=== PATIENT | male | born 1980 | race Hispanic/Latino ===

== ENCOUNTER 2017-12-23 14:54 | Observation (INO) | payer OTHER ==
[~2017-12-23] VITALS: Ht 170.2 cm; Wt 123.8 kg
--- NOTE | 2017-12-23 15:26 | ED CARDIAC/CP/PALPITATIONS ---
History of Present Illness General Chief Complaint: Chest Pain Stated Complaint: CHEST PAIN Source: patient, old records Exam Limitations: no limitations Vital Signs & Intake/Output Vital Signs & Intake/Output Vital Signs Date Time Temp Pulse Resp B/P B/P Pulse O2 O2 Flow FiO2 Mean Ox Delivery Rate 12/25 1130 98 Room Air 12/25 0836 60 122/68 12/25 0605 98.4 59 18 122/68 97 Room Air 12/24 2222 98.1 83 18 134/60 98 Room Air 12/24 1447 70 160/82 ED Intake and Output 12/25 0000 12/24 1200 Intake Total 660 600 Output Total 400 Balance 260 600 Intake, IV 10 Intake, Oral 650 600 Number 1 Bowel Movements Output, Urine 400 Triage Note: PT TO ED FOR SHARP CHEST PAINS THAT BEGAN WHILE EATING DINNER TODAY, SMELLS STRONGLY OF MARIJUANA WITH BLOOD EYES. 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 Nothing makes the pain better or worse. He was recently admitted to [facility] for pneumonia and the flu is currently on prednisone. He admits to smoking marijuana today however denies tobacco use cocaine use or alcohol use. No abdominal pain nausea vomiting. No leg swelling. (Ghazala ZENDEJAS,Gonzalo) Allergies Coded Allergies: Iodinated Contrast- Oral and IV Dye (ANAPHYLAXIS 12/23/17) haloperidol (HIVES 12/23/17) ketorolac (From TORADOL) (HIVES, RASH 12/23/17) meperidine (From DEMEROL) (HIVES 12/23/17) milk (LACTOSE INTOLERANT 12/23/17) oxycodone (UNKNOWN 12/23/17) shellfish derived (ANAPHYLAXIS 12/23/17) Reconcile Medications Albuterol Sulfate (Proair Hfa) 90 MCG HFA.AER.AD 2 PUF INH Q6H PRN WHEEZING ( Reported) Atorvastatin Calcium 40 MG TABLET 1 TAB PO DAILY CHOLESTEROL (Reported) Clopidogrel Bisulfate (Clopidogrel) 75 MG TABLET 1 TAB PO DAILY BLOOD THINNER (Reported) Diltiazem HCl (Cardizem Cd) 240 MG CAP.ER.24H 1 CAP PO DAILY HEART/BP ( Reported) Escitalopram Oxalate 10 MG TABLET 1 TAB PO DAILY MENTAL HEALTH (Reported) Fluticasone-Salmeterol (Advair 100-50 Diskus) 100 MCG-50 MCG/DOSE BLST.W.DEV 1 PUF INH BID RESP. (Reported) Hydrochlorothiazide 12.5 MG CAPSULE 1 CAP PO DAILY BP (Reported) Ibuprofen 800 MG TABLET 1 TAB PO TID PRN chest pain Lisinopril 40 MG TABLET 1 TAB PO DAILY BP (Reported) Omeprazole 40 MG CAPSULE.DR 1 CAP PO DAILY antacid Pantoprazole Sodium 40 MG TABLET.DR 1 TAB PO DAILY GI (Reported) Prednisone 20 MG TABLET 1 TAB PO STAT asthma 40mg 2tab 12/25 -12/26 30mg 1.5tab 12/27 - 12/28 20mg 1tab 12/30 - 12/31 10mg 0.5mg 01/01 - 01/02 Rivaroxaban (Xarelto) 20 MG TABLET 1 TAB PO DAILY BLOOD THINNER (Reported) with food (Luis Solorio DO) Past History Travel History Traveled to [place] past 21 day No Medical History Any Pertinent Medical History? 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 No (Ghazala ZENDEJAS,Gonzalo) Review of Systems Review of Systems Constitutional: Reports: see HPI. Comments Review of systems: See HPI, All other systems negative. Constitutional, no chills no fever, HEENT: no sore throat no congestion Cardiovascular: chest pain , no palpitation Skin: no rashes,NO change in skin Respiratory: dyspnea no cough GI: No nausea no vomiting, no diarrhea, : No dysuria No hematuria, no frequency Muscle skeletal: No joint pain, no back pain Neurologic: , no headache Heme/endocrine: No bruising Immunology: No lymphadenopathy (Gonzalo Osorio) Physical Exam Physical Exam General Appearance: well developed/nourished, alert, awake Cardiovascular: regular rate/rhythm Comments: Well-developed well-nourished person in no acute distress HEENT: Normal EENT exam; PERRL, EOMI, HEAD is atraumatic. moist mucous membranes. Neck: Supple, normal range of motion without pain or tenderness Back: Full range of motion Cardiovascular: Regular rate and rhythms no murmurs Respiratory: Chest nontender.There were no bony deformities, no asymmetry. No respiratory distress. Patient speaking in full complete sentences. Wheezing bilaterally no rhonchi no rales Abdomen: Soft, nontender nondistended, no appreciable organomegaly. Normal bowel sounds. No rebound/guarding Extremity: No edema, full range of motion of extremities Neuro: Alert oriented x3, motor sensory normal, cranial nerves II through XII grossly intact. There were no obvious focal neurologic abnormalities. Skin: No appreciable rash on exposed skin, skin is warm and dry. Psych: Mood and affect is normal, memory and judgment is normal. Core Measures ACS in differential dx? Yes CVA/TIA Diagnosis No Sepsis Present: No Sepsis Focused Exam Completed? No (Gonzalo Osorio) Progress Differential Diagnosis: AMI, aortic dissection, atrial fibrillation, CHF/pulm edema, pericarditis, pneumonia, pneumothorax, PSVT, pulmonary embolism, unstable angina, V-fib/V-Tach Plan of Care: Orders Procedure Date/time Status HIGH SENSITIVITY CRP 12/25 0731 Complete WESTERGREN SED RATE 12/25 0731 Complete C.DIFFICILE 12/24 1720 Complete URINE DRUGS OF ABUSE 12/24 1720 Complete AEROSOL CHG 12/24 UNK Complete Current Medications Sig/Theo Start time Last Medication Dose Stop Time Status Admin Prednisone 10 MG DAILY 12/31 1000 AC 01/02 0959 Prednisone 20 MG DAILY 12/29 1000 AC 12/31 0959 Prednisone 30 MG DAILY 12/27 1000 AC 12/29 0959 Prednisone 40 MG DAILY 12/25 1000 AC 12/25 03/ 0959 0836 Hydromorphone HCl 2 MG Q6P PRN 12/25 0915 AC 12/25 (Dilaudid) 1249 Albuterol Sulfate 3 ML BID 12/24 2200 AC 12/25 (Proventil) 1129 Azithromycin 500 MG Q24H 12/24 2200 AC 12/24 (Zithromax) 2230 Dextrose/Water 250 ML (D5W) Atorvastatin Calcium 40 MG 1700 12/24 1700 AC 12/24 (Lipitor) 1838 Doxazosin Mesylate 1 MG DAILY 12/24 1315 AC 12/25 (Cardura) 0836 Budesonide/ 2 PUF BID 12/24 1000 AC 12/25 Formoterol Fumarate 0837 (SYMBICORT) Clopidogrel Bisulfate 75 MG DAILY 12/24 1000 AC 12/25 (Plavix) 0836 Diltiazem HCl 240 MG DAILY 12/24 1000 AC 12/25 (Cardizem CD) 1254 Escitalopram Oxalate 10 MG DAILY 12/24 1000 AC 12/25 (Lexapro) 0836 Hydrochlorothiazide 12.5 MG DAILY 12/24 1000 AC 12/25 (Hydrodiuril) 0836 Lisinopril 40 MG DAILY 12/24 1000 AC 12/25 (Prinivil) 0836 Rivaroxaban 20 MG DAILY 12/24 1000 AC 12/25 (Xarelto) 0835 Omeprazole 40 MG DAILY AC 12/24 0700 AC 12/25 (Prilosec) 0642 Albuterol Sulfate 2 PUF Q6H PRN 12/24 0100 AC (Ventolin) Diphenhydramine HCl 25 MG Q6P PRN 12/23 2315 AC 12/25 (Benadryl) 1149 Acetaminophen 650 MG Q6P PRN 12/23 2200 AC (Tylenol) Laboratory Tests 12/25/17 0825: C-React Prot High Sens 3.7 H, ESR Westergren 4 12/24/17 1659: ESR Westergren Cancelled Labs ordered old records reviewed patient acute nitroglycerin sublingual, morphine IV DuoNeb chest x-ray CAT scan ordered case discussed with Dr. Solorio agrees with plan Patient feeling improved after breathing treatment I spoke with Dr. Chairez who agrees with plan for repeat troponin CAT scan Case discussed with Dr. Chairez who will consult agrees with plan need for telemetry observation 1830 patient resting in no apparent distress and CAT scan patient is currently on prednisone after I discussed with him all this logically is elevated white blood cell count Diagnostic Imaging: Viewed by Me: Radiology Read, CT Scan. Discussed w/RAD: Radiology Read, CT Scan. Radiology Impression: PATIENT: EUN LARA PRESENT AGE: 37 PATIENT ACCOUNT NO: [id number] : 79 LOCATION: [facility] ORDERING PHYSICIAN: Gonzalo ZENDEJAS SERVICE DATE: 12/23/17 EXAM TYPE: CAT - CTA CHEST-PULMONARY EMBOLISM EXAMINATION: CT ANGIOGRAM OF THE CHEST WITH AND WITHOUT CONTRAST (CT PULMONARY ANGIOGRAM FOR PE) CLINICAL INFORMATION: Reason for Study:
Presumptive Dx: RO PE
Signs Symptoms: HO PE, CP DYSPNEA
COMPARISON: CT 10/31/2009, CT chest 10/30/2009 TECHNIQUE: Prior to contrast administration, noncontrast localization images were obtained. Subsequently, multidetector volumetric imaging was performed from the thoracic inlet to below the diaphragms following the administration of 80 mL Omnipaque 350 intravenous contrast. No contrast reaction reported. Sagittal, coronal, and MIP oblique sagittal reformatted images were obtained on the CT workstation, uploaded to PACS, and reviewed. Total exam dose-length product 589 mGy-cm. FINDINGS: QUALITY OF STUDY/ CONTRAST BOLUS: Satisfactory PULMONARY ARTERIES: No central or segmental pulmonary emboli. THORACIC AORTA: No aneurysm or dissection. LUNG: There are scattered patchy groundglass opacities throughout both lungs. These are slightly increased in number within the upper lobes compared to the lower lobes. There is a pulmonary nodule at the right lung base which appears new compared to the 2010 study measuring 0.6 cm size (image 51, series 3). PLEURA: No pleural effusion or pneumothorax. MEDIASTINUM: Normal heart size. No pericardial effusion. No hilar or mediastinal lymphadenopathy. No evidence of septal bowing or right heart strain. CHEST WALL/AXILLA: Moderate bilateral gynecomastia. No axillary adenopathy. OSSEOUS STRUCTURES: No acute or suspicious osseous abnormality. UPPER ABDOMEN: Unremarkable. No reflux of contrast into the hepatic veins to suggest elevated right heart pressures. IMPRESSION: 1. No pulmonary embolism. 2. Bilateral scattered groundglass airspace opacities. The differential diagnosis includes atypical infectious organisms such as CMV and pneumocystis jirovecii . Less commonly, these findings can be seen in hypersensitivity pneumonitis, diffuse alveolar hemorrhage and cryptogenic organizing pneumonia. 3. 6 mm pulmonary nodule at the right lung base. Recommend follow-up CT in 12 months. VTE: negative DICTATED BY: Alesha Sánchez MD DATE/TIME DICTATED:12/23/172028 MANAGER PROGRAMS:PRATIK DATE/TIME TRANSCRIBED:12/23/172028 CONFIDENTIAL, DO NOT COPY WITHOUT APPROPRIATE AUTHORIZATION. <Electronically signed in Other Vendor System> SIGNED BY: Alesha Sánchez MD 12/23/172037 Initial ED EKG: normal intervals, normal p-waves, normal QRS complex, normal sinus rhythm (Gonzalo Osorio) Departure Departure Time of Disposition: 2234 Disposition: STILL A PATIENT Condition: Stable Clinical Impression Primary Impression: Chest pain Qualifiers: Chest pain type: other chest pain Qualified Code: R07.89 - Other chest pain Secondary Impressions: Lung nodule, Opacity of lung on imaging study Referrals: Patient Has No Primary Care Dr Departure Forms: Customer Survey General Discharge Information Observation Note Spoke With: Keyon RIGGS,Joseytodd Physician Advisor Notified: YURI RIGGS,MARY KAY Nag[facility] Place Patient In: Non-ED OBS Care Area Rationale for Observation: My rational for observation is as follows [cardiology consult trend labs trend troponin telemetry monitoring premature discharge he be medically harmful (Gonzalo Osorio) Departure Prescriptions: Current Visit Scripts Prednisone 1 TAB PO STAT #10 TAB 40mg 2tab 12/25 -12/26 30mg 1.5tab 12/27 - 12/28 20mg 1tab 12/30 - 12/31 10mg 0.5mg 01/01 - 01/02 Omeprazole 1 CAP PO DAILY #30 CAP Ibuprofen 1 TAB PO TID PRN chest pain #30 TAB PA/STEAM HEATING INSTALLER Co-Sign Statement Statement: ED Attending supervision documentation- [X] I saw and evaluated the patient. I have also reviewed all the pertinent lab results and diagnostic results. I agree with the findings and the plan of care as documented in the PA's/STEAM HEATING INSTALLER's documentation. [] I have reviewed the ED Record and agree with the PA's/STEAM HEATING INSTALLER's documentation. [] Additions or exceptions (if any) to the PAs/STEAM HEATING INSTALLER's note and plan are summarized below: [] I've seen and personally examined the patient and I agree with the PAs evaluation. Patient has a history of pulmonary embolism and now presents with chest pain and difficulty breathing (Osmin SALAZAR,Luis Hernandez) Observation Note Spoke With: Keyon RIGGS,Stephanie PA/STEAM HEATING INSTALLER Co-Sign Statement Statement: ED Attending supervision documentation- [] I saw and evaluated the patient. I have also reviewed all the pertinent lab results and diagnostic results. I agree with the findings and the plan of care as documented in the PA's/STEAM HEATING INSTALLER's documentation. [] I have reviewed the ED Record and agree with the PA's/STEAM HEATING INSTALLER's documentation. [] Additions or exceptions (if any) to the PAs/STEAM HEATING INSTALLER's note and plan are summarized below: [] (Yuri RIGGS,Mary Kay Nagy) Critical Care Note Critical Care Note Critical Care Time: non-applicable (Gonzalo Osorio) Critical Care Note Critical Care Note Critical Care Time: non-applicable (Gonzalo Osorio)
[2017-12-23 15:30] LABS: ABSOLUTE BASOPHIL COUNT 0.1 /CUMM (0.0-0.2); ABSOLUTE EOSINOPHIL COUNT 0 /CUMM (0.0-0.7); ABSOLUTE GRANULOCYTE CT 16.5 /CUMM (1.4-6.5); ABSOLUTE LYMPH COUNT 0.5 /CUMM (1.2-3.4); ABSOLUTE MONOCYTE COUNT 0.2 /CUMM (0.10-0.60); BASOPHIL % 0.5 % (0.0-2.0); EOSINOPHIL % 0 % (0-5); GRANULOCYTE % 95.4 % (42.2-75.2); HEMATOCRIT 42.3 % (42-52); MEAN CORPUSCULAR HGB 31.9 PG (27.0-31.0); MEAN CORPUSCULAR HGB CONC 33.7 G/DL (33.0-37.0); MEAN CORPUSCULAR VOLUME 94.8 FL (80.0-94.0); MEAN PLATELET VOLUME 8.1 FL (7.4-10.4); PLATELET COUNT 258 /CUMM (130-400); RBC DISTRIBUTION WIDTH 14.1 % (11.5-14.5); RED BLOOD CELL CT 4.47 /CUMM (4.70-6.10); WHITE BLOOD CELL COUNT 17.3 /CUMM (4.8-10.8)
[2017-12-23 15:34] LABS: PT 14.8 SEC (9.4-12.5); PTT 32 SEC (25-37)
[2017-12-23] MEDS ORDERED: PROAIR HFA8.5 GM INH (18:39)
[2017-12-23] MEDS ORDERED: XARELTO20 M2 PO (18:39)
[2017-12-23] MEDS ORDERED: PANTOPRAZOLE SO40 M1 PO (18:40)
[2017-12-23] MEDS ORDERED: LISINOPRIL40 M1 PO (18:40)
[2017-12-23] MEDS ORDERED: HYDROCHLOROTH12.5 M3 PO (18:40)
[2017-12-23] MEDS ORDERED: ATORVASTATIN CA40 M1 PO (18:40)
[2017-12-23] MEDS ORDERED: PREDNISONE20 M1 PO (18:41)
[2017-12-23] MEDS ORDERED: ADVAIR 100-501 EACH INH (18:42)
[2017-12-23] MEDS ORDERED: ESCITALOPRAM OX10 MG PO (18:42)
[2017-12-23] MEDS ORDERED: CARDIZEM CD240 M1 PO (18:42)
[2017-12-23] MEDS ORDERED: CLOPIDOGREL75 M1 PO (18:43)
[2017-12-23] MEDS ORDERED: CIPRODEX OTIC7.5 ML (18:44)
[2017-12-23] MEDS ORDERED: AMOX-CLAV 875-1 EACH (18:44)
--- NOTE | 2017-12-23 20:38 | CT SCAN REPORT ---
EXAMINATION: CT ANGIOGRAM OF THE CHEST WITH AND WITHOUT CONTRAST (CT PULMONARY ANGIOGRAM FOR PE) CLINICAL INFORMATION: Reason for Study:
Presumptive Dx: RO PE
Signs Symptoms: HO PE, CP DYSPNEA
COMPARISON: CT 10/31/2009, CT chest 10/30/2009 TECHNIQUE: Prior to contrast administration, noncontrast localization images were obtained. Subsequently, multidetector volumetric imaging was performed from the thoracic inlet to below the diaphragms following the administration of 80 mL Omnipaque 350 intravenous contrast. No contrast reaction reported. Sagittal, coronal, and MIP oblique sagittal reformatted images were obtained on the CT workstation, uploaded to PACS, and reviewed. Total exam dose-length product 589 mGy-cm. FINDINGS: QUALITY OF STUDY/CONTRAST BOLUS: Satisfactory PULMONARY ARTERIES: No central or segmental pulmonary emboli. THORACIC AORTA: No aneurysm or dissection. LUNG: There are scattered patchy groundglass opacities throughout both lungs. These are slightly increased in number within the upper lobes compared to the lower lobes. There is a pulmonary nodule at the right lung base which appears new compared to the 2010 study measuring 0.6 cm size (image 51, series 3). PLEURA: No pleural effusion or pneumothorax. MEDIASTINUM: Normal heart size. No pericardial effusion. No hilar or mediastinal lymphadenopathy. No evidence of septal bowing or right heart strain. CHEST WALL/AXILLA: Moderate bilateral gynecomastia. No axillary adenopathy. OSSEOUS STRUCTURES: No acute or suspicious osseous abnormality. UPPER ABDOMEN: Unremarkable. No reflux of contrast into the hepatic veins to suggest elevated right heart pressures. IMPRESSION: 1. No pulmonary embolism. 2. Bilateral scattered groundglass airspace opacities. The differential diagnosis includes atypical infectious organisms such as CMV and pneumocystis jirovecii . Less commonly, these findings can be seen in hypersensitivity pneumonitis, diffuse alveolar hemorrhage and cryptogenic organizing pneumonia. 3. 6 mm pulmonary nodule at the right lung base. Recommend follow-up CT in 12 months. VTE: negative
--- NOTE | 2017-12-23 22:26 | History & Physical ---
Leyla RIGGS,Felipa 12/23/17 4135: General Information and HPI MD Statement: I have seen and personally examined EUN LARA and documented this H&P. The patient is a 37 year old M who presented with a patient stated chief complaint of [chest pain]. Source of Information: patient, old records Exam Limitations: no limitations History of Present Illness: 37 years old male with PMH of OH S\\P RCA stent, A. fib, hypertension, multiple PE, multiple DVT S/P IVC filter, on Xeralto, factor V Lieden mutationt, lung nodule, asthma, colitis, diverticulitis is S/P partial colectomy, presented to [place] ED complaining of chest pain which started 6 hours ago and the patient was having lunch. Patient describes the pain as sharp stabbing on the medleft side of the chest. It radiates to the right side of the chest and left mid back , 7/10 in severity, increased with lying down and deep breathing, slightly improved after taking Dilaudid in the ED. It is associated with exertional shortness of breath, dry cough, headache, sweating. -Patient also reports low-grade fever of 100 around the time this chest pain started. -Patient also endorses watery nonbloody diarrhea for 23 days, intermittent palpitations. -Patient also complains of right thigh pain and numbness but he said this is chronic condition. -The patient has been complaining of right ear fullness and decreased hearing associated with sore throat for many days for which he called his primary care doctor this morning however he had to come to the ED for his chest pain. -The patient was recently discharged from [facility] after he was treated for pneumonia and flu (type A and B as per the patient for which he received Tamiflu , antibiotic course and prednisone taper which he already finished. -Of note the patient has factor V Leyden mutation and has a history of PE 5 times and DVT 2 times he was initially treated with Coumadin and had IVC filter placed however he was switched to Xeralto to 3 month ago when the patient asked his PCP to be switched NOACs to avoid the need for frequent PT/INR monitoring. -Patient has also history of OH and had stent placed in the RCA 2 years ago in [place], a few weeks ago he had stress test done in [place] which showed some abnormality, he had cardiac cath done, which was normal as per the patient -Of note the patient has history of recurrent infection, during the past year and had to be hospitalized 3 times for pneumonia, twice for bronchitis, and was diagnosed with FLU twice, patient reports having very low immunity and getting sick kelvin easily, patient reports that he was tested for HIV long time ago and was negative. He denies any IV drug use. 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 since he moved from [place] recently ED course: -Vital signs: Blood pressure was elevated to 190/83 which subsequently decreased to 148/92, temperature 90.8, pulse ox 98 on room air, respiratory 22, pulse 82 -EKG: Normal sinus rhythm, heart rate 91, NM 91, QTC 424, QRS 82, no hyperacute T waves in V1, V2 and V3 changes -Labs: Significant for leukocytosis 17.3, with a left shift, bands 3, platelet 258, stable H&H, normal chest: No pulmonary embolus, bilateral scattered groundglass opacity suggestive of CMV or PCP,BEP normal except for glucose 196 EKG: NSR, HR: 91, QTC 424, QRS 344 Allergies/Medications Allergies: Coded Allergies: Iodinated Contrast- Oral and IV Dye (ANAPHYLAXIS 12/23/17) haloperidol (HIVES 12/23/17) ketorolac (From TORADOL) (HIVES, RASH 12/23/17) meperidine (From DEMEROL) (HIVES 12/23/17) milk (LACTOSE INTOLERANT 12/23/17) oxycodone (UNKNOWN 12/23/17) shellfish derived (ANAPHYLAXIS 12/23/17) Home Med list Albuterol Sulfate (Proair Hfa) 90 MCG HFA.AER.AD 2 PUF INH Q6H PRN WHEEZING ( Reported) Atorvastatin Calcium 40 MG TABLET 1 TAB PO DAILY CHOLESTEROL (Reported) Clopidogrel Bisulfate (Clopidogrel) 75 MG TABLET 1 TAB PO DAILY BLOOD THINNER (Reported) Diltiazem HCl (Cardizem Cd) 240 MG CAP.ER.24H 1 CAP PO DAILY HEART/BP ( Reported) Escitalopram Oxalate 10 MG TABLET 1 TAB PO DAILY MENTAL HEALTH (Reported) Fluticasone-Salmeterol (Advair 100-50 Diskus) 100 MCG-50 MCG/DOSE BLST.W.DEV 1 PUF INH BID RESP. (Reported) Hydrochlorothiazide 12.5 MG CAPSULE 1 CAP PO DAILY BP (Reported) Lisinopril 40 MG TABLET 1 TAB PO DAILY BP (Reported) Pantoprazole Sodium 40 MG TABLET.DR 1 TAB PO DAILY GI (Reported) Rivaroxaban (Xarelto) 20 MG TABLET 1 TAB PO DAILY BLOOD THINNER (Reported) with food 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" Influenza Vaccine: 06/29/17 Surgical History Surgical History: non-contributory Past Family/Social History Family History Relations & Conditions if any FATHER Psychosocial History Services at Home: None ETOH Use: occasional use Illicit Drug Use: marijuana Review of Systems Review of Systems Constitutional: Reports: chills, diaphoresis, fever, malaise, weakness. EENTM: Reports: ear pain, throat pain. Cardiovascular: Reports: chest pain, palpitations. Respiratory: Reports: cough, short of breath. GI: Reports: diarrhea, nausea. Genitourinary: Denies: no symptoms. Musculoskeletal: Denies: no symptoms. Skin: Denies: no symptoms. Exam & Diagnostic Data Last 24 Hrs of Vital Signs/I&O Vital Signs Date Time Temp Pulse Resp B/P B/P Pulse O2 O2 Flow FiO2 Mean Ox Delivery Rate 12/23 2326 98.5 85 20 180/110 95 Room Air 12/23 2210 98.0 76 22 148/92 97 Room Air 12/23 1947 98.0 82 22 190/83 12/23 1936 98.0 82 22 190/83 98 Room Air 12/23 1901 98.2 74 22 192/88 97 Room Air 12/23 1607 97.8 97 22 168/77 95 Room Air 12/23 1601 95 Room Air 12/23 1542 97 12/23 1458 98.0 102 18 181/97 94 Room Air Intake & Output 12/23 1600 12/23 0800 12/23 0000 Intake Total Output Total Balance Patient 273 lb Weight Weight Reported by Patient Measurement Method Physical Exam General Appearance Alert, Oriented X3, Cooperative, No Acute Distress Skin No Rashes, No Breakdown, No Significant Lesion HEENT Atraumatic, PERRLA, EOMI, Mucous Membr. moist/pink Neck Supple, No JVD Cardiovascular Normal S1, Normal S2, No Murmurs, irregular Lungs wide spread wheezes and decreased air entery bilateral Abdomen Normal Bowel Sounds, Soft, tender left upper quadrant Neurological Normal Speech, Strength at 5/5 X4 Ext, Normal Tone, Sensation Intact Extremities No Clubbing, No Cyanosis, right leg is slightly moreedematous than the left leg, pulses intact Vascular Normal Pulses, Pulses Symmetrical Sepsis Peripheral Pulse Location: Radial Last 24 Hrs of Labs/Bret: Laboratory Tests 12/23/172234: Troponin I < 0.01 12/23/17 1510: Anion Gap 10, Estimated GFR > 60, BUN/Creatinine Ratio 23.8, Glucose 196 H, Calcium 8.8, Total Bilirubin 0.5, AST 19, ALT 39, Alkaline Phosphatase 118, Troponin I < 0.01, Total Protein 5.7 L, Albumin 3.3 L, Globulin 2.4, Albumin/ Globulin Ratio 1.4, PT 14.8 H, INR 1.41 H, APTT 32, CBC w Diff MAN DIFF ORDERED, RBC 4.47 L, MCV 94.8 H, MCH 31.9 H, MCHC 33.7, RDW 14.1, MPV 8.1, Gran % 95.4 H, Lymphocytes % 2.7 L, Monocytes % 1.4 L, Eosinophils % 0, Basophils % 0.5, Absolute Granulocytes 16.5 H, Segmented Neutrophils 92 H, Band Neutrophils 3, Absolute Lymphocytes 0.5 L, Lymphocytes 4 L, Monocytes 1 L, Absolute Monocytes 0.2, Absolute Eosinophils 0, Absolute Basophils 0.1, Platelet Estimate ADEQUATE, Normocytic RBCs VERIFIED, Normochromic RBCs VERIFIED , Hepatitis A IgM Ab Pending, Hep Bs Antigen Pending, Hep B Core IgM Ab Conf Pending, Hepatitis C Antibody Pending, HIV 1&2 Ab Western Blot Pending Microbiology 12/23 2242 HEAD/NECK: Surveillance Culture - ORD 12/23 2239 BLOOD: Blood Culture - RECD 12/23 2229 BLOOD: Blood Culture - RECD 12/23 2215 URINE ROUT: Legionella Antigen - ORD 12/23 2215 URINE ROUT: Streptococcus pneumoniae Antigen (M - ORD 12/23 2215 URINE ROUT: Urine Culture - ORD 12/23 2215 LOWER RESP: Respiratory Culture - ORD 12/23 2215 LOWER RESP: Gram Stain - ORD 12/23 2215 STOOL: Clostridium difficile Toxin A & B - ORD 12/23 1939 NASOPHARYN: Influenza Virus A & B Rapid Smear - COMP Diagnostic Data EKG Results NSR , QTC 424, No st- t changes Other Results CTA: No PE, bilateral ground glass opacity, 6 mm right lung nodule Assessment/Plan Assessment: 37 years old male with PMH of OH S\\P RCA stent, A. fib, hypertension, multiple PE, multiple DVT S/P IVC filter, on Xeralto, factor V Lieden mutationt, lung nodule colitis, diverticulitis is S/P partial colectomy, presented to [place] ED complaining of chest pain which started 6 hours ago and the patient was having lunch. Chest pain increases with deep breathing and lying on his back which make it more pericardial versus pleural in origin. In addition the patient has recent history of hospitalization for pneumonia which make pleurisy or pericarditis more likely as the cause of his chest pain. However the patient has history of OH S/P stent for which ACS has to be ruled out with serial troponin and EKG. in addition the patient has history of recurrent PE however CTA was negative for PE only showed ground glass opacity suggestive of atypical pneumonia #Atypical chest pain: Most likely due to pleurisy versus pericarditis however the patient has history of ACS S/P stent Observe on telemetry Serial EKG and troponins to rule out ACS Obtain records from [facility] Cardiology consult appreciated Vitals every shift Pain control with Tylenol, Percocet, Dilaudid #Asthma exacerbation: has long history of asthma since It IV Solu-Medrol 40 mg every 6 IV and azithromycin TRC/nebs Pulm consult appreciated in the morning #? Atypical Pneumonia CTA showed groundglass opacities suspicious for CMV versus PCP History of recurrent infection with multiple hospitalizations Patient has remote history of IV drug abuse Check HIV, hepatitis panel Follow-up on blood culture, rapid flu, strep pneumonia and legionella ID consult appreciated in the morning for recurrent infection #Recurrent PE and DVT S/P IVC fiter on Xeralto: CTA ruled out PE Continue Xeralto 20 mg Get Doppler lower extremities to rule out DVT # Diarrhea Patient was hospitalized recently and he finished a course of antibiotic Sending stool for C. difficile #Solitary right lung nodule: CTA showed 6 mm lung nodule Will need follow-up as outpatient #Chronic medical condition: Continue home meds Heart healthy diet DVT prophylaxis with Xeralto full code As Ranked By This Provider Problem List: 1. Opacity of lung on imaging study 2. Lung nodule 3. Chest pain Qualifiers Chest pain type: other chest pain Qualified Code: R07.89 - Other chest pain Core Measures/Misc (07/15) Acute Coronary Syndrome ACS Diagnosis: No Congestive Heart Failure Congestive Heart Failure Diagnosis No Cerebrovascular Accident CVA/TIA Diagnosis: No VTE (View Protocol) VTE Risk Factors Age>40 No Mechanical VTE Prophylaxis d/t N/A MechProphylax Ordered No VTE Pharm Prophylaxis d/t NA PharmProphylax ordered Sepsis (View protocol) Sepsis Present: No RebeccaGabriel 12/24/17 0041: Resident Review Statement Resident Statement: examined this patient, discussed with operations intern, agreed with operations intern, reviewed EMR data (avail), discussed with nursing, discussed with case mgmt, reviewed images, amended to note Other Findings: This is 37 years old male with medical history of myocardial infarction S\\P RCA stent 2 years ago, A. fib, multiple pulmonary embolism and multiple DVT S/P IVC filter currently on Xeralto, factor V Lieden mutationt, lung nodule, asthma, colitis, diverticulitis is S/P partial colectomy, hypertension, history of multidrug use(cocaine), history of C. difficile, MRSA. Patient presented to the emergency department with a chief complaint of chest pain, the mid of the chest, radiating to the left side associated with shortness of breath increased with laying flat increased with sitting up associated with cough and difficulty breathing with expiratory wheezing, according to the patient the symptoms started on 6 hours prior to his presentation to the emergency department. Also he reports watery loose nonbloody daily for the past 3-4 days, patient stated that he called his primary care doctor after discharged from [facility] around 1 week when he was treated there for pneumonia and influenza A for one week ago due to ear pain and he was prescribed Augmentin antibiotic. Patient reports cardiac catheterization that was done 2-1/2 weeks ago and [place] due to abnormal EKG and stress test that was done at [facility] according to the patient the cardiac cath showed the old RCA stent, no additional stenting was done for him. Also patient reports multiple admission to the hospital due to underlying pneumonia that required IV antibiotic treatment, bronchitis, and asthma exacerbation in the past year. Patient report that last time he had the PE was around 1 year ago when he was on Coumadin, patient stated that he was changed Xarelto anticoagulation around 3-[address] scan was done in the emergency department that came back negative for pulmonary embolism, showed Bilateral scattered groundglass airspace opacities. Physical examination, lab and imaging as above. Assessment: -Chest pain/shortness of breath/wheezing: Given the patient's underlying risk factor for acute coronary syndrome despite his recent cardiac cath will need to observe the patient on rule out any underlying ACS which is least likely. His pain could be most likely pluritic due to his asthma exacerbation/bronchitis as it is associated with cough and shortness of breath. Also need to rule out atypical pneumonia pre chest CAT scan findings -Multiple infection/leukocytosis: We'll need to rule out HIV, immunodeficiency disease as the patient reports multiple infection at least in the past year more than 4 times that required hospitalization and IV antibiotic. Problem list: -Acute chest pain -Asthma exacerbation/bronchitis -Questionable atypical pneumonia/leukocytosis -Watery loose diarrhea Need to rule out C. difficile -Multiple PE and DVTs-right calf pain need to rule out DVT -Incidental finding of 6 mm lung nodule Plan: -Admit patient to telemetry floor -Vitals every shift -Serial troponin and EKG -Cardiology consultation in a.m. -IV Solu-Medrol 40 mg every 6 -Continue IV azithromycin -TRC nebs as needed, continue home inhaler -Pulmonary consultation in a.m. -Sputum culture, blood culture, urine culture and analysis, urine tox -Strep and Legionella urine antigen, obtain hepatitis panel, HIV -Obtain C. difficile stool antigen hold off on any anti-diarrhea medication for now. -Infectious disease consult in a.m. -Obtain right lower extremity venous Doppler -Obtain medical records from [facility] and primary care doctor. -Continue home medication -Heart healthy diet -Pain pathway -DVT prophylaxis on Xarelto -Full code. Keyon RIGGS, [facility] 12/24/17 0435: Attending MD Review Statement Attending Statement Attending MD Statement: examined this patient, discuss w/resident/PA/CLINICAL SOCIOLOGIST, agreed w/resident/PA/CLINICAL SOCIOLOGIST, reviewed images, amended to note Attending Assessment/Plan: 37 yo morbidly obese M with h/o CAD s/p RCA stent, Factor V Leiden deficiency, multiple PE and RLE DVT on xarelto s/p IVC filter, asthma, Afib, marijuana user, polysubstance abuse, HTN, is here for evaluation of left sided chest pain radiating to left shoulder associated with nonproductive cough and dyspnea. He was discharged from [facility] 1 week ago after being treated for pneumonia and influenza. He completed the course of antibiotics and prednisone. Per claim history, patient was prescribed prednisone 5 days ago? He also underwent a recent cardiac cath while at [facility] for an abnormal stress test, cardiac cath revealed patent stents and no occlusive disease. He reports diarrhea for the past 3 days, and he has a h/o Cdiff. He called his PCP today as he had bilateral ear pain and was prescribed Augmentin which he has not started taking yet. He has had recurrent episodes of pneumonia and asthma over the past 1 year. Vitals stable except elevated BP. Exam diffuse expiratory wheezing with rhonchi+ . Otoscopy - normal. Labs: WBC 17.3, bands 3, INR 1.41, trop neg. Chest CTA: no PE, bilateral scattered groundglass airspace opacities ?atypical pneumonia, pneumonitis, right lung base pulmonary nodule. Flu negative. EKG: sinus rhythm, old peaked T waves, no acute changes. Assessment and plan: 1. Chest pain at rest 2. H/o CAD s/p RCA stent, s/p recent cardiac cath 3. Recurrent atypical pneumonia with asthma exacerbation 4. Diarrhea rule out Cdiff 5. History of PE/DVT on xarelto 6. 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 - Obtain Pulm and ID consult - Check stool Cdiff and culture - LE doppler to rule out DVT - Continue PPI, statin, xarelto, lisinopril, HCTZ, symbicort, lexapro, cardizem and plavix - Pain management with Tylenol and dilaudid DVT ppx Xarelto. Full code. Observation Initial Note - I have personally examined EUN LARA on 12/24/17 at 0435. The disposition of EUN LARA is uncertain at this time and before a determination can be made, he requires a period of observation for the following reasons [Chest pain, atypical pneumonia]
[2017-12-23 23:27] VITALS: BP 180/110
[2017-12-24 05:29] LABS: ABSOLUTE BASOPHIL COUNT 0 /CUMM (0.0-0.2); ABSOLUTE EOSINOPHIL COUNT 0 /CUMM (0.0-0.7); ABSOLUTE GRANULOCYTE CT 15.8 /CUMM (1.4-6.5); ABSOLUTE LYMPH COUNT 0.8 /CUMM (1.2-3.4); ABSOLUTE MONOCYTE COUNT 0.2 /CUMM (0.10-0.60); BASOPHIL % 0 % (0.0-2.0); EOSINOPHIL % 0 % (0-5); GRANULOCYTE % 94.2 % (42.2-75.2); HEMATOCRIT 39.1 % (42-52); MEAN CORPUSCULAR HGB 31.1 PG (27.0-31.0); MEAN CORPUSCULAR HGB CONC 32.8 G/DL (33.0-37.0); MEAN CORPUSCULAR VOLUME 94.8 FL (80.0-94.0); MEAN PLATELET VOLUME 8.5 FL (7.4-10.4); PLATELET COUNT 247 /CUMM (130-400); RBC DISTRIBUTION WIDTH 14.1 % (11.5-14.5); RED BLOOD CELL CT 4.13 /CUMM (4.70-6.10); WHITE BLOOD CELL COUNT 16.7 /CUMM (4.8-10.8)
[2017-12-24 05:44] VITALS: BP 172/90
[2017-12-24 06:42] VITALS: BP 168/80
--- NOTE | 2017-12-24 07:20 | RADIOLOGY REPORT ---
EXAMINATION: XR PORTABLE CHEST CLINICAL INFORMATION: Evaluate for pneumonia COMPARISON: None TECHNIQUE: Portable frontal view of the chest was obtained. FINDINGS: Preliminary report had been given by Dr. Steel on 12/23/2017 Examination is limited due to patient's body habitus. Cardia mediastinal silhouette is within normal limits. Patchy atelectasis right midlung noted again. No gross consolidation. No evidence of pleural effusion. IMPRESSION: No gross evidence of acute pulmonary disease.
--- NOTE | 2017-12-24 07:26 | PN-Observation ---
See Addendum Observation Note Observation Note _ I have personally examined EUN LARA. him disposition is uncertain at this time. Before a determination can be made, he requires continued observation for the following reasons [chest pain]. Assessment/Plan Medical Assessment: 37 years old male with PMH of MN S\P RCA stent, A. fib, hypertension, multiple PE, multiple DVT S/P IVC filter, on Xeralto, factor V Lieden mutationt, lung nodule colitis, diverticulitis is S/P partial colectomy, presented to [place] ED complaining of chest pain which started 6 hours ago and the patient was having lunch. Chest pain increases with deep breathing and lying on his back which make it more pericardial versus pleural in origin. In addition the patient has recent history of hospitalization for pneumonia which make pleurisy or pericarditis more likely as the cause of his chest pain. However the patient has history of MN S/P stent for which ACS has to be ruled out with serial troponin and EKG. in addition the patient has history of recurrent PE however CTA was negative for PE only showed ground glass opacity suggestive of atypical pneumonia 12/24: Today patient continues to have chest pain. Etiology of patient's chest pain is unclear, however is unlikley to be cardiac etiology based on reproducible chest pain, negative EKG and troponins with most recent reports from [facility] showing a negative cardiac workup. Likely patient's pain is musculoskeletal in nature. Unlikely to be due to percardaditis with most recent echo normal and with negative imaging this admission. As patient has a history of GI bleed and is currently on anticoagulation, would not give NSAIDs. Patient continues to remain hypertensive likely secondary to pain. Patient was started on doxazosin per cardiology today. Patient also had one loose watery bowel movement today which was sent for c.dif. Patient's utox was negative today. CTPMP was checked today. #Hypertension: bp elevated likely secondary to pain. Patient's blood pressure has been elevated. Per cardiology doxazosin was added. Continue to monitor bp Control pain #Atypical chest pain: Most likely due to pleurisy versus pericarditis however the patient has history of ACS S/P stent Observe on telemetry Serial EKG and trops negative Records from [facility] obtained today- negative recent cardiac workup Cardiology consult appreciated Vitals every shift Pain control with Tylenol, Percocet, Dilaudid #Asthma exacerbation: IV Solu-Medrol 40 mg every 6 discontinued today. Patient started on a prednisone taper. IV azithromycin TRC/nebs #? Atypical Pneumonia CTA showed groundglass opacities suspicious for CMV versus PCP History of recurrent infection with multiple hospitalizations Patient has remote history of IV drug abuse Hepatitis panel negative, HIV negative Utox negative Follow-up on blood culture, rapid flu, strep pneumonia and legionella #Recurrent PE and DVT S/P IVC fiter on Xeralto: CTA ruled out PE Continue Xeralto 20 mg Doppler lower extremities to rule out # Diarrhea Patient was hospitalized recently and he finished a course of antibiotic Patient had one episode of loose stool today. It was sent for C. difficile. #Solitary right lung nodule: CTA showed 6 mm lung nodule Will need follow-up as outpatient #Chronic medical condition: Continue home meds Heart healthy diet DVT prophylaxis with Xeralto full code Problem List: 1. Chest pain Qualifiers Chest pain type: other chest pain Qualified Code: R07.89 - Other chest pain Subjective Follow-up For: Chest pain Tele-Events Since Last Visit: Sinus bradycardia to normal sinus rhythm heart rate 59-87 Subjective: Patient was seen and examined today. Patient states that he has chest pain which he describes as a combination of pressure, stabbing, sharp pain on his left side radiating to his left shoulder and back. Patient denies any palpitations, dizziness, lightheadedness, shortness of breath. Patient reports headache and abdominal discomfort. Patient had one bowel movement overnight which was loose and watery. Patient reports no other bowel movements this morning. Review of Systems Constitutional: Reports: see HPI. Objective Last 24 Hrs of Vital Signs/I&O Vital Signs Date Time Temp Pulse Resp B/P B/P Pulse O2 O2 Flow FiO2 Mean Ox Delivery Rate 12/24 1447 70 160/82 12/24 1336 98.8 63 20 180/70 97 Room Air 12/24 1325 Room Air 12/24 1325 95 Room Air 12/24 1303 82 12/24 0841 59 168/80 12/24 0642 97.9 59 20 168/80 96 Room Air 12/24 0544 172/90 12/23 2327 98.5 85 20 180/110 95 Room Air 12/23 2210 98.0 76 22 148/92 97 Room Air 12/23 1947 98.0 82 22 190/83 12/23 1936 98.0 82 22 190 98 Room Air Intake & Output 12/24 1600 12/24 0800 12/24 0000 Intake Total 560 600 0 Output Total 400 Balance 160 600 0 Intake, IV 10 Intake, Oral 550 600 0 Number 1 Bowel Movements Output, Urine 400 Patient 273 lb Weight Physical Exam General Appearance: Alert, Oriented X3, Cooperative, No Acute Distress Skin: No Rashes, No Breakdown, No Significant Lesion Sepsis Skin Exam (color): Normal for Ethnicity HEENT: Atraumatic, PERRLA, EOMI, Mucous Membr. moist/pink Cardiovascular: Regular Rate, Normal S1, Normal S2, No Murmurs, Gallops, Rubs Lungs: bilateral diffuse wheezing Abdomen: Normal Bowel Sounds, Soft, No Tenderness Neurological: Normal Speech Extremities: No Clubbing, No Cyanosis, No Edema, Normal Pulses, No Tenderness/ Swelling Vascular: Normal Pulses, Pulses Symmetrical Current Medications: Current Medications Sig/Theo Start time Last Medication Dose Route Stop Time Status Admin Acetaminophen 650 MG Q6P PRN 12/23 2199 AC PO Albuterol Sulfate 3 ML BID 12/24 2200 AC 12/24 INH 1316 Albuterol Sulfate 2 PUF Q6H PRN 12/24 0100 AC INH Atorvastatin Calcium 40 MG 1700 12/24 1700 AC 12/24 PO 1838 Azithromycin 500 MG Q24H 12/24 2199 AC Dextrose/Water 250 ML IV Azithromycin 500 MG ONCE ONE 12/23 2130 DC 12/23 Dextrose/Water 250 ML IV 12/239 220 Budesonide/ 2 PUF BID 12/24 1000 AC 12/24 Formoterol Fumarate INH 0841 Ciprofloxacin 0 .STK-MED ONE 12/23 2258 DC PO Clopidogrel Bisulfate 75 MG DAILY 12/24 1000 AC 12/24 PO 0841 Diltiazem HCl 240 MG DAILY 12/24 1000 AC 12/24 PO 1106 Diphenhydramine HCl 25 MG Q6P PRN 12/23 2315 AC PO Diphenhydramine HCl 0 .STK-MED ONE 12/23 2302 DC .ROUTE Diphenhydramine HCl 25 MG ONCE ONE 12/23 2300 DC 12/23 IV 12/23 2301 2257 Doxazosin Mesylate 1 MG DAILY 12/24 1315 AC 12/24 PO 1443 Escitalopram Oxalate 10 MG DAILY 12/24 1000 AC 12/24 PO 0841 Hydrochlorothiazide 12.5 MG DAILY 12/24 1000 AC 12/24 PO 0841 Hydrochlorothiazide 12.5 MG ONCE ONE 12/23 1914 DC 12/23 PO 12/23 Hydromorphone HCl 0 .STK-MED ONE 12/23 222 DC .ROUTE Hydromorphone HCl 0.5 MG Q4P PRN 12/23 2200 AC 12/24 IV 1838 Hydromorphone HCl 0 .STK-MED ONE 12/23 193 DC .ROUTE Hydromorphone HCl 1 MG ONCE ONE 12/23 1914 DC 12/23 IV 12/23 Ibuprofen 600 MG Q6P PRN 12/23 2199 DC PO Lisinopril 40 MG DAILY 12/24 1000 AC 12/24 PO 0841 Lisinopril 0 .STK-MED ONE 12/23 1946 DC PO Lisinopril 40 MG ONCE ONE 12/23 1914 DC 12/23 PO 12/23 Methylprednisolone 40 MG Q6 12/23 2359 DC 12/24 IV 1207 Metronidazole 0 .STK-MED ONE 12/23 2258 DC PO Omeprazole 40 MG DAILY AC 12/24 0700 AC 12/24 PO 0624 Oxycodone/ 1 TAB Q6P PRN 12/23 2215 AC Acetaminophen PO Prednisone 10 MG DAILY 12/31 1000 AC PO 01/02 0959 Prednisone 20 MG DAILY 12/29 1000 AC PO 12/31 0959 Prednisone 30 MG DAILY 12/27 1000 AC PO 12/29 0959 Prednisone 40 MG DAILY 12/25 1000 CAN PO 01/02 0959 Prednisone 40 MG DAILY 12/25 1000 AC PO 12/27 0959 Rivaroxaban 20 MG DAILY 12/24 1000 AC 12/24 PO 0841 Last 24 Hrs of Labs/Mics: Laboratory Tests 12/24/17 1115: Urine Opiates Screen < 100.00, Methadone Screen < 40, Barbiturate Screen < 60, Ur Phencyclidine Scrn < 6.00, Amphetamines Screen < 100, U Benzodiazepines Scrn < 85, Urine Cocaine Screen < 50, Urine Cannabis Screen < 5.00 12/24/17 0450: Troponin I < 0.01 12/24/17 0450: Anion Gap 9, Estimated GFR > 60, BUN/Creatinine Ratio 25.7 H, CBC w Diff NO MAN DIFF REQ, RBC 4.13 L, MCV 94.8 H, MCH 31.1 H, MCHC 32.8 L, RDW 14.1, MPV 8.5 , Gran % 94.2 H, Lymphocytes % 4.7 L, Monocytes % 1.1 L, Eosinophils % 0, Basophils % 0, Absolute Granulocytes 15.8 H, Absolute Lymphocytes 0.8 L, Absolute Monocytes 0.2, Absolute Eosinophils 0, Absolute Basophils 0 12/23/172234: Troponin I < 0.01 12/23/172119: Methadone Screen Cancelled, Barbiturate Screen Cancelled, Ur Phencyclidine Scrn Cancelled, Amphetamines Screen Cancelled, U Benzodiazepines Scrn Cancelled, Urine Cocaine Screen Cancelled, Urine Cannabis Screen Cancelled, Urine Color Cancelled, Urine Clarity Cancelled, Urine pH Cancelled, Ur Specific [place] Cancelled, Urine Protein Cancelled, Urine Ketones Cancelled, Urine Nitrite Cancelled, Urine Bilirubin Cancelled, Urine Urobilinogen Cancelled, Ur Leukocyte Esterase Cancelled, Ur Microscopic Cancelled, Urine Hemoglobin Cancelled, Urine Glucose Cancelled Microbiology 12/24 1115 STOOL: Clostridium difficile Toxin A & B - RECD 12/23 2242 HEAD/NECK: Surveillance Culture - CAN Cancelled: SPECIMEN NOT RECEIVED IN LABORATORY 12/23 2239 BLOOD: Blood Culture - RES 12/23 2229 BLOOD: Blood Culture - RES 12/23 2215 URINE ROUT: Legionella Antigen - CAN Cancelled: SPECIMEN NOT RECEIVED IN LABORATORY 12/23 2215 URINE ROUT: Streptococcus pneumoniae Antigen (M - CAN Cancelled: SPECIMEN NOT RECEIVED IN LABORATORY 12/23 2215 URINE ROUT: Urine Culture - CAN Cancelled: SPECIMEN NOT RECEIVED IN LABORATORY 12/23 2215 LOWER RESP: Respiratory Culture - CAN Cancelled: SPECIMEN NOT RECEIVED IN LABORATORY 12/23 2215 LOWER RESP: Gram Stain - CAN Cancelled: SPECIMEN NOT RECEIVED IN LABORATORY 12/23 2215 STOOL: Clostridium difficile Toxin A & B - CAN Cancelled: SPECIMEN NOT RECEIVED IN LABORATORY 12/23 194 NASOPHARYN: Influenza Virus A & B Rapid Smear - COMP
--- NOTE | 2017-12-24 10:44 | ULTRASOUND REPORT ---
EXAMINATION: US TRIPLEX LOWER EXTREMITY, RIGHT CLINICAL INFORMATION: Pain COMPARISON: None TECHNIQUE: Color-flow triplex imaging with spectral analysis and compression Doppler were performed on the lower extremity. FINDINGS: Respiratory variation, normal compression and augmented flow are noted throughout the lower extremity. The visualized common femoral vein, superficial femoral vein, profunda femoral vein, popliteal vein and midcalf peroneal and posterior tibial venous segments show no evidence of deep venous thrombosis. There is no Mcnally's cyst. IMPRESSION: No evidence of deep venous thrombosis involving the lower extremity.
--- NOTE | 2017-12-24 11:45 | Cons- Cardiology ---
General Information and HPI Consulting Request Date of Consult: 12/24/17 Requested By: Veto Deleon MD Reason for Consult: Chest pain, CAD History of Present Illness: The patient is a 37-year-old male with history of CAD, status post RCA stent in 2014 in [place], factor V Leiden mutation, DVT status post IVC filter, long- term anticoagulation on Xarelto.. 2 weeks ago, he presented to [facility] with chest pain. Nuclear stress test was abnormal, and cardiac catheterization was performed which revealed patent vessels with no new CAD. No interventions were performed at that time. He presented to the [place] emergency department with complaint of chest pain. The chest pain was a sharp pain on the left side of his chest which was a 10 out of 10 in severity, and lasted for hours. He had a low-grade fever at the time of the pain. He has noted watery diarrhea for 2-3 days. He has a history of multiple recent respiratory infections including bronchitis and influenza. His pain is significantly improved, however he continues to have persistent left-sided sharp chest pain. No palpitations. No syncope. No orthopnea. No diaphoresis. No lightheadedness or dizziness. Allergies/Medications Allergies: Coded Allergies: Iodinated Contrast- Oral and IV Dye (ANAPHYLAXIS 12/23/17) haloperidol (HIVES 12/23/17) ketorolac (From TORADOL) (HIVES, RASH 12/23/17) meperidine (From DEMEROL) (HIVES 12/23/17) milk (LACTOSE INTOLERANT 12/23/17) oxycodone (UNKNOWN 12/23/17) shellfish derived (ANAPHYLAXIS 12/23/17) Home Med List: Albuterol Sulfate (Proair Hfa) 90 MCG HFA.AER.AD 2 PUF INH Q6H PRN WHEEZING ( Reported) Atorvastatin Calcium 40 MG TABLET 1 TAB PO DAILY CHOLESTEROL (Reported) Clopidogrel Bisulfate (Clopidogrel) 75 MG TABLET 1 TAB PO DAILY BLOOD THINNER (Reported) Diltiazem HCl (Cardizem Cd) 240 MG CAP.ER.24H 1 CAP PO DAILY HEART/BP ( Reported) Escitalopram Oxalate 10 MG TABLET 1 TAB PO DAILY MENTAL HEALTH (Reported) Fluticasone-Salmeterol (Advair 100-50 Diskus) 100 MCG-50 MCG/DOSE BLST.W.DEV 1 PUF INH BID RESP. (Reported) Hydrochlorothiazide 12.5 MG CAPSULE 1 CAP PO DAILY BP (Reported) Lisinopril 40 MG TABLET 1 TAB PO DAILY BP (Reported) Pantoprazole Sodium 40 MG TABLET.DR 1 TAB PO DAILY GI (Reported) Rivaroxaban (Xarelto) 20 MG TABLET 1 TAB PO DAILY BLOOD THINNER (Reported) with food Current Medications: Current Medications Sig/Theo Start time Last Medication Dose Route Stop Time Status Admin Acetaminophen 650 MG Q6P PRN 12/23 2200 AC PO Albuterol Sulfate 2 PUF Q6H PRN 12/24 0100 AC INH Albuterol Sulfate 3 ML ONCE ONE 12/23 1545 DC 12/23 INH 12/23 1546 1541 Atorvastatin Calcium 40 MG 1700 12/24 1700 AC PO Azithromycin 500 MG Q24H 12/240 AC Dextrose/Water 250 ML IV Azithromycin 500 MG ONCE ONE 12/23 2130 DC 12/23 Dextrose/Water 250 ML IV 12/23 2228 2202 Budesonide/ 2 PUF BID 12/24 1000 AC 12/24 Formoterol Fumarate INH 0841 Ciprofloxacin 0 .STK-MED ONE 12/23 2257 DC PO Clopidogrel Bisulfate 75 MG DAILY 12/24 1000 AC 12/24 PO 0841 Diltiazem HCl 240 MG DAILY 12/24 1000 AC 12/24 PO 1106 Diphenhydramine HCl 25 MG Q6P PRN 12/23 2315 AC PO Diphenhydramine HCl 0 .STK-MED ONE 12/23 2302 DC .ROUTE Diphenhydramine HCl 25 MG ONCE ONE 12/23 2300 DC 12/23 IV 12/23 2301 2257 Diphenhydramine HCl 0 .STK-MED ONE 12/23 1807 DC .ROUTE Diphenhydramine HCl 50 MG ONCE ONE 12/23 1800 DC 12/23 IV 12/23 180 1808 Escitalopram Oxalate 10 MG DAILY 12/24 1000 AC 12/24 PO 0841 Hydrochlorothiazide 12.5 MG DAILY 12/24 1000 AC 12/24 PO 0841 Hydrochlorothiazide 12.5 MG ONCE ONE 12/23 1915 DC 12/23 PO 12/23 191 1947 Hydromorphone HCl 0 .STK-MED ONE 12/23 2225 DC .ROUTE Hydromorphone HCl 0.5 MG Q4P PRN 12/23 2200 AC 12/24 IV 1035 Hydromorphone HCl 0 .STK-MED ONE 12/23 1933 DC .ROUTE Hydromorphone HCl 1 MG ONCE ONE 12/23 191 DC 12/23 IV 12/23 191 193 Ibuprofen 600 MG Q6P PRN 12/23 2200 DC PO Ipratropium [place]vadera 2.5 ML ONCE ONE 12/23 1545 DC 12/23 INH 12/23 1546 1541 Lisinopril 40 MG DAILY 12/24 1000 AC 12/24 PO 0841 Lisinopril 0 .STK-MED ONE 12/23 194 DC PO Lisinopril 40 MG ONCE ONE 12/23 1915 DC 12/23 PO 12/23 191 194 Methylprednisolone 40 MG Q6 12/23 2359 AC 12/24 IV 0624 Methylprednisolone 0 .STK-MED ONE 12/23 1615 DC .ROUTE Methylprednisolone 125 MG ONCE ONE 12/23 1545 DC 12/23 IV 12/23 1546 1609 Metronidazole 0 .STK-MED ONE 12/23 2258 DC PO Morphine Sulfate 4 MG ONCE ONE 12/23 1715 DC 12/23 IV 12/23 1716 1759 Morphine Sulfate 0 .STK-MED ONE 12/23 1600 DC .ROUTE Morphine Sulfate 4 MG ONCE ONE 12/23 1545 DC 12/23 IV 12/23 1546 1608 Nitroglycerin 0 .STK-MED ONE 12/23 1559 DC SL Nitroglycerin 0.4 MG ONCE ONE 12/23 1545 DC 12/23 SL 12/23 1546 1608 Omeprazole 40 MG DAILY AC 12/24 0700 AC 12/24 PO 0624 Oxycodone/ 1 TAB Q6P PRN 12/23 2215 AC Acetaminophen PO Rivaroxaban 20 MG DAILY 12/24 1000 AC 12/24 PO 0841 Review of Systems Review of Systems: No rash. No tremor. No hemoptysis. No hematemesis. All other systems were reviewed, and were noted to be negative. 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" Surgical History Surgical History: non-contributory Family History Relations & Conditions If Any: FATHER Coronary artery bypass graft surgery Psychosocial History Services at Home: None Smoking Status: Former Smoker ETOH Use: occasional use Illicit Drug Use: marijuana Exam & Diagnostic Data Vital Signs and I&O Vital Signs Date Time Temp Pulse Resp B/P B/P Pulse O2 O2 Flow FiO2 Mean Ox Delivery Rate 12/24 0841 59 168/80 12/24 0642 97.9 59 20 168/80 96 Room Air 12/24 0544 172/90 12/23 2327 98.5 85 20 180/110 95 Room Air 12/23 2210 98.0 76 22 148/92 97 Room Air 12/23 1947 98.0 82 22 190/83 12/23 1936 98.0 82 22 190/83 98 Room Air 12/23 1901 98.2 74 22 192/88 97 Room Air 12/23 1607 97.8 97 22 168/77 95 Room Air 12/23 1601 95 Room Air 12/23 1542 97 12/23 1458 98.0 102 18 181/97 94 Room Air Intake & Output 12/24 1600 12/24 0800 12/24 0000 12/23 1600 12/23 0800 12/23 0000 Intake Total 600 0 Output Total Balance 600 0 Intake, Oral 600 0 Patient 273 lb 273 lb Weight Weight Reported by Patient Measurement Method Physical Exam: Gen: The patient is in no acute distress HEENT: Normal nose, ears, and oropharynx. Pupils equal bilaterally. Conjunctiva normal. Neck: Supple with no JVD, no masses, and no thyromegaly Lungs: Clear to auscultation with normal respiratory effort Heart: RRR, S1, S2, no murmurs. No peripheral edema, 2+ pulses in the lower extremities bilaterally Abdomen: Soft, nontender, no masses. No hepatomegaly. No splenomegaly Extremities: No clubbing or cyanosis. Normal muscle strength in the upper and lower extremities Skin: Normal skin turgor with no skin ulcers or lesions noted. Neuro: Cranial nerves intact. Sensation intact Psych: Alert and oriented x 3 with appropriate affect Labs/Bret Results: Laboratory Tests 12/24 12/24 12/23 0450 0450 2235 Chemistry Sodium (137 - 145 mmol/L) 134 L Potassium (3.5 - 5.1 mmol/L) 4.1 Chloride (98 - 107 mmol/L) 101 Carbon Dioxide (22 - 30 mmol/L) 25 Anion Gap (5 - 16) 9 BUN (9 - 20 mg/dL) 18 Creatinine (0.7 - 1.2 mg/dL) 0.7 Estimated GFR (>60 ml/min) > 60 BUN/Creatinine Ratio (7 - 25 %) 25.7 H Troponin I (<0.11 ng/ml) < 0.01 < 0.01 Hematology CBC w Diff NO MAN DIFF REQ WBC (4.8 - 10.8 /CUMM) 16.7 H RBC (4.70 - 6.10 /CUMM) 4.13 L Hgb (14.0 - 18.0 G/DL) 12.8 L Hct (42 - 52 %) 39.1 L MCV (80.0 - 94.0 FL) 94.8 H MCH (27.0 - 31.0 PG) 31.1 H MCHC (33.0 - 37.0 G/DL) 32.8 L RDW (11.5 - 14.5 %) 14.1 Plt Count (130 - 400 /CUMM) 247 MPV (7.4 - 10.4 FL) 8.5 Gran % (42.2 - 75.2 %) 94.2 H Lymphocytes % (20.5 - 51.1 %) 4.7 L Monocytes % (1.7 - 9.3 %) 1.1 L Eosinophils % (0 - 5 %) 0 Basophils % (0.0 - 2.0 %) 0 Absolute Granulocytes (1.4 - 6.5 /CUMM) 15.8 H Absolute Lymphocytes (1.2 - 3.4 /CUMM) 0.8 L Absolute Monocytes (0.10 - 0.60 /CUMM) 0.2 Absolute Eosinophils (0.0 - 0.7 /CUMM) 0 Absolute Basophils (0.0 - 0.2 /CUMM) 0 12/23 12/23 2120 1510 Chemistry Sodium (137 - 145 mmol/L) 137 Potassium (3.5 - 5.1 mmol/L) 4.1 Chloride (98 - 107 mmol/L) 101 Carbon Dioxide (22 - 30 mmol/L) 25 Anion Gap (5 - 16) 10 BUN (9 - 20 mg/dL) 19 Creatinine (0.7 - 1.2 mg/dL) 0.8 Estimated GFR (>60 ml/min) > 60 BUN/Creatinine Ratio (7 - 25 %) 23.8 Glucose (65 - 99 mg/dL) 196 H Calcium (8.4 - 10.2 mg/dL) 8.8 Total Bilirubin (0.2 - 1.3 mg/dL) 0.5 AST (17 - 59 U/L) 19 ALT (21 - 72 U/L) 39 Alkaline Phosphatase (< 127 U/L) 118 Troponin I (<0.11 ng/ml) < 0.01 Total Protein (6.3 - 8.2 g/dL) 5.7 L Albumin (3.5 - 5.0 g/dL) 3.3 L Globulin (1.9 - 4.2 gm/dL) 2.4 Albumin/Globulin Ratio (1.1 - 2.2 %) 1.4 Coagulation PT (9.4 - 12.5 SEC) 14.8 H INR (0.90 - 1.17) 1.41 H APTT (25 - 37 SEC) 32 Hematology CBC w Diff MAN DIFF ORDERED WBC (4.8 - 10.8 /CUMM) 17.3 H RBC (4.70 - 6.10 /CUMM) 4.47 L Hgb (14.0 - 18.0 G/DL) 14.3 Hct (42 - 52 %) 42.3 MCV (80.0 - 94.0 FL) 94.8 H MCH (27.0 - 31.0 PG) 31.9 H MCHC (33.0 - 37.0 G/DL) 33.7 RDW (11.5 - 14.5 %) 14.1 Plt Count (130 - 400 /CUMM) 258 MPV (7.4 - 10.4 FL) 8.1 Gran % (42.2 - 75.2 %) 95.4 H Lymphocytes % (20.5 - 51.1 %) 2.7 L Monocytes % (1.7 - 9.3 %) 1.4 L Eosinophils % (0 - 5 %) 0 Basophils % (0.0 - 2.0 %) 0.5 Absolute Granulocytes (1.4 - 6.5 /CUMM) 16.5 H Segmented Neutrophils (42.2 - 75.2 %) 92 H Band Neutrophils (0.0 - 5.0 %) 3 Absolute Lymphocytes (1.2 - 3.4 /CUMM) 0.5 L Lymphocytes (20.5 - 51.1 %) 4 L Monocytes (1.7 - 9.3 %) 1 L Absolute Monocytes (0.10 - 0.60 /CUMM) 0.2 Absolute Eosinophils (0.0 - 0.7 /CUMM) 0 Absolute Basophils (0.0 - 0.2 /CUMM) 0.1 Platelet Estimate (ADEQUATE) ADEQUATE Normocytic RBCs VERIFIED Normochromic RBCs VERIFIED Serology Hepatitis A IgM Ab (NONREACTIVE) NONREACTIVE Hep Bs Antigen (NONREACTIVE) NONREACTIVE Hep B Core IgM Ab Conf (NONREACTIVE) NONREACTIVE Hepatitis C Antibody (NONREACTIVE) NONREACTIVE HIV 1&2 Ab Western Blot (NONREACTIVE) NONREACTIVE Toxicology Methadone Screen Cancelled Barbiturate Screen Cancelled Ur Phencyclidine Scrn Cancelled Amphetamines Screen Cancelled U Benzodiazepines Scrn Cancelled Urine Cocaine Screen Cancelled Urine Cannabis Screen Cancelled Diagnostic Data EKG Results EKG tracing is independently reviewed, and reveals normal sinus rhythm at 60 CXR Results No gross evidence of acute pulmonary disease. Other Results CTA chest: 1. No pulmonary embolism. 2. Bilateral scattered groundglass airspace opacities. The differential diagnosis includes atypical infectious organisms such as CMV and pneumocystis jirovecii . Less commonly, these findings can be seen in hypersensitivity pneumonitis, diffuse alveolar hemorrhage and cryptogenic organizing pneumonia. 3. 6 mm pulmonary nodule at the right lung base. Recommend follow-up CT in 12 months. Right lower extremity venous Doppler study: No evidence of DVT Assessment/Plan Assessment/Plan The patient is a 37-year-old male with history of factor V Leiden deficiency, CAD status post RCA stent, recent cardiac catheterization showing patent vessels. He presented with sharp left-sided chest pain lasting hours. There are no ischemic changes on the EKG. Troponin is negative 3. The patient has ruled out for myocardial infarction, and the pain does not appear to be secondary to ischemic heart disease given the recent cardiac catheterization and the negative troponin 3. Recommendations: * Please obtain records from [facility] regarding the recent catheterization and any other cardiac procedures. * [id number] echo on 12/15/17 at [facility] revealed normal left ventricular function with no obvious abnormal * Continue diltiazem and lisinopril * Continue aspirin and Plavix * Continue Xarelto * Would add doxazosin 1 mg daily for additional blood pressure control * Possible discharge later today if stable. * Follow up with il in the office within 1 week, and call with further symptoms in the meantime. Consult Acknowledgment - Thank you for your consult request.
[2017-12-24] MEDS ORDERED: AZITHROMYCIN500 M3 PO (13:11)
[2017-12-24] MEDS ORDERED: PREDNISONE20 M1 PO (13:11)
--- NOTE | 2017-12-24 13:15 | Patient Discharge Instructions ---
Discharge Instructions General Discharge Information You were seen/treated for: Shortness of breath and chest pain possibly secondary to exacerbation of asthma, and costochondritis. Special Instructions: Please follow-up with your licensed weigher within a week of discharge Please follow-up with your PCP within a week of discharge Please take the medication as advised Avoid driving while on pain medication. Diet Recommended Diet: Heart Healthy Acute Coronary Syndrome Inclusion Criteria At DC or during hospital stay patient has or had the following: ACS DIAGNOSIS No Discharge Core Measures Meds if any: Prescribed or Continued at Discharge Meds if any: NOT Prescribed or Continued at Discharge Congestive Heart Failure Inclusion Criteria At DC or during hospital stay patient has or had the following: CHF DIAGNOSIS No Discharge Core Measures Meds if any: Prescribed or Continued at Discharge Meds if any: NOT Prescribed or Continued at Discharge Cerebrovascular accident Inclusion Criteria At DC or during hospital stay patient has or had the following: CVA/TIA Diagnosis No Discharge Core Measures Meds if any: Prescribed or Continued at Discharge Meds if any: NOT Prescribed or Continued at Discharge Venous thromboembolism Inclusion Criteria VTE Diagnosis No VTE Type NONE VTE Confirmed by (Test) NONE Discharge Core Measures - Per Current guidelines, there needs to be overlap - treatment for the first 5 days of Warfarin therapy. - If discharged on Warfarin prior to 5 days of - overlap therapy, the patient will need to be - assessed for post discharge needs including - *Post discharge parental anticoagulation - *Warfarin and/or parental anticoagulation education - *Follow up date to check INR post discharge At least 5 days overlap therapy as Inpatient No Meds if any: Prescribed or Continued at Discharge Warfarin No Note: Overlap Therapy is Warfarin and Anticoagulant Meds if any: NOT Prescribed or Continued at Discharge
[2017-12-24 13:36] VITALS: BP 180/70
[2017-12-24 14:47] VITALS: BP 160/82
[2017-12-24 22:22] VITALS: BP 134/60
--- NOTE | 2017-12-25 05:38 | PN-Observation ---
See Addendum Leyla RIGGS,Felipa 12/25/17 0537: Observation Note Observation Note _ I have personally examined EUN LARA. him disposition is uncertain at this time. Before a determination can be made, he requires continued observation for the following reasons [chest pain]. Assessment/Plan Medical Assessment: 37 years old male with PMH of ID S\P RCA stent, A. fib, hypertension, multiple PE, multiple DVT S/P IVC filter, on Xeralto, factor V Lieden mutationt, lung nodule colitis, diverticulitis is S/P partial colectomy, presented to [facility] complaining of chest pain which started 6 hours ago and the patient was having lunch. Chest pain increases with deep breathing and lying on his back which make it more pericardial versus pleural in origin. In addition the patient has recent history of hospitalization for pneumonia which make pleurisy or pericarditis more likely as the cause of his chest pain. However the patient has history of ID S/P stent for which ACS has to be ruled out with serial troponin and EKG. in addition the patient has history of recurrent PE however CTA was negative for PE only showed ground glass opacity suggestive of atypical pneumonia 12/25: Today patient continues to have chest pain 05/07. Etiology of patient's chest pain is unclear, however is unlikley to be cardiac etiology based on reproducible chest pain, Likely patient's pain is musculoskeletal in nature. Unlikely to be due to percardaditis with most recent echo normal and with negative imaging this admission. As patient has a history of GI bleed and is currently on anticoagulation, would not give NSAIDs. Yesterday the patient developed itchy rash on his chest after taking azithromycin IV, azithromycin was stopped on admission was treated with IV Benadryl #Hypertension: bp elevated likely secondary to pain. Patient's blood pressure is better controlled continue doxazosin Continue to monitor bp Control pain #Atypical chest pain: Most likely due to pleurisy versus pericarditis however the patient has history of ACS S/P stent Observe on telemetry Serial EKG and trops negative Records from [facility] obtained - negative recent cardiac workup Follow up on cardiology recommendation Vitals every shift Pain control with Tylenol, Percocet, Dilaudid #Asthma exacerbation: Continue prednisone taper. DC IV azithromycin TRC/nebs #? Atypical Pneumonia CTA showed groundglass opacities suspicious for CMV versus PCP History of recurrent infection with multiple hospitalizations Patient has remote history of IV drug abuse Hepatitis panel negative, HIV negative Utox negative Follow-up on blood culture, rapid flu, strep pneumonia and legionella #Recurrent PE and DVT S/P IVC fiter on Xeralto: CTA ruled out PE Continue Xeralto 20 mg Doppler lower extremities to rule out # Diarrhea Patient was hospitalized recently and he finished a course of antibiotic Patient had one episode of loose stool today. It was sent for C. difficile. #Solitary right lung nodule: CTA showed 6 mm lung nodule Will need follow-up as outpatient #Chronic medical condition: Continue home meds Heart healthy diet DVT prophylaxis with Xeralto full code Problem List: 1. Lung nodule 2. Chest pain Qualifiers Chest pain type: other chest pain Qualified Code: R07.89 - Other chest pain Subjective Follow-up For: Chest pain Tele-Events Since Last Visit: MS, 69, QRS 0.1, [place] 0.12 Subjective: Patient is seen and examined at bedside, he continues to complain of chest pain 7/10 in severity, he also complains of itchy rash in his chest after taking azithromycin yesterday, azithromycin was discontinued, also reports mild shortness of breath, 2 loose bowel movementsweating, denies any nausea or vomiting or fever Review of Systems Constitutional: Reports: see HPI. Objective Last 24 Hrs of Vital Signs/I&O Vital Signs Date Time Temp Pulse Resp B/P B/P Pulse O2 O2 Flow FiO2 Mean Ox Delivery Rate 12/25 0836 60 122/68 12/25 0605 98.4 59 18 122/68 97 Room Air 12/24 2222 98.1 83 18 134/60 98 Room Air 12/24 1447 70 160/82 12/24 1336 98.8 63 20 180/70 97 Room Air 12/24 1325 Room Air 12/24 1325 95 Room Air 12/24 1303 82 Intake & Output 12/25 1600 12/25 0800 12/25 0000 Intake Total 150 100 Output Total Balance 150 100 Intake, Oral 150 100 Physical Exam General Appearance: Alert, Oriented X3, Cooperative, No Acute Distress Skin: rash on the chest HEENT: Atraumatic, PERRLA, EOMI, Mucous Membr. moist/pink Neck: Supple, No JVD, No thryomegaly Cardiovascular: Normal S1, Normal S2, No Murmurs Lungs: scattered wheezes Abdomen: Normal Bowel Sounds, Soft, No Tenderness Neurological: Normal Speech, Strength at 5/5 X4 Ext, Normal Tone, Sensation Intact Extremities: No Clubbing, No Cyanosis, No Edema Vascular: Normal Pulses, Pulses Symmetrical Current Medications: Current Medications Sig/Theo Start time Last Medication Dose Route Stop Time Status Admin Acetaminophen 650 MG Q6P PRN 12/23 2200 AC PO Albuterol Sulfate 3 ML BID 12/24 2200 AC 12/24 INH 1316 Albuterol Sulfate 2 PUF Q6H PRN 12/24 0100 AC INH Atorvastatin Calcium 40 MG 1700 12/24 1700 AC 12/24 PO 1838 Azithromycin 500 MG Q24H 12/24 2200 AC 12/24 Dextrose/Water 250 ML IV 2230 Budesonide/ 2 PUF BID 12/24 1000 AC 12/25 Formoterol Fumarate INH 0837 Clopidogrel Bisulfate 75 MG DAILY 12/24 1000 AC 12/25 PO 0836 Diltiazem HCl 240 MG DAILY 12/24 1000 AC 12/24 PO 1106 Diphenhydramine HCl 25 MG ONCE ONE 12/24 2330 DC 12/24 IV 12/24 2331 2334 Diphenhydramine HCl 25 MG Q6P PRN 12/23 2315 AC PO Doxazosin Mesylate 1 MG DAILY 12/24 1315 AC 12/25 PO 0836 Escitalopram Oxalate 10 MG DAILY 12/24 1000 AC 12/25 PO 0836 Hydrochlorothiazide 12.5 MG DAILY 12/24 1000 AC 12/25 PO 0836 Hydromorphone HCl 2 MG Q6P PRN 12/25 0915 AC PO Hydromorphone HCl 0.5 MG Q4P PRN 12/23 2200 DC 12/25 IV 0837 Lisinopril 40 MG DAILY 12/24 1000 AC 12/25 PO 0836 Methylprednisolone 40 MG Q6 12/23 2359 DC 12/24 IV 1207 Omeprazole 40 MG DAILY AC 12/24 0700 AC 12/25 PO 0642 Oxycodone/ 1 TAB Q6P PRN 12/23 2215 DC Acetaminophen PO Prednisone 10 MG DAILY 12/31 1000 AC PO 01/02 0959 Prednisone 20 MG DAILY 12/29 1000 AC PO 12/31 0959 Prednisone 30 MG DAILY 12/27 1000 AC PO 12/29 0959 Prednisone 40 MG DAILY 12/25 1000 CAN PO 01/02 0959 Prednisone 40 MG DAILY 12/25 1000 AC 12/25 PO 12/27 0959 0836 Rivaroxaban 20 MG DAILY 12/24 1000 AC 12/25 PO 0835 Tramadol HCl 50 MG Q8 12/25 0917 AC PO Last 24 Hrs of Labs/Mics: Laboratory Tests 12/25/17 0825: C-React Prot High Sens 3.7 H, ESR Westergren Pending 12/24/17 1659: ESR Westergren Cancelled 12/24/17 1115: Urine Opiates Screen < 100.00, Methadone Screen < 40, Barbiturate Screen < 60, Ur Phencyclidine Scrn < 6.00, Amphetamines Screen < 100, U Benzodiazepines Scrn < 85, Urine Cocaine Screen < 50, Urine Cannabis Screen < 5.00 Microbiology 12/24 1115 STOOL: Clostridium difficile Toxin A & B - ARELY Deleon MD,Veto 12/25/17 2213: Attending MD Review Statement Attending Statement Attending MD Statement: examined this patient, discuss w/resident/PA/LAYOUT MECHANIC, agreed w/resident/PA/LAYOUT MECHANIC, reviewed EMR data (avail), discussed w/nursing, amended to note Attending Assessment/Plan: The patient was seen and discussed with house staff. Appreciate Cardiology input. OK to discharge to home today with plans for follow-up with PCP and Cardiology. CTPMP was checked and will give small supply of po Dilaudid. Hesitate to use NSAIDS with h/o bleeding and on anti-coagulant.
[2017-12-25 06:05] VITALS: BP 122/68
--- NOTE | 2017-12-25 10:55 | PN- Cardiology ---
Subjective Subjective: The patient continues to have sharp pains in the center of the chest. No shortness of breath. No diaphoresis. No palpitations. No nausea or vomiting. No lightheadedness or dizziness Objective Vital Signs and I&Os Vital Signs Date Time Temp Pulse Resp B/P B/P Pulse O2 O2 Flow FiO2 Mean Ox Delivery Rate 12/25 0836 60 122/68 12/25 0605 98.4 59 18 122/68 97 Room Air 12/24 2222 98.1 83 18 134/60 98 Room Air 12/24 1447 70 160/82 12/24 1336 98.8 63 20 180/70 97 Room Air 12/24 1325 Room Air 12/24 1325 95 Room Air 12/24 1303 82 Intake & Output 12/25 1600 12/25 0800 12/25 0000 12/24 1600 12/24 0800 12/24 0000 Intake Total 150 100 560 600 0 Output Total 400 Balance 150 100 160 600 0 Intake, IV 10 Intake, Oral 150 100 550 600 0 Number 1 Bowel Movements Output, Urine 400 Patient 273 lb Weight Physical Exam: Gen: The patient is in no acute distress HEENT: Normal nose, ears, and oropharynx. Pupils equal bilaterally. Conjunctiva normal. Neck: Supple with no JVD, no masses, and no thyromegaly Lungs: Clear to auscultation with normal respiratory effort Heart: RRR, S1, S2, no murmurs. No peripheral edema, 2+ pulses in the lower extremities bilaterally Abdomen: Soft, nontender, no masses. No hepatomegaly. No splenomegaly Extremities: No clubbing or cyanosis. Normal muscle strength in the upper and lower extremities Skin: Normal skin turgor with no skin ulcers or lesions noted. Neuro: Cranial nerves intact. Sensation intact Current Medications: Current Medications Sig/Theo Start time Last Medication Dose Route Stop Time Status Admin Acetaminophen 650 MG Q6P PRN 12/23 2199 AC PO Albuterol Sulfate 3 ML BID 12/24 2199 AC 12/24 INH 1316 Albuterol Sulfate 2 PUF Q6H PRN 12/24 0100 AC INH Atorvastatin Calcium 40 MG 1700 12/24 1700 AC 12/24 PO 1838 Azithromycin 500 MG Q24H 12/240 AC 12/24 Dextrose/Water 250 ML IV 2230 Budesonide/ 2 PUF BID 12/24 1000 AC 12/25 Formoterol Fumarate INH 0837 Clopidogrel Bisulfate 75 MG DAILY 12/24 1000 AC 12/25 PO 0836 Diltiazem HCl 240 MG DAILY 12/24 1000 AC 12/24 PO 1106 Diphenhydramine HCl 25 MG ONCE ONE 12/24 2330 DC 12/24 IV 12/24 2331 2334 Diphenhydramine HCl 25 MG Q6P PRN 12/23 2315 AC PO Doxazosin Mesylate 1 MG DAILY 12/24 1315 AC 12/25 PO 0836 Escitalopram Oxalate 10 MG DAILY 12/24 1000 AC 12/25 PO 0836 Hydrochlorothiazide 12.5 MG DAILY 12/24 1000 AC 12/25 PO 0836 Hydromorphone HCl 2 MG Q6P PRN 12/25 0915 AC PO Hydromorphone HCl 0.5 MG Q4P PRN 12/23 2200 DC 12/25 IV 0837 Lisinopril 40 MG DAILY 12/24 1000 AC 12/25 PO 0836 Methylprednisolone 40 MG Q6 12/23 2359 DC 12/24 IV 1207 Omeprazole 40 MG DAILY AC 12/24 0700 AC 12/25 PO 0642 Oxycodone/ 1 TAB Q6P PRN 12/23 2215 DC Acetaminophen PO Prednisone 10 MG DAILY 12/31 1000 AC PO 01/02 0959 Prednisone 20 MG DAILY 12/29 1000 AC PO 12/31 0959 Prednisone 30 MG DAILY 12/27 1000 AC PO 12/29 0959 Prednisone 40 MG DAILY 12/25 1000 CAN PO 01/02 0959 Prednisone 40 MG DAILY 12/25 1000 AC 12/25 PO 12/27 0959 0836 Rivaroxaban 20 MG DAILY 12/24 1000 AC 12/25 PO 0835 Tramadol HCl 50 MG Q8 12/25 0917 AC PO Results Last 48 Hrs of Labs/Mics: Laboratory Tests 12/25/17 0825: C-React Prot High Sens 3.7 H, ESR Westergren Pending 12/24/17 1659: ESR Westergren Cancelled 12/24/17 1115: Urine Opiates Screen < 100.00, Methadone Screen < 40, Barbiturate Screen < 60, Ur Phencyclidine Scrn < 6.00, Amphetamines Screen < 100, U Benzodiazepines Scrn < 85, Urine Cocaine Screen < 50, Urine Cannabis Screen < 5.00 12/24/17 0450: Troponin I < 0.01 02/26/18 0450: Anion Gap 9, Estimated GFR > 60, BUN/Creatinine Ratio 25.7 H, CBC w Diff NO MAN DIFF REQ, RBC 4.13 L, MCV 94.8 H, MCH 31.1 H, MCHC 32.8 L, RDW 14.1, MPV 8.5 , Gran % 94.2 H, Lymphocytes % 4.7 L, Monocytes % 1.1 L, Eosinophils % 0, Basophils % 0, Absolute Granulocytes 15.8 H, Absolute Lymphocytes 0.8 L, Absolute Monocytes 0.2, Absolute Eosinophils 0, Absolute Basophils 0 12/23/17 2235: Troponin I < 0.01 12/23/172119: Methadone Screen Cancelled, Barbiturate Screen Cancelled, Ur Phencyclidine Scrn Cancelled, Amphetamines Screen Cancelled, U Benzodiazepines Scrn Cancelled, Urine Cocaine Screen Cancelled, Urine Cannabis Screen Cancelled, Urine Color Cancelled, Urine Clarity Cancelled, Urine pH Cancelled, Ur Specific [place] Cancelled, Urine Protein Cancelled, Urine Ketones Cancelled, Urine Nitrite Cancelled, Urine Bilirubin Cancelled, Urine Urobilinogen Cancelled, Ur Leukocyte Esterase Cancelled, Ur Microscopic Cancelled, Urine Hemoglobin Cancelled, Urine Glucose Cancelled 12/23/17 1510: Anion Gap 10, Estimated GFR > 60, BUN/Creatinine Ratio 23.8, Glucose 196 H, Calcium 8.8, Total Bilirubin 0.5, AST 19, ALT 39, Alkaline Phosphatase 118, Troponin I < 0.01, Total Protein 5.7 L, Albumin 3.3 L, Globulin 2.4, Albumin/ Globulin Ratio 1.4, PT 14.8 H, INR 1.41 H, APTT 32, CBC w Diff MAN DIFF ORDERED, RBC 4.47 L, MCV 94.8 H, MCH 31.9 H, MCHC 33.7, RDW 14.1, MPV 8.1, Gran % 95.4 H, Lymphocytes % 2.7 L, Monocytes % 1.4 L, Eosinophils % 0, Basophils % 0.5, Absolute Granulocytes 16.5 H, Segmented Neutrophils 92 H, Band Neutrophils 3, Absolute Lymphocytes 0.5 L, Lymphocytes 4 L, Monocytes 1 L, Absolute Monocytes 0.2, Absolute Eosinophils 0, Absolute Basophils 0.1, Platelet Estimate ADEQUATE, Normocytic RBCs VERIFIED, Normochromic RBCs VERIFIED , Hepatitis A IgM Ab NONREACTIVE, Hep Bs Antigen NONREACTIVE, Hep B Core IgM Ab Conf NONREACTIVE, Hepatitis C Antibody NONREACTIVE, HIV 1&2 Ab Western Blot NONREACTIVE Microbiology 12/23 1939 NASOPHARYN: Influenza Virus A & B Rapid Smear - COMP Recent Imaging Studies: Cardiac catheterization 12/05/17 at [facility]: Patient stent in RCA. Mild plaque. No obstructive coronary artery disease. LVEF 70%. CT scan of the chest: 1. No pulmonary embolism. 2. Bilateral scattered groundglass airspace opacities. The differential diagnosis includes atypical infectious organisms such as CMV and pneumocystis jirovecii . Less commonly, these findings can be seen in hypersensitivity pneumonitis, diffuse alveolar hemorrhage and cryptogenic organizing pneumonia. 3. 6 mm pulmonary nodule at the right lung base. Recommend follow-up CT in 12 months. Assessment/Plan Assessment/Plan Assessment: 1. Factor V Leiden mutation, anticoagulated on Xarelto 2. Chest pain, atypical. Recent normal cardiac catheterization. Ruled out for myocardial infarction. Pain appears to be noncardiac. Plan: * Continue current cardiac medications * Clear for discharge from cardiac standpoint. * Follow up with me in the office within 1 week. Continue telemetry? No
[2017-12-25] MEDS ORDERED: OMEPRAZOLE40 M1 PO (12:06)
[2017-12-25] MEDS ORDERED: ULTRAM50 M1 PO (12:16)
[2017-12-25] MEDS ORDERED: IBUPROFEN800 M1 PO (12:16)
[2017-12-25] MEDS ORDERED: DILAUDID2 M1 PO (14:24)
[2017-12-25 15:06] VITALS: BP 122/76
== END 2017-12-25 15:50 ==
LOC: ERH 14:54 → 1NO 21:04 → ERHI 21:04 → ENRESERV 22:20 → 1NO 23:06
PROVIDERS: Internal Medicine Hematology & Oncology; Physician Assistant Medical
DX: R07.89 Other chest pain (principal); D68.51 Activated protein C resistance; Z79.01 Long term (current) use of anticoagulants; Z86.14 Personal history of Methicillin resistant Staphylococcus aureus infection; I25.2 Old myocardial infarction; Z95.5 Presence of coronary angioplasty implant and graft; F12.90 Cannabis use, unspecified, uncomplicated; I10 Essential (primary) hypertension; J45.901 Unspecified asthma with (acute) exacerbation; Z87.891 Personal history of nicotine dependence; Z86.711 Personal history of pulmonary embolism; R91.1 Solitary pulmonary nodule; K52.9 Noninfective gastroenteritis and colitis, unspecified; Z79.899 Other long term (current) drug therapy; Z79.51 Long term (current) use of inhaled steroids; R06.00 Dyspnea, unspecified; M79.661 Pain in right lower leg
CPT/HCPCS: 1263; 36415; 71045; 80307; 82436; 87040; 87070; 87086; 87389; 87449; 87450; 87804; 87804-59; 93005; 93010; 96374; 96375; 96376; G0378; J0456; J1200; J2920; J2930; J3490; J7060

== ENCOUNTER 2018-03-04 13:19 | Inpatient (IN) | payer OTHER ==
[~2018-03-04] VITALS: Ht 170.2 cm; Wt 88.9 kg
[~2018-03-04 13:19] MED LIST: ADVAIR 100-501 EACH INH; AMOX-CLAV 875-1 EACH; ATORVASTATIN CA40 M1 PO; AZITHROMYCIN500 M3 PO; CARDIZEM CD240 M1 PO; CIPRODEX OTIC7.5 ML; CLOPIDOGREL75 M1 PO; DILAUDID2 M1 PO; ESCITALOPRAM OX10 MG PO; HYDROCHLOROTH12.5 M3 PO; IBUPROFEN800 M1 PO; LISINOPRIL40 M1 PO; OMEPRAZOLE40 M1 PO; PANTOPRAZOLE SO40 M1 PO; PREDNISONE20 M1 PO; PROAIR HFA8.5 GM INH; ULTRAM50 M1 PO; XARELTO20 M2 PO
--- NOTE | 2018-03-04 14:01 | ED CARDIAC/CP/PALPITATIONS ---
History of Present Illness General Chief Complaint: Chest Pain Stated Complaint: CHEST PAIN AND SOB Source: patient Exam Limitations: no limitations Vital Signs & Intake/Output Vital Signs & Intake/Output Vital Signs Date Time Temp Pulse Resp B/P B/P Pulse O2 O2 Flow FiO2 Mean Ox Delivery Rate 03/04 2206 98.1 110 18 139/81 92 Room Air 03/04 2010 92 03/04 1933 97.9 98 16 136/95 94 Room Air 03/04 1555 173/77 03/04 1545 186/86 03/04 1450 95 22 144/104 100 Nasal Cannula 03/04 1449 100 Nasal 2.0L Cannula 03/04 1420 98 Nasal 2.0L Cannula 03/04 1354 98.0 112 26 180/130 98 Room Air Room Air Allergies Coded Allergies: Iodinated Contrast- Oral and IV Dye (ANAPHYLAXIS 12/23/17) haloperidol (HIVES 12/23/17) ketorolac (From TORADOL) (HIVES, RASH 12/23/17) meperidine (From DEMEROL) (HIVES 12/23/17) milk (LACTOSE INTOLERANT 12/23/17) oxycodone (UNKNOWN 12/23/17) shellfish derived (ANAPHYLAXIS 12/23/17) Reconcile Medications Albuterol Sulfate (Proair Hfa) 90 MCG HFA.AER.AD 2 PUF INH Q6H PRN WHEEZING ( Reported) Atorvastatin Calcium 40 MG TABLET 1 TAB PO DAILY CHOLESTEROL (Reported) Benzonatate (Tessalon Perle) 100 MG CAPSULE 1 CAP PO TID PRN COUGH Benzonatate (Tessalon Perle) 100 MG CAPSULE 1 CAP PO TID PRN COUGH Clopidogrel Bisulfate (Clopidogrel) 75 MG TABLET 1 TAB PO DAILY BLOOD THINNER (Reported) Codeine Phosphate/Guaifenesi (Cheratussin AC Syrup) 10 MG-100 MG/5 ML LIQUID 10 ML PO TID PRN COUGH Diltiazem HCl (Cardizem Cd) 240 MG CAP.ER.24H 1 CAP PO DAILY HEART/BP ( Reported) Escitalopram Oxalate 10 MG TABLET 1 TAB PO DAILY MENTAL HEALTH (Reported) Fluticasone-Salmeterol (Advair 100-50 Diskus) 100 MCG-50 MCG/DOSE BLST.W.DEV 1 PUF INH BID RESP. (Reported) Hydrochlorothiazide 12.5 MG CAPSULE 1 CAP PO DAILY BP (Reported) Levofloxacin (Levaquin) 500 MG TABLET 1 TAB PO DAILY PNEUMONIA Levofloxacin (Levaquin) 500 MG TABLET 1 TAB PO DAILY PNEUMONIA Lisinopril 40 MG TABLET 1 TAB PO DAILY BP (Reported) Pantoprazole Sodium 40 MG TABLET.DR 1 TAB PO DAILY GI (Reported) Rivaroxaban (Xarelto) 20 MG TABLET 1 TAB PO DAILY BLOOD THINNER (Reported) with food Triage Note: PT TO TRIAGE WITH CHEST PAIN, SOB FOR APPROX 90 MINS. PT HAS A HX OF PE'S AND STATERS THIS FEELS SIMILAR. LUNGS ARE VERY WHEEZY AND DIMINISHED, HE IS LABORED WITH BREATHING SKIN WARM AND DIAPHORETIC. PT ALSO HAS A HX OF ASTHMA, FACTOR 5, AND HAS A INTRALUMENAL FILTER Triage Nurses Notes Reviewed? yes Onset: Abrupt Duration: constant Timing: single episode today Quality/Severity: severe Location: central Radiation: no radiation HPI: Patient is a 38-year-old male with a past medical history significant for pulmonary embolism, CAD, hypertension and myocardial infarction diverticulitis factor V, in which old records indicate that January 04 patient was evaluated at [facility] where he had concerning findings of GI bleed where he was transferred to [place], patient states that they perform colonoscopy and seemingly ligation of his ulcers where he states that since no bleeding has recurred after bowel movements, patient states that today he has had a 3 day history of nonproductive cough however 90 minutes prior to arrival while at rest patient had acute onset of substernal chest pain nausea lightheaded sensation shortness of breath wheezing Last bowel movement was within last 24 hours no blood no melena. Patient is a former smoker Patient tried nebulizer treatments prior to arrival with no relief PT COMPLIANT WITH XARELTO (Gonzalo Marroquin) Past History Travel History Traveled to [place] past 21 day No Medical History Any Pertinent Medical History? 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 No (Gonzalo Marroquin) Review of Systems Review of Systems Constitutional: Reports: no symptoms. EENTM: Reports: no symptoms. Respiratory: Reports: see HPI, cough, short of breath. Cardiovascular: Reports: see HPI, chest pain. GI: Reports: see HPI, nausea. Denies: abdominal pain. Genitourinary: Reports: no symptoms. Musculoskeletal: Reports: no symptoms. Skin: Reports: no symptoms. Neurological/Psychological: Reports: no symptoms. Hematologic/Endocrine: Reports: no symptoms. Immunologic/Allergic: Reports: no symptoms. All Other Systems: Reviewed and Negative (Gonzalo Marroquin) Physical Exam Physical Exam General Appearance: mild distress Head: atraumatic Eyes: Bilateral: normal appearance, PERRL. Ears, Nose, Throat: normal ENT inspection, hearing grossly normal Neck: normal inspection Respiratory: chest non-tender, wheezing Cardiovascular: regular rate/rhythm Gastrointestinal: normal bowel sounds, soft, non-tender Extremities: normal inspection, no edema Neurologic/Psych: no motor/sensory deficits Skin: intact, normal color, warm/dry Core Measures ACS in differential dx? Yes CVA/TIA Diagnosis No Sepsis Present: No Sepsis Focused Exam Completed? No (Gonzalo Marroquin) Progress Differential Diagnosis: AMI, aortic dissection, atrial fibrillation, cholecystitis, CHF/pulm edema, costochondritis, hyperkalemia, hypovolemia, hyperthyroid, hyperventilation, intracranial hemorrhage, musculoskeletal pain, myocarditis, pancreatitis, pericarditis, pneumonia, pneumothorax, PSVT, pulmonary embolism, PUD/GERD, PVCs/PACs, respiratory failure, sepsis, unstable angina, V-fib/V-Tach, WPW syndrome Plan of Care: Orders Procedure Date/time Status Heart Healthy Diet 03/05 B Active Patient Data 03/04 2038 Active ED Holding Orders 03/04 2007 Active Admit to inpatient 03/04 2007 Active Vital Signs 03/04 2007 Active Code Status 03/04 2007 Active TROPONIN LEVEL 03/04 1730 Complete EKG 03/04 1730 Active Intake & Output 03/04 1431 Active AEROSOL (GEN) 03/04 1420 Complete Telemetry/[place] 03/04 1402 Active TROPONIN LEVEL 03/04 1402 Complete COMPREHENSIVE METABOLIC PANEL 03/04 1402 Complete CBC WITHOUT DIFFERENTIAL 03/04 1402 Complete B-TYPE NATRIURETIC PEP (BNP) 03/04 140 Complete EKG 03/04 1321 Active Laboratory Tests 03/04/18 1746: Troponin I < 0.01 03/04/18 1410: Anion Gap 11, Estimated GFR > 60, BUN/Creatinine Ratio 15.6, Glucose 86, Calcium 9.2, Total Bilirubin 0.6, AST 29, ALT 38, Alkaline Phosphatase 87, Troponin I < 0.01, Oxu-R-Eltczxtbtld Pept 76.4, Total Protein 7.1, Albumin 4.2, Globulin 2.9, Albumin/Globulin Ratio 1.4, CBC w Diff NO MAN DIFF REQ, RBC 4.72, MCV 97.5 H, MCH 32.0 H, MCHC 32.9 L, RDW 16.0 H, MPV 8.5, Gran % 72.6, Lymphocytes % 18.3 L, Monocytes % 7.2, Eosinophils % 1.6, Basophils % 0.3, Absolute Granulocytes 7.3 H, Absolute Lymphocytes 1.8, Absolute Monocytes 0.7 H, Absolute Eosinophils 0.2, Absolute Basophils 0 Patient on initial presentation was noted to be in mild distress and bilateral wheezing and crackles noted on exam. Patient initially was given morphine with no relief of chest pain nitroglycerin had no change in symptoms patient was given site Medrol and nebulizer with minimal improvement of his wheezing. Oxygen supplementation was administered patient had repeat troponin EKG with unremarkable findings of CT scan does show concerns of bilateral pneumonia Patient did not feel comfortable to begin outpatient therapy Patient was ambulated down the hallway noted to be in respiratory distress however oxygen saturation 95% Discussed admission with patient Diagnostic Imaging: Viewed by Me: CT Scan. Radiology Impression: acute abnormality Initial ED EKG: normal p-waves, normal QRS complex, 92 BPM,NSR Prior EKG: unchanged Repeat EKG: unchanged Comments: PATIENT: EUN LARA PRESENT AGE: 38 PATIENT ACCOUNT NO: [id number] : 79 LOCATION: [facility] ORDERING PHYSICIAN: Gonzalo ZENDEJAS SERVICE DATE: 03/04/18-1402 EXAM TYPE: CAT - CTA CHEST-PULMONARY EMBOLISM EXAMINATION: CT ANGIOGRAM OF THE CHEST WITH AND WITHOUT CONTRAST (CT PULMONARY ANGIOGRAM FOR PE) CLINICAL INFORMATION: Shortness of breath COMPARISON: 12/23/2017 CT scan TECHNIQUE: Prior to contrast administration, noncontrast localization images were obtained. Subsequently, multidetector volumetric imaging was performed from the thoracic inlet to below the diaphragms following the administration of 95 mL Optiray 320 intravenous contrast. No contrast reaction reported. Sagittal, coronal, and MIP oblique sagittal reformatted images were obtained on the CT workstation, uploaded to PACS, and reviewed. Total exam dose-length product 588.93 mGy-cm. FINDINGS: QUALITY OF STUDY/CONTRAST BOLUS: Satisfactory PULMONARY ARTERIES: No central or segmental pulmonary emboli. THORACIC AORTA: No aneurysm or dissection. LUNG: There is a 4.5 cm area of pulmonary consolidation in the lateral left lower lobe as seen on axial image 405 from series 2. This is a new finding since November 2017 CT scan. There are also adjacent left lower lobe alveolar opacities. There are multiple bilateral areas of pulmonary airspace disease involving the anterior aspect of the bilateral upper lobes, left lower lobe, with interval increase since 12/23/2017 CT scan. There is a 0.8 cm noncalcified right lower lobe pulmonary nodule as seen on axial image 349, which has not changed since the November exam. PLEURA: No pleural effusion or pneumothorax. MEDIASTINUM: Normal heart size. No pericardial effusion. No hilar or mediastinal lymphadenopathy. No evidence of septal bowing or right heart strain. CHEST WALL/AXILLA: No axillary or internal mammary lymphadenopathy. OSSEOUS STRUCTURES: No acute or suspicious osseous abnormality. UPPER ABDOMEN: Unremarkable. No reflux of contrast into the hepatic veins to suggest elevated right heart pressures. IMPRESSION: No evidence of acute PE. Bilateral multilobar pulmonary opacities with an area of pulmonary consolidation in the left lower lobe. There has been interval progression of pulmonary opacities since November 2017 CT scan. The findings could be infectious in etiology. Clinical correlation is suggested. VTE: negative DICTATED BY: Kevin Dai MD DATE/TIME DICTATED:03/04/181637 BOOK STORE ASSOCIATE:PRATIK DATE/TIME TRANSCRIBED:03/04/181637 CONFIDENTIAL, DO NOT COPY WITHOUT APPROPRIATE AUTHORIZATION. <Electronically signed in Other Vendor System> SIGNED BY: Kevin Dai MD 03/04/18 4938 (Gonzalo Marroquin) Departure Departure Disposition: STILL A PATIENT Condition: Guarded Clinical Impression Primary Impression: Pneumonia Secondary Impressions: Asthma exacerbation, Pleuritic chest pain Referrals: Unknown Additional Instructions: As discussed begin the prescription of Levaquin as directed for the full course, begin the prescription are Cheratussin and Tessalon Perles for cough, begin over -the-counter guaifenesin for cough, if symptoms worsen or if YOU develop a new CONCERNING symptom return to emergency room. Follow-up with primary care doctor this week for recheck of symptoms Departure Forms: Customer Survey General Discharge Information Prescriptions: Current Visit Scripts Benzonatate (Tessalon Perle) 1 CAP PO TID PRN COUGH #21 CAP Levofloxacin (Levaquin) 1 TAB PO DAILY #10 TAB Levofloxacin (Levaquin) 1 TAB PO DAILY #10 TAB Codeine Phosphate/Guaifenesi (Cheratussin AC Syrup) 10 ML PO TID PRN COUGH #100 ML Benzonatate (Tessalon Perle) 1 CAP PO TID PRN COUGH #21 CAP Admission Note Spoke With: Inna Cm MD Documentation of Exam: Documentation of any treatments & extenuating circumstances including Concerns Regarding Discharge (functional status, medication knowledge or non-compliance, living conditions, etc.) that warrant an admission rather than observation: [ Patient will be admitted to telemetry for continued chest pain patient requires pulmonary consultation and cardiology consultation and repeat labs repeat nebulizer treatments IV antibiotics and steroids and pain management.] (Gonzalo Marroquin) PA/OFFICE EXECUTIVE Co-Sign Statement Statement: ED Attending supervision documentation- [X] I saw and evaluated the patient. I have also reviewed all the pertinent lab results and diagnostic results. I agree with the findings and the plan of care as documented in the PA's/OFFICE EXECUTIVE's documentation. [X] I have reviewed the ED Record and agree with the PA's/OFFICE EXECUTIVE's documentation. [] Additions or exceptions (if any) to the PAs/OFFICE EXECUTIVE's note and plan are summarized below: [PT TO BE ADMITTED FOR PNEUMONIA, IV ABX, NEBS, PULM CONSULTATION] (Wyatt RIGGS,Matthew Nagy) Critical Care Note Critical Care Note Critical Care Time: 30-74 min (Gonzalo Marroquin)
[2018-03-04 14:27] LABS: ABSOLUTE BASOPHIL COUNT 0 /CUMM (0.0-0.2); ABSOLUTE EOSINOPHIL COUNT 0.2 /CUMM (0.0-0.7); ABSOLUTE GRANULOCYTE CT 7.3 /CUMM (1.4-6.5); ABSOLUTE LYMPH COUNT 1.8 /CUMM (1.2-3.4); ABSOLUTE MONOCYTE COUNT 0.7 /CUMM (0.10-0.60); BASOPHIL % 0.3 % (0.0-2.0); EOSINOPHIL % 1.6 % (0-5); GRANULOCYTE % 72.6 % (42.2-75.2); MEAN CORPUSCULAR HGB CONC 32.9 G/DL (33.0-37.0); MEAN CORPUSCULAR VOLUME 97.5 FL (80.0-94.0); MEAN PLATELET VOLUME 8.5 FL (7.4-10.4); PLATELET COUNT 248 /CUMM (130-400); RED BLOOD CELL CT 4.72 /CUMM (4.70-6.10); WHITE BLOOD CELL COUNT 10.1 /CUMM (4.8-10.8)
--- NOTE | 2018-03-04 17:08 | CT SCAN REPORT ---
EXAMINATION: CT ANGIOGRAM OF THE CHEST WITH AND WITHOUT CONTRAST (CT PULMONARY ANGIOGRAM FOR PE) CLINICAL INFORMATION: Shortness of breath COMPARISON: 12/23/2017 CT scan TECHNIQUE: Prior to contrast administration, noncontrast localization images were obtained. Subsequently, multidetector volumetric imaging was performed from the thoracic inlet to below the diaphragms following the administration of 95 mL Optiray 320 intravenous contrast. No contrast reaction reported. Sagittal, coronal, and MIP oblique sagittal reformatted images were obtained on the CT workstation, uploaded to PACS, and reviewed. Total exam dose-length product 588.93 mGy-cm. FINDINGS: QUALITY OF STUDY/CONTRAST BOLUS: Satisfactory PULMONARY ARTERIES: No central or segmental pulmonary emboli. THORACIC AORTA: No aneurysm or dissection. LUNG: There is a 4.5 cm area of pulmonary consolidation in the lateral left lower lobe as seen on axial image 405 from series 2. This is a new finding since November 2017 CT scan. There are also adjacent left lower lobe alveolar opacities. There are multiple bilateral areas of pulmonary airspace disease involving the anterior aspect of the bilateral upper lobes, left lower lobe, with interval increase since 12/23/2017 CT scan. There is a 0.8 cm noncalcified right lower lobe pulmonary nodule as seen on axial image 349, which has not changed since the November exam. PLEURA: No pleural effusion or pneumothorax. MEDIASTINUM: Normal heart size. No pericardial effusion. No hilar or mediastinal lymphadenopathy. No evidence of septal bowing or right heart strain. CHEST WALL/AXILLA: No axillary or internal mammary lymphadenopathy. OSSEOUS STRUCTURES: No acute or suspicious osseous abnormality. UPPER ABDOMEN: Unremarkable. No reflux of contrast into the hepatic veins to suggest elevated right heart pressures. IMPRESSION: No evidence of acute PE. Bilateral multilobar pulmonary opacities with an area of pulmonary consolidation in the left lower lobe. There has been interval progression of pulmonary opacities since November 2017 CT scan. The findings could be infectious in etiology. Clinical correlation is suggested. VTE: negative
[2018-03-04] MEDS ORDERED: LEVAQUIN500 M1 PO ×2 (19:20→19:23)
[2018-03-04] MEDS ORDERED: CHERATUSSIN AC118 M1 PO ×3 (19:20→19:23)
[2018-03-04] MEDS ORDERED: TESSALON PERLE100 M1 PO ×2 (19:20→19:23)
[2018-03-04 23:38] VITALS: BP 158/100
--- NOTE | 2018-03-05 00:15 | History & Physical ---
Miguel Bernard MD 03/05/18 0015: General Information and HPI MD Statement: I have seen and personally examined EUN LARA and documented this H&P. The patient is a 38 year old M who presented with a patient stated chief complaint of [chest pain]. Source of Information: patient, family Exam Limitations: no limitations History of Present Illness: Patient is a 38-year-old male with past medical history of pulmonary embolism on xarelto, coronary artery disease status post [place] and stent 1 in the RCA, factor V Leiden deficiency, diverticulitis, multiple admissions for chest pain, last seen in the ED on January 04 for GI bleeding transferred to [place] and treated for bleeding ulcer presenting this admission with chief complaint of chest pain. Patient reports that he started experiencing chest pain at approximately 1 PM on day of admission. States that it came on suddenly while he was eating lunch. Describes pain as a pressure sensation across his entire chest radiating up his neck. Reports chest pain worsens with deep breaths. Associated symptoms include shortness of breath, dizziness and lightheadedness and nausea. Patient rates the pain an 8 out of 10 in severity. Patient states that he did not take anything prior to coming to the hospital to help alleviate the pain. In the ED patient received nitroglycerin, morphine, Tylenol. Patient states that the morphine helped relieve the pain and it is currently of 5 out of 10. Patient ambulated in the ED off oxygen at which point he desatted and felt diaphoretic, weak and dizzy/lightheaded. Patient also endorses a orthopnea, paroxysmal nocturnal dyspnea, nonproductive cough for the past 2 days, wheezing, fever/chills. Patient denies lower extremity swelling. Patient states that he has been treated for pneumonia twice already this year. Patient reports that the last time he had this type of chest pain was 2 years ago when he required a cardiac cath and stent placement. Patient receives his care at [facility] primary [facility]. Patient states that he has an appointment with a golf cart assembler on March 14. Patient reports that he was last seen by his metal can inspector in December with no changes to his medications. Patient is currently on an albuterol inhaler as needed. States that he normally requires it 1-2 times a month however in the past day he has used it 4-5 times. Patient is on atorvastatin 40 mg, clopidogrel 75 mg, diltiazem 240 milligrams, escitalopram 10 mg, Advair, hydrochlorothiazide 12.5 mg, lisinopril 40 mg, pantoprazole 40 mg, xarelto 20 mg. Patient reports that he is taking all his medications except for hydrochlorothiazide which he takes in the evening. Patient reports multiple drug allergies including iodine contrast, Haldol, Toradol, Demerol, oxycodone. Allergies/Medications Allergies: Coded Allergies: Iodinated Contrast- Oral and IV Dye (ANAPHYLAXIS 12/23/17) haloperidol (HIVES 12/23/17) ketorolac (From TORADOL) (HIVES, RASH 12/23/17) meperidine (From DEMEROL) (HIVES 12/23/17) milk (LACTOSE INTOLERANT 12/23/17) oxycodone (UNKNOWN 12/23/17) shellfish derived (ANAPHYLAXIS 12/23/17) Home Med list Albuterol Sulfate (Proair Hfa) 90 MCG HFA.AER.AD 2 PUF INH Q6H PRN WHEEZING ( Reported) Atorvastatin Calcium 40 MG TABLET 1 TAB PO DAILY CHOLESTEROL (Reported) Benzonatate (Tessalon Perle) 100 MG CAPSULE 1 CAP PO TID PRN COUGH Benzonatate (Tessalon Perle) 100 MG CAPSULE 1 CAP PO TID PRN COUGH Clopidogrel Bisulfate (Clopidogrel) 75 MG TABLET 1 TAB PO DAILY BLOOD THINNER (Reported) Codeine Phosphate/Guaifenesi (Cheratussin AC Syrup) 10 MG-100 MG/5 ML LIQUID 10 ML PO TID PRN COUGH Diltiazem HCl (Cardizem Cd) 240 MG CAP.ER.24H 1 CAP PO DAILY HEART/BP ( Reported) Escitalopram Oxalate 10 MG TABLET 1 TAB PO DAILY MENTAL HEALTH (Reported) Fluticasone-Salmeterol (Advair 100-50 Diskus) 100 MCG-50 MCG/DOSE BLST.W.DEV 1 PUF INH BID RESP. (Reported) Hydrochlorothiazide 12.5 MG CAPSULE 1 CAP PO DAILY BP (Reported) Lisinopril 40 MG TABLET 1 TAB PO DAILY BP (Reported) Pantoprazole Sodium 40 MG TABLET.DR 1 TAB PO DAILY GI (Reported) Rivaroxaban (Xarelto) 20 MG TABLET 1 TAB PO DAILY BLOOD THINNER (Reported) with food Past History Travel History Traveled to [place] past 21 day No Medical History Blood Transfusion Hx: Yes Neurological: NONE EENT: NONE Cardiovascular: CAD, hypertension, myocardial infarction Respiratory: pulmonary embolism Gastrointestinal: colitis, diverticulitis Hepatic: NONE Renal: NONE Musculoskeletal: NONE Psychiatric: NONE Endocrine: NONE 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" History of MRSA: Yes History of VRE: No History of CDIFF: No Isolation History: Contact Surgical History Surgical History: non-contributory Past Family/Social History Family History Relations & Conditions if any FATHER Coronary artery bypass graft surgery Psychosocial History Where do you live? Home Services at Home: None Smoking Status: Never Smoked ETOH Use: occasional use Illicit Drug Use: denies illicit drug use Review of Systems Review of Systems Constitutional: Reports: see HPI. Cardiovascular: Reports: see HPI. Respiratory: Reports: see HPI. GI: Reports: see HPI. Genitourinary: Reports: no symptoms. Musculoskeletal: Reports: no symptoms. Skin: Reports: no symptoms. Neurological/Psychological: Reports: anxiety. Hematologic/Endocrine: Reports: no symptoms. Immunologic/Allergic: Reports: no symptoms. Exam & Diagnostic Data Last 24 Hrs of Vital Signs/I&O Vital Signs Date Time Temp Pulse Resp B/P B/P Pulse O2 O2 Flow FiO2 Mean Ox Delivery Rate 03/04 2359 Nasal 2.0L Cannula 03/04 2338 98.3 94 18 158/100 94 Nasal Cannula 03/04 2302 Nasal 2.0L Cannula 03/04 2206 98.1 110 18 139/81 92 Room Air 03/04 2010 92 03/04 1933 97.9 98 16 136/95 94 Room Air 03/04 1555 173/77 03/04 1545 186/86 03/04 1450 95 22 144/104 100 Nasal Cannula 03/04 1449 100 Nasal 2.0L Cannula 03/04 1420 98 Nasal 2.0L Cannula 03/04 1354 98.0 112 26 180/130 98 Room Air Room Air Intake & Output 03/05 0800 05/08 0000 03/04 1600 Intake Total 1000 Output Total Balance 1000 Intake, IV 1000 Patient 292 lb Weight Weight Bed scale Measurement Method Physical Exam General Appearance Alert, Oriented X3, Cooperative, No Acute Distress Skin Temp/Moisture Exam: Warm/Dry HEENT Atraumatic, PERRLA, EOMI, Mucous Membr. moist/pink Neck No JVD Cardiovascular Regular Rate, Normal S1, Normal S2, No Murmurs Lungs bibasilar crackes and mild diffuse wheezing Abdomen Normal Bowel Sounds, Soft, No Tenderness Neurological Normal Speech, Strength at 5/5 X4 Ext, Normal Tone, Sensation Intact, Cranial Nerves 3-12 NL Extremities No Clubbing, No Cyanosis, No Edema, Normal Pulses, No Tenderness/ Swelling Vascular Normal Pulses, Pulses Symmetrical Last 24 Hrs of Labs/Bret: Laboratory Tests 03/04/18 1746: Troponin I < 0.01 03/04/18 1410: Anion Gap 11, Estimated GFR > 60, BUN/Creatinine Ratio 15.6, Glucose 86, Calcium 9.2, Total Bilirubin 0.6, AST 29, ALT 38, Alkaline Phosphatase 87, Troponin I < 0.01, Otv-W-Dgggxfeoioc Pept 76.4, Total Protein 7.1, Albumin 4.2, Globulin 2.9, Albumin/Globulin Ratio 1.4, CBC w Diff NO MAN DIFF REQ, RBC 4.72, MCV 97.5 H, MCH 32.0 H, MCHC 32.9 L, RDW 16.0 H, MPV 8.5, Gran % 72.6, Lymphocytes % 18.3 L, Monocytes % 7.2, Eosinophils % 1.6, Basophils % 0.3, Absolute Granulocytes 7.3 H, Absolute Lymphocytes 1.8, Absolute Monocytes 0.7 H, Absolute Eosinophils 0.2, Absolute Basophils 0 Microbiology 03/05 0050 NASOPHARYN: Influenza Virus A & B Rapid Smear - COMP 03/05 0040 BLOOD: Blood Culture - RECD 03/05 002 BLOOD: Blood Culture - RECD 03/04 2313 URINE ROUT: Legionella Antigen - COLB 03/04 2313 URINE ROUT: Streptococcus pneumoniae Antigen (M - COLB 03/04 2247 LOWER RESP: Respiratory Culture - COLB 03/04 2247 LOWER RESP: Gram Stain - COLB Assessment/Plan Assessment: Patient is a 38-year-old male with past medical history of pulmonary embolism on xarelto, coronary artery disease status post [place] and stent 1 in the RCA, factor V Leiden deficiency, diverticulitis, multiple admissions for chest pain, last seen in the ED on January 04 for GI bleeding transferred to [place] and treated for bleeding ulcer presenting this admission with chief complaint of chest pain. Patient will be admitted to the telemetry floor for management of followin. Typical chest pain rule out ACS 2. Community-acquired pneumonia 3. Chronic conditions: Pulmonary embolism, CAD Plan: Admit to telemetry with continuous monitoring Serial EKG and troponins Cardiology consult Continue IV ceftriaxone Start IV doxycycline (history of allergy to azithromycin) Prednisone 40 mg by mouth daily Continue clopidogrel, statin TRC/DuoNeb's as needed Oxygen supplementation as needed Follow-up blood cultures, sputum cultures Strep pneumonia and legionella Rapid flu swab Follow-up sputum cultures Continue home medications DVT prophylaxis: Alps, on Xarelto Diet: Heart healthy Code: Full code As Ranked By This Provider Problem List: 1. Chest pain 2. Pneumonia Core Measures/Misc (07/15) Acute Coronary Syndrome ACS Diagnosis: No Congestive Heart Failure Congestive Heart Failure Diagnosis No Cerebrovascular Accident CVA/TIA Diagnosis: No VTE (View Protocol) VTE Risk Factors VTE (Previous) No Mechanical VTE Prophylaxis d/t N/A MechProphylax Ordered No VTE Pharm Prophylaxis d/t NA PharmProphylax ordered Sepsis (View protocol) Sepsis Present: No Gabriel Fernandez 03/05/18 0259: Resident Review Statement Resident Statement: examined this patient, discussed with customer operations intern, agreed with customer operations intern, discussed with family, reviewed EMR data (avail), discussed with nursing , discussed with case mgmt, reviewed images, amended to note Other Findings: This is 38 years old male with medical history of myocardial infarction S\\P RCA stent 2 years ago, A. fib, multiple pulmonary embolism and multiple DVT S/P IVC filter currently on Xeralto, factor V Lieden mutationt, lung nodule, asthma, colitis, diverticulitis is S/P partial colectomy, hypertension, history of multidrug use(cocaine), history of C. difficile, MRSA, obstructive sleep apnea noncompliant with CPAP. Presented to the emergency department for chief complaint of chest pain. He stated that he started experiencing chest pain at approximately 1 PM on day of admission. Also report that it came on suddenly while he was eating lunch. Reports chest pain worsens with deep breaths. Associated symptoms include shortness of breath, dizziness and lightheadedness and nausea. also report orthopnea, paroxysmal nocturnal dyspnea, nonproductive cough for the past 2 days, wheezing, fever/chills. Patient denies lower extremity swelling. Patient states that he has been treated for pneumonia twice already this year. Patient was recently transferred care from [facility] or [facility] due to concern of active bleeding ulcer patient underwent an emergent scope and to ulcer found and ligated and the patient was restarted back on his Xarelto. In the emergency department was premedicated and underwent CTA of the chest to rule out pulmonary embolism test came back negative and showed a new lung consolidation. He received a dose of IV azithromycin and ceftriaxone. And the dose of sublingual nitroglycerin, IV morphine and IV Zofran. Physical examination, lab and imaging as above. Problem list: -Acute chest pain -Asthma exacerbation/bronchitis -Community-acquired pneumonia Plan: -Admit patient to telemetry floor -Vitals every shift -Serial troponin and EKG -Cardiology consultation in a.m. -By mouth prednisone 40 mg daily -Continue IV ceftriaxone and start IV doxycycline -TRC nebs as needed, continue home inhaler -Sputum culture, blood culture, urine culture and analysis, -Strep and Legionella urine antigen. -Continue home medication -Heart healthy diet -Pain pathway -DVT prophylaxis on Xarelto -Full code. Inna Cm 03/05/18 0626: Attending MD Review Statement Attending Statement Attending MD Statement: examined this patient, discuss w/resident/PA/STORES DESPATCH HAND, agreed w/resident/PA/STORES DESPATCH HAND, reviewed EMR data (avail), reviewed images, amended to note Attending Assessment/Plan: CC: Chest pain, shortness of breath PMH: CAD S/P [place] S/P RCA stent, A. fib, HTN, multiple PE and DVT, S/P IVC, factor V Leyden, pulmonary nodule, asthma, partial colectomy Patient came to ER for sudden onset chest pain that started around 1 PM, chest pain was sharp, diffuse, radiating to neck, 8/10 in intensity, worse with breathing. He also complains of shortness of breath, wheezing, nonproductive cough , nausea and dizziness since last 2-3 days. He has decreased appetite but denies any fever, chills, leg edema, orthopnea, PND, passing out episodes or falls. Vitals: Temperature 98.5, pulse 112, RR 26, blood pressure 180/130 on arrival improved to 144/104, saturating 98% on 2 L nasal cannula. On exam: A O 3, cooperative, mild respiratory distress, accessory muscles in use. Neck supple, JVD normal, no lymphadenopathy, mucosa moist, no focal neurological deficit, no dependent edema, no obvious skin rashes or inflammation CVS: S1-S2, RRR. RS: Diffuse wheezing in all lung collier. Abdomen: Soft, NT, ND, bowel sounds present. CTA chest: No evidence of acute PE. Bilateral multilobar pulmonary opacities with an area of pulmonary consolidation in the left lower lobe . There has been interval progression of pulmonary opacities since November 2017 CT scan. The findings could be infectious in etiology. Clinical correlation is suggested. Assessment and plan 38 year old male with extensive past medical history presented in ER for 2-3 day history of shortness of breath, wheezing, cough without sputum production, nausea and dizziness and today sudden onset of sharp severe chest pain, diffuse all over the chest, radiating to neck. Given his multiple pulmonary embolism episodes in the past and his heart attack he was concerned so he came to ER. On examination he is diffusely wheezing, was tachycardic and tachypneic and mild respiratory distress with accessory muscles of respiration in use. Even though he did not have any significant fever spike or leukocytosis he is found to have pneumonia on CTA chest. Given his history of CAD we will Rule out ACS given the chest pain, will benefit from telemetry monitoring. + Bilateral pneumonia L>R + Asthma exacerbation secondary to pneumonia + Chest pain rule out ACS + Hx of CAD S/P [place] S/P RCA stent, A. fib, HTN, multiple PE and DVT, S/P IVC, factor V Leyden, pulmonary nodule, asthma, partial colectomy - Admit to telemetry - Try to wean off oxygen - Prednisone 40 mg by mouth daily - Continue doxycycline and ceftriaxone (patient had a rash after azithromycin and his previous hospitalization) - TRC nebulization with albuterol and ipratropium scheduled and when necessary - Mucinex scheduled twice a day - Urine strep and Legionella - Serial troponin and ECGs - Cardiology consult - Continue rest of the home medications - Adequate pain control - DVT prophylaxis
--- NOTE | 2018-03-05 06:28 | Admission Certification ---
Admission Certification Certification Statement - As attending physician, I certify that at the time of - admission, based on clinical presentation, severity of - symptoms, need for further diagnostic testing and - therapeutic interventions, and risk of adverse outcomes - without in-hospital treatment, in my clinical assessment, - this patient requires an acute hospital stay for a minimum - of two nights or longer. I have also considered psychsocial - factors such as support system, advanced age, financial - issues, cognitive issues, and failed out-patient treatments, - past re-admission history, safety of patient, and lack of - compliance as applicable. Specific rationale supporting this admission is: Pneumonia
[2018-03-05 07:51] VITALS: BP 148/92
[2018-03-05 07:56] LABS: ABSOLUTE BASOPHIL COUNT 0 /CUMM (0.0-0.2); ABSOLUTE EOSINOPHIL COUNT 0 /CUMM (0.0-0.7); ABSOLUTE LYMPH COUNT 0.6 /CUMM (1.2-3.4); ABSOLUTE MONOCYTE COUNT 0.2 /CUMM (0.10-0.60); EOSINOPHIL % 0 % (0-5)
[2018-03-05 08:20] LABS: ABSOLUTE GRANULOCYTE CT 14.2 /CUMM (1.4-6.5); BASOPHIL % 0.1 % (0.0-2.0); GRANULOCYTE % 94.5 % (42.2-75.2); MEAN CORPUSCULAR HGB CONC 32.5 G/DL (33.0-37.0); MEAN CORPUSCULAR VOLUME 98.6 FL (80.0-94.0); PLATELET COUNT 223 /CUMM (130-400); RED BLOOD CELL CT 4.11 /CUMM (4.70-6.10)
[2018-03-05 08:24] LABS: HEMATOCRIT 40.5 % (42-52)
[2018-03-05 09:18] LABS: WHITE BLOOD CELL COUNT 15.1 /CUMM (4.8-10.8)
--- NOTE | 2018-03-05 13:33 | PN- Att Addend ---
See Addendum Attending Addendum Attending Brief Note 38 o/m with pmh of CAD S/P [place] S/P RCA stent, A. fib, HTN, multiple PE and DVT, S /P IVC, factor V Leyden, pulmonary nodule, asthma, partial colectomy came to ER for chest pain atypical in high risk patient. Bilateral pneumonia L>R with possible Asthma exacerbation secondary to pneumonia Labs and imaging noted. Denies any new complaints. On oxygen supplementation 2l nc. CTA chest: No evidence of acute PE. Bilateral multilobar pulmonary opacities with an area of pulmonary consolidation in the left lower lobe and There has been interval progression of pulmonary opacities since November 2017 CT scan. The findings could be infectious in etiology. Clinical correlation is suggested. Try to wean off oxygen, iv abx, Cardiology consult, pulmonary consult, Continue rest of the home medications, Adequate pain control. DVT prophylaxis, cont rest of plan as per admitting physician. Admission Lab Results I reviewed the following labs: Laboratory Tests 03/05 03/04 0612 1746 Chemistry Sodium (137 - 145 mmol/L) 140 Potassium (3.5 - 5.1 mmol/L) 4.7 Chloride (98 - 107 mmol/L) 106 Carbon Dioxide (22 - 30 mmol/L) 24 Anion Gap (5 - 16) 10 BUN (9 - 20 mg/dL) 15 Creatinine (0.7 - 1.2 mg/dL) 0.8 Estimated GFR (>60 ml/min) > 60 BUN/Creatinine Ratio (7 - 25 %) 18.8 Troponin I (<0.11 ng/ml) < 0.01 Hematology CBC w Diff NO MAN DIFF REQ WBC (4.8 - 10.8 /CUMM) 15.1 H RBC (4.70 - 6.10 /CUMM) 4.11 L Hgb (14.0 - 18.0 G/DL) 13.2 L Hct (42 - 52 %) 40.5 L MCV (80.0 - 94.0 FL) 98.6 H MCH (27.0 - 31.0 PG) 32.0 H MCHC (33.0 - 37.0 G/DL) 32.5 L RDW (11.5 - 14.5 %) 16.0 H Plt Count (130 - 400 /CUMM) 223 MPV (7.4 - 10.4 FL) 9.0 Gran % (42.2 - 75.2 %) 94.5 H Lymphocytes % (20.5 - 51.1 %) 4.1 L Monocytes % (1.7 - 9.3 %) 1.3 L Eosinophils % (0 - 5 %) 0 Basophils % (0.0 - 2.0 %) 0.1 Absolute Granulocytes (1.4 - 6.5 /CUMM) 14.2 H Absolute Lymphocytes (1.2 - 3.4 /CUMM) 0.6 L Absolute Monocytes (0.10 - 0.60 /CUMM) 0.2 Absolute Eosinophils (0.0 - 0.7 /CUMM) 0 Absolute Basophils (0.0 - 0.2 /CUMM) 0 05/07 1410 Chemistry Sodium (137 - 145 mmol/L) 141 Potassium (3.5 - 5.1 mmol/L) 4.5 Chloride (98 - 107 mmol/L) 105 Carbon Dioxide (22 - 30 mmol/L) 25 Anion Gap (5 - 16) 11 BUN (9 - 20 mg/dL) 14 Creatinine (0.7 - 1.2 mg/dL) 0.9 Estimated GFR (>60 ml/min) > 60 BUN/Creatinine Ratio (7 - 25 %) 15.6 Glucose (65 - 99 mg/dL) 86 Calcium (8.4 - 10.2 mg/dL) 9.2 Total Bilirubin (0.2 - 1.3 mg/dL) 0.6 AST (17 - 59 U/L) 29 ALT (21 - 72 U/L) 38 Alkaline Phosphatase (< 127 U/L) 87 Troponin I (<0.11 ng/ml) < 0.01 Pdy-D-Rdbdltnisby Pept (<125 pg/mL) 76.4 Total Protein (6.3 - 8.2 g/dL) 7.1 Albumin (3.5 - 5.0 g/dL) 4.2 Globulin (1.9 - 4.2 gm/dL) 2.9 Albumin/Globulin Ratio (1.1 - 2.2 %) 1.4 Hematology CBC w Diff NO MAN DIFF REQ WBC (4.8 - 10.8 /CUMM) 10.1 RBC (4.70 - 6.10 /CUMM) 4.72 Hgb (14.0 - 18.0 G/DL) 15.1 Hct (42 - 52 %) 46.0 MCV (80.0 - 94.0 FL) 97.5 H MCH (27.0 - 31.0 PG) 32.0 H MCHC (33.0 - 37.0 G/DL) 32.9 L RDW (11.5 - 14.5 %) 16.0 H Plt Count (130 - 400 /CUMM) 248 MPV (7.4 - 10.4 FL) 8.5 Gran % (42.2 - 75.2 %) 72.6 Lymphocytes % (20.5 - 51.1 %) 18.3 L Monocytes % (1.7 - 9.3 %) 7.2 Eosinophils % (0 - 5 %) 1.6 Basophils % (0.0 - 2.0 %) 0.3 Absolute Granulocytes (1.4 - 6.5 /CUMM) 7.3 H Absolute Lymphocytes (1.2 - 3.4 /CUMM) 1.8 Absolute Monocytes (0.10 - 0.60 /CUMM) 0.7 H Absolute Eosinophils (0.0 - 0.7 /CUMM) 0.2 Absolute Basophils (0.0 - 0.2 /CUMM) 0 Admission Meds I reviewed the following Meds: Current Medications Sig/Theo Start time Last Medication Dose Stop Time Status Admin Acetaminophen 650 MG Q6P PRN 03/04 2245 AC (Tylenol) Acetaminophen 1,000 MG Q6P PRN 03/04 2245 AC (Ofirmev) Albuterol Sulfate 3 ML Q4-PRN PRN 03/04 2315 AC (Proventil) Albuterol Sulfate 2 PUF Q4-PRN PRN 03/04 2315 AC (Ventolin) Albuterol Sulfate 2 PUF Q6H PRN 03/04 2315 AC (Ventolin) Atorvastatin Calcium 40 MG DAILY 03/05 900 AC 03/05 (Lipitor) 0840 Azithromycin 500 MG DAILY 03/05 900 CAN (Zithromax) Sodium Chloride 250 ML (Normal Saline 0.9%) Budesonide/ 2 PUF BID 03/05 900 AC 03/05 Formoterol Fumarate 0840 (SYMBICORT) Ceftriaxone Sodium 1,000 MG 1830 03/05 183 AC (Rocephin) Clopidogrel Bisulfate 75 MG DAILY 03/05 900 AC 03/05 (Plavix) 0840 Diltiazem HCl 240 MG DAILY 03/05 0900 AC 03/05 (Cardizem CD) 0840 Doxycycline Hyclate 100 MG Q12H 03/05 1200 AC 03/05 (Vibramycin) 1159 Sodium Chloride 100 ML (Normal Saline 0.9%) Lisinopril 40 MG DAILY 03/05 09 AC 03/05 (Prinivil) 0840 Morphine Sulfate 2 MG Q6P PRN 03/04 2300 AC 03/05 (MORPHINE SULFATE) 1235 Omeprazole 40 MG DAILY AC 03/05 0700 AC 03/05 (Prilosec) 0625 Prednisone 40 MG DAILY 03/05 0900 AC 03/05 0840 Rivaroxaban 20 MG DAILY 03/05 900 AC 03/05 (Xarelto) 08
[2018-03-05 14:39] VITALS: BP 146/84
--- NOTE | 2018-03-05 15:36 | Cons- Cardiology ---
General Information and HPI Consulting Request Date of Consult: 03/05/18 Requested By: Юлия RIGGS,Cinthya Reason for Consult: Coronary artery disease History of Present Illness: The patient is a 38-year-old male with history of coronary artery disease status post stents 3 in 2013, factor V Leiden deficiency, multiple DVTs and PEs, GI bleed presenting with chest pain. The chest pain began approximately 1:00 PM yesterday. It occurred suddenly while he was eating lunch. He describes the pain as a pressure sensation across his entire chest radiating up to his neck. The pain increases with deep inspiration. He notes associated shortness of breath, lightheadedness, and nausea. He had a recent cardiac catheterization in December 2017 which revealed widely patent coronary arteries including large stent and proximal RCA. He is noted to have evidence of bilateral pneumonia and possible asthma exacerbation. No syncope. No palpitations. No diaphoresis. Allergies/Medications Allergies: Coded Allergies: Iodinated Contrast- Oral and IV Dye (ANAPHYLAXIS 12/23/17) haloperidol (HIVES 12/23/17) ketorolac (From TORADOL) (HIVES, RASH 12/23/17) meperidine (From DEMEROL) (HIVES 12/23/17) milk (LACTOSE INTOLERANT 12/23/17) oxycodone (UNKNOWN 12/23/17) shellfish derived (ANAPHYLAXIS 12/23/17) Home Med List: Albuterol Sulfate (Proair Hfa) 90 MCG HFA.AER.AD 2 PUF INH Q6H PRN WHEEZING ( Reported) Atorvastatin Calcium 40 MG TABLET 1 TAB PO DAILY CHOLESTEROL (Reported) Benzonatate (Tessalon Perle) 100 MG CAPSULE 1 CAP PO TID PRN COUGH Benzonatate (Tessalon Perle) 100 MG CAPSULE 1 CAP PO TID PRN COUGH Clopidogrel Bisulfate (Clopidogrel) 75 MG TABLET 1 TAB PO DAILY BLOOD THINNER (Reported) Codeine Phosphate/Guaifenesi (Cheratussin AC Syrup) 10 MG-100 MG/5 ML LIQUID 10 ML PO TID PRN COUGH Diltiazem HCl (Cardizem Cd) 240 MG CAP.ER.24H 1 CAP PO DAILY HEART/BP ( Reported) Escitalopram Oxalate 10 MG TABLET 1 TAB PO DAILY MENTAL HEALTH (Reported) Fluticasone-Salmeterol (Advair 100-50 Diskus) 100 MCG-50 MCG/DOSE BLST.W.DEV 1 PUF INH BID RESP. (Reported) Hydrochlorothiazide 12.5 MG CAPSULE 1 CAP PO DAILY BP (Reported) Lisinopril 40 MG TABLET 1 TAB PO DAILY BP (Reported) Pantoprazole Sodium 40 MG TABLET.DR 1 TAB PO DAILY GI (Reported) Rivaroxaban (Xarelto) 20 MG TABLET 1 TAB PO DAILY BLOOD THINNER (Reported) with food Current Medications: Current Medications Sig/Theo Start time Last Medication Dose Route Stop Time Status Admin Acetaminophen 650 MG Q6P PRN 03/04 2245 AC PO Acetaminophen 1,000 MG Q6P PRN 03/04 2245 AC IV Acetaminophen 0 .STK-MED ONE 03/04 2124 DC IV Acetaminophen 1,000 MG ONCE ONE 03/04 2115 DC 03/04 N/A 1 UNIT IV 03/04 Albuterol Sulfate 3 ML Q4-PRN PRN 03/04 2315 AC INH Albuterol Sulfate 2 PUF Q4-PRN PRN 03/04 2315 AC INH Albuterol Sulfate 2 PUF Q6H PRN 03/04 2315 AC INH Albuterol Sulfate 18 ML ONCE ONE 03/04 2000 DC 03/04 INH 03/04 2001 195 Aspirin 0 .STK-MED ONE 03/04 1547 DC PO Aspirin 325 MG ONCE ONE 03/04 1545 DC 03/04 PO 03/04 1546 1545 Atorvastatin Calcium 40 MG DAILY 03/05 900 AC 03/05 PO 0840 Azithromycin 500 MG DAILY 03/05 900 CAN Sodium Chloride 250 ML IV Azithromycin 500 MG ONCE ONE 03/04 174 DC 03/04 Sodium Chloride 250 ML IV 03/04 1844 1837 Budesonide/ 2 PUF BID 03/05 900 AC 03/05 Formoterol Fumarate INH 0840 Ceftriaxone Sodium 1,000 MG 1830 03/05 183 AC IV Ceftriaxone Sodium 1,000 MG DAILY 03/05 900 DC IV Ceftriaxone Sodium 0 .STK-MED ONE 03/04 181 DC .ROUTE Ceftriaxone Sodium 1,000 MG ONCE ONE 03/04 174 DC 03/04 IV 03/04 1746 1837 Clopidogrel Bisulfate 75 MG DAILY 03/05 900 AC 03/05 PO 0840 Diltiazem HCl 240 MG DAILY 03/05 900 AC 03/05 PO 0840 Doxycycline Hyclate 100 MG Q12H 03/05 1200 AC 03/05 Sodium Chloride 100 ML IV 1159 Doxycycline Hyclate 100 MG Q12H 03/04 2345 DC 03/05 Sodium Chloride 100 ML IV 0112 Doxycycline Hyclate 100 MG Q12 03/04 2323 DC Dextrose/Water 100 ML IV Lisinopril 40 MG DAILY 03/05 900 AC 03/05 PO 0840 Morphine Sulfate 2 MG Q6P PRN 03/04 2300 AC 03/05 IV 1235 Morphine Sulfate 6 MG ONCE ONE 03/04 1700 DC 03/04 IV 03/04 1701 1702 Nitroglycerin 0 .STK-MED ONE 03/04 1550 DC SL Nitroglycerin 0 .STK-MED ONE 03/04 1548 DC TOP Nitroglycerin 0.4 MG ONCE ONE 03/04 1545 DC 03/04 SL 03/04 1546 1545 Omeprazole 40 MG DAILY AC 03/05 700 AC 03/05 PO 0625 Prednisone 40 MG DAILY 03/05 900 AC 03/05 PO 0840 Rivaroxaban 20 MG DAILY 03/05 900 AC 03/05 PO 0840 Review of Systems Review of Systems: No rash. No tremor. No melena. All other systems were reviewed, and were noted to be negative. Past History Travel History Traveled to [place] past 21 day No Medical History Blood Transfusion Hx: Yes Neurological: NONE EENT: NONE Cardiovascular: CAD, hypertension, myocardial infarction Respiratory: pulmonary embolism Gastrointestinal: colitis, diverticulitis Hepatic: NONE Renal: NONE Musculoskeletal: NONE Psychiatric: NONE Endocrine: NONE 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" Surgical History Surgical History: non-contributory Family History Relations & Conditions If Any: FATHER Coronary artery bypass graft surgery Psychosocial History Where Do You Live? Home Services at Home: None Smoking Status: Never Smoked ETOH Use: occasional use Illicit Drug Use: denies illicit drug use Exam & Diagnostic Data Vital Signs and I&O Vital Signs Date Time Temp Pulse Resp B/P B/P Pulse O2 O2 Flow FiO2 Mean Ox Delivery Rate 03/05 1439 97.5 75 18 146/84 97 Nasal Cannula 03/05 1426 97 Nasal 2.0L Cannula 03/05 0840 82 148/92 03/05 08 94 Nasal 2.0L Cannula 03/05 0751 98.7 82 18 148/92 95 Nasal 2.0L Cannula 03/04 2359 Nasal 2.0L Cannula 03/04 2338 98.3 94 18 158/100 94 Nasal Cannula 03/04 2302 Nasal 2.0L Cannula 03/04 2206 98.1 110 18 139/81 92 Room Air 03/04 2010 92 03/04 1933 97.9 98 16 136/95 94 Room Air 03/04 1555 173/77 03/04 1545 186/86 Intake & Output 03/05 0803/05 0000 03/04 1600 03/04 0803/04 0000 Intake Total 928 815 5436 Output Total Balance 666 624 2065 Intake, IV 188 894 1001 Intake, Oral 800 720 Patient 292 lb Weight Weight Bed scale Measurement Method Physical Exam: Gen: The patient is in no acute distress HEENT: Normal nose, ears, and oropharynx. Pupils equal bilaterally. Conjunctiva normal. Neck: Supple with no JVD, no masses, and no thyromegaly Lungs: Bilateral rhonchi with normal respiratory effort Heart: RRR, S1, S2, no murmurs. No peripheral edema, 2+ pulses in the lower extremities bilaterally Abdomen: Soft, nontender, no masses. No hepatomegaly. No splenomegaly Extremities: No clubbing or cyanosis. Normal muscle strength in the upper and lower extremities Skin: Normal skin turgor with no skin ulcers or lesions noted. Neuro: Cranial nerves intact. Sensation intact Psych: Alert and oriented x 3 with appropriate affect Labs/Bret Results: Laboratory Tests 03/05 03/04 0612 1746 Chemistry Sodium (137 - 145 mmol/L) 140 Potassium (3.5 - 5.1 mmol/L) 4.7 Chloride (98 - 107 mmol/L) 106 Carbon Dioxide (22 - 30 mmol/L) 24 Anion Gap (5 - 16) 10 BUN (9 - 20 mg/dL) 15 Creatinine (0.7 - 1.2 mg/dL) 0.8 Estimated GFR (>60 ml/min) > 60 BUN/Creatinine Ratio (7 - 25 %) 18.8 Troponin I (<0.11 ng/ml) < 0.01 Hematology CBC w Diff NO MAN DIFF REQ WBC (4.8 - 10.8 /CUMM) 15.1 H RBC (4.70 - 6.10 /CUMM) 4.11 L Hgb (14.0 - 18.0 G/DL) 13.2 L Hct (42 - 52 %) 40.5 L MCV (80.0 - 94.0 FL) 98.6 H MCH (27.0 - 31.0 PG) 32.0 H MCHC (33.0 - 37.0 G/DL) 32.5 L RDW (11.5 - 14.5 %) 16.0 H Plt Count (130 - 400 /CUMM) 223 MPV (7.4 - 10.4 FL) 9.0 Gran % (42.2 - 75.2 %) 94.5 H Lymphocytes % (20.5 - 51.1 %) 4.1 L Monocytes % (1.7 - 9.3 %) 1.3 L Eosinophils % (0 - 5 %) 0 Basophils % (0.0 - 2.0 %) 0.1 Absolute Granulocytes (1.4 - 6.5 /CUMM) 14.2 H Absolute Lymphocytes (1.2 - 3.4 /CUMM) 0.6 L Absolute Monocytes (0.10 - 0.60 /CUMM) 0.2 Absolute Eosinophils (0.0 - 0.7 /CUMM) 0 Absolute Basophils (0.0 - 0.2 /CUMM) 0 07 0507 1410 0020 Chemistry Sodium (137 - 145 mmol/L) 141 Potassium (3.5 - 5.1 mmol/L) 4.5 Chloride (98 - 107 mmol/L) 105 Carbon Dioxide (22 - 30 mmol/L) 25 Anion Gap (5 - 16) 11 BUN (9 - 20 mg/dL) 14 Creatinine (0.7 - 1.2 mg/dL) 0.9 Estimated GFR (>60 ml/min) > 60 BUN/Creatinine Ratio (7 - 25 %) 15.6 Glucose (65 - 99 mg/dL) 86 Calcium (8.4 - 10.2 mg/dL) 9.2 Total Bilirubin (0.2 - 1.3 mg/dL) 0.6 AST (17 - 59 U/L) 29 ALT (21 - 72 U/L) 38 Alkaline Phosphatase (< 127 U/L) 87 Troponin I (<0.11 ng/ml) < 0.01 < 0.01 Bad-Z-Qtksrnlrdco Pept (<125 pg/mL) 76.4 Total Protein (6.3 - 8.2 g/dL) 7.1 Albumin (3.5 - 5.0 g/dL) 4.2 Globulin (1.9 - 4.2 gm/dL) 2.9 Albumin/Globulin Ratio (1.1 - 2.2 %) 1.4 Hematology CBC w Diff NO MAN DIFF REQ WBC (4.8 - 10.8 /CUMM) 10.1 RBC (4.70 - 6.10 /CUMM) 4.72 Hgb (14.0 - 18.0 G/DL) 15.1 Hct (42 - 52 %) 46.0 MCV (80.0 - 94.0 FL) 97.5 H MCH (27.0 - 31.0 PG) 32.0 H MCHC (33.0 - 37.0 G/DL) 32.9 L RDW (11.5 - 14.5 %) 16.0 H Plt Count (130 - 400 /CUMM) 248 MPV (7.4 - 10.4 FL) 8.5 Gran % (42.2 - 75.2 %) 72.6 Lymphocytes % (20.5 - 51.1 %) 18.3 L Monocytes % (1.7 - 9.3 %) 7.2 Eosinophils % (0 - 5 %) 1.6 Basophils % (0.0 - 2.0 %) 0.3 Absolute Granulocytes (1.4 - 6.5 /CUMM) 7.3 H Absolute Lymphocytes (1.2 - 3.4 /CUMM) 1.8 Absolute Monocytes (0.10 - 0.60 /CUMM) 0.7 H Absolute Eosinophils (0.0 - 0.7 /CUMM) 0.2 Absolute Basophils (0.0 - 0.2 /CUMM) 0 Diagnostic Data EKG Results EKG tracings independently reviewed, and reveals normal sinus rhythm at 62, normal EKG Assessment/Plan Consult Acknowledgment - Thank you for your consult request.
[2018-03-05 23:16] VITALS: BP 140/70
[2018-03-06 07:02] VITALS: BP 110/70
--- NOTE | 2018-03-06 08:05 | Cons- Pulmonary ---
General Information and HPI Consulting Request Date of Consult: 03/06/18 Requested By: Yuko Reason for Consult: Abnormal CAT scan History of Present Illness: Patient is a 38-year-old prior smoker with history of factor V Leiden deficiency complicated by coronary artery disease status post myocardial infarction stent placement DVT PE and GI bleeding. He has had shortness of breath and was to be evaluated next week for abnormal CAT scan. He presented with anterior chest pain similar to his prior myocardial infarction. CTA was negative but showed areas of groundglass opacity and left lower lobe consolidation. He said no sputum production or hemoptysis. Allergies/Medications Allergies: Coded Allergies: Iodinated Contrast- Oral and IV Dye (ANAPHYLAXIS 12/23/17) haloperidol (HIVES 12/23/17) ketorolac (From TORADOL) (HIVES, RASH 12/23/17) meperidine (From DEMEROL) (HIVES 12/23/17) milk (LACTOSE INTOLERANT 12/23/17) oxycodone (UNKNOWN 12/23/17) shellfish derived (ANAPHYLAXIS 12/23/17) Home Med List: Albuterol Sulfate (Proair Hfa) 90 MCG HFA.AER.AD 2 PUF INH Q6H PRN WHEEZING ( Reported) Atorvastatin Calcium 40 MG TABLET 1 TAB PO DAILY CHOLESTEROL (Reported) Benzonatate (Tessalon Perle) 100 MG CAPSULE 1 CAP PO TID PRN COUGH Benzonatate (Tessalon Perle) 100 MG CAPSULE 1 CAP PO TID PRN COUGH Clopidogrel Bisulfate (Clopidogrel) 75 MG TABLET 1 TAB PO DAILY BLOOD THINNER (Reported) Codeine Phosphate/Guaifenesi (Cheratussin AC Syrup) 10 MG-100 MG/5 ML LIQUID 10 ML PO TID PRN COUGH Diltiazem HCl (Cardizem Cd) 240 MG CAP.ER.24H 1 CAP PO DAILY HEART/BP ( Reported) Escitalopram Oxalate 10 MG TABLET 1 TAB PO DAILY MENTAL HEALTH (Reported) Fluticasone-Salmeterol (Advair 100-50 Diskus) 100 MCG-50 MCG/DOSE BLST.W.DEV 1 PUF INH BID RESP. (Reported) Hydrochlorothiazide 12.5 MG CAPSULE 1 CAP PO DAILY BP (Reported) Lisinopril 40 MG TABLET 1 TAB PO DAILY BP (Reported) Pantoprazole Sodium 40 MG TABLET.DR 1 TAB PO DAILY GI (Reported) Rivaroxaban (Xarelto) 20 MG TABLET 1 TAB PO DAILY BLOOD THINNER (Reported) with food Review of Systems Review of Systems Constitutional: Denies: chills, fever. Cardiovascular: Reports: chest pain. Denies: edema. Respiratory: Reports: cough, short of breath, wheezing. Denies: hemoptysis. GI: Denies: abdominal pain, diarrhea, melena. Past History Travel History Traveled to [place] past 21 day No Medical History Blood Transfusion Hx: Yes Neurological: NONE EENT: NONE Cardiovascular: CAD, hypertension, myocardial infarction Respiratory: pulmonary embolism Gastrointestinal: colitis, diverticulitis Hepatic: NONE Renal: NONE Musculoskeletal: NONE Psychiatric: NONE Endocrine: NONE 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" Surgical History Surgical History: non-contributory Family History Relations & Conditions If Any: FATHER Coronary artery bypass graft surgery Psychosocial History Where Do You Live? Home Services at Home: None Smoking Status: Never Smoked ETOH Use: occasional use Illicit Drug Use: denies illicit drug use Exam & Diagnostic Data Last 24 Hrs of Vital Signs/I&O Vital Signs Date Time Temp Pulse Resp B/P B/P Pulse O2 O2 Flow FiO2 Mean Ox Delivery Rate 03/06 0702 98.7 60 20 110/70 97 Nasal 2.0L Cannula 03/06 0000 Nasal 2.0L Cannula 03/05 2316 98.5 70 20 140/70 100 Nasal 2.0L Cannula 03/05 1600 Nasal 2.0L Cannula 03/05 1439 97.5 75 18 146/84 97 Nasal Cannula 03/05 1426 97 Nasal 2.0L Cannula 03/05 0840 82 148/92 Intake & Output 03/06 1600 03/06 0800 03/06 0000 Intake Total 390 742 Output Total Balance 390 742 Intake, IV 150 20 Intake, Oral 240 722 Number 0 Bowel Movements Patient 190 lb Weight Oxygen saturation 2 L 97% HEENT exam shows no adenopathy exam for chest showed bilateral expiratory wheezing cardiac exam shows normal S1 and S2 without murmurs abdomen is soft nontender there's no significant edema or calf tenderness Last 48 Hrs of Labs/Bret: Laboratory Tests 03/06/18 0705: CBC w Diff Pending, WBC Pending, RBC Pending, Hgb Pending, Hct Pending, MCV Pending, MCH Pending, MCHC Pending, RDW Pending, Plt Count Pending, MPV Pending 03/05/18 0612: Anion Gap 10, Estimated GFR > 60, BUN/Creatinine Ratio 18.8, CBC w Diff NO MAN DIFF REQ, RBC 4.11 L, MCV 98.6 H, MCH 32.0 H, MCHC 32.5 L, RDW 16.0 H, MPV 9.0, Gran % 94.5 H, Lymphocytes % 4.1 L, Monocytes % 1.3 L, Eosinophils % 0, Basophils % 0.1, Absolute Granulocytes 14.2 H, Absolute Lymphocytes 0.6 L, Absolute Monocytes 0.2, Absolute Eosinophils 0, Absolute Basophils 0 03/04/18 1746: Troponin I < 0.01 03/04/18 1410: Anion Gap 11, Estimated GFR > 60, BUN/Creatinine Ratio 15.6, Glucose 86, Calcium 9.2, Total Bilirubin 0.6, AST 29, ALT 38, Alkaline Phosphatase 87, Troponin I < 0.01, Krw-N-Ihxztqfuajx Pept 76.4, Total Protein 7.1, Albumin 4.2, Globulin 2.9, Albumin/Globulin Ratio 1.4, CBC w Diff NO MAN DIFF REQ, RBC 4.72, MCV 97.5 H, MCH 32.0 H, MCHC 32.9 L, RDW 16.0 H, MPV 8.5, Gran % 72.6, Lymphocytes % 18.3 L, Monocytes % 7.2, Eosinophils % 1.6, Basophils % 0.3, Absolute Granulocytes 7.3 H, Absolute Lymphocytes 1.8, Absolute Monocytes 0.7 H, Absolute Eosinophils 0.2, Absolute Basophils 0 Microbiology 03/05 1453 URINE ROUT: Streptococcus pneumoniae Antigen (M - COMP 03/05 0050 NASOPHARYN: Influenza Virus A & B Rapid Smear - COMP Assessment/Plan Impression/Plan: 38-year-old with complex past medical history inclusive coronary artery disease DVT PE sleep apnea noncompliant with CPAP and GI bleeding admitted with anterior chest pain. Findings of his CAT scan suggests possibility of left lower lobe pneumonia. Of note his sedimentation rate was normal in November. Findings on his CAT scan appear to be progressive and etiology is at this point unknown. Differential diagnosis is extensive including both infectious and inflammatory processes. She is scheduled for outpatient pulmonary workup next week and was advised to maintain that appointment. Recommendations: Complete course of antibiotics. Repeat sedimentation rate. Obtain angiotensin- converting enzyme. Assess room air oxygen saturation. Continue prednisone and bronchodilator regimen for bronchospasm. Consult Acknowledgment - Thank you for your consult request.
--- NOTE | 2018-03-06 08:06 | PN- Housestaff ---
Evon RIGGS,[facility] 03/06/18 0806: Subjective Follow-up For: Chest Pain Asthma Exacerbation Pneumonia Tele-Events Since Last Visit: SB with HR 46-57. No overnight events. Subjective: Feels better but still complains of chest pain around 5/10. He feels his breathing has improved but remains on 2L of O2. Overall feels improved. States he has 5 episodes of pneumonia in the past 3 months. Review of Systems Constitutional: Reports: no symptoms. Objective Last 24 Hrs of Vital Signs/I&O Vital Signs Date Time Temp Pulse Resp B/P B/P Pulse O2 O2 Flow FiO2 Mean Ox Delivery Rate 03/06 0702 98.7 60 20 110/70 97 Nasal 2.0L Cannula 03/06 0000 Nasal 2.0L Cannula 03/05 2316 98.5 70 20 140/70 100 Nasal 2.0L Cannula 03/05 1600 Nasal 2.0L Cannula 03/05 1439 97.5 75 18 146/84 97 Nasal Cannula 03/05 1426 97 Nasal 2.0L Cannula 03/05 0840 82 148/92 Intake & Output 03/06 1600 03/06 0800 03/06 0000 Intake Total 390 742 Output Total Balance 390 742 Intake, IV 150 20 Intake, Oral 240 722 Number 0 Bowel Movements Patient 190 lb Weight Physical Exam General Appearance: Alert, Oriented X3, Cooperative, Mild Distress Skin: No Rashes, No Breakdown Skin Temp/Moisture Exam: Warm/Dry Sepsis Skin Exam (color): Normal for Ethnicity HEENT: Atraumatic Cardiovascular: Normal S1, Normal S2, No Murmurs Lungs: Normal Air Movement, mild wheezing present diffusely Abdomen: Soft, No Tenderness Neurological: Normal Speech Extremities: No Edema Assessment/Plan Assessment: 38-year-old male with past medical history of pulmonary embolism on xarelto, coronary artery disease status post VA and stent 1 in the RCA, factor V Leiden deficiency, diverticulitis and multiple admissions for chest pain, presented this admission with chief complaint of chest pain. Assessment: 1. Chest Pain 2. Left Lower Lobe Consolidation likely Community Acquired Pneumonia 3. Bilateral multilobar pulmonary opacities 4. Sinus bradycardia 5. Possible Asthma Exacerbation Plan: * Continue IV Ceftraxone 1g daily and Doxycycline Doxycycline 100mg q12 for today. Will likely transition him to oral regimen tomorrow. * Off oxygen today. * Continue TRC/nebs as needed * Await cardiology input regarding his chest pain and bradycardia. He does have significant cardiac history. * ACS was r/o with serial trops and EKG * Hold Cardizem for bradycardia * Will start tapering his Prednisone from tomorrow. * He has bilateral pulmonary opacities on his CTA Chest which have shown progression since his last scan in November. He can have an outpatient follow up of this. He does have an appointment scheduled at [place]. * ESR and PASCUAL level - pending. * Diet: Regular * DVT Prophylaxis: On Xarelto * Code: Full Code Problem List: 1. Chest pain Pain Ratin Pain Location: none Pain Goal: Remain pain free Pain Plan: none Tomorrow's Labs & Rationales: CBC, BEP Cinthya Redman 03/06/18 1044: Attending MD Review Statement Attending Statement Attending MD Statement: examined this patient, discuss w/resident/PA/SUPERVISOR FACEPIECE LINE, agreed w/resident/PA/SUPERVISOR FACEPIECE LINE, discussed with family, reviewed EMR data (avail), discussed with nursing, discussed with case mgmt, reviewed images, amended to note Attending Assessment/Plan: Patient seen/examiend bedside. No new complaints. Wean off oxygen today. Pulmonary appreciated and recommend to continue antibtioics and prednisone and bronchodilator regimen for now. Patient wishes to follow his pulmoanry appointemnet at [place]. Patient chest pain is not recurred. Follow cultures and if his clincial condition improving then can plan discharge on PO antibiotics in next 24-48 hrs.
[2018-03-06 08:08] LABS: ABSOLUTE BASOPHIL COUNT 0 /CUMM (0.0-0.2); ABSOLUTE EOSINOPHIL COUNT 0 /CUMM (0.0-0.7); ABSOLUTE GRANULOCYTE CT 12.5 /CUMM (1.4-6.5); BASOPHIL % 0.2 % (0.0-2.0); EOSINOPHIL % 0 % (0-5); GRANULOCYTE % 80.9 % (42.2-75.2); HEMATOCRIT 39.6 % (42-52); MEAN CORPUSCULAR HGB 32.5 PG (27.0-31.0); MEAN CORPUSCULAR HGB CONC 32.9 G/DL (33.0-37.0); MEAN CORPUSCULAR VOLUME 98.6 FL (80.0-94.0); MEAN PLATELET VOLUME 9.3 FL (7.4-10.4); PLATELET COUNT 224 /CUMM (130-400); RBC DISTRIBUTION WIDTH 16.1 % (11.5-14.5); RED BLOOD CELL CT 4.02 /CUMM (4.70-6.10); WHITE BLOOD CELL COUNT 15.5 /CUMM (4.8-10.8)
--- NOTE | 2018-03-06 12:33 | PN- Cardiology ---
Subjective Subjective: Patient is doing somewhat better today. He is feeling okay. Slight persistent chest discomfort, worse with inspiration and cough Objective Vital Signs and I&Os Vital Signs Date Time Temp Pulse Resp B/P B/P Pulse O2 O2 Flow FiO2 Mean Ox Delivery Rate 03/06 1025 44 108/60 03/06 0702 98.7 60 20 110/70 97 Nasal 2.0L Cannula 03/06 0000 Nasal 2.0L Cannula 03/05 2316 98.5 70 20 140/70 100 Nasal 2.0L Cannula 03/05 1600 Nasal 2.0L Cannula 03/05 1439 97.5 75 18 146/84 97 Nasal Cannula 03/05 1426 97 Nasal 2.0L Cannula Intake & Output 03/06 0803/06 0000 03/05 1600 03/05 0803/05 0000 Intake Total 390 742 900 840 Output Total Balance 390 742 900 840 Intake, IV 150 20 100 120 Intake, Oral 240 722 800 720 Number 0 Bowel Movements Patient 190 lb 292 lb Weight Weight Bed scale Measurement Method Physical Exam: General Appearance: well developed/nourished, alert, awake, oriented Head: normal HEENT: Normal Neck: supple, JVP normal, carotid upstrokes normal bilaterally, no masses or thyromegaly Respiratory: chest non-tender, clear to auscultation and percussion bilaterally Cardiovascular: regular rate/rhythm, normal S1, S2, 1-2/6 systolic murmur Abdomen: normal bowel sounds, soft, non-tender Extremities: normal inspection, no edema Vascular: Pulses are 2+ and equal bilaterally Neurologic: Grossly normal/nonfocal Current Medications: Current Medications Sig/Theo Start time Last Medication Dose Route Stop Time Status Admin Acetaminophen 650 MG .STK-MED ONE 03/06 0029 DC PO 03/06 0030 Acetaminophen 650 MG .STK-MED ONE 03/05 1836 DC PO 03/05 183 Acetaminophen 650 MG Q6P PRN 03/04 2245 AC 03/05 PO 1836 Acetaminophen 1,000 MG Q6P PRN 03/04 2245 AC IV Albuterol Sulfate 3 ML Q4-PRN PRN 03/04 2315 AC INH Albuterol Sulfate 2 PUF Q4-PRN PRN 03/04 2315 AC INH Albuterol Sulfate 2 PUF Q6H PRN 05/07 2315 AC INH Atorvastatin Calcium 40 MG DAILY 03/05 900 AC 03/06 PO 0803 Budesonide/ 2 PUF BID 03/05 900 AC 03/06 Formoterol Fumarate INH 0805 Ceftriaxone Sodium 1,000 MG 1830 03/05 1830 AC 03/05 IV 1745 Clopidogrel Bisulfate 75 MG DAILY 03/05 900 AC 03/06 PO 0803 Diltiazem HCl 240 MG DAILY 03/05 900 AC 03/05 PO 0840 Doxycycline Hyclate 100 MG Q12H 03/05 1200 AC 03/06 Sodium Chloride 100 ML IV 1030 Lisinopril 40 MG DAILY 03/05 900 AC 03/05 PO 0840 Morphine Sulfate 2 MG Q6P PRN 03/04 2300 DC 03/05 IV 1235 Omeprazole 40 MG DAILY AC 03/05 700 AC 03/06 PO 0613 Prednisone 10 MG DAILY 03/11 900 AC PO 03/12 09 Prednisone 20 MG DAILY 03/09 900 AC PO 03/10 09 Prednisone 30 MG DAILY 03/07 900 CAN PO 03/13 0859 Prednisone 30 MG DAILY 03/07 900 AC PO 03/08 09 Prednisone 40 MG DAILY 03/05 900 DC 03/06 PO 03/06 1134 0803 Rivaroxaban 20 MG DAILY 03/05 900 AC 03/06 PO 0803 Results Last 48 Hrs of Labs/Mics: Laboratory Tests 03/06/18 0828: ESR [place]gren 7 03/06/18 0705: CBC w Diff NO MAN DIFF REQ, RBC 4.02 L, MCV 98.6 H, MCH 32.5 H, MCHC 32.9 L, RDW 16.1 H, MPV 9.3, Gran % 80.9 H, Lymphocytes % 12.6 L, Monocytes % 6.3, Eosinophils % 0, Basophils % 0.2, Absolute Granulocytes 12.5 H, Absolute Lymphocytes 2.0, Absolute Monocytes 1.0 H, Absolute Eosinophils 0, Absolute Basophils 0 03/05/18 0612: Anion Gap 10, Estimated GFR > 60, BUN/Creatinine Ratio 18.8, CBC w Diff NO MAN DIFF REQ, RBC 4.11 L, MCV 98.6 H, MCH 32.0 H, MCHC 32.5 L, RDW 16.0 H, MPV 9.0, Gran % 94.5 H, Lymphocytes % 4.1 L, Monocytes % 1.3 L, Eosinophils % 0, Basophils % 0.1, Absolute Granulocytes 14.2 H, Absolute Lymphocytes 0.6 L, Absolute Monocytes 0.2, Absolute Eosinophils 0, Absolute Basophils 0 03/05/18 0600: Angiotensin Convert Enz Pending 03/04/18 1746: Troponin I < 0.01 03/04/18 1410: Anion Gap 11, Estimated GFR > 60, BUN/Creatinine Ratio 15.6, Glucose 86, Calcium 9.2, Total Bilirubin 0.6, AST 29, ALT 38, Alkaline Phosphatase 87, Troponin I < 0.01, Xas-X-Fxxipxpxkby Pept 76.4, Total Protein 7.1, Albumin 4.2, Globulin 2.9, Albumin/Globulin Ratio 1.4, CBC w Diff NO MAN DIFF REQ, RBC 4.72, MCV 97.5 H, MCH 32.0 H, MCHC 32.9 L, RDW 16.0 H, MPV 8.5, Gran % 72.6, Lymphocytes % 18.3 L, Monocytes % 7.2, Eosinophils % 1.6, Basophils % 0.3, Absolute Granulocytes 7.3 H, Absolute Lymphocytes 1.8, Absolute Monocytes 0.7 H, Absolute Eosinophils 0.2, Absolute Basophils 0 Microbiology 03/05 1453 URINE ROUT: Streptococcus pneumoniae Antigen (M - COMP 03/05 0050 NASOPHARYN: Influenza Virus A & B Rapid Smear - COMP Assessment/Plan Assessment/Plan Assessment: 1. Chest pain syndrome 2. Pneumonia 3. History of coronary artery disease, status post stent 3 in 2013 4. 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 History of GI bleed Recommendation: -The patient remains stable with no ECG changes or other findings. His troponins are negative. He continues to have mild discomfort which seems to be related to his underlying pneumonia. -Continue to monitor the patient -Echocardiogram pending -The patient should eventually follow up with his regular rn liaison and rn charge as an outpatient.
[2018-03-06 14:23] VITALS: BP 152/82
[2018-03-06 20:54] VITALS: BP 184/90
[2018-03-06 23:32] VITALS: BP 132/78
[2018-03-07 06:51] VITALS: BP 136/86
--- NOTE | 2018-03-07 06:59 | PN- Housestaff ---
Evon RIGGS,[facility] 03/07/18 0659: Subjective Follow-up For: Chest Pain Asthma Exacerbation Pneumonia Tele-Events Since Last Visit: SB with HR 52-65. No overnight events. Subjective: Feels better. Has a cough but not productive. Has no complaints. Looks forward to going home today. Review of Systems Constitutional: Reports: no symptoms. Respiratory: Reports: cough. Objective Last 24 Hrs of Vital Signs/I&O Vital Signs Date Time Temp Pulse Resp B/P B/P Pulse O2 O2 Flow FiO2 Mean Ox Delivery Rate 03/07 0651 98.7 69 20 136/86 95 Room Air 03/06 2332 97.7 58 18 132/78 96 Room Air 03/06 1425 95 Room Air 03/06 1423 98.4 74 18 152/82 98 Room Air 03/06 1025 44 108/60 Intake & Output 03/07 0800 03/07 0000 03/06 1600 Intake Total 370 320 500 Output Total 700 Balance 370 320 -200 Intake, IV 120 20 100 Intake, Oral 250 300 400 Output, Urine 700 Patient 196 lb Weight Weight Bed scale Measurement Method Physical Exam General Appearance: Alert, Oriented X3, Cooperative, Mild Distress Skin: No Rashes, No Breakdown Skin Temp/Moisture Exam: Warm/Dry Sepsis Skin Exam (color): Normal for Ethnicity HEENT: Atraumatic Cardiovascular: Normal S1, Normal S2, No Murmurs Lungs: Normal Air Movement, diffuse wheezing Abdomen: Soft, No Tenderness Neurological: Normal Speech Extremities: No Edema Assessment/Plan Assessment: 38-year-old male with past medical history of pulmonary embolism on xarelto, coronary artery disease status post [place] and stent 1 in the RCA, factor V Leiden deficiency, diverticulitis and multiple admissions for chest pain, presented this admission with chief complaint of chest pain. Assessment: 1. Chest Pain 2. Left Lower Lobe Consolidation likely Community Acquired Pneumonia 3. Bilateral multilobar pulmonary opacities 4. Sinus bradycardia 5. Possible Asthma Exacerbation Plan: * Dicontinue IV antibiotics and begin PO Doxycycline 100mg BID for a total of 14 day course. * Continue TRC/nebs as needed * Cardio input appreciated. * No need to hold Cardizem for bradycardia * Will taper Prednisone. To be continued as outpatient. * He has bilateral pulmonary opacities on his CTA Chest which have shown progression since his last scan in November. He can have an outpatient follow up of this. He does have an appointment scheduled at [place]. * PASCUAL level - pending. ESR was 7. * Diet: Regular * DVT Prophylaxis: On Xarelto * Code: Full Code Problem List: 1. Chest pain Pain Ratin Pain Location: none Pain Goal: Remain pain free Pain Plan: none Tomorrow's Labs & Rationales: none Cinthya Redman 03/07/18 1031: Attending MD Review Statement Attending Statement Attending MD Statement: examined this patient, discuss w/resident/PA/VIDEO GAME PROGRAMMER, agreed w/resident/PA/VIDEO GAME PROGRAMMER, discussed with family, reviewed EMR data (avail), discussed with nursing, discussed with case mgmt, reviewed images, amended to note Attending Assessment/Plan: Patient seen/examiend bedside. No new complaints. Saturating 96% on RA. Pulmonary appreciated and recommend to continue antibtioics and prednisone taper and bronchodilator regimen. Patient wishes to follow his pulmoanry appointment at [place]. Cultures remain negatve so far. Would discharge on PO antibiotics and f/u aapt at March 14 with his medical detailist. Patient understands discharge instructions.
--- NOTE | 2018-03-07 07:30 | PN- Pulmonary ---
Subjective HPI/Critical Care Issues: Patient feels shortness of breath is better is now comfortable on room air Objective Current Medications: Current Medications Sig/Theo Start time Last Medication Dose Route Stop Time Status Admin Acetaminophen 650 MG .STK-MED ONE 03/06 1908 DC PO 03/06 1909 Acetaminophen 650 MG Q6P PRN 03/04 2245 03/06 PO 190 Acetaminophen 1,000 MG Q6P PRN 03/04 2245 AC IV Albuterol Sulfate 3 ML Q4-PRN PRN 03/04 231 AC INH Albuterol Sulfate 2 PUF Q4-PRN PRN 03/04 231 AC INH Albuterol Sulfate 2 PUF Q6H PRN 03/04 231 AC INH Atorvastatin Calcium 40 MG DAILY 03/05 900 AC 03/06 PO 0803 Budesonide/ 2 PUF BID 03/05 900 AC 03/06 Formoterol Fumarate INH 2055 Ceftriaxone Sodium 1,000 MG 1830 03/05 1830 AC 03/06 IV 1811 Clopidogrel Bisulfate 75 MG DAILY 03/05 900 AC 03/06 PO 0803 Diltiazem HCl 240 MG DAILY 03/05 900 AC 03/05 PO 0840 Doxycycline Hyclate 100 MG Q12H 03/05 1200 AC 03/06 Sodium Chloride 100 ML IV 2342 Lisinopril 40 MG DAILY 03/05 900 AC 03/05 PO 0840 Omeprazole 40 MG DAILY AC 03/05 700 AC 03/07 PO 0530 Prednisone 10 MG DAILY 03/11 900 AC PO 03/12 901 Prednisone 20 MG DAILY 03/09 900 AC PO 03/10 901 Prednisone 30 MG DAILY 03/07 900 CAN PO 03/13 0859 Prednisone 30 MG DAILY 03/07 900 AC PO 03/08 09 Prednisone 40 MG DAILY 03/05 900 DC 03/06 PO 03/06 1134 0803 Rivaroxaban 20 MG DAILY 03/05 900 AC 03/06 PO 0803 Vital Signs & I&O Last 24 Hrs of Vitals and I&O: Vital Signs Date Time Temp Pulse Resp B/P B/P Pulse O2 O2 Flow FiO2 Mean Ox Delivery Rate 03/07 651 98.7 69 20 136/86 95 Room Air 03/06 2332 97.7 58 18 132/78 96 Room Air 03/06 1425 95 Room Air 03/06 1423 98.4 74 18 152/82 98 Room Air 03/06 1025 44 108/60 Intake & Output 03/07 0800 03/07 0000 03/06 1600 Intake Total 370 320 500 Output Total 700 Balance 370 320 -200 Intake, IV 120 20 100 Intake, Oral 250 300 400 Output, Urine 700 Patient 196 lb Weight Weight Bed scale Measurement Method Room air oxygen saturation 95% exam of his chest shows rare crackles there are improved now only expiratory wheezing cardiac exam shows regular S1 and S2 without murmurs Impression/Plan Impression/Plan Impression/Plan: 38-year-old with abnormal CAT scan presents with F lower lobe consolidation and bronchospasm. He is clinically improved after antibiotics prednisone and bronchodilators. Recommendations: Complete course of antibiotics. Begin prednisone taper. Resume baseline inhaled bronchodilator regimen. Patient will follow up with his outpatient gum machine filler on March 14
[2018-03-07 07:39] LABS: ABSOLUTE BASOPHIL COUNT 0 /CUMM (0.0-0.2); ABSOLUTE EOSINOPHIL COUNT 0 /CUMM (0.0-0.7); ABSOLUTE GRANULOCYTE CT 7.1 /CUMM (1.4-6.5); ABSOLUTE LYMPH COUNT 2.3 /CUMM (1.2-3.4); ABSOLUTE MONOCYTE COUNT 0.9 /CUMM (0.10-0.60); BASOPHIL % 0.5 % (0.0-2.0); EOSINOPHIL % 0 % (0-5); GRANULOCYTE % 68.3 % (42.2-75.2); HEMATOCRIT 42.8 % (42-52); MEAN CORPUSCULAR HGB CONC 32.7 G/DL (33.0-37.0); MEAN CORPUSCULAR VOLUME 97.9 FL (80.0-94.0); MEAN PLATELET VOLUME 9.2 FL (7.4-10.4); PLATELET COUNT 213 /CUMM (130-400); RBC DISTRIBUTION WIDTH 16.3 % (11.5-14.5); RED BLOOD CELL CT 4.37 /CUMM (4.70-6.10); WHITE BLOOD CELL COUNT 10.4 /CUMM (4.8-10.8)
--- NOTE | 2018-03-07 07:40 | Patient Discharge Instructions ---
Discharge Instructions General Discharge Information You were seen/treated for: Chest Pain Pneumonia Special Instructions: Please follow up with your [place] primary care physician on the March 11 and [place] on March 14. Diet Continue normal diet: Yes Recommended Diet: Heart Healthy Activity Full Activity/No Limits: Yes Acute Coronary Syndrome Inclusion Criteria At DC or during hospital stay patient has or had the following: ACS DIAGNOSIS No Discharge Core Measures Meds if any: Prescribed or Continued at Discharge Meds if any: NOT Prescribed or Continued at Discharge Congestive Heart Failure Inclusion Criteria At DC or during hospital stay patient has or had the following: CHF DIAGNOSIS No Discharge Core Measures Meds if any: Prescribed or Continued at Discharge Meds if any: NOT Prescribed or Continued at Discharge Cerebrovascular accident Inclusion Criteria At DC or during hospital stay patient has or had the following: CVA/TIA Diagnosis No Discharge Core Measures Meds if any: Prescribed or Continued at Discharge Meds if any: NOT Prescribed or Continued at Discharge Venous thromboembolism Inclusion Criteria VTE Diagnosis No VTE Type NONE VTE Confirmed by (Test) NONE Discharge Core Measures - Per Current guidelines, there needs to be overlap - treatment for the first 5 days of Warfarin therapy. - If discharged on Warfarin prior to 5 days of - overlap therapy, the patient will need to be - assessed for post discharge needs including - *Post discharge parental anticoagulation - *Warfarin and/or parental anticoagulation education - *Follow up date to check INR post discharge At least 5 days overlap therapy as Inpatient No Meds if any: Prescribed or Continued at Discharge Note: Overlap Therapy is Warfarin and Anticoagulant Meds if any: NOT Prescribed or Continued at Discharge
[2018-03-07] MEDS ORDERED: PREDNISONE10 M2 PO ×2 (07:44→10:28)
[2018-03-07] MEDS ORDERED: DOXYCYCLINE HY100 M2 PO ×2 (07:44→10:28)
--- NOTE | 2018-03-07 07:58 | Discharge Summary ---
Visit Information Visit Dates Admission Date: 03/04/18 Discharge Date: 03/07/18 Hospital Course Course Attending Physician: Cinthya Redman MD Primary Care Physician: PCP at [facility] Hospital Course: 38-year-old male with past medical history of pulmonary embolism on xarelto, coronary artery disease status post [place] and stent 1 in the RCA, factor V Leiden deficiency, diverticulitis and multiple admissions for chest pain, presented this admission with chief complaints of chest pain, cough and sputum production. Below is a list of problems he was seen and treated for. Community Acquired Pneumonia: Imaging on admission showed left lower lobe consolidation; along with his symptoms of dyspnea, sputum production, his clinical picture was highly suggestive of pneumonia. He was started on oxygen supplementation, nebulizer treatment along with IV Ceftriaxone and Doxycycline. Patient had a reaction confined to a rash with Azithromycin. He was also started on Prednisone as there were concerns for possible asthma exacerbation. He did have wheezing on his physical exam. As his condition improved his oxygen was weaned off and antibiotics were swtiched to PO Doxycycline to be continued for a total of 14 day course. His Prednisone was tapered, to be continued as outpatient. He was discharged in stable disposition. Chest Pain: On admission, he had complains of chest pain. He was evaluated by Cardiology and ruled out for ACS with serial troponins and EKG which turned out negative. He had a stable hospital course. Bilateral multilobar pulmonary opacities Imaging done on admission showed bilateral pulmonary opacities with an interval progression of pulmonary opacities since his November 2017 CT scan. He would require further work up of this. He already has an outpatient appointment scheduled for next week with his adult literacy teacher at [place]. He was strongly advised to follow up his appointment. Allergies: Coded Allergies: Iodinated Contrast- Oral and IV Dye (ANAPHYLAXIS 12/23/17) haloperidol (HIVES 12/23/17) ketorolac (From TORADOL) (HIVES, RASH 12/23/17) meperidine (From DEMEROL) (HIVES 12/23/17) milk (LACTOSE INTOLERANT 12/23/17) oxycodone (UNKNOWN 12/23/17) shellfish derived (ANAPHYLAXIS 12/23/17) Significant Procedures: SERVICE DATE: 03/04/18-140 EXAM TYPE: CAT - CTA CHEST-PULMONARY EMBOLISM FINDINGS: QUALITY OF STUDY/CONTRAST BOLUS: Satisfactory PULMONARY ARTERIES: No central or segmental pulmonary emboli. THORACIC AORTA: No aneurysm or dissection. LUNG: There is a 4.5 cm area of pulmonary consolidation in the lateral left lower lobe as seen on axial image 405 from series 2. This is a new finding since November 2017 CT scan. There are also adjacent left lower lobe alveolar opacities. There are multiple bilateral areas of pulmonary airspace disease involving the anterior aspect of the bilateral upper lobes, left lower lobe, with interval increase since 12/23/2017 CT scan. There is a 0.8 cm noncalcified right lower lobe pulmonary nodule as seen on axial image 349, which has not changed since the November exam. PLEURA: No pleural effusion or pneumothorax. MEDIASTINUM: Normal heart size. No pericardial effusion. No hilar or mediastinal lymphadenopathy. No evidence of septal bowing or right heart strain. CHEST WALL/AXILLA: No axillary or internal mammary lymphadenopathy. OSSEOUS STRUCTURES: No acute or suspicious osseous abnormality. UPPER ABDOMEN: Unremarkable. No reflux of contrast into the hepatic veins to suggest elevated right heart pressures. IMPRESSION: No evidence of acute PE. Bilateral multilobar pulmonary opacities with an area of pulmonary consolidation in the left lower lobe. There has been interval progression of pulmonary opacities since November 2017 CT scan. The findings could be infectious in etiology. Clinical correlation is suggested. VTE: negative Disposition Summary Disposition Principal Diagnosis: Community Acquired Pneumonia Bilateral multilobar pulmonary opacities Sinus bradycardia Additional Diagnosis: history of pulmonary embolism History of CAD factor V Leiden deficiency Discharge Disposition: home or self care Discharge Instructions General Discharge Information Code Status: Full Code Patient's Diet: Heart Healthy Patient's Activity: As tolerated Follow-Up Instructions/Appts: Please follow up with your [place] primary care physician on the March 11 and [employer] on March 14. Medications at Discharge Discharge Medications: Continue taking these medications: Rivaroxaban (Xarelto) 20 MG TABLET 1 Tablet ORAL DAILY Qty = 30 Instructions: with food Comments: Last Taken:03/07/18 Time:0835 Albuterol Sulfate (Proair Hfa) 90 MCG HFA.AER.AD 2 Puff Inhale through mouth Q6H as needed for WHEEZING Qty = 9 Comments: NOT GIVIN IN HOSPITAL Lisinopril (Lisinopril) 40 MG TABLET 1 Tablet ORAL DAILY Qty = 30 Comments: Last Taken:03/07/18 Time:0836 Atorvastatin Calcium (Atorvastatin Calcium) 40 MG TABLET 1 Tablet ORAL DAILY Qty = 30 Comments: Last Taken:03/07/18 Time:0900 Pantoprazole Sodium (Pantoprazole Sodium) 40 MG TABLET.DR 1 Tablet ORAL DAILY Qty = 30 Comments: Last Taken:12/25/17 Time:0830 Hydrochlorothiazide (Hydrochlorothiazide) 12.5 MG CAPSULE 1 Capsule ORAL DAILY Qty = 30 Comments: Last Taken:12/25/17 Time:0830 Fluticasone-Salmeterol (Advair 100-50 Diskus) 100 MCG-50 MCG/DOSE BLST.W.DEV 1 Puff Inhale through mouth TWICE DAILY Qty = 60 Comments: Last Taken:03/07/18 GIVEN SYMBICORT Time:0900 Escitalopram Oxalate (Escitalopram Oxalate) 10 MG TABLET 1 Tablet ORAL DAILY Qty = 30 Comments: Last Taken:12/25/17 Time:0830 Diltiazem HCl (Cardizem Cd) 240 MG CAP.ER.24H 1 Capsule ORAL DAILY Qty = 30 Comments: Last Taken:03/05/18 Time:0900 Clopidogrel Bisulfate (Clopidogrel) 75 MG TABLET 1 Tablet ORAL DAILY Qty = 30 Comments: Last Taken:03/07/18 Time:0930 Benzonatate (Tessalon Perle) 100 MG CAPSULE 1 Capsule ORAL THREE TIMES DAILY as needed for COUGH Qty = 21 Start taking the following new medications: Prednisone (Prednisone) 10 MG TABLET 1 Tablet ORAL DAILY Qty = 10 No Refills Comments: Last Taken: GIVEN 0900 ON 03/07/18 Time:Please take 3 tablets of Prednisone 10mg on 03/08/18 then take 2 tablets of Prednisone 10mg on 03/09/18 and 03/10/18 then take 1 tablet of Prednisone 10mg on 03/11/18 Doxycycline Hyclate (Doxycycline Hyclate) 100 MG CAPSULE 1 Capsule ORAL TWICE DAILY Qty = 20 No Refills Comments: Last Taken:03/07/18 Time:0900 Copies To: Antonia RIGGS,José Luis Nagy Attending MD Review Statement Documenting Attending: Юлия RIGGS,Cinthya Other Findings: Patient seen/examiend bedside. No new complaints. Saturating 96% on RA. Pulmonary appreciated and recommend to continue antibtioics and prednisone taper and bronchodilator regimen. Patient wishes to follow his pulmoanry appointment at [place]. Cultures remain negatve so far. Would discharge on PO antibiotics and f/u aapt at March 14 with his adult literacy teacher. Patient understands discharge instructions.
[2018-03-07 08:27] VITALS: BP 132/70
== END 2018-03-07 11:09 | DRG 141 ==
LOC: ERH 13:19 → 1NO 20:07 → ERHI 20:07 → ENRESERV 21:19 → ENTRNSPT 22:05 → EDTRNSPT 22:11 → EDTRNSPTSTS 22:11 → 1NO 22:13 → CMPTRNSPT 22:24 → 1NO 03-05 15:12 → ENPENDDIS 03-07 09:46 → 1NO 03-07 11:09
PROVIDERS: Internal Medicine; Internal Medicine Hematology & Oncology; Physician Assistant
DX: J45.901 Unspecified asthma with (acute) exacerbation (principal); J18.9 Pneumonia, unspecified organism; D68.2 Hereditary deficiency of other clotting factors; Z86.711 Personal history of pulmonary embolism; Z79.01 Long term (current) use of anticoagulants; I10 Essential (primary) hypertension; E66.01 Morbid (severe) obesity due to excess calories; Z68.42 Body mass index [BMI] 45.0-49.9, adult; I25.2 Old myocardial infarction; I25.10 Atherosclerotic heart disease of native coronary artery without angina pectoris; Z98.61 Coronary angioplasty status; Z88.5 Allergy status to narcotic agent; Z88.8 Allergy status to other drugs, medicaments and biological substances; Z91.041 Radiographic dye allergy status; Z79.891 Long term (current) use of opiate analgesic; Z79.51 Long term (current) use of inhaled steroids
CPT/HCPCS: 1NP; 36415; 82436; 87040; 87070; 87449; 87450; 87804; 87804-59; 93005; 93010; 94644; 96374; 96375; 96376; 99291; J0131; J0456; J0696; J1200; J2405; J2930; J3490; J7040; J7512

== ENCOUNTER 2018-05-02 15:48 | Inpatient (IN) | payer OTHER ==
[~2018-05-02] VITALS: Ht 170.2 cm; Wt 137.5 kg
[~2018-05-02 15:48] MED LIST changes: +CHERATUSSIN AC118 M1 PO; +DOXYCYCLINE HY100 M2 PO; +LEVAQUIN500 M1 PO; +PREDNISONE10 M2 PO; +TESSALON PERLE100 M1 PO
[2018-05-02 16:28] LABS: ABSOLUTE BASOPHIL COUNT 0 /CUMM (0.0-0.2); ABSOLUTE EOSINOPHIL COUNT 0.3 /CUMM (0.0-0.7); ABSOLUTE GRANULOCYTE CT 5.7 /CUMM (1.4-6.5); ABSOLUTE LYMPH COUNT 1.2 /CUMM (1.2-3.4); ABSOLUTE MONOCYTE COUNT 0.8 /CUMM (0.10-0.60); BASOPHIL % 0.3 % (0.0-2.0); EOSINOPHIL % 3.3 % (0-5); GRANULOCYTE % 71.7 % (42.2-75.2); HEMATOCRIT 39.3 % (42-52); MEAN CORPUSCULAR HGB 31.6 PG (27.0-31.0); MEAN CORPUSCULAR HGB CONC 34.2 G/DL (33.0-37.0); MEAN CORPUSCULAR VOLUME 92.4 FL (80.0-94.0); MEAN PLATELET VOLUME 8.5 FL (7.4-10.4); PLATELET COUNT 224 /CUMM (130-400); RBC DISTRIBUTION WIDTH 14.4 % (11.5-14.5); RED BLOOD CELL CT 4.26 /CUMM (4.70-6.10)
--- NOTE | 2018-05-02 16:52 | RADIOLOGY REPORT ---
EXAMINATION: XR CHEST CLINICAL INFORMATION: Chest pain, shortness of breath. Pneumonia, congestive heart failure COMPARISON: 03/26/2018 TECHNIQUE: 2 views of the chest were obtained. FINDINGS: Lungs are clear. No focal consolidation or mass. Normal pulmonary vascularity. No pleural effusion or pneumothorax. Normal heart size. Regional skeleton intact. IMPRESSION: No acute pulmonary disease. No significant change from prior study.
--- NOTE | 2018-05-02 16:57 | ED DYSPNEA/ASTHMA COMPLAINT ---
History of Present Illness General Chief Complaint: General Adult Stated Complaint: CP,SOB,STOMACH PAIN Source: patient, old records Exam Limitations: no limitations Vital Signs & Intake/Output Vital Signs & Intake/Output Vital Signs Date Time Temp Pulse Resp B/P B/P Pulse O2 O2 Flow FiO2 Mean Ox Delivery Rate 05/03 0206 96 170/92 05/03 0105 98.4 82 19 220/106 94 Room Air 05/02 2332 84 20 187/102 95 Room Air 05/02 2145 97.5 74 19 168/62 97 Room Air 05/02 1808 109 19 186/109 99 Room Air 05/02 1639 96 05/02 1607 98.0 127 26 97 Room Air Allergies Coded Allergies: Iodinated Contrast- Oral and IV Dye (ANAPHYLAXIS 12/23/17) haloperidol (HIVES 12/23/17) ketorolac (From TORADOL) (HIVES, RASH 12/23/17) meperidine (From DEMEROL) (HIVES 12/23/17) milk (LACTOSE INTOLERANT 12/23/17) oxycodone (RASH 05/02/18) shellfish derived (ANAPHYLAXIS 12/23/17) Reconcile Medications Albuterol Sulfate (Proair Hfa) 90 MCG HFA.AER.AD 2 PUF INH Q6H PRN WHEEZING ( Reported) Atorvastatin Calcium 40 MG TABLET 1 TAB PO DAILY CHOLESTEROL (Reported) Clopidogrel Bisulfate (Clopidogrel) 75 MG TABLET 1 TAB PO DAILY BLOOD THINNER (Reported) Diltiazem HCl (Cardizem Cd) 240 MG CAP.ER.24H 1 CAP PO DAILY HEART/BP ( Reported) Enoxaparin Sodium 120 MG/0.8 ML SYRINGE 120 MG SC BID BLOOD THINNER (Reported ) Escitalopram Oxalate 10 MG TABLET 1 TAB PO DAILY MENTAL HEALTH (Reported) Fluticasone-Salmeterol (Advair 100-50 Diskus) 100 MCG-50 MCG/DOSE BLST.W.DEV 1 PUF INH BID RESP. (Reported) Hydrochlorothiazide 12.5 MG CAPSULE 1 CAP PO DAILY BP (Reported) Lisinopril 40 MG TABLET 1 TAB PO DAILY BP (Reported) Pantoprazole Sodium 40 MG TABLET.DR 1 TAB PO DAILY GI (Reported) Triage Note: 38M TO ED W CP/ABD PAIN AND DIFFUSE WHEEZING AND DECREASED BREATH SOUNDS TO ALL LOBES. TOOK TWO NEB TX'S AND USED RESCUE INHALER SHALLOT PACKER. ON ADVAIR, REPORTS RECENT PO STEROID USE BUT NONE AT PRESENT. Triage Nurses Notes Reviewed? yes Onset: Abrupt Duration: hour(s): (5), constant, continues in ED, getting worse Timing: recent history Severity: moderate, severe Activities at Onset: none Prior Episodes/Possible Cause: frequent episodes Associated Symptoms: anxiety, cough, chest pain, pain, wheezing, weakness HPI: 38-year-old male history of coronary artery disease hypertension pulmonary embolism pneumonia and asthma presents for evaluation of chest pain shortness of breath abdominal pain. Patient reports symptoms started about 5 hours prior to presentation and been persistent. He was at rest when the symptoms started. The pain is located in the center of his chest described as sharp and stabbing. It is not radiating. He also reports diffuse lower abdominal pain described as sharp and stabbing. He reports he has had similar symptoms in the past associated with asthma and pneumonia. He is using his inhalers and nebulizers any improvement. No hemoptysis or lower extremity edema. He does report diarrhea and nausea but no vomiting. No fevers. No recent surgery recent trauma. He is taking Lovenox. He had a stent placed 2 years ago after an IN. He has not seen a director patient financial services as an outpatient. (Almas Olivo) Past History Travel History Traveled to [place] past 21 day No Medical History Any Pertinent Medical History? 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 No (Almas Olivo) Review of Systems Review of Systems Constitutional: Reports: no symptoms. EENTM: Reports: no symptoms. Respiratory: Reports: see HPI, cough, short of breath, wheezing. Cardiovascular: Reports: see HPI, chest pain. GI: Reports: see HPI, abdominal pain, diarrhea, nausea. Genitourinary: Reports: no symptoms. Musculoskeletal: Reports: no symptoms. Skin: Reports: no symptoms. Neurological/Psychological: Reports: no symptoms. Hematologic/Endocrine: Reports: no symptoms. Immunologic/Allergic: Reports: no symptoms. All Other Systems: Reviewed and Negative (Almas Olivo) Physical Exam Physical Exam General Appearance: well developed/nourished, alert, awake, mild distress, obese Head: atraumatic, normal appearance Eyes: Bilateral: normal appearance, PERRL, EOMI. Ears, Nose, Throat: normal pharynx, normal ENT inspection, hearing grossly normal Neck: normal inspection, supple, full range of motion Respiratory: chest non-tender, rhonchi, wheezing, respiratory distress Cardiovascular: regular rate/rhythm, normal peripheral pulses Peripheral Pulses: 2+ radial (R), 2+ radial (L) Gastrointestinal: soft, non-tender Extremities: normal inspection, normal range of motion, no edema Neurologic/Psych: no motor/sensory deficits, awake, alert, oriented x 3, normal gait Skin: intact, normal color, warm/dry Lymphatic: no anterior cervical coy Core Measures ACS in differential dx? Yes CVA/TIA Diagnosis No Sepsis Present: No Sepsis Focused Exam Completed? No (Almas Olivo) Progress Differential Diagnosis: asthma, AMI, bronchitis, CHF, COPD, musculoskeletal pain , pulmonary embolism, pneumonia, rib fracture, unstable angina Plan of Care: Orders Procedure Date/time Status Heart Healthy Diet 05/03 B Active CBC WITHOUT DIFFERENTIAL 05/03 600 Active BASIC ELECTROLYTES PLUS BUN&CR 05/03 600 Active Teach/Educate 05/03 034 Active Pain Treatment and Response 05/03 034 Active Nutritional Intake, Monitor 05/03 034 Active Isolation 05/03 034 Active Patient Care Conference 05/03 034 Active TROPONIN LEVEL 05/03 0231 Active TRC EVALUATION (GEN) 05/03 012 Active Pathway - chart 05/03 128 Active House Staff 05/03 128 Active EKG 05/03 128 Active Code Status 05/03 128 Active VTE Mechanical Prophylaxis 05/03 UNK Active Vital Signs 05/03 UNK Active Intake & Output 05/03 UNK Active Activity/Ambulation 05/03 UNK Active Patient Data 05/02 2335 Active Saline Lock 05/[address] in observation 05/02 2334 Active Misc Message 05/02 2334 Active ED Holding Orders 07/05 2334 Active Vital Signs 05/02 2334 Active Code Status 05/02 2334 Complete TROPONIN LEVEL 05/02 193 Complete EKG 05/02 193 Active D-DIMER 05/02 1608 Complete Add-on Test (ER Only) 05/02 160 Active Intake & Output 05/02 160 Active URINALYSIS 05/02 1552 Complete TROPONIN LEVEL 05/02 1552 Complete LIPASE 05/02 155 Complete COMPREHENSIVE METABOLIC PANEL 05/02 155 Complete CBC WITHOUT DIFFERENTIAL 05/02 1552 Complete EKG 05/02 1549 Active Current Medications Sig/Theo Start time Last Medication Dose Stop Time Status Admin Atorvastatin Calcium 40 MG 1700 05/03 1700 AC (Lipitor) Budesonide/ 1 PUF BID 05/03 900 AC Formoterol Fumarate (SYMBICORT) Clopidogrel Bisulfate 75 MG DAILY 05/03 900 AC (Plavix) Diltiazem HCl 240 MG DAILY 05/03 900 AC (Cardizem CD) Escitalopram Oxalate 10 MG DAILY 05/03 900 AC (Lexapro) Hydrochlorothiazide 12.5 MG DAILY 05/03 900 AC (Hydrodiuril) Lisinopril 40 MG DAILY 05/03 900 AC (Prinivil) Omeprazole 40 MG DAILY AC 05/03 700 AC (Prilosec) Methylprednisolone 40 MG Q8 05/03 600 AC (Solumedrol) Acetaminophen 650 MG Q6P PRN 05/03 0130 AC (Tylenol) Albuterol Sulfate 2 PUF Q6H PRN 05/03 013 AC (Ventolin) Enoxaparin Sodium 120 MG BID 05/03 013 AC 05/03 (Lovenox) 0141 Hydromorphone HCl 0.5 MG Q4P PRN 05/03 0130 AC 05/03 (Dilaudid) 0146 Oxycodone/ 1 TAB Q6P PRN 05/03 013 AC Acetaminophen (Percocet) Laboratory Tests 05/02/18 192: Troponin I < 0.01 05/02/181824: Urine Color YEL, Urine Clarity CLEAR, Urine pH 6.5, Ur Specific [place] <= 1.005 , Urine Protein NEG, Urine Ketones NEG, Urine Nitrite NEG, Urine Bilirubin NEG, Urine Urobilinogen 0.2, Ur Leukocyte Esterase NEG, Ur Microscopic EXAM NOT REQUIRED, Urine Hemoglobin NEG, Urine Glucose NEG 05/02/18 1608: Anion Gap 10, Estimated GFR > 60, BUN/Creatinine Ratio 16.3, Glucose 139 H, Calcium 8.9, Total Bilirubin 0.8, AST 24, ALT 35, Alkaline Phosphatase 84, Troponin I < 0.01, Total Protein 6.3, Albumin 3.7, Globulin 2.6, Albumin/ Globulin Ratio 1.4, Lipase 339 H, D-Dimer High Sensitivty < 200, CBC w Diff NO MAN DIFF REQ, RBC 4.26 L, MCV 92.4, MCH 31.6 H, MCHC 34.2, RDW 14.4, MPV 8.5, Gran % 71.7, Lymphocytes % 15.0 L, Monocytes % 9.7 H, Eosinophils % 3.3, Basophils % 0.3, Absolute Granulocytes 5.7, Absolute Lymphocytes 1.2, Absolute Monocytes 0.8 H, Absolute Eosinophils 0.3, Absolute Basophils 0 Patient has a severe cardiac history including IN coronary artery disease stents placed 2 years ago. Also has history of PE. He is on Lovenox. He is reporting chest pain shortness of breath. He arrives with diffuse wheezing and rhonchi. He is tachycardic but not hypoxic. No cyanosis. Multiple nebulizers ordered Solu-Medrol ordered. Blood work EKGs ordered. Morphine ordered for pain control. Blood work is negative including d-dimer and troponin. Patient can use to have wheezing. Additional nebulizers ordered patient was given additional morphine for pain control. CTA was ordered and is negative for PE pneumonia or dissection. Due to patient' s history he was given a dose of nitroglycerin for his continued chest pain without any relief. Patient was ambulated in the emergency department did not desaturate. Patient will be admitted to the hospital for further evaluation of asthma exacerbation and to rule out acute coronary syndrome. Case discussed with Dr. Roth he agrees. Diagnostic Imaging: Viewed by Me: Radiology Read, CT Scan. Discussed w/RAD: Radiology Read, CT Scan. Radiology Impression: PATIENT: EUN LARA PRESENT AGE: 38 PATIENT ACCOUNT NO: [id number] : 79 LOCATION: [facility] ORDERING PHYSICIAN: Almas ZENDEJAS SERVICE DATE: 05/02/18 EXAM TYPE: CAT - CT ABD & PELVIS W IV CONTRAST; CTA CHEST-PULMONARY EMBOLISM EXAMINATION: CT CHEST PE STUDY CLINICAL INFORMATION: Chest pain shortness of breath. Diffuse abdominal pain and diarrhea. COMPARISON: 03/26/2018. TECHNIQUE: Prior to contrast administration, localization images were obtained. After the administration of 95 mL of Optiray 320 nonionic IV contrast, contiguous axial images were obtained through the thorax. Reformatted images in the coronal and sagittal planes were obtained at the acquisition workstation. Limited contrast bolus timing. FINDINGS : The bolus timing on this study was acceptable for visualization of the pulmonary arterial tree. There are no intraluminal pulmonary arterial filling defects present to suggest pulmonary embolism. The lungs are clear. No abnormal pulmonary nodules or masses are appreciated. There is no evidence of pleural effusion or pneumothorax. The heart is normal in size. The mediastinum and great vessels are normal. There is no pericardial effusion or lymphadenopathy. Mild symmetrical gynecomastia. IMPRESSION: No evidence of acute or chronic pulmonary embolism. EXAMINATION: CT ABDOMEN AND PELVIS WITH CONTRAST TECHNIQUE: Contiguous axial thin section helical images of the abdomen and pelvis were performed following the administration of oral contrast and 100 mL of intravenous Ultravist 300. The data set was reformatted in the coronal and sagittal planes and reviewed on an independent workstation. FINDINGS: LUNG BASES: No focal parenchymal or pleural disease. No pericardial effusion. LIVER, GALLBLADDER, BILIARY TREE: Changes of diffuse hepatic steatosis. No biliary dilatation. Gallbladder normal.. PANCREAS: No mass or inflammatory changes. SPLEEN: No focal lesion or enlargement. ADRENAL GLANDS AND KIDNEYS: No focal lesion. No mass, calculus or hydronephrosis. PELVIS: There is no pelvic mass. Pelvic organs within normal limits. URETERS AND BLADDER: Within normal limits. BOWEL LOOPS: Stable line noted within the distal sigmoid colon without any discrete focal abnormality. Staple line also noted at the base of the cecum consistent with appendectomy. No obstruction. Injection changes within the anterior abdominal wall. No fluid collection. No inflammatory changes. LYMPHOVASCULAR STRUCTURES: No pathologic enlargement. IVC filter in place. BONES: No lytic or sclerotic lesions. No fracture. IMPRESSION: No focal findings. No abnormality to explain the patient's symptoms. DICTATED BY: Nabeel Ferrera MD DATE/TIME DICTATED:05/02/182128 COMMUNITY AMBASSADOR:PRATIK CXR Impression: PATIENT: EUN LARA PRESENT AGE: 38 PATIENT ACCOUNT NO: [id number] : 79 LOCATION: [facility] ORDERING PHYSICIAN: Almas ZENDEJAS SERVICE DATE: 05/02/18 EXAM TYPE: RAD - XRY-CHEST XRAY, TWO VIEWS EXAMINATION: XR CHEST CLINICAL INFORMATION: Chest pain, shortness of breath. Pneumonia, congestive heart failure COMPARISON: 03/26/2018 TECHNIQUE: 2 views of the chest were obtained. FINDINGS: Lungs are clear. No focal consolidation or mass. Normal pulmonary vascularity. No pleural effusion or pneumothorax. Normal heart size. Regional skeleton intact. IMPRESSION: No acute pulmonary disease. No significant change from prior study. DICTATED BY: Nilson Andrade MD DATE/TIME DICTATED:05/02/181646 COMMUNITY AMBASSADOR:PRATIK DATE/ TIME TRANSCRIBED:05/02/181646 CONFIDENTIAL, DO NOT COPY WITHOUT APPROPRIATE AUTHORIZATION. <Electronically signed in Other Vendor System> SIGNED BY: Nilson Andrade MD 05/02/181651 Initial ED EKG: SINUS TACH RATE 117 Prior EKG: unchanged Repeat EKG: unchanged (Almas Olivo) Departure Departure Disposition: STILL A PATIENT Condition: Stable Clinical Impression Primary Impression: Asthma exacerbation Qualifiers: Asthma severity: unspecified severity Asthma persistence: persistent Qualified Code: J45.901 - Unspecified asthma with (acute) exacerbation Secondary Impressions: Chest pain Qualifiers: Chest pain type: unspecified Qualified Code: R07.9 - Chest pain, unspecified Referrals: Patient Has No Primary Care Dr (PCP/Family) Departure Forms: Customer Survey General Discharge Information Observation Note Spoke With: Daniel Covarrubias MD Physician Advisor Notified: SONAM RIGGS,MATT [address] Patient In: Non-ED OBS Care Area Rationale for Observation: My rational for observation is as follows [serial labs, cardiology, pulmonology, DuoNeb's, IV steroids, IV pain meds, telemetry, serial EKGs]. (Almas Olivo) PA/ADJUNCT PSYCHOLOGY FACULTY MEMBER Co-Sign Statement Statement: ED Attending supervision documentation- [x] I saw and evaluated the patient. I have also reviewed all the pertinent lab results and diagnostic results. I agree with the findings and the plan of care as documented in the PA's/ADJUNCT PSYCHOLOGY FACULTY MEMBER's documentation. 05/02/18, 22:38... pt with chest pain, h/o cad/mi, also with asthma exacerbation, merits serial trops, ekg's, consider cards evaluation. he also merits 02 support, steroids, nebs. [] I have reviewed the ED Record and agree with the PA's/ADJUNCT PSYCHOLOGY FACULTY MEMBER's documentation. [] Additions or exceptions (if any) to the PAs/ADJUNCT PSYCHOLOGY FACULTY MEMBER's note and plan are summarized below: [] (Ira RIGGS,Matt Jorge) Critical Care Note Critical Care Note Critical Care Time: 75-104 min (Almas Olivo) ED Attending Observation Initial Observation Note: I have seen and personally examined EUN LARA on 05/02/18 at 2153. I agree with the current emergency department documentation. The disposition (admission or discharge) is uncertain at this time, he needs a period of observation for the following reason(s): The ED Nurse caring for this patient has been personally informed as to what the patient is being observed for. (Almas Olivo)
[2018-05-02] MEDS ORDERED: ENOXAPARIN120 MG/0.1 SC (17:05)
--- NOTE | 2018-05-02 21:46 | CT SCAN REPORT ---
EXAMINATION: CT CHEST PE STUDY CLINICAL INFORMATION: Chest pain shortness of breath. Diffuse abdominal pain and diarrhea. COMPARISON: 03/26/2018. TECHNIQUE: Prior to contrast administration, localization images were obtained. After the administration of 95 mL of Optiray 320 nonionic IV contrast, contiguous axial images were obtained through the thorax. Reformatted images in the coronal and sagittal planes were obtained at the acquisition workstation. Limited contrast bolus timing. FINDINGS: The bolus timing on this study was acceptable for visualization of the pulmonary arterial tree. There are no intraluminal pulmonary arterial filling defects present to suggest pulmonary embolism. The lungs are clear. No abnormal pulmonary nodules or masses are appreciated. There is no evidence of pleural effusion or pneumothorax. The heart is normal in size. The mediastinum and great vessels are normal. There is no pericardial effusion or lymphadenopathy. Mild symmetrical gynecomastia. IMPRESSION: No evidence of acute or chronic pulmonary embolism. EXAMINATION: CT ABDOMEN AND PELVIS WITH CONTRAST TECHNIQUE: Contiguous axial thin section helical images of the abdomen and pelvis were performed following the administration of oral contrast and 100 mL of intravenous Ultravist 300. The data set was reformatted in the coronal and sagittal planes and reviewed on an independent workstation. FINDINGS: LUNG BASES: No focal parenchymal or pleural disease. No pericardial effusion. LIVER, GALLBLADDER, BILIARY TREE: Changes of diffuse hepatic steatosis. No biliary dilatation. Gallbladder normal.. PANCREAS: No mass or inflammatory changes. SPLEEN: No focal lesion or enlargement. ADRENAL GLANDS AND KIDNEYS: No focal lesion. No mass, calculus or hydronephrosis. PELVIS: There is no pelvic mass. Pelvic organs within normal limits. URETERS AND BLADDER: Within normal limits. BOWEL LOOPS: Stable line noted within the distal sigmoid colon without any discrete focal abnormality. Staple line also noted at the base of the cecum consistent with appendectomy. No obstruction. Injection changes within the anterior abdominal wall. No fluid collection. No inflammatory changes. LYMPHOVASCULAR STRUCTURES: No pathologic enlargement. IVC filter in place. BONES: No lytic or sclerotic lesions. No fracture. IMPRESSION: No focal findings. No abnormality to explain the patient's symptoms.
--- NOTE | 2018-05-03 01:32 | History & Physical ---
Kenneth Capellan 05/03/18 0131: General Information and HPI MD Statement: I have seen and personally examined EUN LARA and documented this H&P. The patient is a 38 year old M who presented with a chief complaint of difficulty breathing and chest pain. Source of Information: patient Exam Limitations: no limitations History of Present Illness: Patient is a 38-year-old male with a past medical history of CAD status post NE and RCA stent, paroxysmal A. fib, factor V Leiden deficiency, DVT, pulmonary embolism s/p IVC filter (failing coumadin and xarelto therapy), and a long history of admissions with chest pain, presents today with difficulty breathing and mid epigastric chest pain. The pain is 8 out of 10 intensity, radiating to his neck, sharp in nature, located bilaterally, and reproducible. He describes it as feeling like a lot of pressure. He describes it felt similar to an NE he had in the past. He did not try any aspirin to relieve the pain, but he did try albuterol inhaler and nebulizer they did not provide much relief. Breathing heavy makes it worse. It was acute onset and started in the early afternoon yesterday around 2 PM. This episode was also associated with abdominal pain starting at the umbilical region and moving down to his groin. The episode was associated with diaphoresis, nausea, vomiting, and blurry vision. He denies any fever, chills, cough. Denies any recent travel or any sick contacts. Patient was given one-time dose of nitroglycerin in the ER but denies any improvement in his chest pain. Patient endorses that he is in mild distress when seen by sports apparel internship. ER nurse found he had a BP of over 220/106 on monitor at end of H & P interview. Allergies/Medications Allergies: Coded Allergies: Iodinated Contrast- Oral and IV Dye (ANAPHYLAXIS 12/23/17) haloperidol (HIVES 12/23/17) ketorolac (From TORADOL) (HIVES, RASH 12/23/17) meperidine (From DEMEROL) (HIVES 12/23/17) milk (LACTOSE INTOLERANT 12/23/17) shellfish derived (ANAPHYLAXIS 12/23/17) Home Med list Albuterol Sulfate (Proair Hfa) 90 MCG HFA.AER.AD 2 PUF INH Q6H PRN WHEEZING ( Reported) Atorvastatin Calcium 40 MG TABLET 1 TAB PO DAILY CHOLESTEROL (Reported) Clopidogrel Bisulfate (Clopidogrel) 75 MG TABLET 1 TAB PO DAILY BLOOD THINNER (Reported) Diltiazem HCl (Cardizem Cd) 240 MG CAP.ER.24H 1 CAP PO DAILY HEART/BP ( Reported) Enoxaparin Sodium 120 MG/0.8 ML SYRINGE 120 MG SC BID BLOOD THINNER (Reported ) Escitalopram Oxalate 10 MG TABLET 1 TAB PO DAILY MENTAL HEALTH (Reported) Fluticasone-Salmeterol (Advair 100-50 Diskus) 100 MCG-50 MCG/DOSE BLST.W.DEV 1 PUF INH BID RESP. 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 EENTM: Reports: blurred vision. Cardiovascular: Reports: orthopena, palpitations, peripheral edema. Respiratory: Reports: short of breath, wheezing. GI: Reports: abdominal pain, diarrhea, nausea, vomiting. Genitourinary: Reports: no symptoms. Musculoskeletal: Reports: no symptoms. Skin: Reports: no symptoms. Neurological/Psychological: Reports: anxiety. Hematologic/Endocrine: Reports: no symptoms. Immunologic/Allergic: Reports: no symptoms. All Other Systems: Reviewed and Negative Exam & Diagnostic Data Last 24 Hrs of Vital Signs/I&O Vital Signs Date Time Temp Pulse Resp B/P B/P Pulse O2 O2 Flow FiO2 Mean Ox Delivery Rate 05/03 0653 69 20 134/91 95 Room Air 05/03 0206 96 170/92 07/ 0105 98.4 82 19 220/106 94 Room Air / 2332 84 20 187/102 95 Room Air / 2145 97.5 74 19 168/62 97 Room Air 07/ 1808 109 19 186/109 99 Room Air 07/ 1639 96 07/05 1607 98.0 127 26 97 Room Air Intake & Output 05/03 0800 07/06 0000 05 1600 Intake Total Output Total Balance Patient 265 lb Weight Physical Exam General Appearance Alert, Oriented X3, Cooperative, Mild Distress Skin Temp/Moisture Exam: Hot/Diaphoretic (Warm/Diaphoretic) HEENT Atraumatic, PERRLA, EOMI Neck Supple, No JVD Cardiovascular Normal S1, Normal S2 Lungs wheezing BL Abdomen bruises, tender umbilical Neurological Normal Speech Extremities Normal Pulses Assessment/Plan Assessment: Patient is a 38-year-old male with a past medical history of CAD status post NE and RCA stent, paroxysmal A. fib, factor V Leiden deficiency, DVT, pulmonary embolism s/p IVC filter (failing coumadin and xarelto therapy), and a long history of admissions with chest pain, presents today with difficulty breathing and mid epigastric chest pain. EKG showed NSR without acute changes, negative troponin, negative CXR. 1. Asthma Exacerbation 2. Chest Pain with a hx of CAD 3. Hypertensive Urgency Plan: - Observation in telemetry from 24 to 48 hr - Troponin and EKG x 2 to rule out ACS - Cardio consult with Dr. Gorman - Hydralazine IV prn if BP goes above 200 - Start patient on Solu-Medrol every 12 - TRC evaluation - Zofran prn for nasuea - Continue home medications As Ranked By This Provider Problem List: 1. Asthma exacerbation Qualifiers Asthma severity: unspecified severity Asthma persistence: persistent Qualified Code: J45.901 - Unspecified asthma with (acute) exacerbation 2. Chest pain Qualifiers Chest pain type: unspecified Qualified Code: R07.9 - Chest pain, unspecified Core Measures/Misc (07/15) Acute Coronary Syndrome ACS Diagnosis: No Congestive Heart Failure Congestive Heart Failure Diagnosis No Cerebrovascular Accident CVA/TIA Diagnosis: No VTE (View Protocol) VTE Risk Factors No risk factors No Mechanical VTE Prophylaxis d/t N/A MechProphylax Ordered No VTE Pharm Prophylaxis d/t NA PharmProphylax ordered Sepsis (View protocol) Sepsis Present: No If YES complete Sepsis Event Note If YES complete Sepsis Event Note Daniel Covarrubias MD 05/03/18 0234: Core Measures/Misc (07/15) Sepsis (View protocol) If YES complete Sepsis Event Note If YES complete Sepsis Event Note Attending MD Review Statement Attending Statement Attending MD Statement: examined this patient, discuss w/resident/PA/OIL CHANGE TECHNICIAN, agreed w/resident/PA/OIL CHANGE TECHNICIAN, reviewed EMR data (avail) Attending Assessment/Plan: 38M PMH coronary artery disease status post stents 3 in 2013, factor V Leiden deficiency, multiple DVTs and PEs, GI bleed with several hour history of mid- sternal chest/epigastric pain, 8/10, non-radiating, associated with SOB. Not associated with lightheadedness, syncope, diaphoresis, nausea, vomiting, diarrhea, dysuria, fever, chills. Normal cardiac catheterization in December 2017. No recent travel or sick contacts. Wheezing on exam, normal cardiac exam, soft abdomen. EKG NSR without acute changes, negative troponin, negative CXR. Hypertensive in ER 200/100. 1. Asthma exacerbation 2. Chest pain at rest 3. History of CAD 4. Hypertensive urgency Plan - Observation in telemetry - Start Carvedilol 3.125mg BID - Hydralazine IV PRN if BP needs to be brought down - Serial troponin and EKG - Cardiology consult - Unlikely to require repeat cath as just had one in December, will hold on echocardiogram unless requested by cardiology - Solumedrol 40mg q12h - Nebulizer treatments/TRC - Continue Plavix - Continue home medications - DVT PPx Bria Holland MD 05/03/18 0552: Core Measures/Misc (07/15) Sepsis (View protocol) If YES complete Sepsis Event Note If YES complete Sepsis Event Note Resident Review Statement Resident Statement: examined this patient, discussed with sports apparel internship, agreed with sports apparel internship, reviewed EMR data (avail), discussed with nursing, reviewed images Other Findings: Patient is a 38-year-old male with past medical history of DVT and pulmonary embolism s/p IVC filter and on Lovenox(failed coumadin and Xarelto), paroxysmal A. fib, coronary artery disease status post NE and stent 1 in the RCA, factor V Leiden deficiency, diverticulitis, multiple admissions for chest pain, and GI bleed presents to the ER with difficulty breathing and chest pain starting yesterday afternoon. According to the patient, he was in his usual state of health when all of a suddenPatient is a 38-year-old male with past medical history of pulmonary embolism on xarelto, coronary artery disease status post NE and stent 1 in the RCA, factor V Leiden deficiency, diverticulitis, multiple admissions for chest pain, around 1:30 to 2 PM yesterday afternoon. He used his albuterol inhaler and nebulizer twice without much relief. Afternoon and treatments he started having bilateral chest pain radiating to his neck associated with diaphoresis. Pain was sharp, and felt like a lot of pressure, 10 out of 10 intensity and felt similar to when he had an NE in the past. Did not take any aspirin or Pain medications at home. Denies any fever/chills, cough, or sputum production. Does mention using his inhalers more frequently this year because of pollen. Denies any recent travel or sick contacts. Also reports abdominal pain starting around the same time as his chest pain around his bellybutton that radiated down to his groin. Endorses nausea and vomiting starting this morning also had diarrhea last night which was watery and more foul-smelling than usual. Patient was given a one-time dose of nitroglycerin in the ER, denies any improvement of his chest pain with nitroglycerin. Patient was also given 1 dose of IV hydralazine 5 mg for hypertension. Vitals on admission were temperature 98.0, heart rate 127, respiratory rate 26 and O2 sat 97% on room air. He had a WBC count of 8, H&H 13.4/39.3, platelet count 224, BP unremarkable and lipase of 339. UA was negative. Chest x-ray and CT abdomen and pelvis was negative for any acute pathology. CTA was negative for any PE. Problem list; 1. Chest pain rule out ACS 2. Hypertensive urgency 3. Asthma exacerbation 4. Abdominal pain with nausea, vomiting and diarrhea 5. Chronic medical conditions - Observe on telemetry floor from 24 to 48 hours. - Troponin and EKG 2 to rule out ACS. - Cardiology consult with Dr. Gorman - Echocardiogram per cardiology - Started on carvedilol 3.125 mg twice a day for hypertension. - Start the patient on Solu-Medrol every 12. - Monitor her off antibiotics - TRC evaluation - Pain management - Zofran as needed for nausea and vomiting. - Continue home medications. DVT prophylaxis; ALPS and subcutaneous Lovenox Patient is full code
[2018-05-03 06:19] LABS: ABSOLUTE BASOPHIL COUNT 0 /CUMM (0.0-0.2); ABSOLUTE EOSINOPHIL COUNT 0 /CUMM (0.0-0.7); ABSOLUTE GRANULOCYTE CT 6.9 /CUMM (1.4-6.5); ABSOLUTE LYMPH COUNT 0.5 /CUMM (1.2-3.4); ABSOLUTE MONOCYTE COUNT 0.1 /CUMM (0.10-0.60); BASOPHIL % 0.1 % (0.0-2.0); EOSINOPHIL % 0 % (0-5); GRANULOCYTE % 91.4 % (42.2-75.2); HEMATOCRIT 36.3 % (42-52); MEAN CORPUSCULAR HGB 31.1 PG (27.0-31.0); MEAN CORPUSCULAR HGB CONC 33.5 G/DL (33.0-37.0); MEAN CORPUSCULAR VOLUME 92.7 FL (80.0-94.0); MEAN PLATELET VOLUME 8.2 FL (7.4-10.4); PLATELET COUNT 200 /CUMM (130-400); RBC DISTRIBUTION WIDTH 14.3 % (11.5-14.5); RED BLOOD CELL CT 3.92 /CUMM (4.70-6.10); WHITE BLOOD CELL COUNT 7.6 /CUMM (4.8-10.8)
--- NOTE | 2018-05-03 11:19 | PN- Att Addend ---
Attending Addendum Attending Brief Note Patient seen and examined. Lying in bed complaining of some difficulty breathing. Complains of chest pain. Pain is aggravated by deep respiration and occasionally by coughing. He describes pain as a pressure-like sensation. He reports has been compliant with these pulmonary regimen as an outpatient. Following hospitalization for pneumonia back in December here at [facility] he was hospitalized at [facility] for a flareup of his asthma as well. He reports he has yet to follow-up in the outpatient setting with his electrical assembly technician. He is however requesting to switch his pulmonology service to the [facility]. Vital Signs Date Time Temp Pulse Resp B/P B/P Pulse O2 O2 Flow FiO2 Mean Ox Delivery Rate 05/03 1036 98.4 75 20 181/84 96 Room Air 05/03 0926 90 143/96 05/03 0926 90 143/96 / 0920 98.5 90 20 143/96 96 Nasal 2.0L Cannula 05/03 0827 Room Air Room Air 05/03 0653 69 20 134/91 95 Room Air 05/03 0206 96 170/92 05/03 0105 98.4 82 19 220/106 94 Room Air 07/05 2332 84 20 187/102 95 Room Air 07/05 2145 97.5 74 19 168/62 97 Room Air 07/05 1808 109 19 186/109 99 Room Air 07/05 1639 96 07/05 1607 98.0 127 26 97 Room Air General appearance: Obese male. Mild shortness of breath.. HEENT: Anicteric, no pallor, pupils equal and reactive. Neck: Supple with no jugular venous distention. Heart: S1-S2 regular with no audible murmur. Lungs: Diminished breath sounds bilaterally. Diffuse wheezing. Abdomen: Nondistended with normal bowel sounds. Soft, nontender with no palpable masses. Extremities: No pedal edema. No cyanosis. Skin: Intact Laboratory Tests 05/03/18 0613: Anion Gap 11, Estimated GFR > 60, BUN/Creatinine Ratio 15.0, CBC w Diff MAN DIFF ORDERED, RBC 3.92 L, MCV 92.7, MCH 31.1 H, MCHC 33.5, RDW 14.3, MPV 8.2, Gran % 91.4 H, Lymphocytes % 7.0 L, Monocytes % 1.5 L, Eosinophils % 0, Basophils % 0.1, Absolute Granulocytes 6.9 H, Segmented Neutrophils 90 H, Band Neutrophils 2, Absolute Lymphocytes 0.5 L, Lymphocytes 8 L, Absolute Monocytes 0.1, Absolute Eosinophils 0, Absolute Basophils 0, Platelet Estimate ADEQUATE, Normocytic RBCs VERIFIED, Normochromic RBCs VERIFIED, Fld Total RBCs Counted 100 05/03/18 0442: Troponin I < 0.01 05/02/18 1921: Troponin I < 0.01 05/02/18 1825: Urine Color YEL, Urine Clarity CLEAR, Urine pH 6.5, Ur Specific [place] <= 1.005 , Urine Protein NEG, Urine Ketones NEG, Urine Nitrite NEG, Urine Bilirubin NEG, Urine Urobilinogen 0.2, Ur Leukocyte Esterase NEG, Ur Microscopic EXAM NOT REQUIRED, Urine Hemoglobin NEG, Urine Glucose NEG 05/02/18 1608: Anion Gap 10, Estimated GFR > 60, BUN/Creatinine Ratio 16.3, Glucose 139 H, Calcium 8.9, Total Bilirubin 0.8, AST 24, ALT 35, Alkaline Phosphatase 84, Troponin I < 0.01, Total Protein 6.3, Albumin 3.7, Globulin 2.6, Albumin/ Globulin Ratio 1.4, Lipase 339 H, D-Dimer High Sensitivty < 200, CBC w Diff NO MAN DIFF REQ, RBC 4.26 L, MCV 92.4, MCH 31.6 H, MCHC 34.2, RDW 14.4, MPV 8.5, Gran % 71.7, Lymphocytes % 15.0 L, Monocytes % 9.7 H, Eosinophils % 3.3, Basophils % 0.3, Absolute Granulocytes 5.7, Absolute Lymphocytes 1.2, Absolute Monocytes 0.8 H, Absolute Eosinophils 0.3, Absolute Basophils 0 EKG showed no ischemic changes. Problems: 1. Acute asthma exacerbation 2. Atypical chest pain 3. History of coronary artery disease status post SD on cardiac stent placement. 4. Proximal atrial fibrillation 5. Multiple venous thromboembolic disease secondary to factor V [place] deficiency. Failed therapy with Coumadin and Xarelto in the past. Status post IVC filter placement. Plan: -Continue bronchodilator therapy. Increase Solu-Medrol to 40 mg IV every 8 hours. -Place patient on daily fingersticks monitoring with no sliding scale coverage. -Chest pain appears atypical. Apparently he has similar chest pain on and off. Review of records shows that earlier in the year he presented to [facility] with chest pain. Apparently had an abnormal stress test that led to cardiac catheterization. Records here states that catheterization revealed patent vessels including the RCA stent. He has presented to [facility] twice following that cardiac catheterization with chest pain. On both occasions he was ruled out with negative cardiac enzymes and nonischemic EKGs. Recommend holding off any further cardiac testing until he is evaluated by the cardiology service. Symptoms appear to be secondary to his asthma exacerbation at present. -Patient was started on Coreg following admission. He previously was not on beta-block -er therapy. Probably due to his asthma history. Monitor patient closely on this cardioselective beta-tita.
--- NOTE | 2018-05-03 12:54 | Cons- Cardiology ---
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 His past medical history is remarkable for coronary disease, status post myocardial infarction and right coronary artery stenting, paroxysmal atrial for ablation, factor V Leyden deficiency, prior DVT, prior pulmonary embolus, history of IVC filter implantation, in multiple prior admissions for chest discomfort. The patient now presents the emergency room with increasing shortness of breath and chest discomfort which he rates as an 8/10 in severity radiating to his neck. The pain is sharp in nature and clearly worsened by inspiration, coughing , etc. By history, the symptoms seem to be more pleuritic, however, the patient does note that they are similar to his symptoms prior to his last ME and stent. No other associated symptoms noted. At one point, significant hypertension was also noted in the emergency room. Allergies/Medications Allergies: Coded Allergies: Iodinated Contrast- Oral and IV Dye (ANAPHYLAXIS 12/23/17) haloperidol (HIVES 12/23/17) ketorolac (From TORADOL) (HIVES, RASH 12/23/17) meperidine (From DEMEROL) (HIVES 12/23/17) milk (LACTOSE INTOLERANT 12/23/17) shellfish derived (ANAPHYLAXIS 12/23/17) Home Med List: Albuterol Sulfate (Proair Hfa) 90 MCG HFA.AER.AD 2 PUF INH Q6H PRN WHEEZING ( Reported) Atorvastatin Calcium 40 MG TABLET 1 TAB PO DAILY CHOLESTEROL (Reported) Clopidogrel Bisulfate (Clopidogrel) 75 MG TABLET 1 TAB PO DAILY BLOOD THINNER (Reported) Diltiazem HCl (Cardizem Cd) 240 MG CAP.ER.24H 1 CAP PO DAILY HEART/BP ( Reported) Enoxaparin Sodium 120 MG/0.8 ML SYRINGE 120 MG SC BID BLOOD THINNER (Reported ) Escitalopram Oxalate 10 MG TABLET 1 TAB PO DAILY MENTAL HEALTH (Reported) Fluticasone-Salmeterol (Advair 100-50 Diskus) 100 MCG-50 MCG/DOSE BLST.W.DEV 1 PUF INH BID RESP. (Reported) Hydrochlorothiazide 12.5 MG CAPSULE 1 CAP PO DAILY BP (Reported) Lisinopril 40 MG TABLET 1 TAB PO DAILY BP (Reported) Pantoprazole Sodium 40 MG TABLET. 1 TAB PO DAILY GI (Reported) Current Medications: Current Medications Sig/Theo Start time Last Medication Dose Route Stop Time Status Admin Acetaminophen 650 MG Q6P PRN 05/03 0130 AC PO Acetaminophen 0 .STK-MED ONE 05/02 2002 DC IV Acetaminophen 1,000 MG ONCE ONE 05/02 2000 DC 05/02 N/A 1 UNIT IV 05/02 Albuterol Sulfate 3 ML Q4-6 PRN PRN 05/03 0730 AC 05/03 INH 0812 Albuterol Sulfate 2 PUF Q6H PRN 05/03 0130 AC INH Albuterol Sulfate 0 .STK-MED ONE 05/02 1830 DC INH Albuterol Sulfate 0 .STK-MED ONE 05/02 1829 DC INH Albuterol Sulfate 3 ML ONCE ONE 05/02 1815 DC 05/02 INH 05/02 1816 1831 Albuterol Sulfate 3 ML ONCE ONE 05/02 1700 DC 07 INH 05/02 1701 1651 Albuterol Sulfate 3 ML ONCE ONE 05/02 1645 DC 05/02 INH 05/02 1646 1642 Albuterol Sulfate 3 ML ONCE ONE 05/02 1615 DC 05/02 INH 05/02 1616 1632 Atorvastatin Calcium 40 MG 1700 05/03 1700 AC PO Budesonide/ 1 PUF BID 05/03 09 AC 05/03 Formoterol Fumarate INH 1024 Carvedilol 3.125 MG BID 05/03 900 AC 05/03 PO 0926 Clopidogrel Bisulfate 75 MG DAILY 05/03 900 AC 05/03 PO 0926 Diltiazem HCl 240 MG DAILY 05/03 900 AC 05/03 PO 0926 Diphenhydramine HCl 0 .STK-MED ONE 05/02 2118 DC .ROUTE Diphenhydramine HCl 25 MG ONCE ONE 05/02 2115 DC 05/02 IV 05/02 Diphenhydramine HCl 0 .STK-MED ONE 05/02 172 DC .ROUTE Diphenhydramine HCl 50 MG ONCE ONE 05/02 1715 DC 05/02 IV 05/02 1716 1729 Enoxaparin Sodium 120 MG BID 05/03 0130 AC 05/03 SC 0926 Escitalopram Oxalate 10 MG DAILY 05/03 900 AC 05/03 PO 0926 Hydralazine HCl 5 MG ONCE ONE 05/03 0130 DC 05/03 IV 05/03 0131 0134 Hydrochlorothiazide 12.5 MG DAILY 05/03 900 AC 05/03 PO 0926 Hydromorphone HCl 0 .STK-MED ONE 05/03 0553 DC .ROUTE Hydromorphone HCl 0 .STK-MED ONE 05/03 0144 DC .ROUTE Hydromorphone HCl 0.5 MG Q4P PRN 05/03 0130 DC 05/03 IV 0603 Hydromorphone HCl 0 .STK-MED ONE 05/02 2305 DC .ROUTE Hydromorphone HCl 1 MG ONCE ONE 05/02 2230 DC 05/02 IV 05/02 2231 2308 Ipratropium [place] 2.5 ML ONCE ONE 05/02 1615 DC 05/02 INH 05/02 1616 1632 Lisinopril 40 MG DAILY 05/03 900 AC 05/03 PO 0926 Methylprednisolone 40 MG Q12H 05/03 1815 DC IV Methylprednisolone 40 MG Q8 05/03 1400 AC IV Methylprednisolone 40 MG Q12 05/03 0615 DC 05/03 IV 0614 Methylprednisolone 40 MG Q8 05/03 0600 DC IV Methylprednisolone 0 .STK-MED ONE 05/02 1650 DC .ROUTE Methylprednisolone 125 MG ONCE ONE 05/02 1615 DC 05/02 IV 05/02 1616 1702 Morphine Sulfate 4 MG ONCE ONE 05/02 1815 DC 05/02 IV 05/02 1816 1816 Morphine Sulfate 0 .STK-MED ONE 05/02 1813 DC .ROUTE Morphine Sulfate 0 .STK-MED ONE 05/02 1724 DC .ROUTE Morphine Sulfate 4 MG ONCE ONE 05/02 1715 DC 05/02 IV 05/02 1716 1729 Nitroglycerin 0.4 MG ONCE ONE 05/02 2215 DC 05/02 SL 05/02 2216 2225 Omeprazole 40 MG DAILY AC 05/03 07 AC 05/03 PO 0603 Omeprazole 0 .STK-MED ONE 05/03 0544 DC PO Oxycodone/ 0 .STK-MED ONE 05/03 0823 DC Acetaminophen PO Oxycodone/ 1 TAB Q6P PRN 05/03 0130 AC 05/03 Acetaminophen PO 0825 Past History Travel History Traveled to [place] past 21 day No Medical History Blood Transfusion Hx: Yes Neurological: NONE EENT: NONE Cardiovascular: CAD, hypertension, myocardial infarction Respiratory: asthma, pulmonary embolism Gastrointestinal: colitis, diverticulitis Hepatic: NONE Renal: NONE Musculoskeletal: NONE Psychiatric: NONE Endocrine: NONE 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" Surgical History Surgical History: colon resection, cardiac stent, ivc filter Family History Relations & Conditions If Any: FATHER Coronary artery bypass graft surgery Psychosocial History Services at Home: None Smoking Status: Former Smoker ETOH Use: denies use Illicit Drug Use: marijuana Exam & Diagnostic Data Vital Signs and I&O Vital Signs Date Time Temp Pulse Resp B/P B/P Pulse O2 O2 Flow FiO2 Mean Ox Delivery Rate 05/03 1036 98.4 75 20 181/84 96 Room Air 05/03 0926 90 143/96 05/03 0926 90 143/96 05/03 0920 98.5 90 20 143/96 96 Nasal 2.0L Cannula 05/03 0827 Room Air Room Air 05/03 0653 69 20 134/91 95 Room Air 05/03 0206 96 170/92 05/03 0105 98.4 82 19 220/106 94 Room Air 05/02 2332 84 20 187/102 95 Room Air 05/02 2145 97.5 74 19 168/62 97 Room Air 05/02 1808 109 19 186/109 99 Room Air 05/02 1639 96 / 1607 98.0 127 26 97 Room Air Intake & Output 05/03 1600 05/03 0805/03 0000 05/02 1600 05/02 0800 05/02 0000 Intake Total Output Total Balance Patient 265 lb Weight Physical Exam: General Appearance: well developed/nourished, alert, awake, oriented Head: normal HEENT: Normal Neck: supple, JVP normal, carotid upstrokes normal bilaterally, no masses or thyromegaly Respiratory: chest non-tender, clear to auscultation and percussion bilaterally Cardiovascular: regular rate/rhythm, normal S1, S2, 1/6 systolic murmur Abdomen: normal bowel sounds, soft, non-tender Extremities: normal inspection, no edema Vascular: Pulses are 2+ and equal bilaterally Neurologic: Grossly normal/nonfocal Labs/Bret Results: Laboratory Tests 05/03 05/03 05/02 [id number] Chemistry Sodium (137 - 145 mmol/L) 138 Potassium (3.5 - 5.1 mmol/L) 4.5 Chloride (98 - 107 mmol/L) 104 Carbon Dioxide (22 - 30 mmol/L) 22 Anion Gap (5 - 16) 11 BUN (9 - 20 mg/dL) 9 Creatinine (0.7 - 1.2 mg/dL) 0.6 L Estimated GFR (>60 ml/min) > 60 BUN/Creatinine Ratio (7 - 25 %) 15.0 Troponin I (<0.11 ng/ml) < 0.01 < 0.01 Hematology CBC w Diff MAN DIFF ORDERED WBC (4.8 - 10.8 /CUMM) 7.6 RBC (4.70 - 6.10 /CUMM) 3.92 L Hgb (14.0 - 18.0 G/DL) 12.2 L Hct (42 - 52 %) 36.3 L MCV (80.0 - 94.0 FL) 92.7 MCH (27.0 - 31.0 PG) 31.1 H MCHC (33.0 - 37.0 G/DL) 33.5 RDW (11.5 - 14.5 %) 14.3 Plt Count (130 - 400 /CUMM) 200 MPV (7.4 - 10.4 FL) 8.2 Gran % (42.2 - 75.2 %) 91.4 H Lymphocytes % (20.5 - 51.1 %) 7.0 L Monocytes % (1.7 - 9.3 %) 1.5 L Eosinophils % (0 - 5 %) 0 Basophils % (0.0 - 2.0 %) 0.1 Absolute Granulocytes (1.4 - 6.5 /CUMM) 6.9 H Segmented Neutrophils (42.2 - 75.2 %) 90 H Band Neutrophils (0.0 - 5.0 %) 2 Absolute Lymphocytes (1.2 - 3.4 /CUMM) 0.5 L Lymphocytes (20.5 - 51.1 %) 8 L Absolute Monocytes (0.10 - 0.60 /CUMM) 0.1 Absolute Eosinophils (0.0 - 0.7 /CUMM) 0 Absolute Basophils (0.0 - 0.2 /CUMM) 0 Platelet Estimate (ADEQUATE) ADEQUATE Normocytic RBCs VERIFIED Normochromic RBCs VERIFIED Other Body Source Fld Total RBCs Counted (%) 100 05/02 05/02 1825 1608 Chemistry Sodium (137 - 145 mmol/L) 143 Potassium (3.5 - 5.1 mmol/L) 3.9 Chloride (98 - 107 mmol/L) 108 H Carbon Dioxide (22 - 30 mmol/L) 25 Anion Gap (5 - 16) 10 BUN (9 - 20 mg/dL) 13 Creatinine (0.7 - 1.2 mg/dL) 0.8 Estimated GFR (>60 ml/min) > 60 BUN/Creatinine Ratio (7 - 25 %) 16.3 Glucose (65 - 99 mg/dL) 139 H Calcium (8.4 - 10.2 mg/dL) 8.9 Total Bilirubin (0.2 - 1.3 mg/dL) 0.8 AST (17 - 59 U/L) 24 ALT (21 - 72 U/L) 35 Alkaline Phosphatase (< 127 U/L) 84 Troponin I (<0.11 ng/ml) < 0.01 Total Protein (6.3 - 8.2 g/dL) 6.3 Albumin (3.5 - 5.0 g/dL) 3.7 Globulin (1.9 - 4.2 gm/dL) 2.6 Albumin/Globulin Ratio (1.1 - 2.2 %) 1.4 Lipase (23 - 300 U/L) 339 H Coagulation D-Dimer High Sensitivty (0 - 243 ng/ml) < 200 Hematology CBC w Diff NO MAN DIFF REQ WBC (4.8 - 10.8 /CUMM) 8.0 RBC (4.70 - 6.10 /CUMM) 4.26 L Hgb (14.0 - 18.0 G/DL) 13.4 L Hct (42 - 52 %) 39.3 L MCV (80.0 - 94.0 FL) 92.4 MCH (27.0 - 31.0 PG) 31.6 H MCHC (33.0 - 37.0 G/DL) 34.2 RDW (11.5 - 14.5 %) 14.4 Plt Count (130 - 400 /CUMM) 224 MPV (7.4 - 10.4 FL) 8.5 Gran % (42.2 - 75.2 %) 71.7 Lymphocytes % (20.5 - 51.1 %) 15.0 L Monocytes % (1.7 - 9.3 %) 9.7 H Eosinophils % (0 - 5 %) 3.3 Basophils % (0.0 - 2.0 %) 0.3 Absolute Granulocytes (1.4 - 6.5 /CUMM) 5.7 Absolute Lymphocytes (1.2 - 3.4 /CUMM) 1.2 Absolute Monocytes (0.10 - 0.60 /CUMM) 0.8 H Absolute Eosinophils (0.0 - 0.7 /CUMM) 0.3 Absolute Basophils (0.0 - 0.2 /CUMM) 0 Urines Urine Color (YEL,AMB,STR) YEL Urine Clarity (CLEAR) CLEAR Urine pH (5.0 - 8.0) 6.5 Ur Specific [place] (1.001 - 1.035) <= 1.005 Urine Protein (NEG,<30 MG/DL) NEG Urine Ketones (NEG) NEG Urine Nitrite (NEG) NEG Urine Bilirubin (NEG) NEG Urine Urobilinogen (0.1 - 1.0 EU/dl) 0.2 Ur Leukocyte Esterase (NEG) NEG Ur Microscopic EXAM NOT REQUIRED Urine Hemoglobin (NEG) NEG Urine Glucose (N MG/DL) NEG Assessment/Plan Consult Acknowledgment - Thank you for your consult request.
[2018-05-03 16:07] VITALS: BP 176/90
[2018-05-03 22:41] VITALS: BP 136/90
[2018-05-04 07:04] VITALS: BP 170/90
--- NOTE | 2018-05-04 08:04 | PN- Housestaff ---
Iban Muñiz 05/04/18 0804: Subjective Follow-up For: CHEST PAIN Subjective: Patient seen lying in the bed, clearly uncomfortable. Complaining of chest pain worse upon inspiration. Patient states the pain radiates to the jaw and back on both sides, but is especially bad with deep inspiration. Patient also suffers from asthma and has been admitted to the ICU and intubated several times previously for this complaint. Currently complaining of shortness of breath, in addition to the pain. Review of Systems Constitutional: Denies: chills, diaphoresis, fever. Cardiovascular: Reports: chest pain. Denies: orthopena, peripheral edema, syncope. Respiratory: Reports: cough, short of breath, wheezing. Denies: hemoptysis, orthopnea. Gastrointestinal: Denies: abdominal pain, nausea, vomiting. Objective Last 24 Hrs of Vital Signs/I&O Vital Signs Date Time Temp Pulse Resp B/P B/P Pulse O2 O2 Flow FiO2 Mean Ox Delivery Rate 05/04 0704 98.1 68 18 170/90 96 05/04 0000 Room Air 05/03 2241 98.8 77 20 136/90 95 05/03 2159 90 05/03 1652 Room Air Room Air 05/03 1607 99.2 70 24 176/90 96 05/03 1036 98.4 75 20 181/84 96 Room Air 05/03 0926 90 143/96 05/03 0926 90 143/96 /06 0920 98.5 90 20 143/96 96 Nasal 2.0L Cannula 05/03 0827 Room Air Room Air Intake & Output 05/04 1600 05/04 0800 05/04 0000 Intake Total 320 120 Output Total Balance 320 120 Intake, Oral 320 120 Patient 130.238 kg Weight Physical Exam General Appearance: Alert, Oriented X3, Cooperative, Mild Distress Neck: Supple, No JVD, No thryomegaly, +2 Carotid Pulse wo Bruit Cardiovascular: Regular Rate, Normal S1, Normal S2, No Murmurs Lungs: REDUCED AIR SOUNDS, WITH EXPIRATORY WHEEZING BILATERALLY Abdomen: Soft, No Tenderness Neurological: Normal Gait Extremities: No Clubbing, No Edema Current Medications: Current Medications Sig/Theo Start time Last Medication Dose Route Stop Time Status Admin Acetaminophen 650 MG Q6P PRN 05/03 0130 AC PO Albuterol Sulfate 3 ML EVERY 4 HRS/AWAKE 05/03 1651 AC 05/04 INH 0803 Albuterol Sulfate 3 ML Q4-6 PRN PRN 05/03 0730 DC 05/03 INH 0812 Albuterol Sulfate 2 PUF Q6H PRN 05/03 0130 AC INH Atorvastatin Calcium 40 MG 1700 05/03 1700 AC 05/03 PO 1806 Budesonide/ 1 PUF BID 05/03 0900 AC 05/03 Formoterol Fumarate INH 2159 Carvedilol 3.125 MG BID 05/03 09 AC 05/03 PO 2159 Clopidogrel Bisulfate 75 MG DAILY 05/03 09 AC 05/03 PO 0926 Diltiazem HCl 240 MG DAILY 05/03 09 AC 05/03 PO 0926 Enoxaparin Sodium 120 MG BID 05/03 0130 AC 05/03 SC 2203 Escitalopram Oxalate 10 MG DAILY 05/03 900 AC 05/03 PO 0926 Hydrochlorothiazide 12.5 MG DAILY 05/03 900 AC 05/03 PO 0926 Hydromorphone HCl 0.5 MG Q4P PRN 05/03 0130 DC 05/03 IV 0603 Lisinopril 40 MG DAILY 05/03 09 AC 05/03 PO 0926 Methylprednisolone 40 MG Q12H 05/03 1815 DC IV Methylprednisolone 0 .STK-MED ONE 05/03 1504 DC .ROUTE Methylprednisolone 40 MG Q8 05/03 1400 AC 05/04 IV 0536 Omeprazole 40 MG DAILY AC 05/03 0700 AC 05/04 PO 0536 Oxycodone/ 1 TAB ONCE ONE 05/03 1900 DC 05/03 Acetaminophen PO 05/03 1901 1909 Oxycodone/ 0 .STK-MED ONE 05/03 0823 DC Acetaminophen PO Oxycodone/ 1 TAB Q6P PRN 05/03 0130 AC 05/04 Acetaminophen PO 0536 Assessment/Plan Assessment: Patient is a 38 year-old male with history of asthma, multiple ICU admissions and intubations. Presented to the emergency department with chest pain radiating to the neck and back on both sides. Pain is worst with deep inspiration. Patient also complaining of nonproductive cough, shortness of breath. Denies palpitations, dizziness. 38-year-old male with asthma exacerbation and pleuritic chest pain 1. Asthma 2. Chest pain Problem List: 1. Asthma exacerbation 2. Chest pain 3. Pleuritic chest pain Pain Ratin Pain Location: CHEST Pain Goal: Pain 4 or less Pain Plan: PRN PERCOCET Tomorrow's Labs & Rationales: NONE Jennifer Heath MD 05/04/18 1015: Attending MD Review Statement Attending Statement Attending MD Statement: examined this patient, discuss w/resident/PA/SHOCHET, agreed w/resident/PA/SHOCHET, reviewed EMR data (avail), discussed with nursing, discussed with case mgmt, amended to note Attending Assessment/Plan: Patient seen and examined. Resting comfortably not in acute distress. No issues overnight. No events on telemetry monitoring. He remains in normal sinus rhythm. He is not requiring oxygen supplementation this morning. He reports ongoing chest pain aggravated by coughing and deep respiration. Admits to some shortness of breath. On examination has improved entry bilaterally. He continues to have diffuse wheezing. Heart sounds are regular. Abdomen soft and nontender. He has no peripheral edema. Recommendations: -Decrease Solu-Medrol to 40 mg IV every 12 hours. -Continue bronchodilator therapy. -Discontinue telemetry monitoring. Continue pain management for his pleuritic chest pain. -Mobilize patient as tolerated.
--- NOTE | 2018-05-04 14:04 | PN- Cardiology ---
Subjective Subjective: * Patient remains very wheezy and short of breath. Persistent pleuritis midsternal chest discomfort that is unchanged. * Normal cardiac enzymes.. Objective Vital Signs and I&Os Vital Signs Date Time Temp Pulse Resp B/P B/P Pulse O2 O2 Flow FiO2 Mean Ox Delivery Rate 05/04 1228 78 170/90 05/04 1226 78 170/90 05/04 0832 95 Room Air 05/04 0704 98.1 68 18 170/90 96 05/04 0000 Room Air 05/03 2241 98.8 77 20 136/90 95 05/03 2159 90 05/03 1652 Room Air Room Air 05/03 1607 99.2 70 24 176/90 96 Intake & Output 05/04 1600 05/04 0800 05/04 0000 05/03 1600 05/03 0800 05/03 0000 Intake Total 320 120 Output Total Balance 320 120 Intake, Oral 320 120 Patient 287 lb 265 lb Weight Physical Exam: General: WD/WN male in NAD; alert and oriented x 3 HEENT: NC/AT, PERRL EOMI Neck: no JVD Heart: RRR Lungs: severely decreased air movement with bilateral wheezing and upper airway sounds Extremities: no edema Assessment/Plan Assessment/Plan * This patient does not appear to have chest discomfort related to an ACS and is not in decompensated CHF. Continue to treat for an exacerbation of COPD with steroids and bata agonists. I do not think the small dose of beta tita that he is currently on is contributing much to bronchospasm. No changes to cardiac medications recommended at this time. Continue telemetry? Yes
[2018-05-04 15:20] VITALS: BP 138/72
[2018-05-04 22:10] VITALS: BP 140/90
[2018-05-05 06:34] VITALS: BP 148/64
[2018-05-05 08:08] LABS: ABSOLUTE BASOPHIL COUNT 0 /CUMM (0.0-0.2); ABSOLUTE EOSINOPHIL COUNT 0 /CUMM (0.0-0.7); ABSOLUTE LYMPH COUNT 0.6 /CUMM (1.2-3.4); BASOPHIL % 0 % (0.0-2.0); EOSINOPHIL % 0 % (0-5); MEAN PLATELET VOLUME 9.2 FL (7.4-10.4)
--- NOTE | 2018-05-05 08:10 | PN- Housestaff ---
Hortencia RIGGS,Antoinette 05/05/18 0809: Subjective Follow-up For: Asthma exacerbation Complaints: cough,chestpain, sob Tele-Events Since Last Visit: Heart rate 53-61. Normal sinus rhythm Subjective: Patient seen and examined at bedside. No overnight events. Patient complains of difficulty in breathing, chest pain on both sides with radiation to both shoulders neck while coughing. Review of Systems Constitutional: Reports: no symptoms. Objective Last 24 Hrs of Vital Signs/I&O Vital Signs Date Time Temp Pulse Resp B/P B/P Pulse O2 O2 Flow FiO2 Mean Ox Delivery Rate 05/05 0802 95 Room Air Room Air 05/05 0758 57 148/64 05/05 0757 57 148/64 05/05 0634 97.9 57 26 148/64 95 Room Air 05/05 0313 96 Room Air 05/05 0000 Room Air 05/04 2210 98.1 72 18 140/90 96 05/04 2002 65 140/90 05/04 1917 96 Room Air 05/04 1520 98.3 67 16 138/72 95 05/04 1228 78 170/90 05/04 1226 78 170/90 Intake & Output 05/05 1600 05/05 0800 / 0000 Intake Total 360 360 Output Total Balance 360 360 Intake, Oral 360 360 Patient 270 lb Weight Weight Reported by Patient Measurement Method Physical Exam General Appearance: Alert, Oriented X3, Cooperative, No Acute Distress Cardiovascular: Regular Rate, Normal S1, Normal S2, No Murmurs Lungs: b/l wheeze Abdomen: Normal Bowel Sounds, Soft, No Tenderness, No Hepatospenomegaly Neurological: Normal Speech, Strength at 5/5 X4 Ext, Normal Tone, Sensation Intact, Cranial Nerves 3-12 NL Extremities: No Cyanosis, No Edema, Normal Pulses Current Medications: Current Medications Sig/Theo Start time Last Medication Dose Route Stop Time Status Admin Acetaminophen 650 MG Q6P PRN 05/03 0130 AC PO Albuterol Sulfate 3 ML EVERY 4 HRS/AWAKE 05/03 1651 AC 05/05 INH 0802 Albuterol Sulfate 2 PUF Q6H PRN 05/03 0130 AC 05/04 INH 2106 Atorvastatin Calcium 40 MG 1700 05/03 1700 AC 05/04 PO 1531 Budesonide/ 1 PUF BID 05/03 09 AC 05/05 Formoterol Fumarate INH 0804 Carvedilol 3.125 MG BID 05/03 900 DC 05/05 PO 0757 Clopidogrel Bisulfate 75 MG DAILY 05/03 900 AC 05/05 PO 0758 Diltiazem HCl 240 MG DAILY 05/03 900 AC 05/05 PO 0757 Enoxaparin Sodium 120 MG BID 05/03 0130 AC 05/05 SC 0757 Escitalopram Oxalate 10 MG DAILY 05/03 900 AC 05/05 PO 0758 Hydrochlorothiazide 12.5 MG DAILY 05/03 900 AC 05/05 PO 0757 Lisinopril 40 MG DAILY 05/03 900 AC 05/05 PO 0758 Methylprednisolone 40 MG Q8 05/05 1400 AC IV Methylprednisolone 40 MG Q12 05/04 2100 DC 05/05 IV 075 Methylprednisolone 40 MG Q8 05/03 1400 DC 05/04 IV 1319 Morphine Sulfate 2 MG ONCE ONE 05/04 2100 DC 05/04 IV 05/04 2101 2115 Omeprazole 40 MG DAILY AC 05/03 700 AC 05/05 PO 0529 Ondansetron HCl 4 MG ONCE ONE 05/05 0545 DC 05/05 IV 05/05 0546 0535 Ondansetron HCl 4 MG ONCE ONE 05/05 0530 CAN PO 05/05 0531 Ondansetron HCl 4 MG ONCE ONE 05/04 2115 DC 05/04 IV 05/04 2116 2114 Ondansetron HCl 4 MG ONCE ONE 05/04 1515 DC 05/04 IV 05/04 1516 1525 Oxycodone/ 1 TAB Q4P PRN 05/04 1300 DC Acetaminophen PO Oxycodone/ 1 TAB Q6P PRN 05/03 0130 AC 05/05 [place]amin[place] PO 0848 Last 24 Hrs of Lab/Bret Results Last 24 Hrs of Labs/Mics: Laboratory Tests 05/05/18 0618: CBC w Diff MAN DIFF ORDERED, RBC 4.22 L, MCV 94.0, MCH 31.1 H, MCHC 33.1, RDW 14.9 H, MPV 9.2, Gran % 92.2 H, Lymphocytes % 3.0 L, Monocytes % 4.8, Eosinophils % 0, Basophils % 0, Absolute Granulocytes 18.5 H, Absolute Lymphocytes 0.6 L, Absolute Monocytes 1.0 H, Absolute Eosinophils 0, Absolute Basophils 0, Platelet Estimate ADEQUATE, Normocytic RBCs VERIFIED, Normochromic RBCs VERIFIED Assessment/Plan Assessment: Patient is a 38 year-old male with history of asthma, multiple ICU admissions and intubations. Presented to the emergency department with chest pain radiating to the neck and back on both sides. Pain is worst with deep inspiration. Patient also complaining of nonproductive cough, shortness of breath. Denies palpitations, dizziness. 1. Asthma exacerbation * Patient is on IV Solu-Medrol q. 12 which we will increase to q. 8 given his respiratory symptoms. Patient is getting TRC nebulization around the clock. His chest pain seemed more off pleuritic rather than cardiac in origin. 2. Chest pain * His chest pain looks more of pleuritic rather than cardiac in origin. Initial set of troponin and EKG were negative. Cardiology is on board. 4. Coronary artery disease/atrial fibrillation/DVT/PE * Patient is on hydrochlorothiazide, lisinopril, aspirin, Plavix, diltiazem. Patient has an IVC filter and Lovenox 120 mg twice daily subcu. Overnight patient heart rate lowest was 56 and highest was 61 with a normal sinus rhythm. Patient is on Coreg 3.125 mg twice daily. This might worsen his respiratory status and also can cause bradycardia hence we will hold it and discuss with cardiology today. Problem List: 1. Asthma exacerbation 2. Pleuritic chest pain Pain Ratin Pain Location: chest Pain Goal: Remain pain free Pain Plan: percocet Tomorrow's Labs & Rationales: cbc,bep Kumar RIGGS,Jennifer 05/05/18 1008: Attending MD Review Statement Attending Statement Attending MD Statement: examined this patient, discuss w/resident/PA/ENGINEER SPECIALIST, agreed w/resident/PA/ENGINEER SPECIALIST, reviewed EMR data (avail), discussed with nursing, amended to note Attending Assessment/Plan: Patient seen and examined. Lying in bed. Does not appear to be in acute distress. He however reports not feeling any better compared to presentation. He reports continued chest pain. He is requesting additional pain medications been on the Percocet he is currently receiving. On examination he does not appear to be in acute distress. He is not requiring oxygen supplementation. Heart sounds are regular. He has adequate entry bilaterally with diffuse wheezing. Abdomen is obese but soft, nontender. No peripheral edema. Problems: 1. Atypical chest pain; likely musculoskeletal 2. Acute asthma exacerbation. 3. History of venous thromboembolism. 4. Leukocytosis 5. Lung nodule Plan: -Patient continues to have diffuse wheezing. Reports not feeling any better compared to presentation. Solu-Medrol dose was increased to every 8 hours today. Beta-tita therapy was discontinued particularly on account of bradycardia in the 50s noted overnight on telemetry monitoring. Nursing staff reports that he was bradycardic into the 40s. If no significant improvement in respiratory status tomorrow recommend pulmonary consultation. Continue bronchodilator therapy. -Chest pain is less likely a cardiac etiology. He has ruled out for ACS. Continue pain control with Percocet. Tramadol 50 mg orally every 8 hours as needed breakthrough pain. -Leukocytosis likely secondary to steroid therapy. He is afebrile. He is hemodynamically stable. No evidence of infection at present. Repeat CBCs in 48 hours. -Continue long-term escalation therapy with Lovenox 120 mg subcutaneously twice daily. -Patient is aware of his pulmonary nodule. 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 He does admit that he was seen by his business development during that hospitalization. He however is requesting to transfer to a new pulmonology service in the [facility].
[2018-05-05 08:17] LABS: ABSOLUTE GRANULOCYTE CT 18.5 /CUMM (1.4-6.5); GRANULOCYTE % 92.2 % (42.2-75.2); HEMATOCRIT 39.6 % (42-52); MEAN CORPUSCULAR HGB 31.1 PG (27.0-31.0); MEAN CORPUSCULAR HGB CONC 33.1 G/DL (33.0-37.0); PLATELET COUNT 229 /CUMM (130-400); RBC DISTRIBUTION WIDTH 14.9 % (11.5-14.5); RED BLOOD CELL CT 4.22 /CUMM (4.70-6.10)
[2018-05-05 08:21] LABS: WHITE BLOOD CELL COUNT 20.1 /CUMM (4.8-10.8)
--- NOTE | 2018-05-05 11:21 | PN- Student ---
Subjective Subjective: Patient presented to the ED with chest pain radiating to his left arm. The pain is constant and worsening in progression since its onset Mirza morning and is described as an elephant sitting on the patients chest. He rates the pain as 8/ 10; sitting upright alleviates the pain. Nausea, flatulenece, bloating, and headache accompany his symptoms. was assesed while lying in his bed; he appeared to be in mild distress. The patient reports having two AZ's in the past, 2 TIA's, and a history of pulmonary edema. He takes drugs regularly but cant remember which ones. He is allergic to nitroglycerin (rash & headaches), penicillin (rash & headaches), and blueberries (hives). The patient has been hospitilized in the past for AZ, TIA, alchohol detox, and catheterization. No surgical history. 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 The patient drinks alcohol and does not use tobacco or recreationhal drugs. Parents from cancer. Daughter and son are healthy. Upon review of systems it was found that Mr. Alvarez experiences anxiety daily that has the ability to keep him from carrying out everyday tasks and has some degree of dyspnea at all times. Regarding his visit, since being hospitalized, patient reports an increase in diaphoresis and has vomitted three times Objective Objective: Vitals: Temp 97.2, Pulse 61, Respiratory 20, BP 142/60, Pulse Ox. 94 Upon ascultation, normal S1 and S2 were heard without any murmurs. No JVD was appreciated upon inspection. Mild pallor was noted when inspecting eyelids. No edema found in lower extremities upon palpation. Wheezes were heard bilaterally upon ascultation of lung collier. No janeway lesions, osler nodes, or DIP swelling was appreciated upon inspecting the patients hands. No oral cyanosis was noted on inspection however oral thrush was appreciated on the patients tongue. CBC: High WBC (18.7), Low RBC (4.16), Low Hb (13), Low Hct (38.7) Cardiac enzymes are within normal ranges (<0.01) Chest X-Ray showed clear lung collier with no signs of pleural effusion or consolidation; osteoarthritis of the AC joint was noted. No intraluminal pulmonary arterial filling defects were appreicated on abdominal CT. Echocardiogram showed mild left ventricular hypertrophy with EF>60% Assessment/Plan Assessment: Cardio consult yields diagnosis of COPD exacerbation rather than chest pain derived from ACS and recomends continuing treatment with steroids and beta agoniost; the note sugests a minimal effect of the prescribed beta tita with respect to the patients exacerbation.
--- NOTE | 2018-05-05 12:25 | PN- Cardiology ---
Subjective Subjective: * Patient continues to have severe shortness of breath and complains of severe sharp bilateral chest pain and pressure. * sinus rhythm Objective Vital Signs and I&Os Vital Signs Date Time Temp Pulse Resp B/P B/P Pulse O2 O2 Flow FiO2 Mean Ox Delivery Rate 05/05 0802 95 Room Air Room Air 05/05 0758 57 148/64 05/05 0757 57 148/64 05/05 0634 97.9 57 26 148/64 95 Room Air 05/05 0313 96 Room Air 05/05 0000 Room Air 05/04 2210 98.1 72 18 140/90 96 05/04 2002 65 140/90 05/04 1917 96 Room Air 05/04 1520 98.3 67 16 138/72 95 05/04 1228 78 170/90 05/04 1226 78 170/90 Intake & Output 05/05 1600 05/05 0800 / 0000 05/04 1600 05/04 0800 05/04 0000 Intake Total 360 360 400 320 120 Output Total Balance 360 360 400 320 120 Intake, Oral 360 360 400 320 120 Patient 270 lb 287 lb Weight Weight Reported by Patient Measurement Method Physical Exam: General: WD/WN male in NAD; alert and oriented x 3 HEENT: NC/AT, PERRL EOMI Neck: no JVD Heart: RRR Lungs: severely decreased air movement with bilateral wheezing and upper airway sounds Extremities: no edema Assessment/Plan Assessment/Plan * This patient does not appear to have chest discomfort related to an ACS and is not in decompensated CHF. We will repeat an ECG and obtain one more set of cardiac enzymes. Continue to treat for an exacerbation of COPD with steroids and beta agonists. I do not think the small dose of beta tita that he is currently on is contributing much to bronchospasm. No changes to cardiac medications recommended at this time. Continue telemetry? Yes
[2018-05-05 15:17] VITALS: BP 140/60
--- NOTE | 2018-05-05 16:58 | RADIOLOGY REPORT ---
EXAMINATION: XR PORTABLE CHEST CLINICAL INFORMATION: Shortness of breath. Chest tightness. COMPARISON: 05/02/2018 TECHNIQUE: AP portable frontal view of the chest in the apical or direct projection. FINDINGS: Lungs are clear. No consolidation, pneumothorax, or pleural effusion. Cardiac and mediastinal contours are normal. Pulmonary vasculature is unremarkable. 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 IMPRESSION: No acute cardiopulmonary findings
[2018-05-05 22:31] VITALS: BP 152/90
[2018-05-06 06:01] VITALS: BP 140/60
--- NOTE | 2018-05-06 07:06 | PN- Housestaff ---
Iban Muñiz 05/06/18 0705: Subjective Follow-up For: Asthma exacerbation, chest pain Tele-Events Since Last Visit: Sinus bradycardia, rate 53-58 Subjective: Patient seen resting comfortably in the bed. Currently complaining of chest pain, that has been continuous since admission. Patient is also having shortness of breath and difficulty breathing, with a nonproductive cough. Denies palpitations, dizziness, nausea or vomiting. Review of Systems Constitutional: Denies: chills, fever. Cardiovascular: Reports: chest pain. Denies: edema, palpitations, peripheral edema, syncope. Respiratory: Reports: cough, short of breath, wheezing. Denies: hemoptysis. Gastrointestinal: Denies: abdominal pain, nausea, vomiting. Objective Last 24 Hrs of Vital Signs/I&O Vital Signs Date Time Temp Pulse Resp B/P B/P Pulse O2 O2 Flow FiO2 Mean Ox Delivery Rate 05/06 0601 97.7 56 20 140/60 94 /08 2256 Room Air / 2231 98.9 52 20 152/90 94 /08 1600 95 Room Air Room Air 08 1551 Room Air /08 1517 98.6 63 20 140/60 95 Room Air /08 0802 95 Room Air Room Air /08 0758 57 148/64 /08 0757 57 148/64 Intake & Output 05/06 0800 / 0000 05/05 1600 Intake Total 360 480 700 Output Total Balance 360 480 700 Intake, Oral 360 480 700 Number 1 Bowel Movements Patient 131.995 kg Weight Physical Exam General Appearance: Alert, Oriented X3, Cooperative, Mild Distress Neck: Supple, No JVD Cardiovascular: Normal S1, Normal S2, No Murmurs Lungs: Reduced breath sounds in the lower left lung field, expiratory wheezes diffusely throughout throughout Abdomen: Soft, No Tenderness Neurological: Normal Gait, Normal Speech Extremities: No Edema Current Medications: Current Medications Sig/Theo Start time Last Medication Dose Route Stop Time Status Admin Acetaminophen 650 MG Q6P PRN 05/03 0130 AC PO Albuterol Sulfate 3 ML EVERY 4 HRS/AWAKE 05/03 1651 AC 05/05 INH 2004 Albuterol Sulfate 2 PUF Q6H PRN 05/03 0130 AC 05/06 INH 0400 Atorvastatin Calcium 40 MG 1700 05/03 1700 AC 05/05 PO 1643 Budesonide/ 1 PUF BID 05/03 900 AC 05/05 Formoterol Fumarate INH 2020 Carvedilol 3.125 MG BID 05/03 900 DC 05/05 PO 0757 Clopidogrel Bisulfate 75 MG DAILY 05/03 900 AC 05/05 PO 0758 Diltiazem HCl 240 MG DAILY 05/03 900 AC 05/05 PO 0757 Enoxaparin Sodium 120 MG BID 05/03 0130 AC 05/05 SC 2020 Escitalopram Oxalate 10 MG DAILY 05/03 900 AC 05/05 PO 0758 Hydrochlorothiazide 12.5 MG DAILY 05/03 900 AC 05/05 PO 0757 Hydromorphone HCl 2 MG Q6P PRN 05/05 1230 DC 05/05 PO 1232 Ipratropium [place] 2.5 ML EVERY 4 HRS/AWAKE 05/05 1600 AC 05/05 INH 2004 Ipratropium [place] 2.5 ML EVERY 4 HRS/AWAKE 05/05 1200 DC 05/05 INH 1544 Lisinopril 40 MG DAILY 05/03 900 AC 05/05 PO 0758 Melatonin 5 MG ONCE ONE 05/05 2145 DC 05/05 PO 05/05 2146 2200 Methylprednisolone 40 MG Q8 05/05 1400 AC 05/06 IV 0506 Methylprednisolone 40 MG Q12 05/04 2100 DC 05/05 IV 0757 Morphine Sulfate 2 MG Q6P PRN 05/05 1900 AC 05/06 IV 0356 Morphine Sulfate 2 MG ONCE ONE 05/05 1615 DC 05/05 IV 05/05 1616 1605 Omeprazole 40 MG DAILY AC 05/03 700 AC 05/06 PO 0503 Ondansetron HCl 4 MG ONCE ONE 05/06 0515 DC 05/06 IV 05/06 0516 0518 Ondansetron HCl 4 MG ONCE ONE 05/05 1400 DC 05/05 IV 05/05 1401 1401 Oxycodone/ 1 TAB Q6P PRN 05/03 0130 AC 05/05 Acetaminophen PO 2020 Tramadol HCl 50 MG Q8 PRN 05/05 1230 CAN PO Last 24 Hrs of Lab/Bret Results Last 24 Hrs of Labs/Mics: Laboratory Tests 05/06/18 0636: CBC w Diff Pending, WBC Pending, RBC Pending, Hgb Pending, Hct Pending, MCV Pending, MCH Pending, MCHC Pending, RDW Pending, Plt Count Pending, MPV Pending 05/05/18 1500: Troponin I < 0.01 Assessment/Plan Assessment: Patient is a 38 year-old male with history of asthma, multiple ICU admissions and intubations. Presented to the emergency department with chest pain radiating to the neck and back on both sides. Pain is worst with deep inspiration. Patient also complaining of nonproductive cough, shortness of breath. Denies palpitations, dizziness. 38-year-old male with asthma exacerbation and pleuritic chest pain 1. Asthma treatments of Atrovent 2. Chest pain Problem List: 1. Asthma exacerbation 2. Pleuritic chest pain 3. Chest pain Pain Ratin Pain Location: chest Pain Goal: Pain 4 or less Pain Plan: morphine Tomorrow's Labs & Rationales: GAMA Heath MD,Jennifer 05/06/18 1406: Attending MD Review Statement Attending Statement Attending MD Statement: examined this patient, discuss w/resident/PA/FLOOR POLISHER, agreed w/resident/PA/FLOOR POLISHER, reviewed EMR data (avail), discussed with nursing, discussed with case mgmt, amended to note Attending Assessment/Plan: Patient seen and examined. Lying comfortably in bed and does not appear to be in acute distress. He reports feeling slightly better compared to presentation. Reports ongoing constant chest pain requiring opioid analgesic therapy. On examination today and she is improved bilaterally with some reduction of his bilateral wheezing. He has no jugular venous distention. He has no peripheral edema. Problems: 1. Atypical chest pain; likely musculoskeletal 2. Acute asthma exacerbation. 3. History of venous thromboembolism. 4. Leukocytosis 5. Lung nodule Plan: -Pulmonary consultation appreciated. Follow recommendations. -Solu-Medrol has been decreased to every 12 hours today. -Discontinue telemetry monitoring transferred to general medical service. -Continue current pain regimen. -Mobilize patient as tolerated.
--- NOTE | 2018-05-06 07:42 | PN- Student ---
Subjective Subjective: This is a 38 year old man with a past medical history of coronary artery disease , status post PA, right coronary artery stent, paroxysmal atrial fibrillation, Factor V. Leiden deficiency, DVT, PE, HTN, and asthma. He is being treated for chest pain. This morning he reports that his chest pain has improved somewhat from an 8 or 9/10 severity to a 7/10 severity. He is breathing a little easier as well and can take deeper breaths. He still has a non productive cough, nausea, and vomitted last night. He attributes the nausea and vomiting to continued pain. He described the vomit as clear and watery. He stated there was no blood in the vomit. He does report a good night's sleep last night for the first time in several days. He denies fever and chills. Objective Objective: Physical Exam: General: Patient was alert and oriented, pleasant, and well spoken. Heart: No JVD noted, no lifts or heaves noted. Heart was regular rate and rhythm with no murmurs, rubs, clicks, or gallops. Lungs: Even thoracic expansion. Lung sounds were diminished in all collier. Expiratory wheezes could be heard. Skin: Skin was warm and dry. No lower extremity edema noted. Vital Signs Date Time Temp Pulse Resp B/P B/P Pulse O2 O2 Flow FiO2 Mean Ox Delivery Rate 05/06 1354 97.2 61 20 142/60 94 Room Air / 0926 56 130/80 / 0925 130/80 / 0826 97 Room Air 05/06 0800 Nasal Cannula 05/06 0601 97.7 56 20 140/60 94 /08 2256 Room Air / 2231 98.9 52 20 152/90 94 /08 1600 95 Room Air Room Air 08 1551 Room Air /08 1517 98.6 63 20 140/60 95 Room Air Results Results: Laboratory Tests 05/06/18 0636: CBC w Diff NO MAN DIFF REQ, RBC 4.16 L, MCV 93.1, MCH 31.3 H, MCHC 33.6, RDW 14.9 H, MPV 9.3, Gran % 89.6 H, Lymphocytes % 4.8 L, Monocytes % 5.6, Eosinophils % 0, Basophils % 0, Absolute Granulocytes 16.7 H, Absolute Lymphocytes 0.9 L, Absolute Monocytes 1.1 H, Absolute Eosinophils 0, Absolute Basophils 0 05/05/18 1500: Troponin I < 0.01 05/05/18 0618: CBC w Diff MAN DIFF ORDERED, RBC 4.22 L, MCV 94.0, MCH 31.1 H, MCHC 33.1, RDW 14.9 H, MPV 9.2, Gran % 92.2 H, Lymphocytes % 3.0 L, Monocytes % 4.8, Eosinophils % 0, Basophils % 0, Absolute Granulocytes 18.5 H, Absolute Lymphocytes 0.6 L, Absolute Monocytes 1.0 H, Absolute Eosinophils 0, Absolute Basophils 0, Platelet Estimate ADEQUATE, Normocytic RBCs VERIFIED, Normochromic RBCs VERIFIED Assessment/Plan Assessment: This is a 38 year old male with a past medical history of coronary artery disease, status post PA, right coronary artery stent, paroxysmal atrial fibrillation, Factor V. He is being treated for chest pain, hypertension, and shortness of breath. Chest pain: Likely pulmonary etiology for chest pain. Pain appears to be pleuritic in nature and worsened with increased respiratory effort. Unlikely congestive heart failure due to lack of lower extremity edema, no cardiac enlargement seen on CXR, no crackles heard on PE, echocardiogram was largely benign. Unlikely PA due to negative EKG and negative serial troponins. Shortness of breath: Patient has a history of asthma/asthma exacerbation. He has been responding to solumedrol, albuterol, ipratropium, budesonide. His O2 saturation has been in the mid 90 percent range on room air. Hypertension: Patient had a max blood pressure of 220/106 on 05/03/18. He has been responding well to the hydrochlorothiazide and diltiazem. This AM blood pressure was 140/60mmHg. Hypercoaguability: Patient has a history of PE, DVT, PA and HTN. He has intravenous thrombus filters currently. He is currently being treated with lovenox and clopidogrel. Plan: Chest pain: -Cardiac stress test. -Continue morphine and percocet. Shortness of breath: Pulmonology consult recommended the following: Continue nebs q 4 hours. * Add Spiriva 1 inhalation daily - first dose today. * Continue Symbicort. * Please order inhaler teaching from respiratory. * Add Singulair 10 mg daily. * Add Pepcid daily. * Add Flonase 2 sprays each nostril at bedtime. * Out patient sleep study to be ordered upon discharge. Hypertension: -Continue diltiazem and hydrochlorothiazide. Hypercoaguability: -Continue current anticoagulation regime.
[2018-05-06 08:16] LABS: ABSOLUTE BASOPHIL COUNT 0 /CUMM (0.0-0.2); ABSOLUTE EOSINOPHIL COUNT 0 /CUMM (0.0-0.7); ABSOLUTE GRANULOCYTE CT 16.7 /CUMM (1.4-6.5); ABSOLUTE LYMPH COUNT 0.9 /CUMM (1.2-3.4); ABSOLUTE MONOCYTE COUNT 1.1 /CUMM (0.10-0.60); BASOPHIL % 0 % (0.0-2.0); EOSINOPHIL % 0 % (0-5); HEMATOCRIT 38.7 % (42-52); MEAN CORPUSCULAR HGB 31.3 PG (27.0-31.0); MEAN CORPUSCULAR HGB CONC 33.6 G/DL (33.0-37.0); MEAN CORPUSCULAR VOLUME 93.1 FL (80.0-94.0); MEAN PLATELET VOLUME 9.3 FL (7.4-10.4); PLATELET COUNT 211 /CUMM (130-400); RBC DISTRIBUTION WIDTH 14.9 % (11.5-14.5); RED BLOOD CELL CT 4.16 /CUMM (4.70-6.10); WHITE BLOOD CELL COUNT 18.7 /CUMM (4.8-10.8)
[2018-05-06 09:21] LABS: GRANULOCYTE % 89.6 % (42.2-75.2)
[2018-05-06 09:25] VITALS: BP 130/80
--- NOTE | 2018-05-06 09:59 | ECHOCARDIOGRAM REPORT ---
EUN LARA Age: 38 : 1980 Gender: M Exam Date: 05/04/2018 12:24 Exam Location: 1 [address] Ht (in): 67 Wt (lb): 265 BSA: 2.44 BP: 170 / 90 Ordering Physician: Antoinette Burnett MD Referring Physician: Antoinette Burnett MD Technologist: Minerva Coffman [facility] Room Number: Indications: Rhythm: Sinus Technical Quality: Technically difficult study FINDINGS Left Ventricle Normal size left ventricle. Mild concentric left ventricular hypertrophy. Normal left ventricular ejection fraction visually estimated at >60%. No obvious regional wall motion abnormalities. Right Ventricle Normal right ventricular size and function. Right Atrium Normal right atrial size. Left Atrium Normal left atrial size. Mitral Valve Mitral valve thickened. Aortic Valve Diffuse thickening (sclerosis) of the aortic valve cusps without reduced excursion. Aortic valve not well visualized, grossly normal. Tricuspid Valve Tricuspid valve not well visualized, grossly normal. Trace tricuspid regurgitation. Pulmonic Valve Trace pulmonic regurgitation. Pulmonic valve not well visualized, grossly normal. Pericardium No pericardial effusion. Great Vessels Normal size aortic root. CONCLUSIONS Normal size left ventricle. Mild concentric left ventricular hypertrophy. Normal left ventricular ejection fraction visually estimated at > 60%. Normal size left ventricle. Mild concentric left ventricular hypertrophy. Normal left ventricular ejection fraction visually estimated at > 60%. Darnell Gorman M.D. (Electronically Signed) Final Date: 06 May 2018 09:53 MEASUREMENTS (Male / Female) Normal Values 2D ECHO LV Diastolic Diameter PLAX 5.0 cm 4.2 - 5.9 / 3.9 - 5.3 cm LV Systolic Diameter PLAX 3.6 cm 2.1 - 4.0 cm LV Fractional Shortening PLAX 28.0 % 25 - 46 % LV Ejection Fraction 2D Teich 54.0 % IVS Diastolic Thickness 1.4 cm LVPW Diastolic Thickness 1.2 cm LV Relative Wall Thickness 0.5 LVOT Diameter 2.3 cm Aortic Root Diameter 2.8 cm LA Systolic Diameter LX 3.6 cm 3.0 - 4.0 / 2.7 - 3.8 cm LA Volume 62.0 cm 18 - 58 / 22 - 52 cm DOPPLER AV Peak Velocity 152.0 cm/s AV Peak Gradient 9.2 mmHg LVOT Peak Velocity 126.0 cm/s LVOT Peak Gradient 6.4 mmHg AV Area Cont Eq pk 3.4 cm Mitral E Point Velocity 101.0 cm/s Mitral A Point Velocity 102.0 cm/s Mitral E to A Ratio 1.0 MV Deceleration Time 309.0 ms PV Peak Velocity 151.0 cm/s PV Peak Gradient 9.1 mmHg LV E' Lateral Velocity 11.5 cm/s Mitral E to LV E' Lateral Ratio 8.8 LV E' Septal Velocity 8.7 cm/s Mitral E to LV E' Septal Ratio 11.6
--- NOTE | 2018-05-06 10:48 | PN- Cardiology ---
Subjective Subjective: Shortness of breath is better. No current chest pain. No palpitations. No diaphoresis. No nausea or vomiting. Objective Vital Signs and I&Os Vital Signs Date Time Temp Pulse Resp B/P B/P Pulse O2 O2 Flow FiO2 Mean Ox Delivery Rate 05/06 926 56 130/80 05/06 925 130/80 05/06 826 97 Room Air 05/06 08 Nasal Cannula 05/06 06 97.7 56 20 140/60 94 05/05 2256 Room Air 05/05 2231 98.9 52 20 152/90 94 / 1600 95 Room Air Room Air 05/05 1551 Room Air 05/05 1517 98.6 63 20 140/60 95 Room Air Intake & Output 05/06 0000 05/05 0000 Intake Total 360 480 700 360 360 Output Total Balance 360 480 700 360 360 Intake, Oral 360 480 700 360 360 Number 1 Bowel Movements Patient 291 lb 270 lb Weight Weight Reported by Patient Measurement Method Physical Exam: Gen: NAD HEENT: normal Lungs: Scattered wheezes, normal resp. effort Heart: RRR, S1, S2, no murmurs Abdomen: Soft, nontender, no masses Extremities: No clubbing, cyanosis, or edema. Neuro: Alert and oriented x 3, cranial nerves intact Current Medications: Current Medications Sig/Theo Start time Last Medication Dose Route Stop Time Status Admin Acetaminophen 650 MG Q6P PRN 05/03 0130 AC PO Albuterol Sulfate 3 ML EVERY 4 HRS/AWAKE 05/03 1651 AC 05/06 INH 0826 Albuterol Sulfate 2 PUF Q6H PRN 05/03 0130 AC 05/06 INH 0400 Atorvastatin Calcium 40 MG 1700 05/03 1700 AC 05/05 PO 1643 Budesonide/ 1 PUF BID 05/03 900 AC 05/06 Formoterol Fumarate INH 09 Clopidogrel Bisulfate 75 MG DAILY 05/03 900 AC 05/06 PO 925 Diltiazem HCl 240 MG DAILY 05/03 900 AC 05/06 PO 925 Enoxaparin Sodium 120 MG BID 05/03 0130 AC 05/06 SC 0926 Escitalopram Oxalate 10 MG DAILY 05/03 900 AC 05/06 PO 925 Hydrochlorothiazide 12.5 MG DAILY 05/03 900 AC 05/06 PO 0926 Hydromorphone HCl 2 MG Q6P PRN 05/05 1230 DC 05/05 PO 1232 Ipratropium [place] 2.5 ML EVERY 4 HRS/AWAKE 05/05 1600 AC 05/06 INH 0826 Ipratropium [place] 2.5 ML EVERY 4 HRS/AWAKE 05/05 1200 DC 05/05 INH 1544 Lisinopril 40 MG DAILY 05/03 900 AC 05/06 PO 0926 Melatonin 5 MG ONCE ONE 05/05 2145 DC 05/05 PO 05/05 2146 2200 Methylprednisolone 40 MG Q12 05/06 900 AC IV Methylprednisolone 40 MG Q8 05/05 1400 DC 05/06 IV 0506 Morphine Sulfate 2 MG Q6P PRN 05/05 1900 AC 05/06 IV 1018 Morphine Sulfate 2 MG ONCE ONE 05/05 1615 DC 05/05 IV 05/05 1616 1605 Omeprazole 40 MG DAILY AC 05/03 0700 AC 05/06 PO 0503 Ondansetron HCl 4 MG Q6P PRN 05/06 1015 AC 05/06 IV 1022 Ondansetron HCl 4 MG ONCE ONE 05/06 0515 DC 05/06 IV 05/06 0516 0518 Ondansetron HCl 4 MG ONCE ONE 05/05 1400 DC 05/05 IV 05/05 1401 1401 Oxycodone/ 1 TAB Q6P PRN 05/03 0130 AC 05/05 Acetaminophen PO 2020 Tramadol HCl 50 MG Q8 PRN 05/05 1230 CAN PO Results Last 48 Hrs of Labs/Mics: Laboratory Tests 05/06/18 0636: CBC w Diff NO MAN DIFF REQ, RBC 4.16 L, MCV 93.1, MCH 31.3 H, MCHC 33.6, RDW 14.9 H, MPV 9.3, Gran % 89.6 H, Lymphocytes % 4.8 L, Monocytes % 5.6, Eosinophils % 0, Basophils % 0, Absolute Granulocytes 16.7 H, Absolute Lymphocytes 0.9 L, Absolute Monocytes 1.1 H, Absolute Eosinophils 0, Absolute Basophils 0 05/05/18 1500: Troponin I < 0.01 05/05/18 0618: CBC w Diff MAN DIFF ORDERED, RBC 4.22 L, MCV 94.0, MCH 31.1 H, MCHC 33.1, RDW 14.9 H, MPV 9.2, Gran % 92.2 H, Lymphocytes % 3.0 L, Monocytes % 4.8, Eosinophils % 0, Basophils % 0, Absolute Granulocytes 18.5 H, Absolute Lymphocytes 0.6 L, Absolute Monocytes 1.0 H, Absolute Eosinophils 0, Absolute Basophils 0, Platelet Estimate ADEQUATE, Normocytic RBCs VERIFIED, Normochromic RBCs VERIFIED Recent Imaging Studies: Chest x-ray 05/05/18: Negative Assessment/Plan Assessment/Plan Assessment: 1. CAD, stable 2. Hypertension, controlled 3. Factor V Leiden deficiency 4. Asthma exacerbation 5. Chest discomfort, likely noncardiac Plan: * Continue current cardiac medications. * Follow up in the office 2 weeks after discharge Continue telemetry? No
--- NOTE | 2018-05-06 11:37 | Patient Discharge Instructions ---
See Addendum Discharge Instructions General Discharge Information You were seen/treated for: Asthma exacerbation Watch for these problems: If you experience shortness of breath/difficulty breathing, chest pain, please go to your nearest emergency department. Follow-up with your presetter operator, media theorist and author of and primary care doctor within 1 week of being discharged. Special Instructions: Please do sleep study as outpatient. Nuclear stress test to be arranged as outpatient once noncardiac issues stable Please follow-up with pulmonology for your lung nodules. Diet Continue normal diet: Yes Recommended Diet: Heart Healthy Activity Full Activity/No Limits: No Activity Self Limited: Yes Acute Coronary Syndrome Inclusion Criteria At DC or during hospital stay patient has or had the following: ACS DIAGNOSIS No Discharge Core Measures Meds if any: Prescribed or Continued at Discharge Meds if any: NOT Prescribed or Continued at Discharge Congestive Heart Failure Inclusion Criteria At DC or during hospital stay patient has or had the following: CHF DIAGNOSIS No Discharge Core Measures Meds if any: Prescribed or Continued at Discharge Meds if any: NOT Prescribed or Continued at Discharge Cerebrovascular accident Inclusion Criteria At DC or during hospital stay patient has or had the following: CVA/TIA Diagnosis No Discharge Core Measures Meds if any: Prescribed or Continued at Discharge Meds if any: NOT Prescribed or Continued at Discharge Venous thromboembolism Inclusion Criteria VTE Diagnosis No VTE Type NONE VTE Confirmed by (Test) NONE Discharge Core Measures - Per Current guidelines, there needs to be overlap - treatment for the first 5 days of Warfarin therapy. - If discharged on Warfarin prior to 5 days of - overlap therapy, the patient will need to be - assessed for post discharge needs including - *Post discharge parental anticoagulation - *Warfarin and/or parental anticoagulation education - *Follow up date to check INR post discharge At least 5 days overlap therapy as Inpatient No (Not discharged on coumadin) Meds if any: Prescribed or Continued at Discharge Note: Overlap Therapy is Warfarin and Anticoagulant Meds if any: NOT Prescribed or Continued at Discharge
--- NOTE | 2018-05-06 12:19 | Cons- Pulmonary ---
General Information and HPI Consulting Request Date of Consult: 05/06/18 Requested By: Dr. Heath Reason for Consult: Asthma management Source of Information: patient, old records Exam Limitations: no limitations History of Present Illness: The patient is a 38 year old male, previously seen by Dr. Knight, with a history of asthma. He prior smoker with history of factor V Leiden deficiency complicated by coronary artery disease status post VT s/p stent placement DVT, PE and GI bleeding. He has a history of an abnormal CT of the chest noting his most recent CT done on 03/14/18 showed dno evidence of acute PE. There were bilateral multilobar pulmonary opacities with an area of pulmonary consolidation in the left lower lobe. There has been interval progression of pulmonary opacities since November 2017 CT scan. The patient was last intubated 2 years ago in [place]. He has had asthma all of his life and has been intubated multiple times in the past as well. He quit smoking 15 months ago, noting he smoked 2 packs per day for 15 years. He last smoked marajuana and snorted cocaine 10 years ago. He also has been diagnosed with KRISTI several years ago however he did not get a CPAP unit due to insurance reasons and is therefore non -compliant with therapy. Allergies/Medications Allergies: Coded Allergies: Iodinated Contrast- Oral and IV Dye (ANAPHYLAXIS 12/23/17) haloperidol (HIVES 12/23/17) ketorolac (From TORADOL) (HIVES, RASH 12/23/17) meperidine (From DEMEROL) (HIVES 12/23/17) milk (LACTOSE INTOLERANT 12/23/17) shellfish derived (ANAPHYLAXIS 12/23/17) Home Med List: Albuterol Sulfate (Proair Hfa) 90 MCG HFA.AER.AD 2 PUF INH Q6H PRN WHEEZING ( Reported) Atorvastatin Calcium 40 MG TABLET 1 TAB PO DAILY CHOLESTEROL (Reported) Clopidogrel Bisulfate (Clopidogrel) 75 MG TABLET 1 TAB PO DAILY BLOOD THINNER (Reported) Diltiazem HCl (Cardizem Cd) 240 MG CAP.ER.24H 1 CAP PO DAILY HEART/BP ( Reported) Enoxaparin Sodium 120 MG/0.8 ML SYRINGE 120 MG SC BID BLOOD THINNER (Reported ) Escitalopram Oxalate 10 MG TABLET 1 TAB PO DAILY MENTAL HEALTH (Reported) Fluticasone-Salmeterol (Advair 100-50 Diskus) 100 MCG-50 MCG/DOSE BLST.W.DEV 1 PUF INH BID RESP. (Reported) Hydrochlorothiazide 12.5 MG CAPSULE 1 CAP PO DAILY BP (Reported) Lisinopril 40 MG TABLET 1 TAB PO DAILY BP (Reported) Pantoprazole Sodium 40 MG TABLET.DR 1 TAB PO DAILY GI (Reported) Current Medications: Current Medications Sig/Theo Start time Last Medication Dose Route Stop Time Status Admin Acetaminophen 650 MG Q6P PRN 05/03 0130 AC PO Albuterol Sulfate 3 ML EVERY 4 HRS/AWAKE 05/03 1651 AC 05/06 INH 0826 Albuterol Sulfate 2 PUF Q6H PRN 05/03 0130 AC 05/06 INH 0400 Atorvastatin Calcium 40 MG 1700 05/03 1700 AC 05/05 PO 1643 Budesonide/ 1 PUF BID 05/03 900 AC 05/06 Formoterol Fumarate INH 0928 Clopidogrel Bisulfate 75 MG DAILY 05/03 900 AC 05/06 PO 0926 Diltiazem HCl 240 MG DAILY 05/03 900 AC 05/06 PO 0926 Enoxaparin Sodium 120 MG BID 05/03 0130 AC 05/06 SC 0926 Escitalopram Oxalate 10 MG DAILY 05/03 900 AC 05/06 PO 0926 Hydrochlorothiazide 12.5 MG DAILY 05/03 900 AC 05/06 PO 0926 Hydromorphone HCl 2 MG Q6P PRN 05/05 1230 DC 05/05 PO 1232 Ipratropium [place] 2.5 ML EVERY 4 HRS/AWAKE 05/05 1600 AC 05/06 INH 0826 Ipratropium [place] 2.5 ML EVERY 4 HRS/AWAKE 05/05 1200 DC 05/05 INH 1544 Lisinopril 40 MG DAILY 05/03 900 AC 05/06 PO 0926 Melatonin 5 MG ONCE ONE 05/05 2145 DC 05/05 PO 05/05 2146 2200 Methylprednisolone 40 MG Q12 05/06 0900 AC IV Methylprednisolone 40 MG Q8 05/05 1400 DC 05/06 IV 0506 Morphine Sulfate 2 MG Q6P PRN 05/05 1900 AC 05/06 IV 1018 Morphine Sulfate 2 MG ONCE ONE 05/05 1615 DC 05/05 IV 05/05 1616 1605 Omeprazole 40 MG DAILY AC 05/03 07 AC 05/06 PO 0503 Ondansetron HCl 4 MG Q6P PRN 05/06 1015 AC 05/06 IV 1022 Ondansetron HCl 4 MG ONCE ONE 05/06 0515 DC 05/06 IV 05/06 0516 0518 Ondansetron HCl 4 MG ONCE ONE 05/05 1400 DC / IV 05/05 1401 1401 Oxycodone/ 1 TAB Q6P PRN 05/03 0130 AC 05/05 Acetaminophen PO 2020 Tramadol HCl 50 MG Q8 PRN 05/05 1230 CAN PO Review of Systems Review of Systems Constitutional: Reports: malaise. Denies: chills, diaphoresis, fever, weakness, unexplained weight loss. EENTM: Reports: nasal congestion. Denies: epistaxis. Cardiovascular: Reports: orthopena. Denies: edema, palpitations, peripheral edema, syncope. Respiratory: Reports: cough, orthopnea, short of breath, wheezing. Denies: hemoptysis, sputum production, stridor. GI: Denies: abdominal pain, bloating, constipation, diarrhea, bloody stool, changes in stool, vomiting. Genitourinary: Denies: no symptoms. Musculoskeletal: Denies: no symptoms. Skin: Denies: no symptoms. All Other Systems: Reviewed and Negative Past History Travel History Traveled to [place] past 21 day No Medical History Blood Transfusion Hx: Yes Neurological: NONE EENT: NONE Cardiovascular: CAD, hypertension, myocardial infarction Respiratory: asthma, pulmonary embolism Gastrointestinal: colitis, diverticulitis Hepatic: NONE Renal: NONE Musculoskeletal: NONE Psychiatric: NONE Endocrine: NONE 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" Surgical History Surgical History: colon resection, cardiac stent, ivc filter Family History Relations & Conditions If Any: FATHER Coronary artery bypass graft surgery Psychosocial History Services at Home: None Smoking Status: Former Smoker ETOH Use: denies use Illicit Drug Use: marijuana Exam & Diagnostic Data Last 24 Hrs of Vital Signs/I&O Vital Signs Date Time Temp Pulse Resp B/P B/P Pulse O2 O2 Flow FiO2 Mean Ox Delivery Rate 05/06 926 56 130/80 05/06 925 130/80 05/06 08 97 Room Air 05/06 0800 Nasal Cannula 05/06 0601 97.7 56 20 140/60 94 05/05 2256 Room Air 05/05 2231 98.9 52 20 152/90 94 05/05 1600 95 Room Air Room Air 05/05 1551 Room Air 05/05 1517 98.6 63 20 140/60 95 Room Air Intake & Output 05/06 1600 05/06 0800 07/ 0000 Intake Total 360 480 Output Total Balance 360 480 Intake, Oral 360 480 Patient 291 lb Weight Physical Exam General Appearance: well developed/nourished, no apparent distress, alert, awake , audible wheezes heard Head: atraumatic, normal appearance Eyes: Bilateral: PERRL. Neck: supple Respiratory: bilateral course wheezing heard in both lung collier Cardiovascular: regular rate/rhythm Gastrointestinal: normal bowel sounds, soft, non-tender Extremities: no edema Skin: intact, normal color, warm/dry Last 48 Hrs of Labs/Bret: Laboratory Tests 05/06/18 0636: CBC w Diff NO MAN DIFF REQ, RBC 4.16 L, MCV 93.1, MCH 31.3 H, MCHC 33.6, RDW 14.9 H, MPV 9.3, Gran % 89.6 H, Lymphocytes % 4.8 L, Monocytes % 5.6, Eosinophils % 0, Basophils % 0, Absolute Granulocytes 16.7 H, Absolute Lymphocytes 0.9 L, Absolute Monocytes 1.1 H, Absolute Eosinophils 0, Absolute Basophils 0 05/05/18 1500: Troponin I < 0.01 05/05/18 0618: CBC w Diff MAN DIFF ORDERED, RBC 4.22 L, MCV 94.0, MCH 31.1 H, MCHC 33.1, RDW 14.9 H, MPV 9.2, Gran % 92.2 H, Lymphocytes % 3.0 L, Monocytes % 4.8, Eosinophils % 0, Basophils % 0, Absolute Granulocytes 18.5 H, Absolute Lymphocytes 0.6 L, Absolute Monocytes 1.0 H, Absolute Eosinophils 0, Absolute Basophils 0, Platelet Estimate ADEQUATE, Normocytic RBCs VERIFIED, Normochromic RBCs VERIFIED Diagnostic Data CXR Results Lungs are clear. No consolidation, pneumothorax, or pleural effusion. Cardiac and mediastinal contours are normal. Pulmonary vasculature is unremarkable. 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 IMPRESSION: No acute cardiopulmonary findings Assessment/Plan Impression/Plan: 1. Asthma exacerbation with significant ongoing bronchospasm. No evidence of peripheral eosinophilia. Need to consider allergic asthma and allergy testing in the future. 2. History of abnormal CT of the chest with bilateral multilobar pulmonary opacities with an area of pulmonary consolidation in the left lower lobe on CT dated 03/14/18. There has been interval progression of pulmonary opacities since November 2017 CT scan. The patient then had a CTA on 05/02/18 that showed no evidence of acute or chronic pulmonary embolism as well as clear lung collier with resolution of the previously noted nodules and masses. 3. KRISTI, untreated with any therapy. Recommendations: * Continue nebs q 4 hours. * Add Spiriva 1 inhalation daily - first dose today. * Continue Symbicort. * Please order inhaler teaching from respiratory. * Add Singulair 10 mg daily. * Add Pepcid daily. * Add Flonase 2 sprays each nostril at bedtime. * Out patient sleep study to be ordered upon discharge. * Thank you for the consult. Will follow along with you provide further recommendations as necessary. Please call with any questions. Consult Acknowledgment - Thank you for your consult request.
[2018-05-06 13:54] VITALS: BP 142/60
[2018-05-06 22:55] VITALS: BP 140/62
[2018-05-07 06:37] VITALS: BP 150/96
--- NOTE | 2018-05-07 07:06 | PN- Housestaff ---
Iban Muñiz 05/07/1806: Subjective Follow-up For: ASTHMA EXACERBATION, CHEST PAIN Subjective: Patient seen lying in the bed, in mild distress as he is having difficulty breathing. Patient still complaining of shortness of breath, and chest pain. Shortness of breath is worse when he gets up to the restroom or tries to move around. Review of Systems Constitutional: Denies: chills, fever. Cardiovascular: Reports: chest pain. Denies: edema, peripheral edema. Respiratory: Reports: cough, short of breath, wheezing. Gastrointestinal: Denies: abdominal pain, nausea, vomiting. Objective Last 24 Hrs of Vital Signs/I&O Vital Signs Date Time Temp Pulse Resp B/P B/P Pulse O2 O2 Flow FiO2 Mean Ox Delivery Rate 05/07 0637 98.3 66 20 150/96 97 Room Air 05/07 0000 95 Room Air 05/06 2255 99.3 68 18 140/62 94 / 1636 96 Room Air / 1600 94 Room Air 05/06 1354 97.2 61 20 142/60 94 Room Air 05/06 0926 56 130/80 05/06 0925 130/80 / 0826 97 Room Air 05/06 0800 Nasal Cannula Intake & Output 05/07 0800 / 0000 05/06 1600 Intake Total 1080 840 Output Total Balance 1080 840 Intake, Oral 1080 840 Patient 134.462 kg Weight Physical Exam General Appearance: Alert, Oriented X3, Cooperative, Mild Distress Neck: Supple, No JVD, No thryomegaly Cardiovascular: Regular Rate, Normal S1, Normal S2, No Murmurs Lungs: Wheezes and diffuse crackles throughout Abdomen: Soft, No Tenderness Neurological: Normal Gait, Normal Speech Current Medications: Current Medications Sig/Theo Start time Last Medication Dose Route Stop Time Status Admin Acetaminophen 650 MG Q6P PRN 05/03 0130 AC PO Albuterol Sulfate 3 ML EVERY 4 HRS/AWAKE 05/03 1651 AC 05/06 INH 1955 Albuterol Sulfate 2 PUF Q6H PRN 05/03 0130 AC 05/06 INH 2204 Atorvastatin Calcium 40 MG 1700 05/03 1700 AC 05/06 PO 1656 Budesonide/ 1 PUF BID 05/03 900 AC 05/06 Formoterol Fumarate INH 2155 Clopidogrel Bisulfate 75 MG DAILY 05/03 900 AC 05/06 PO 09 Diltiazem HCl 240 MG DAILY 05/03 900 AC 05/06 PO 09 Enoxaparin Sodium 120 MG BID 05/03 0130 AC 05/06 SC 2154 Escitalopram Oxalate 10 MG DAILY 05/03 900 AC 05/06 PO 09 Famotidine 20 MG DAILY 05/06 1445 AC 05/06 PO 1656 Fluticasone 2 SPRAY DAILY 05/06 1441 AC 05/06 Propionate EDMUNDO 1656 Hydrochlorothiazide 12.5 MG DAILY 05/03 900 AC 05/06 PO 09 Ipratropium [place] 2.5 ML EVERY 4 HRS/AWAKE 05/05 1600 AC 05/06 INH 1955 Lisinopril 40 MG DAILY 05/03 900 AC 05/06 PO 0926 Melatonin 5 MG AT BEDTIME 05/06 2215 AC 05/06 PO 2233 Methylprednisolone 40 MG Q12 05/06 09 AC 05/06 IV 2156 Methylprednisolone 40 MG Q8 05/05 1400 DC 05/06 IV 0506 Montelukast Sodium 10 MG AT BEDTIME 05/06 2100 AC 05/06 PO 2155 Morphine Sulfate 2 MG Q6P PRN 05/05 1900 AC 05/07 IV 0538 Omeprazole 40 MG DAILY AC 05/03 0700 AC 05/07 PO 0538 Ondansetron HCl 4 MG Q6P PRN 05/06 1015 AC 05/07 IV 0536 Oxycodone/ 1 TAB Q6P PRN 05/03 0130 AC 05/06 Acetaminophen PO 1840 Tiotropium [place] 1 PUF DAILY 05/06 1445 AC 05/06 INH 1655 Last 24 Hrs of Lab/Bret Results Last 24 Hrs of Labs/Mics: Laboratory Tests 05/07/18 0635: CBC w Diff Pending, WBC Pending, RBC Pending, Hgb Pending, Hct Pending, MCV Pending, MCH Pending, MCHC Pending, RDW Pending, Plt Count Pending, MPV Pending Assessment/Plan Assessment: Patient is a 38 year-old male with history of asthma, multiple ICU admissions and intubations. Presented to the emergency department with chest pain radiating to the neck and back on both sides. Pain is worst with deep inspiration. Patient also complaining of nonproductive cough, shortness of breath. Denies palpitations, dizziness. 38-year-old male with asthma exacerbation and pleuritic chest pain 1. Asthma exacerbation bronchospasm and untreated sleep apnea Atrovent every 4 hours 2. Chest pain Problem List: 1. Chest pain 2. Asthma exacerbation Pain Ratin Pain Location: chest Pain Goal: Pain 4 or less Pain Plan: morphine Tomorrow's Labs & Rationales: none Byron Heath [email or web address] 05/07/18 1151: Attending MD Review Statement Attending Statement Attending MD Statement: examined this patient, discuss w/resident/PA/CHERRY SORTER, agreed w/resident/PA/CHERRY SORTER, reviewed EMR data (avail), discussed with nursing, discussed with case mgmt, amended to note Attending Assessment/Plan: Patient seen and examined. Apparently when he was evaluated by the pulmonology service this morning he was found to be significantly short of breath. He was also noted to still be wheezing. He fortunately was hemodynamically stable and not hypoxic. He was then placed on BiPAP therapy. When the team evaluated the patient had just been placed on BiPAP therapy. He was resting comfortably and did not appear to be in any acute distress. When asked whether he was feeling any better he shrugged his shoulder stating that it was too soon to tell. He is having very slow response to therapy for his asthma exacerbation. He has underlying untreated obstructive sleep apnea. Recommendations from the pulmonology services to increase his Solu-Medrol dose to 40 mg every 6 hours and continue with bronchodilator therapy. Singulair has been added to his regimen as well as Flonase at nighttime.
--- NOTE | 2018-05-07 07:15 | PN- Pulmonary ---
Subjective HPI/Critical Care Issues: The patient is awake and alert. He continues to have increased shortness of breath and audible wheezing. He put off his morning neb treatment so that he can eat. After doing that, he notes having it increased chest tightness and wheezing. He still has difficulty with a cough and sputum production. He denies any chills, abdominal pain, nausea, vomiting or diarrhea. He has had a low-grade temperature over the past 24 hours. Objective Current Medications: Current Medications Sig/Theo Start time Last Medication Dose Route Stop Time Status Admin Acetaminophen 650 MG Q6P PRN 05/03 0130 AC PO Albuterol Sulfate 3 ML EVERY 4 HRS/AWAKE 05/03 1651 AC 05/06 INH 1955 Albuterol Sulfate 2 PUF Q6H PRN 05/03 0130 AC 05/06 INH 2204 Atorvastatin Calcium 40 MG 1700 05/03 1700 AC 05/06 PO 1656 Budesonide/ 1 PUF BID 05/03 900 AC 05/06 Formoterol Fumarate INH 2155 Clopidogrel Bisulfate 75 MG DAILY 05/03 900 AC 05/06 PO 0926 Diltiazem HCl 240 MG DAILY 05/03 900 AC 05/06 PO 0926 Enoxaparin Sodium 120 MG BID 05/03 0130 AC 05/06 SC 2154 Escitalopram Oxalate 10 MG DAILY 05/03 900 AC 05/06 PO 0926 Famotidine 20 MG DAILY 05/06 1445 AC 05/06 PO 1656 Fluticasone 2 SPRAY DAILY 05/06 1441 AC 05/06 Propionate EDMUNDO 1656 Hydrochlorothiazide 12.5 MG DAILY 05/03 900 AC 05/06 PO 0926 Ipratropium [place] 2.5 ML EVERY 4 HRS/AWAKE 05/05 1600 AC 05/06 INH 1955 Lisinopril 40 MG DAILY 05/03 900 AC 05/06 PO 0926 Melatonin 5 MG AT BEDTIME 05/06 2215 AC 05/06 PO 2233 Methylprednisolone 40 MG Q12 05/06 0900 AC 05/06 IV 2156 Methylprednisolone 40 MG Q8 05/05 1400 DC 05/06 IV 0506 Montelukast Sodium 10 MG AT BEDTIME 05/06 2100 AC 05/06 PO 2155 Morphine Sulfate 2 MG Q6P PRN 05/05 1900 AC 05/07 IV 0538 Omeprazole 40 MG DAILY AC 07/06 0700 05/07 PO 0538 Ondansetron HCl 4 MG Q6P PRN 05/06 1015 05/07 IV 0536 Oxycodone/ 1 TAB Q6P PRN 05/03 0130 05/06 Acetaminophen PO 1840 Tiotropium [place] 1 PUF DAILY 05/06 1445 AC 05/06 INH 1655 Vital Signs & I&O Last 24 Hrs of Vitals and I&O: Vital Signs Date Time Temp Pulse Resp B/P B/P Pulse O2 O2 Flow FiO2 Mean Ox Delivery Rate 05/07 0637 98.3 66 20 150/96 97 Room Air 05/07 0000 95 Room Air 05/06 2255 99.3 68 18 140/62 94 05/06 1636 96 Room Air 05/06 1600 94 Room Air 05/06 1354 97.2 61 20 142/60 94 Room Air 05/06 0926 56 130/80 05/06 0925 130/80 05/06 0826 97 Room Air 05/06 0800 Nasal Cannula Intake & Output 05/07 0800 05/07 0000 05/06 1600 Intake Total 1080 840 Output Total Balance 1080 840 Intake, Oral 1080 840 Patient 296 lb Weight Physical Exam General Appearance: well developed/nourished, mild distress, alert, awake, audible wheezes heard Head: atraumatic, normal appearance Eyes: Bilateral: PERRL. Neck: supple Respiratory: bilateral course wheezing heard in both lung collier Cardiovascular: regular rate/rhythm Gastrointestinal: normal bowel sounds, soft, non-tender Extremities: no edema Skin: intact, normal color, warm/dry Results Last 24 Hrs of Lab Results: Laboratory Tests 05/07/18 0635: CBC w Diff Pending, WBC Pending, RBC Pending, Hgb Pending, Hct Pending, MCV Pending, MCH Pending, MCHC Pending, RDW Pending, Plt Count Pending, MPV Pending Impression/Plan Impression/Plan Impression/Plan: 1. Asthma exacerbation with significant ongoing bronchospasm despite aggressive therapy. No evidence of peripheral eosinophilia. The patient will need allergy testing upon discharge. 2. History of abnormal CT of the chest with bilateral multilobar pulmonary opacities with an area of pulmonary consolidation in the left lower lobe on CT dated 03/14/18. There has been interval progression of pulmonary opacities since November 2017 CT scan. The patient then had a CTA on 05/02/18 that showed no evidence of acute or chronic pulmonary embolism as well as clear lung collier with resolution of the previously noted nodules and masses. 3. KRISTI, untreated with any therapy. Recommendations: * Continue nebs q 4 hours. Give next neb treatment x 2 in line stat. Respiratory aware. * Start BiPAP 12/4 cm H2O to see if this aids the patient comfort. * Increase Solu-Medrol to 40 mg every 6 hours. * Spiriva 1 inhalation daily. * Continue Symbicort 2 puffs every 12 hours. * Please order inhaler teaching from respiratory. * Add Singulair 10 mg daily. * Add Pepcid daily. * Add Flonase 2 sprays each nostril at bedtime. * Out patient sleep study to be ordered upon discharge. * Continue to monitor the patient closely for worsening bronchospasm.
[2018-05-07 08:27] LABS: ABSOLUTE BASOPHIL COUNT 0 /CUMM (0.0-0.2); ABSOLUTE EOSINOPHIL COUNT 0 /CUMM (0.0-0.7); ABSOLUTE GRANULOCYTE CT 16.9 /CUMM (1.4-6.5); ABSOLUTE LYMPH COUNT 0.9 /CUMM (1.2-3.4); ABSOLUTE MONOCYTE COUNT 0.9 /CUMM (0.10-0.60); BASOPHIL % 0 % (0.0-2.0); EOSINOPHIL % 0 % (0-5); GRANULOCYTE % 90.6 % (42.2-75.2); HEMATOCRIT 38.9 % (42-52); MEAN CORPUSCULAR HGB 31.4 PG (27.0-31.0); MEAN CORPUSCULAR HGB CONC 33.7 G/DL (33.0-37.0); MEAN CORPUSCULAR VOLUME 93.1 FL (80.0-94.0); MEAN PLATELET VOLUME 9.2 FL (7.4-10.4); PLATELET COUNT 215 /CUMM (130-400); RBC DISTRIBUTION WIDTH 14.8 % (11.5-14.5); RED BLOOD CELL CT 4.18 /CUMM (4.70-6.10)
[2018-05-07 09:08] LABS: WHITE BLOOD CELL COUNT 18.6 /CUMM (4.8-10.8)
--- NOTE | 2018-05-07 13:08 | PN- Student ---
Subjective Subjective: This is a 38 year old male with a past medical history of CAD, right coronary artery stent, paroxysmal atreial fibrillation, HTN, Leiden V deficiency, asthma, DVT, PE, S/P NM, obstructive sleep apnea, and is being seen for chest pain. This morning he has no new complaints. He still reports shortness of breath and chest pain but it is more mild than yesterday. He reports shortness of breath on excertion and chest pain that has decreased from 7/10 to a 5 or 6/10. He still has nausea, but has not vomited. Denies fever, chills, and diarrhea. Objective Objective: Physical Exam: General: Patient was found sleeping. He woke easily and was well spoken and pleasant. Heart: Regular rate and rhythm with no murmurs, rubs, clicks, or gallops. Lungs: Even thoracic expansion. Bilateral expiratory wheezes heard. Skin: Warm and dry, no lower extremity edema noted. Results Results: Laboratory Tests 05/07/18 0635: CBC w Diff NO MAN DIFF REQ, RBC 4.18 L, MCV 93.1, MCH 31.4 H, MCHC 33.7, RDW 14.8 H, MPV 9.2, Gran % 90.6 H, Lymphocytes % 4.6 L, Monocytes % 4.8, Eosinophils % 0, Basophils % 0, Absolute Granulocytes 16.9 H, Absolute Lymphocytes 0.9 L, Absolute Monocytes 0.9 H, Absolute Eosinophils 0, Absolute Basophils 0 05/06/18 0636: CBC w Diff NO MAN DIFF REQ, RBC 4.16 L, MCV 93.1, MCH 31.3 H, MCHC 33.6, RDW 14.9 H, MPV 9.3, Gran % 89.6 H, Lymphocytes % 4.8 L, Monocytes % 5.6, Eosinophils % 0, Basophils % 0, Absolute Granulocytes 16.7 H, Absolute Lymphocytes 0.9 L, Absolute Monocytes 1.1 H, Absolute Eosinophils 0, Absolute Basophils 0 05/05/18 1500: Troponin I < 0.01 05/05/18 0618: CBC w Diff MAN DIFF ORDERED, RBC 4.22 L, MCV 94.0, MCH 31.1 H, MCHC 33.1, RDW 14.9 H, MPV 9.2, Gran % 92.2 H, Lymphocytes % 3.0 L, Monocytes % 4.8, Eosinophils % 0, Basophils % 0, Absolute Granulocytes 18.5 H, Absolute Lymphocytes 0.6 L, Absolute Monocytes 1.0 H, Absolute Eosinophils 0, Absolute Basophils 0, Platelet Estimate ADEQUATE, Normocytic RBCs VERIFIED, Normochromic RBCs VERIFIED Assessment/Plan Assessment: This is a 38 year old male with a past medical history of coronary artery disease, status post NM, right coronary artery stent, paroxysmal atrial fibrillation, Factor V. He is being treated for chest pain, hypertension, and shortness of breath. Chest pain: Likely pulmonary etiology for chest pain. Pain appears to be pleuritic in nature and worsened with increased respiratory effort. Unlikely congestive heart failure due to lack of lower extremity edema, no cardiac enlargement seen on CXR, no crackles heard on PE, echocardiogram was largely benign. Unlikely NM due to negative EKG and negative serial troponins. Shortness of breath: Patient has a history of asthma/asthma exacerbation. He has been responding to solumedrol, albuterol, ipratropium, budesonide. Added tiotropium, montelukast, and fluconase yesterday. His O2 saturation has been in the mid 90 percent range on room air. Hypertension: Patient had a max blood pressure of 220/106 on 05/03/18. He has been responding well to the hydrochlorothiazide and diltiazem. Blood pressure this AM was 150/96. This may be from the steroids the patient has been placed on. Hypercoaguability: Patient has a history of PE, DVT, NM and HTN. He has intravenous thrombus filters currently. He is currently being treated with lovenox and clopidogrel. Plan: Chest pain: -Continue morphine and percocet. Shortness of breath: Continue current medications: Albuterol sulfate, Fluticasone, Ipratropium bromide, methylprednisolone, montelukast. Increase budesonide to two puffs per day. Hypertension: -Continue diltiazem and hydrochlorothiazide. * Add Singulair 10 mg daily. * Add Pepcid daily. * Add Flonase 2 sprays each nostril at bedtime. * Out patient sleep study to be ordered upon discharge. Hypertension: -Continue diltiazem and hydrochlorothiazide.
[2018-05-07 13:56] LABS: ABSOLUTE BASOPHIL COUNT 0 /CUMM (0.0-0.2); ABSOLUTE EOSINOPHIL COUNT 0 /CUMM (0.0-0.7); ABSOLUTE GRANULOCYTE CT 16.7 /CUMM (1.4-6.5); ABSOLUTE LYMPH COUNT 0.7 /CUMM (1.2-3.4); ABSOLUTE MONOCYTE COUNT 0.6 /CUMM (0.10-0.60); BASOPHIL % 0 % (0.0-2.0); EOSINOPHIL % 0 % (0-5); HEMATOCRIT 41.4 % (42-52); MEAN CORPUSCULAR HGB 31.3 PG (27.0-31.0); MEAN CORPUSCULAR HGB CONC 33.7 G/DL (33.0-37.0); MEAN PLATELET VOLUME 8.7 FL (7.4-10.4); PLATELET COUNT 263 /CUMM (130-400); RBC DISTRIBUTION WIDTH 14.8 % (11.5-14.5); RED BLOOD CELL CT 4.45 /CUMM (4.70-6.10)
--- NOTE | 2018-05-07 14:04 | Event Note ---
Event Note Event Note: Was notified by the nurse that the patient had just reported a bloody bowel movement and went to see the patient. At this point the patient was also complaining of nausea, diaphoresis and abdominal pain, and began vomiting, and the vomit contained blood and clotted blood. The patient had not yet flushed the toilet contents, so upon examination the toilet bowl was found to contain a large amount of bright red blood. The patient reported that he had been sitting on the toilet, without straining very hard, when he suddenly felt a pressure- like sensation, like a pop, and looked down to see a large amount of blood in the toilet. At this point the patient began feeling the abdominal pain, focused in the lower quadrants. The patient reported that he also has a history of multiple GI surgeries, including 3 colon resections for diverticulitis and colitis. Most recent colon resection was years ago, but 3 months ago the patient had a procedure for diverticulitis. Blood pressure was taken and found to be 200/118 on the right arm and 194/116 in the left arm. The patient's heart rate was 85. The patient was afebrile, and upon exam his abdomen was tender to palpation in the lower quadrants, with hypoactive bowel sounds especially on the left. Stat orders were put in for CBC, BEP, type and screen, PTT. Hydralazine and dicyclomine were ordered to help control the patient's blood pressure and abdominal pain. The patient's hydrochlorothiazide and lovenox were held. GI was consulted and is aware.
[2018-05-07 14:15] LABS: PTT 32 SEC (25-37)
--- NOTE | 2018-05-07 14:40 | Cons- Gastroenterology ---
General Information and HPI Consulting Request Date of Consult: 05/07/18 Requested By: Kumar RIGGS,Jennifer Reason for Consult: Rectal bleeding, hematemesis. Source of Information: patient Exam Limitations: no limitations History of Present Illness: Mr. Alvarez is a 38 year old male with a history of factor V Leiden deficiency with DVTs and PEs in spite of being on chronic anticoagulation, PUD, and diverticular bleeding requiring resections who presented to [facility] yesterday with reports of worsening chest pain and shortness of breath. He had a CT angiogram in the emergency room which is negative for acute PE. He was admitted to telemetry to rule out a myocardial infarction and he was continued on his anticoagulation at 120 mg twice a day of Lovenox. He was doing reasonably well in the hospital, but he has been complaining of diffuse body aches and abdominal pain along with nausea. He has been getting morphine further pain with only minimal benefit and the morphine is apparently making him more nauseous for which she has been getting Zofran. Approximately 1 hour ago he went to the bathroom and passed a large amount of rectal bleeding which he knows was consistent with his previous diverticular bleeds the last one being 3 months ago at [place] during which time he reports having a colonoscopy. The hematochezia was followed by an episode of hematemesis for which she reports was seeing scant amount of blood. His abdominal pain is diffuse and is receiving IM Bentyl for without much benefit. He is without any significant heartburn or dysphagia. He has also not noted any black tarry stool. His last shot of Lovenox was this morning. Since the bleeding started he has remained hemodynamically stable and he has been afebrile since admission. Allergies/Medications Allergies: Coded Allergies: Iodinated Contrast- Oral and IV Dye (ANAPHYLAXIS 12/23/17) haloperidol (HIVES 12/23/17) ketorolac (From TORADOL) (HIVES, RASH 12/23/17) meperidine (From DEMEROL) (HIVES 12/23/17) milk (LACTOSE INTOLERANT 12/23/17) shellfish derived (ANAPHYLAXIS 12/23/17) Home Med List: Albuterol Sulfate (Proair Hfa) 90 MCG HFA.AER.AD 2 PUF INH Q6H PRN WHEEZING ( Reported) Atorvastatin Calcium 40 MG TABLET 1 TAB PO DAILY CHOLESTEROL (Reported) Clopidogrel Bisulfate (Clopidogrel) 75 MG TABLET 1 TAB PO DAILY BLOOD THINNER (Reported) Diltiazem HCl (Cardizem Cd) 240 MG CAP.ER.24H 1 CAP PO DAILY HEART/BP ( Reported) Enoxaparin Sodium 120 MG/0.8 ML SYRINGE 120 MG SC BID BLOOD THINNER (Reported ) Escitalopram Oxalate 10 MG TABLET 1 TAB PO DAILY MENTAL HEALTH (Reported) Fluticasone-Salmeterol (Advair 100-50 Diskus) 100 MCG-50 MCG/DOSE BLST.W.DEV 1 PUF INH BID RESP. (Reported) Hydrochlorothiazide 12.5 MG CAPSULE 1 CAP PO DAILY BP (Reported) Lisinopril 40 MG TABLET 1 TAB PO DAILY BP (Reported) Pantoprazole Sodium 40 MG TABLET.DR 1 TAB PO DAILY GI (Reported) Current Medications: Current Medications Sig/Theo Start time Last Medication Dose Route Stop Time Status Admin Acetaminophen 650 MG Q6P PRN 05/03 0130 AC PO Albuterol Sulfate 3 ML EVERY 4 HRS/AWAKE 05/03 1651 AC 05/07 INH 1158 Albuterol Sulfate 2 PUF Q6H PRN 05/03 0130 AC 05/06 INH 2204 Atorvastatin Calcium 40 MG 1700 05/03 1700 AC 05/06 PO 1656 Budesonide/ 2 PUF BID 05/07 2100 AC 05/07 Formoterol Fumarate INH 1152 Budesonide/ 1 PUF BID 05/03 0900 DC 05/06 Formoterol Fumarate INH 2155 Clopidogrel Bisulfate 75 MG DAILY 05/03 900 AC 05/07 PO 1151 Dicyclomine HCl 10 MG ONCE ONE 05/07 1345 DC 05/07 IM 05/07 1346 1427 Diltiazem HCl 240 MG DAILY 05/03 900 AC 05/07 PO 1151 Enoxaparin Sodium 120 MG BID 05/03 0130 AC 05/07 SC 1051 Escitalopram Oxalate 10 MG DAILY 05/03 900 AC 05/07 PO 1151 Famotidine 20 MG DAILY 05/06 1445 DC 05/07 PO 1151 Fluticasone 2 SPRAY DAILY 05/06 1441 AC 05/07 Propionate EDMUNDO 1150 Hydralazine HCl 25 MG ONCE ONE 05/07 1400 DC 05/07 PO 05/07 1401 1423 Hydrochlorothiazide 12.5 MG DAILY 05/03 900 DC 05/07 PO 1151 Ipratropium [place] 2.5 ML EVERY 4 HRS/AWAKE 05/05 1600 AC 05/07 INH 1158 Lisinopril 40 MG DAILY 05/03 0900 AC 05/07 PO 1152 Melatonin 5 MG AT BEDTIME 05/06 2215 AC 05/06 PO 2233 Methylprednisolone 40 MG Q6 05/07 1800 AC IV Methylprednisolone 40 MG Q12 05/06 0900 DC 05/07 IV 1050 Montelukast Sodium 10 MG AT BEDTIME 05/06 2100 AC 05/06 PO 2155 Morphine Sulfate 2 MG Q6P PRN 05/05 1900 AC 05/07 IV 1150 Omeprazole 40 MG DAILY AC 05/03 0700 DC 05/07 PO 0538 Ondansetron HCl 4 MG Q6P PRN 05/06 1015 AC 05/07 IV 1150 Oxycodone/ 1 TAB Q6P PRN 05/03 0130 AC 05/06 Acetaminophen PO 1840 Pantoprazole Sodium 40 MG DAILY 05/07 1345 AC 05/07 IV 1422 Tiotropium [place] 1 PUF DAILY 05/06 1445 AC 05/07 INH 1151 Past History Travel History Traveled to [place] past 21 day No Medical History Blood Transfusion Hx: Yes Neurological: NONE EENT: NONE Cardiovascular: CAD, hypertension, myocardial infarction Respiratory: asthma, pulmonary embolism Gastrointestinal: colitis, diverticulitis Hepatic: NONE Renal: NONE Musculoskeletal: NONE Psychiatric: NONE Endocrine: NONE 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" Surgical History Surgical History: colon resection, cardiac stent, ivc filter Family History Relations & Conditions If Any: FATHER Coronary artery bypass graft surgery Psychosocial History Services at Home: None Smoking Status: Former Smoker ETOH Use: denies use Illicit Drug Use: marijuana Review of Systems Review of Systems Constitutional: Denies: chills, diaphoresis, fever, malaise. EENTM: Denies: no symptoms. Cardiovascular: Reports: chest pain. Respiratory: Reports: orthopnea, short of breath. Denies: cough, hemoptysis. GI: Reports: see HPI. Genitourinary: Denies: no symptoms. Musculoskeletal: Reports: joint pain, muscle pain. Denies: joint swelling, muscle stiffness. Skin: Denies: no symptoms. Neurological/Psychological: Denies: no symptoms. Hematologic/Endocrine: Reports: bruising, bleeding. Immunologic/Allergic: Denies: no symptoms. All Other Systems: Reviewed and Negative Exam & Diagnostic Data Vital Signs and I&O Vital Signs Date Time Temp Pulse Resp B/P B/P Pulse O2 O2 Flow FiO2 Mean Ox Delivery Rate 05/07 1423 85 200/118 05/07 1152 153/94 05/07 1145 58 97 05/07 0912 68 97 05/07 0912 97 Room Air 05/07 0637 98.3 66 20 150/96 97 Room Air 05/07 0000 95 Room Air 05/06 2255 99.3 68 18 140/62 94 05/06 1636 96 Room Air 05/06 1600 94 Room Air Intake & Output 05/07 0400 05/06 1600 05/06 0400 05/05 1600 05/05 0400 Intake Total 600 1080 3212 673 7128 360 Output Total Balance 600 1080 2238 968 1116 360 Intake, Oral 600 1080 4574 412 6837 360 Number 1 Bowel Movements Patient 296 lb 296 lb 291 lb 270 lb Weight Weight Reported by Patient Measurement Method Results Pertinent Lab Results: Laboratory Tests 05/07 05/07 1340 0635 Chemistry Sodium (137 - 145 mmol/L) 135 L Potassium (3.5 - 5.1 mmol/L) 4.7 Chloride (98 - 107 mmol/L) 98 Carbon Dioxide (22 - 30 mmol/L) 25 Anion Gap (5 - 16) 12 BUN (9 - 20 mg/dL) 22 H Creatinine (0.7 - 1.2 mg/dL) 1.0 Estimated GFR (>60 ml/min) > 60 BUN/Creatinine Ratio (7 - 25 %) 22.0 Coagulation APTT (25 - 37 SEC) 32 Hematology CBC w Diff MAN DIFF ORDERED NO MAN DIFF REQ WBC (4.8 - 10.8 /CUMM) 18.0 H 18.6 H RBC (4.70 - 6.10 /CUMM) 4.45 L 4.18 L Hgb (14.0 - 18.0 G/DL) 13.9 L 13.1 L Hct (42 - 52 %) 41.4 L 38.9 L MCV (80.0 - 94.0 FL) 93.0 93.1 MCH (27.0 - 31.0 PG) 31.3 H 31.4 H MCHC (33.0 - 37.0 G/DL) 33.7 33.7 RDW (11.5 - 14.5 %) 14.8 H 14.8 H Plt Count (130 - 400 /CUMM) 263 215 MPV (7.4 - 10.4 FL) 8.7 9.2 Gran % (42.2 - 75.2 %) 93.0 H 90.6 H Lymphocytes % (20.5 - 51.1 %) 3.7 L 4.6 L Monocytes % (1.7 - 9.3 %) 3.3 4.8 Eosinophils % (0 - 5 %) 0 0 Basophils % (0.0 - 2.0 %) 0 0 Absolute Granulocytes (1.4 - 6.5 /CUMM) 16.7 H 16.9 H Absolute Lymphocytes (1.2 - 3.4 /CUMM) 0.7 L 0.9 L Absolute Monocytes (0.10 - 0.60 /CUMM) 0.6 0.9 H Absolute Eosinophils (0.0 - 0.7 /CUMM) 0 0 Absolute Basophils (0.0 - 0.2 /CUMM) 0 0 Platelet Estimate (ADEQUATE) ADEQUATE Normocytic RBCs VERIFIED Normochromic RBCs VERIFIED 05/06 05/05 0636 1500 Chemistry Troponin I (<0.11 ng/ml) < 0.01 Hematology CBC w Diff NO MAN DIFF REQ WBC (4.8 - 10.8 /CUMM) 18.7 H RBC (4.70 - 6.10 /CUMM) 4.16 L Hgb (14.0 - 18.0 G/DL) 13.0 L Hct (42 - 52 %) 38.7 L MCV (80.0 - 94.0 FL) 93.1 MCH (27.0 - 31.0 PG) 31.3 H MCHC (33.0 - 37.0 G/DL) 33.6 RDW (11.5 - 14.5 %) 14.9 H Plt Count (130 - 400 /CUMM) 211 MPV (7.4 - 10.4 FL) 9.3 Gran % (42.2 - 75.2 %) 89.6 H Lymphocytes % (20.5 - 51.1 %) 4.8 L Monocytes % (1.7 - 9.3 %) 5.6 Eosinophils % (0 - 5 %) 0 Basophils % (0.0 - 2.0 %) 0 Absolute Granulocytes (1.4 - 6.5 /CUMM) 16.7 H Absolute Lymphocytes (1.2 - 3.4 /CUMM) 0.9 L Absolute Monocytes (0.10 - 0.60 /CUMM) 1.1 H Absolute Eosinophils (0.0 - 0.7 /CUMM) 0 Absolute Basophils (0.0 - 0.2 /CUMM) 0 05/05 0618 Hematology CBC w Diff MAN DIFF ORDERED WBC (4.8 - 10.8 /CUMM) 20.1 H RBC (4.70 - 6.10 /CUMM) 4.22 L Hgb (14.0 - 18.0 G/DL) 13.1 L Hct (42 - 52 %) 39.6 L MCV (80.0 - 94.0 FL) 94.0 MCH (27.0 - 31.0 PG) 31.1 H MCHC (33.0 - 37.0 G/DL) 33.1 RDW (11.5 - 14.5 %) 14.9 H Plt Count (130 - 400 /CUMM) 229 MPV (7.4 - 10.4 FL) 9.2 Gran % (42.2 - 75.2 %) 92.2 H Lymphocytes % (20.5 - 51.1 %) 3.0 L Monocytes % (1.7 - 9.3 %) 4.8 Eosinophils % (0 - 5 %) 0 Basophils % (0.0 - 2.0 %) 0 Absolute Granulocytes (1.4 - 6.5 /CUMM) 18.5 H Absolute Lymphocytes (1.2 - 3.4 /CUMM) 0.6 L Absolute Monocytes (0.10 - 0.60 /CUMM) 1.0 H Absolute Eosinophils (0.0 - 0.7 /CUMM) 0 Absolute Basophils (0.0 - 0.2 /CUMM) 0 Platelet Estimate (ADEQUATE) ADEQUATE Normocytic RBCs VERIFIED Normochromic RBCs VERIFIED Imaging/Other Studies: SERVICE DATE: 05/02/18 EXAM TYPE: CAT - CT ABD & PELVIS W IV CONTRAST; CTA CHEST-PULMONARY EMBOLISM EXAMINATION: CT CHEST PE STUDY CLINICAL INFORMATION: Chest pain shortness of breath. Diffuse abdominal pain and diarrhea. COMPARISON: 03/26/2018. TECHNIQUE: Prior to contrast administration, localization images were obtained. After the administration of 95 mL of Optiray 320 nonionic IV contrast, contiguous axial images were obtained through the thorax. Reformatted images in the coronal and sagittal planes were obtained at the acquisition workstation. Limited contrast bolus timing. FINDINGS: The bolus timing on this study was acceptable for visualization of the pulmonary arterial tree. There are no intraluminal pulmonary arterial filling defects present to suggest pulmonary embolism. The lungs are clear. No abnormal pulmonary nodules or masses are appreciated. There is no evidence of pleural effusion or pneumothorax. The heart is normal in size. The mediastinum and great vessels are normal. There is no pericardial effusion or lymphadenopathy. Mild symmetrical gynecomastia. IMPRESSION: No evidence of acute or chronic pulmonary embolism. EXAMINATION: CT ABDOMEN AND PELVIS WITH CONTRAST TECHNIQUE: Contiguous axial thin section helical images of the abdomen and pelvis were performed following the administration of oral contrast and 100 mL of intravenous Ultravist 300. The data set was reformatted in the coronal and sagittal planes and reviewed on an independent workstation. FINDINGS: LUNG BASES: No focal parenchymal or pleural disease. No pericardial effusion. LIVER, GALLBLADDER, BILIARY TREE: Changes of diffuse hepatic steatosis. No biliary dilatation. Gallbladder normal.. PANCREAS: No mass or inflammatory changes. SPLEEN: No focal lesion or enlargement. ADRENAL GLANDS AND KIDNEYS: No focal lesion. No mass, calculus or hydronephrosis. PELVIS: There is no pelvic mass. Pelvic organs within normal limits. URETERS AND BLADDER: Within normal limits. BOWEL LOOPS: Stable line noted within the distal sigmoid colon without any discrete focal abnormality. Staple line also noted at the base of the cecum consistent with appendectomy. No obstruction. Injection changes within the anterior abdominal wall. No fluid collection. No inflammatory changes. LYMPHOVASCULAR STRUCTURES: No pathologic enlargement. IVC filter in place. BONES: No lytic or sclerotic lesions. No fracture. IMPRESSION: No focal findings. No abnormality to explain the patient's symptoms. Assessment/Plan Assessment/Recommendations: Assessment: Mr. Moseley is a 38-year-old male with factor V Leiden deficiency for which she is on chronic anticoagulation who is admitted with chest pain and shortness of breath who developed hematemesis and hematochezia approximately 1 hour ago of uncertain etiology. While the hematochezia was associated with some abdominal pain I still suspect the rectal bleeding is from diverticulosis. Other potential etiologies of pain could be bleeding from a Dieulafoy's lesion, AVMs, hemorrhoids or an occult malignancy, but the latter is less likely considering he had a colonoscopy just 3 months ago. Infectious, inflammatory, or ischemic colitis are also possible, however based on his history and Sharifa is less likely. Considering the hematemesis is also possibly could be having a rapid transit upper GI bleed, but I feel this is less likely considering his very hemodynamically stable and the hematemesis is more likely secondary to a Ruma-Mccauley tear. While it may ultimately be necessary to repeat a colonoscopy and possibly an endoscopy and I do not feel it is urgent and I'm hopeful that the bleeding will stop with holding 1 dose of his Lovenox. If he does continue to bleed however it may then be necessary to repeat his endoscopic procedures and consideration will also be given for a CT angiogram/angiogram by IR, based on his clinical course. Recommendations: 1. Would hold his p.m. Lovenox dose. 2. Maintain 2 large-bore IVs at all times. 3. Notify GI for any recurrent bleeding in which case will either prep him for a colonoscopy, puruse a ct angiography or both. 4. Follow hgb q8hr and transfuse as needed to maintain his hgb over 8. 5. Avoid nsaids 6. Administer anti-emetics as needed. 7. Analgesia as needed. 8. Attempt to get records from recent [place] hospitalization when he said he had a repeat colonoscopy. 9. Full liquid diet as tolerated, but would keep NPO after midnignt for a diagnostic/therapeutic EGD in the am to evaluate his hematemesis +/- a colonoscopy if he has any recurrent rectal bleeding. I will continue to follow this patient and make further recommendations based on his clinical course and results of any procedures if and when they are performed. Problem List: 1. GI bleed Consult Acknowledgment - Thank you for your consult request.
[2018-05-07 15:05] VITALS: BP 190/104
[2018-05-07 16:44] VITALS: BP 164/100
--- NOTE | 2018-05-07 17:31 | PN- Cardiology ---
Subjective Subjective: The patient continues to have significant shortness of breath. He notes sharp pains in the chest with inspiration. No palpitations. No diaphoresis. No orthopnea. No lightheadedness or dizziness. Objective Vital Signs and I&Os Vital Signs Date Time Temp Pulse Resp B/P B/P Pulse O2 O2 Flow FiO2 Mean Ox Delivery Rate 05/07 1644 164/100 05/07 1633 96 Room Air Room Air 05/07 1505 99.6 61 20 190/104 95 Room Air 05/07 1423 85 200/118 05/07 1152 153/94 05/07 1145 58 97 05/07 0912 68 97 05/07 0912 97 Room Air 05/07 0637 98.3 66 20 150/96 97 Room Air 05/07 0000 95 Room Air 05/06 2255 99.3 68 18 140/62 94 Intake & Output 05/07 1600 05/07 0800 05/07 0000 05/06 1600 05/06 0800 05/06 0000 Intake Total 189 397 8675 840 360 480 Output Total 10 Balance 341 819 7549 840 360 480 Intake, IV 20 Intake, Oral 927 097 8135 840 360 480 Number 1 Bowel Movements Output, 10 Emesis Patient 296 lb 296 lb 291 lb Weight Physical Exam: Gen: NAD HEENT: normal Lungs: Scattered wheezes, normal resp. effort Heart: RRR, S1, S2, no murmurs Abdomen: Soft, nontender, no masses Extremities: No clubbing, cyanosis, or edema. Neuro: Alert and oriented x 3, cranial nerves intact Current Medications: Current Medications Sig/Theo Start time Last Medication Dose Route Stop Time Status Admin Acetaminophen 650 MG Q6P PRN 05/03 0130 AC PO Albuterol Sulfate 3 ML EVERY 4 HRS/AWAKE 05/03 1651 AC 05/07 INH 1158 Albuterol Sulfate 2 PUF Q6H PRN 05/03 0130 AC 05/06 INH 2204 Atorvastatin Calcium 40 MG 1700 05/03 1700 AC 05/06 PO 1656 Budesonide/ 2 PUF BID 05/07 2100 AC 05/07 Formoterol Fumarate INH 1152 Budesonide/ 1 PUF BID 05/03 09 DC 05/06 Formoterol Fumarate INH 2155 Clopidogrel Bisulfate 75 MG DAILY 05/03 900 AC 05/07 PO 1151 Dicyclomine HCl 10 MG ONCE ONE 05/07 1345 DC 05/07 IM 05/07 1346 1427 Diltiazem HCl 240 MG DAILY 05/03 900 AC 05/07 PO 1151 Enoxaparin Sodium 120 MG BID 05/03 0130 DC 05/07 SC 1051 Escitalopram Oxalate 10 MG DAILY 05/03 900 AC 05/07 PO 1151 Famotidine 20 MG DAILY 05/06 1445 DC 05/07 PO 1151 Fluticasone 2 SPRAY DAILY 05/06 1441 AC 05/07 Propionate EDMUNDO 1150 Hydralazine HCl 25 MG ONCE ONE 05/07 1700 DC PO 05/07 1701 Hydralazine HCl 25 MG ONCE ONE 05/07 1400 DC 05/07 PO 05/07 1401 1423 Hydrochlorothiazide 12.5 MG DAILY 05/03 900 DC 05/07 PO 1151 Hydromorphone HCl 1 MG ONCE ONE 05/07 1515 DC 05/07 IV 05/07 1516 1542 Ipratropium [place] 2.5 ML EVERY 4 HRS/AWAKE 05/05 1600 AC 05/07 INH 1158 Lisinopril 40 MG DAILY 05/03 900 AC 05/07 PO 1152 Melatonin 5 MG AT BEDTIME 05/06 2215 AC 05/06 PO 2233 Methylprednisolone 40 MG Q6 05/07 1800 AC IV Methylprednisolone 40 MG Q12 05/06 09 DC 05/07 IV 1050 Montelukast Sodium 10 MG AT BEDTIME 05/06 2100 AC 05/06 PO 2155 Morphine Sulfate 2 MG Q6P PRN 05/05 1900 AC 05/07 IV 1150 Omeprazole 40 MG DAILY AC 05/03 07 DC 05/07 PO 0538 Ondansetron HCl 4 MG Q6P PRN 05/06 1015 DC 05/07 IV 1150 Oxycodone/ 1 TAB Q6P PRN 05/03 0130 AC 05/06 Acetaminophen PO 1840 Pantoprazole Sodium 40 MG BID 05/07 2100 AC IV Pantoprazole Sodium 40 MG DAILY 05/07 1345 DC 05/07 IV 1422 Patient Medication 1 ED ONE ONE 05/07 1730 AC Teaching ED 05/07 1731 Polyethylene Glycol 1 GAL ONCE ONE 05/07 2100 AC PO 05/07 2101 Promethazine HCl 25 MG Q4P PRN 05/07 1445 AC 05/07 IM 05/14 1444 1523 Tiotropium [place] 1 PUF DAILY 05/06 1445 AC 05/07 INH 1151 Results Last 48 Hrs of Labs/Mics: Laboratory Tests 05/07/18 1340: Anion Gap 12, Estimated GFR > 60, BUN/Creatinine Ratio 22.0, APTT 32, CBC w Diff MAN DIFF ORDERED, RBC 4.45 L, MCV 93.0, MCH 31.3 H, MCHC 33.7, RDW 14.8 H, MPV 8.7, Gran % 93.0 H, Lymphocytes % 3.7 L, Monocytes % 3.3, Eosinophils % 0, Basophils % 0, Absolute Granulocytes 16.7 H, Absolute Lymphocytes 0.7 L, Absolute Monocytes 0.6, Absolute Eosinophils 0, Absolute Basophils 0, Platelet Estimate ADEQUATE, Normocytic RBCs VERIFIED, Normochromic RBCs VERIFIED 05/07/18 0635: CBC w Diff NO MAN DIFF REQ, RBC 4.18 L, MCV 93.1, MCH 31.4 H, MCHC 33.7, RDW 14.8 H, MPV 9.2, Gran % 90.6 H, Lymphocytes % 4.6 L, Monocytes % 4.8, Eosinophils % 0, Basophils % 0, Absolute Granulocytes 16.9 H, Absolute Lymphocytes 0.9 L, Absolute Monocytes 0.9 H, Absolute Eosinophils 0, Absolute Basophils 0 05/06/18 0636: CBC w Diff NO MAN DIFF REQ, RBC 4.16 L, MCV 93.1, MCH 31.3 H, MCHC 33.6, RDW 14.9 H, MPV 9.3, Gran % 89.6 H, Lymphocytes % 4.8 L, Monocytes % 5.6, Eosinophils % 0, Basophils % 0, Absolute Granulocytes 16.7 H, Absolute Lymphocytes 0.9 L, Absolute Monocytes 1.1 H, Absolute Eosinophils 0, Absolute Basophils 0 Assessment/Plan Assessment/Plan Assessment: 1. CAD, stable 2. Hypertension, controlled 3. Factor V Leiden deficiency 4. Asthma exacerbation 5. Chest discomfort, likely noncardiac Plan: * Continue current cardiac medications. * Follow up in the office 2 weeks after discharge Continue telemetry? No
[2018-05-07 18:00] VITALS: BP 140/82
[2018-05-07 21:13] LABS: ABSOLUTE BASOPHIL COUNT 0 /CUMM (0.0-0.2); ABSOLUTE EOSINOPHIL COUNT 0 /CUMM (0.0-0.7); ABSOLUTE GRANULOCYTE CT 16.3 /CUMM (1.4-6.5); ABSOLUTE LYMPH COUNT 0.8 /CUMM (1.2-3.4); ABSOLUTE MONOCYTE COUNT 0.8 /CUMM (0.10-0.60); BASOPHIL % 0 % (0.0-2.0); EOSINOPHIL % 0 % (0-5); MEAN CORPUSCULAR HGB 31.2 PG (27.0-31.0); MEAN CORPUSCULAR HGB CONC 33.7 G/DL (33.0-37.0); MEAN CORPUSCULAR VOLUME 92.8 FL (80.0-94.0); PLATELET COUNT 236 /CUMM (130-400); RBC DISTRIBUTION WIDTH 14.9 % (11.5-14.5)
[2018-05-07 21:16] LABS: GRANULOCYTE % 91.4 % (42.2-75.2); WHITE BLOOD CELL COUNT 17.8 /CUMM (4.8-10.8)
--- NOTE | 2018-05-07 21:18 | Event Note ---
Event Note Event Note: Mr Alvarez started having abdominal pain around 2 PM, and was given pain medications that subsided his pain. He continued to have abdominal pain during the later part of the evening ~ 8PM, and he was evaluated. On examinition, his vitals were stable, BP and VA was stable, and he seemed to be in mild distress. Abdominal exam revealed diffuse tenderness around the abdomen, and tightness but no guarding or rigidity. He was being prep'ed for a possible EGD and colonoscopy since he had hematemesis and hematochezia, today. Differentials included ischemic bowel, diverticulitis, peptic ulcer disease, peritonitis(unlikely), post-operative adhesions. We got lactate done, which was 2.5, and dont think would represent the pathological process given the symptoms that started in the afternoon. Would have to follow up. EKG was checked to make sure that that he didnt have any atypical presentation of IA. He was administered iv dilaudid. Discussed w/ the attending.
[2018-05-07 22:04] VITALS: BP 148/72
--- NOTE | 2018-05-07 22:48 | RADIOLOGY REPORT ---
EXAMINATION: XR ABDOMEN CLINICAL INDICATION: Diffuse tenderness. No guarding or rigidity. Evaluate for free air/perforation. COMPARISON: Chest radiograph dated 05/05/[address] dated 05/02/2018. TECHNIQUE: Low chest/upper abdominal view was obtained. FINDINGS: On the first image, assessment is limited by respiratory motion. On the second image, no free air is identified, though the lateral margin of the left hemidiaphragm is excluded. IMPRESSION: No appreciable intraperitoneal free air, though both images are somewhat limited. Attempts will be made to repeat this study or obtained as a lateral decubitus view.
--- NOTE | 2018-05-08 00:35 | RADIOLOGY REPORT ---
EXAMINATION: XR ABDOMEN MULTIPLE VIEWS CLINICAL INDICATION: Diffuse tenderness. Ischemic colitis. Rule out free air. COMPARISON: Radiographs from earlier today. TECHNIQUE: 2 views of the abdomen. FINDINGS: There is a nonobstructive bowel gas pattern. No dilated loops of bowel. Gas and stool are seen throughout the colon with moderate colonic stool burden. No free air on the upright view. No air-fluid levels. IVC filter noted. The lung bases are clear. No acute osseous abnormality. IMPRESSION: Nonobstructive bowel gas pattern. No free air. Moderate colonic stool burden.
[2018-05-08 05:38] VITALS: BP 156/110
--- NOTE | 2018-05-08 06:50 | PN- Student ---
Ilene Morales 05/08/18 0649: Subjective Subjective: This is a 38 year old male who has a history of CAD, status post IA, right coronary stent, paroxysmal atrial fibrillation, Factor V Leiden deficiency, DVT, PE, HTN, and asthma. He is currently being treated for chest pain. Yesterday afternoon the patient experienced both hematochezia and hematemesis. Around 2 pm, he felt the need to move his bowels. He moved to the bathroom and without straining felt a pop sensation as he was having a bowel movement. He noticed bright red blood in the toilet bowl and alerted a nurse. Shortly after the incident he began experiencing hematemesis. The episodes were accompanied by diffuse abdominal pain. A cbc with H and H, BEP, and type and cross were ordered. His hyrdochlorothiazide and lovenox were discontinued, he was placed back on the monitor and GI was consulted. He was given dilaudid to manage the pain, and began prep for endoscopy/colonoscopy today (05/08/18). This AM, he reports that overnight he had approximately 5 bowel movements, all with bright red blood. He also had two episodes of vomiting bright red blood. He was not able to quantify if there was more or less blood with any of these episodes. He states that he still feels abdominal pain, but his chest pain has lessened. He feels his pain is well controlled with the dilaudid. He is still experiencing shortness of breath on exertion. Objective Objective: Physical Exam: General: Skin: Heart: Lungs: Results Results: Laboratory Tests 05/08/18 0605: CBC w Diff NO MAN DIFF REQ, RBC 4.01 L, MCV 93.2, MCH 31.5 H, MCHC 33.8, RDW 14.9 H, MPV 9.3, Gran % 93.3 H, Lymphocytes % 4.0 L, Monocytes % 2.7, Eosinophils % 0, Basophils % 0, Absolute Granulocytes 16.2 H, Absolute Lymphocytes 0.7 L, Absolute Monocytes 0.5, Absolute Eosinophils 0, Absolute Basophils 0 05/07/18 2315: Lactic Acid 1.8 05/07/182014: Lactic Acid 2.5 H, CBC w Diff NO MAN DIFF REQ, RBC 4.20 L, MCV 92.8, MCH 31.2 H, MCHC 33.7, RDW 14.9 H, MPV 9.0, Gran % 91.4 H, Lymphocytes % 4.4 L, Monocytes % 4.2, Eosinophils % 0, Basophils % 0, Absolute Granulocytes 16.3 H, Absolute Lymphocytes 0.8 L, Absolute Monocytes 0.8 H, Absolute Eosinophils 0, Absolute Basophils 0 05/07/18 1340: Anion Gap 12, Estimated GFR > 60, BUN/Creatinine Ratio 22.0, APTT 32, CBC w Diff MAN DIFF ORDERED, RBC 4.45 L, MCV 93.0, MCH 31.3 H, MCHC 33.7, RDW 14.8 H, MPV 8.7, Gran % 93.0 H, Lymphocytes % 3.7 L, Monocytes % 3.3, Eosinophils % 0, Basophils % 0, Absolute Granulocytes 16.7 H, Absolute Lymphocytes 0.7 L, Absolute Monocytes 0.6, Absolute Eosinophils 0, Absolute Basophils 0, Platelet Estimate ADEQUATE, Normocytic RBCs VERIFIED, Normochromic RBCs VERIFIED 05/07/18 0635: CBC w Diff NO MAN DIFF REQ, RBC 4.18 L, MCV 93.1, MCH 31.4 H, MCHC 33.7, RDW 14.8 H, MPV 9.2, Gran % 90.6 H, Lymphocytes % 4.6 L, Monocytes % 4.8, Eosinophils % 0, Basophils % 0, Absolute Granulocytes 16.9 H, Absolute Lymphocytes 0.9 L, Absolute Monocytes 0.9 H, Absolute Eosinophils 0, Absolute Basophils 0 05/06/18 0636: CBC w Diff NO MAN DIFF REQ, RBC 4.16 L, MCV 93.1, MCH 31.3 H, MCHC 33.6, RDW 14.9 H, MPV 9.3, Gran % 89.6 H, Lymphocytes % 4.8 L, Monocytes % 5.6, Eosinophils % 0, Basophils % 0, Absolute Granulocytes 16.7 H, Absolute Lymphocytes 0.9 L, Absolute Monocytes 1.1 H, Absolute Eosinophils 0, Absolute Basophils 0 05/05/18 1500: Troponin I < 0.01 Assessment/Plan Plan: GI Bleed: -CT of the abdomen. -Patient will be taken for endoscopy/colonoscopy. Iban Muñiz 05/09/18 0656: Assessment/Plan Plan: NOTE--CT ABDOMEN ONLY NECESSARY IF PATIENT EXPERIENCES MORE EPISODES OF GI BLEED
--- NOTE | 2018-05-08 06:59 | PN- Housestaff ---
Iban Muñiz 05/08/18 0659: Subjective Follow-up For: Asthma exacerbation, chest pain, GI bleed Subjective: Patient seen lying in the bed in mild distress. Patient still complaining of dyspnea and chest pain, but his most pressing complaint is abdominal pain. 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 Most likely attributed to the GoLYTELY. Patient for GI scoping today. Patient still complaining of wheezing and shortness of breath, shortness of breath is worse when he gets up to the restroom or tries to move around. Review of Systems Constitutional: Denies: chills, diaphoresis, fever. Cardiovascular: Reports: chest pain. Denies: palpitations, syncope. Respiratory: Reports: short of breath, wheezing. Denies: cough. Gastrointestinal: Reports: abdominal pain, diarrhea, nausea, bloody stool, vomiting. Objective Last 24 Hrs of Vital Signs/I&O Vital Signs Date Time Temp Pulse Resp B/P B/P Pulse O2 O2 Flow FiO2 Mean Ox Delivery Rate 05/08 0538 99.1 70 20 156/110 95 Room Air 05/08 0022 98 05/08 0000 Room Air Room Air 05/07 2204 98.4 60 20 148/72 95 Room Air 05/07 1800 51 140/82 05/07 1644 164/100 05/07 1633 96 Room Air Room Air 05/07 1505 99.6 61 20 190/104 95 Room Air 05/07 1423 85 200/118 05/07 1152 153/94 05/07 1145 58 97 05/07 0912 68 97 05/07 0912 97 Room Air 05/07 0800 Room Air Room Air Intake & Output 05/08 0800 05/08 0000 05/07 1600 Intake Total 65.5 100 520 Output Total 10 Balance 65.5 100 510 Intake, IV 65.5 20 Intake, Oral 100 500 Number 1 Bowel Movements Output, 10 Emesis Patient 134.462 kg Weight Physical Exam General Appearance: Alert, Oriented X3, Cooperative, Mild Distress Neck: Supple, No JVD, No thryomegaly, +2 Carotid Pulse wo Bruit Cardiovascular: Regular Rate, Normal S1, Normal S2, No Murmurs Lungs: Diffuse wheezing, improved from yesterday Abdomen: Firm, but not rigid. Tender in the lower quadrants. Neurological: Normal Gait, Normal Speech Extremities: No Clubbing, No Cyanosis, No Edema Current Medications: Current Medications Sig/Theo Start time Last Medication Dose Route Stop Time Status Admin Acetaminophen 650 MG Q6P PRN 05/03 0130 AC PO Albuterol Sulfate 3 ML EVERY 4 HRS/AWAKE 05/03 1651 AC 05/07 INH 1158 Albuterol Sulfate 2 PUF Q6H PRN 05/03 0130 AC 05/06 INH 2204 Atorvastatin Calcium 40 MG 1700 05/03 1700 AC 05/07 PO 1942 Budesonide/ 2 PUF BID 05/07 2100 AC 05/07 Formoterol Fumarate INH 2151 Budesonide/ 1 PUF BID 05/03 09 DC 05/06 Formoterol Fumarate INH 2155 Clopidogrel Bisulfate 75 MG DAILY 05/03 900 AC 05/07 PO 1151 Dicyclomine HCl 10 MG ONCE ONE 05/07 1345 DC 05/07 IM 05/07 1346 1427 Diltiazem HCl 240 MG DAILY 05/03 900 AC 05/07 PO 1151 Enoxaparin Sodium 120 MG BID 05/03 0130 DC 05/07 SC 1051 Escitalopram Oxalate 10 MG DAILY 05/03 900 AC 05/07 PO 1151 Famotidine 20 MG DAILY 05/06 1445 DC 05/07 PO 1151 Fluticasone 2 SPRAY DAILY 05/06 1441 AC 05/07 Propionate EDMUNDO 1150 Hydralazine HCl 25 MG ONCE ONE 05/07 1700 CAN PO 05/07 1701 Hydralazine HCl 25 MG ONCE ONE 05/07 1400 DC 05/07 PO 05/07 1401 1423 Hydrochlorothiazide 12.5 MG DAILY 05/03 900 DC 05/07 PO 1151 Hydromorphone HCl 1 MG Q2-3 HRS NEEDED.. 05/08 0030 AC 05/08 IV 0625 Hydromorphone HCl 1 MG ONCE ONE 05/07 2245 DC 05/07 IV 05/07 224 230 Hydromorphone HCl 0.6 MG ONCE ONE 05/07 2015 DC 05/07 IV 05/07 Hydromorphone HCl 1 MG ONCE A WEEK PRN 05/07 1825 DC 05/07 IV 1831 Hydromorphone HCl 1 MG Q6P PRN 05/07 181 DC IV Hydromorphone HCl 1 MG ONCE ONE 05/07 1515 DC 07 IV 05/07 1516 1542 Ipratropium [place] 2.5 ML EVERY 4 HRS/AWAKE 05/05 1600 AC 05/07 INH 1158 Lisinopril 40 MG DAILY 05/03 0900 AC 05/07 PO 1152 Melatonin 5 MG AT BEDTIME 05/06 2215 AC 05/07 PO 2151 Methylprednisolone 40 MG Q6 05/07 1800 AC 05/08 IV 0626 Methylprednisolone 40 MG Q12 05/06 0900 DC 05/07 IV 1050 Montelukast Sodium 10 MG AT BEDTIME 05/06 2100 AC 05/07 PO 2151 Morphine Sulfate 4 MG .STK-MED ONE 05/07 1144 DC IM 05/07 1145 Morphine Sulfate 2 MG Q6P PRN 05/05 1900 DC 05/07 IV 1150 Omeprazole 40 MG DAILY AC 05/03 0700 DC 05/07 PO 0538 Ondansetron HCl 4 MG ONCE ONE 05/08 0445 DC 05/08 IV 05/08 0446 0625 Ondansetron HCl 4 MG Q6P PRN 05/06 1015 DC 05/07 IV 1150 Oxycodone/ 1 TAB Q6P PRN 05/03 0130 AC 05/07 Acetaminophen PO 2157 Pantoprazole Sodium 40 MG BID 05/07 2100 AC 05/07 IV 2151 Pantoprazole Sodium 40 MG DAILY 05/07 1345 DC 05/07 IV 1422 Patient Medication 1 ED ONE ONE 05/07 1730 DC Teaching ED 05/07 1731 Polyethylene Glycol 1 GAL ONCE ONE 05/07 2100 DC 05/07 PO 05/07 2101 2321 Promethazine HCl 25 MG Q4P PRN 05/07 1445 DC 05/07 IM 05/14 1444 1523 Tiotropium [place] 1 PUF DAILY 05/06 1445 AC 05/07 INH 1151 Last 24 Hrs of Lab/Bret Results Last 24 Hrs of Labs/Mics: Laboratory Tests 05/08/18 0605: CBC w Diff Pending, WBC Pending, RBC Pending, Hgb Pending, Hct Pending, MCV Pending, MCH Pending, MCHC Pending, RDW Pending, Plt Count Pending, MPV Pending 05/07/18 2315: Lactic Acid 1.8 05/07/18 2015: Lactic Acid 2.5 H, CBC w Diff NO MAN DIFF REQ, RBC 4.20 L, MCV 92.8, MCH 31.2 H, MCHC 33.7, RDW 14.9 H, MPV 9.0, Gran % 91.4 H, Lymphocytes % 4.4 L, Monocytes % 4.2, Eosinophils % 0, Basophils % 0, Absolute Granulocytes 16.3 H, Absolute Lymphocytes 0.8 L, Absolute Monocytes 0.8 H, Absolute Eosinophils 0, Absolute Basophils 0 05/07/18 1340: Anion Gap 12, Estimated GFR > 60, BUN/Creatinine Ratio 22.0, APTT 32, CBC w Diff MAN DIFF ORDERED, RBC 4.45 L, MCV 93.0, MCH 31.3 H, MCHC 33.7, RDW 14.8 H, MPV 8.7, Gran % 93.0 H, Lymphocytes % 3.7 L, Monocytes % 3.3, Eosinophils % 0, Basophils % 0, Absolute Granulocytes 16.7 H, Absolute Lymphocytes 0.7 L, Absolute Monocytes 0.6, Absolute Eosinophils 0, Absolute Basophils 0, Platelet Estimate ADEQUATE, Normocytic RBCs VERIFIED, Normochromic RBCs VERIFIED Assessment/Plan Assessment: Patient is a 38 year-old male with history of asthma, multiple ICU admissions and intubations. Presented to the emergency department with chest pain radiating to the neck and back on both sides. Patient has a history of multiple GI surgeries, for colitis and diverticulitis. As well as a history of factor V Leiden deficiency for which she is on multiple anticoagulants. In the setting patient developed GI bleed as the patient. 38-year-old male with asthma exacerbation and GI bleeding 1. Asthma exacerbation Atrovent every 4 hours blood glucose tomorrow in setting of prolonged steroid use 2. GI bleed abdominal pain 3. Chest pain for transfer to general medicine Problem List: 1. GI bleed 2. Asthma exacerbation 3. Chest pain Pain Ratin Pain Location: abdomen Pain Goal: Pain 4 or less Pain Plan: Dilaudid 1mg IV Q4H Tomorrow's Labs & Rationales: GAMA Heath MD,Jennifer 05/08/18 1101: Attending MD Review Statement Attending Statement Attending MD Statement: examined this patient, discuss w/resident/PA/BALE COVERER, agreed w/resident/PA/BALE COVERER, reviewed EMR data (avail), discussed with nursing, discussed with case mgmt, amended to note Attending Assessment/Plan: Patient reports having bright red blood per rectum. Also reported an episode of hematemesis. Denies any straining during bowel movement yesterday. He had repeated episode of hematemesis at night. He gives a history of gastrointestinal bleeding in the past. He reports having colon resection for diverticulitis in the past. He also admits to having history of bleeding hemorrhoids. He tolerated BiPAP therapy during the daytime yesterday. He however did not complete all last night due to his hematemesis. He reports feeling better from a respiratory standpoint although still short of breath with exertion. He is speaking in complete sentences on auscultation he has adequate entry bilaterally with some diffuse rhonchi. Recommendations: -Continue bronchodilator therapy. -In view of his report of feeling less short of breath and increasing wheezing noted on exam would recommend decreasing his Solu-Medrol to every 8 hours today. Particularly in light of his gastrointestinal bleeding. -Nocturnal BiPAP therapy as recommended by the pulmonology service. -He is scheduled to undergo EGD colonoscopy today. -Continue PPI therapy intravenously. -Lovenox is on hold pending results of endoscopic evaluations.
--- NOTE | 2018-05-08 07:43 | PN- Pulmonary ---
Subjective HPI/Critical Care Issues: Overnight events noted. The patient has had difficulty with hematemesis/GI bleeding overnight. He is receiving GoLYTELY in anticipation for endoscopy. The patient was able to tolerate several hours of BiPAP during the day yesterday. He was not able to wear it last night due to hematemesis. He felt comfortable and positive pressure. In addition, although the patient is still wheezing he has less shortness of breath and is now speaking in full sentences. He has less audible wheezing. He feels that his breathing is better overall. Objective Current Medications: Current Medications Sig/Theo Start time Last Medication Dose Route Stop Time Status Admin Acetaminophen 650 MG Q6P PRN 05/03 0130 AC PO Albuterol Sulfate 3 ML EVERY 4 HRS/AWAKE 05/03 1651 AC 05/07 INH 1158 Albuterol Sulfate 2 PUF Q6H PRN 05/03 0130 AC 05/06 INH 2204 Atorvastatin Calcium 40 MG 1700 05/03 1700 AC 05/07 PO 1942 Budesonide/ 2 PUF BID 05/07 2100 AC 05/07 Formoterol Fumarate INH 2151 Budesonide/ 1 PUF BID 05/03 0900 DC 05/06 Formoterol Fumarate INH 2155 Clopidogrel Bisulfate 75 MG DAILY 05/03 0900 AC 05/07 PO 1151 Dicyclomine HCl 10 MG ONCE ONE 05/07 1345 DC 05/07 IM 05/07 1346 1427 Diltiazem HCl 240 MG DAILY 05/03 900 AC 05/07 PO 1151 Enoxaparin Sodium 120 MG BID 05/03 0130 DC 05/07 SC 1051 Escitalopram Oxalate 10 MG DAILY 05/03 900 AC 05/07 PO 1151 Famotidine 20 MG DAILY 05/06 1445 DC 05/07 PO 1151 Fluticasone 2 SPRAY DAILY 05/06 1441 AC 05/07 Propionate EDMUNDO 1150 Hydralazine HCl 25 MG ONCE ONE 05/07 1700 CAN PO 05/07 1701 Hydralazine HCl 25 MG ONCE ONE 05/07 1400 DC 05/07 PO 05/07 1401 1423 Hydrochlorothiazide 12.5 MG DAILY 05/03 09 DC 05/07 PO 1151 Hydromorphone HCl 1 MG Q2-3 HRS NEEDED.. 05/08 0030 AC 05/08 IV 0625 Hydromorphone HCl 1 MG ONCE ONE 05/07 2245 DC 05/07 IV 05/07 2246 2301 Hydromorphone HCl 0.6 MG ONCE ONE 05/07 2015 DC 05/07 IV 05/07 Hydromorphone HCl 1 MG ONCE A WEEK PRN 05/07 1825 DC 05/07 IV 1831 Hydromorphone HCl 1 MG Q6P PRN 05/07 1815 DC IV Hydromorphone HCl 1 MG ONCE ONE 05/07 1515 DC 05/07 IV 05/07 1516 1542 Ipratropium [place] 2.5 ML EVERY 4 HRS/AWAKE 05/05 1600 AC 05/07 INH 1158 Lisinopril 40 MG DAILY 05/03 09 AC 05/07 PO 1152 Melatonin 5 MG AT BEDTIME 05/06 2215 AC 05/07 PO 2151 Methylprednisolone 40 MG Q6 05/07 1800 AC 05/08 IV 0626 Methylprednisolone 40 MG Q12 05/06 0900 DC 05/07 IV 1050 Montelukast Sodium 10 MG AT BEDTIME 05/06 2100 AC 05/07 PO 2151 Morphine Sulfate 4 MG .STK-MED ONE 05/07 1144 DC IM 05/07 1145 Morphine Sulfate 2 MG Q6P PRN 05/05 1900 DC 05/07 IV 1150 Omeprazole 40 MG DAILY AC 05/03 0700 DC 05/07 PO 0538 Ondansetron HCl 4 MG ONCE ONE 05/08 0445 DC 05/08 IV 05/08 0446 0625 Ondansetron HCl 4 MG Q6P PRN 05/06 1015 DC 05/07 IV 1150 Oxycodone/ 1 TAB Q6P PRN 05/03 0130 AC 05/07 Acetaminophen PO 2157 Pantoprazole Sodium 40 MG BID 05/07 2100 AC 05/07 IV 2151 Pantoprazole Sodium 40 MG DAILY 05/07 1345 DC 05/07 IV 1422 Patient Medication 1 ED ONE ONE 05/07 1730 DC Teaching ED 05/07 1731 Polyethylene Glycol 1 GAL ONCE ONE 05/07 2100 DC 05/07 PO 05/07 2101 2321 Promethazine HCl 25 MG Q4P PRN 05/07 1445 DC 07 IM 05/14 1444 1523 Tiotropium [place] 1 PUF DAILY 05/06 1445 AC 05/07 INH 1151 Vital Signs & I&O Last 24 Hrs of Vitals and I&O: Vital Signs Date Time Temp Pulse Resp B/P B/P Pulse O2 O2 Flow FiO2 Mean Ox Delivery Rate 05/08 0538 99.1 70 20 156/110 95 Room Air 05/08 0022 98 05/08 0000 Room Air Room Air 05/07 2204 98.4 60 20 148/72 95 Room Air 05/07 1800 51 140/82 05/07 1644 164/100 05/07 1633 96 Room Air Room Air 05/07 1505 99.6 61 20 190/104 95 Room Air 05/07 1423 85 200/118 05/07 1152 153/94 05/07 1145 58 97 05/07 0912 68 97 05/07 0912 97 Room Air 05/07 0800 Room Air Room Air Intake & Output 05/08 0800 05/08 0000 05/07 1600 Intake Total 65.5 100 520 Output Total 10 Balance 65.5 100 510 Intake, IV 65.5 20 Intake, Oral 100 500 Number 1 Bowel Movements Output, 10 Emesis Patient 296 lb Weight Physical Exam General Appearance: well developed/nourished, no distress, alert, awake Head: atraumatic, normal appearance Eyes: Bilateral: PERRL. Neck: supple Respiratory: bilateral course wheezing heard in both lung collier, improved air entry overall Cardiovascular: regular rate/rhythm Gastrointestinal: normal bowel sounds, soft, non-tender Extremities: no edema Skin: intact, normal color, warm/dry Results Last 24 Hrs of Lab Results: Laboratory Tests 05/08/18 0605: CBC w Diff Pending, WBC Pending, RBC Pending, Hgb Pending, Hct Pending, MCV Pending, MCH Pending, MCHC Pending, RDW Pending, Plt Count Pending, MPV Pending 05/07/18 2315: Lactic Acid 1.8 05/07/18 2015: Lactic Acid 2.5 H, CBC w Diff NO MAN DIFF REQ, RBC 4.20 L, MCV 92.8, MCH 31.2 H, MCHC 33.7, RDW 14.9 H, MPV 9.0, Gran % 91.4 H, Lymphocytes % 4.4 L, Monocytes % 4.2, Eosinophils % 0, Basophils % 0, Absolute Granulocytes 16.3 H, Absolute Lymphocytes 0.8 L, Absolute Monocytes 0.8 H, Absolute Eosinophils 0, Absolute Basophils 0 05/07/18 1340: Anion Gap 12, Estimated GFR > 60, BUN/Creatinine Ratio 22.0, APTT 32, CBC w Diff MAN DIFF ORDERED, RBC 4.45 L, MCV 93.0, MCH 31.3 H, MCHC 33.7, RDW 14.8 H, MPV 8.7, Gran % 93.0 H, Lymphocytes % 3.7 L, Monocytes % 3.3, Eosinophils % 0, Basophils % 0, Absolute Granulocytes 16.7 H, Absolute Lymphocytes 0.7 L, Absolute Monocytes 0.6, Absolute Eosinophils 0, Absolute Basophils 0, Platelet Estimate ADEQUATE, Normocytic RBCs VERIFIED, Normochromic RBCs VERIFIED Impression/Plan Impression/Plan Impression/Plan: Impression/Plan: 1. Asthma exacerbation with significant ongoing bronchospasm despite aggressive therapy. No evidence of peripheral eosinophilia. The patient will need allergy testing upon discharge. 2. History of abnormal CT of the chest with bilateral multilobar pulmonary opacities with an area of pulmonary consolidation in the left lower lobe on CT dated 03/14/18. There has been interval progression of pulmonary opacities since November 2017 CT scan. The patient then had a CTA on 05/02/18 that showed no evidence of acute or chronic pulmonary embolism as well as clear lung collier with resolution of the previously noted nodules and masses. 3. KRISTI, untreated with any therapy. 4. Hematemesis/GI bleed. Recommendations: * The patient will be undergoing endoscopy by GI. He will be monitored by anesthesia. Of note, the patient is at risk for increased pulmonary complications in the setting of anesthesia however the procedure is deemed to be emergent in the setting of active bleeding. * Continue nebs q 4 hours. * Continue nocturnal BiPAP 12/4 cm H2O. * Continue Solu-Medrol 40 mg every 6 hours today. Will decrease once the patient's bronchospasm has improved.. * Spiriva 1 inhalation daily. * Continue Symbicort 2 puffs every 12 hours. * Singulair 10 mg daily. * Flonase 2 sprays each nostril at bedtime. * Out patient sleep study to be ordered upon discharge. * Continue to monitor the patient closely for worsening bronchospasm.
[2018-05-08 07:45] VITALS: BP 160/98
[2018-05-08 08:36] LABS: ABSOLUTE BASOPHIL COUNT 0 /CUMM (0.0-0.2); ABSOLUTE EOSINOPHIL COUNT 0 /CUMM (0.0-0.7); ABSOLUTE GRANULOCYTE CT 16.2 /CUMM (1.4-6.5); ABSOLUTE LYMPH COUNT 0.7 /CUMM (1.2-3.4); ABSOLUTE MONOCYTE COUNT 0.5 /CUMM (0.10-0.60); BASOPHIL % 0 % (0.0-2.0); EOSINOPHIL % 0 % (0-5); GRANULOCYTE % 93.3 % (42.2-75.2); HEMATOCRIT 37.4 % (42-52); MEAN CORPUSCULAR HGB 31.5 PG (27.0-31.0); MEAN CORPUSCULAR HGB CONC 33.8 G/DL (33.0-37.0); MEAN CORPUSCULAR VOLUME 93.2 FL (80.0-94.0); MEAN PLATELET VOLUME 9.3 FL (7.4-10.4); PLATELET COUNT 222 /CUMM (130-400); RBC DISTRIBUTION WIDTH 14.9 % (11.5-14.5); RED BLOOD CELL CT 4.01 /CUMM (4.70-6.10)
--- NOTE | 2018-05-08 10:00 | PN- Cardiology ---
Subjective Subjective: Clinically, the patient appears stable. Apparently has had evidence of red blood per rectum and also vomiting with some dark blood noted. GI workup pending today. Objective Vital Signs and I&Os Vital Signs Date Time Temp Pulse Resp B/P B/P Pulse O2 O2 Flow FiO2 Mean Ox Delivery Rate 05/08 0828 96 Room Air Room Air 05/08 0748 160/98 05/08 0745 160/98 05/08 0538 99.1 70 20 156/110 95 Room Air 05/08 0022 98 05/08 0000 Room Air Room Air 05/07 2204 98.4 60 20 148/72 95 Room Air 05/07 1800 51 140/82 05/07 1644 164/100 05/07 1633 96 Room Air Room Air 05/07 1505 99.6 61 20 190/104 95 Room Air 05/07 1423 85 200/118 05/07 1152 153/94 05/07 1145 58 97 Intake & Output 05/08 1600 05/08 0800 05/08 0000 05/07 1600 05/07 0800 05/07 0000 Intake Total 65.5 100 133 749 3797 Output Total 10 Balance 65.5 100 920 313 6150 Intake, IV 65.5 20 Intake, Oral 100 127 790 8809 Number 1 Bowel Movements Output, 10 Emesis Patient 296 lb 296 lb Weight Physical Exam: General Appearance: well developed/nourished, alert, awake, oriented Head: normal HEENT: Normal Neck: supple, JVP normal, carotid upstrokes normal bilaterally, no masses or thyromegaly Respiratory: chest non-tender, scattered rhonchi and wheezing Cardiovascular: regular rate/rhythm, normal S1, S2, 1/6 systolic murmur Abdomen: normal bowel sounds, soft, non-tender Extremities: normal inspection, no edema Vascular: Pulses are 2+ and equal bilaterally Neurologic: Grossly normal/nonfocal Current Medications: Current Medications Sig/Theo Start time Last Medication Dose Route Stop Time Status Admin Acetaminophen 650 MG Q6P PRN 05/03 0130 AC PO Albuterol Sulfate 3 ML EVERY 4 HRS/AWAKE 05/03 1651 AC 05/08 INH 0827 Albuterol Sulfate 2 PUF Q6H PRN 05/03 0130 AC 05/06 INH 2204 Atorvastatin Calcium 40 MG 1700 05/03 1700 AC 05/07 PO 1942 Budesonide/ 2 PUF BID 05/07 2100 AC 05/07 Formoterol Fumarate INH 2151 Budesonide/ 1 PUF BID 05/03 900 DC 05/06 Formoterol Fumarate INH 2155 Clopidogrel Bisulfate 75 MG DAILY 05/03 900 AC 05/08 PO 0753 Dicyclomine HCl 10 MG ONCE ONE 05/07 1345 DC 05/07 IM 05/07 1346 1427 Diltiazem HCl 240 MG DAILY 05/03 900 AC 05/08 PO 0748 Enoxaparin Sodium 120 MG BID 05/03 0130 DC 05/07 SC 1051 Escitalopram Oxalate 10 MG DAILY 05/03 900 AC 05/08 PO 0748 Famotidine 20 MG DAILY 05/06 1445 DC 05/07 PO 1151 Fluticasone 2 SPRAY DAILY 05/06 1441 AC 05/08 Propionate EDMUNDO 0747 Hydralazine HCl 25 MG ONCE ONE 05/07 1700 CAN PO 05/07 1701 Hydralazine HCl 25 MG ONCE ONE 05/07 1400 DC 05/07 PO 05/07 1401 1423 Hydrochlorothiazide 12.5 MG DAILY 05/03 900 DC 05/07 PO 1151 Hydromorphone HCl 1 MG Q4 PRN 05/08 0830 AC IV Hydromorphone HCl 1 MG Q2-3 HRS NEEDED.. 05/08 0030 DC 05/08 IV 0806 Hydromorphone HCl 1 MG ONCE ONE 05/07 2245 DC 05/07 IV 05/07 2246 2301 Hydromorphone HCl 0.6 MG ONCE ONE 05/07 2015 DC 05/07 IV 05/07 Hydromorphone HCl 1 MG ONCE A WEEK PRN 05/07 1825 DC 05/07 IV 1831 Hydromorphone HCl 1 MG Q6P PRN 05/07 1815 DC IV Hydromorphone HCl 1 MG ONCE ONE 05/07 1515 DC 05/07 IV 05/07 1516 1542 Ipratropium [place] 2.5 ML EVERY 4 HRS/AWAKE 05/05 1600 AC 05/08 INH 0827 Lisinopril 40 MG DAILY 05/03 900 AC 05/08 PO 0748 Melatonin 5 MG AT BEDTIME 05/06 2215 AC 05/07 PO 2151 Methylprednisolone 40 MG Q8 05/08 1400 AC IV Methylprednisolone 40 MG Q6 05/07 1800 DC 05/08 IV 0626 Methylprednisolone 40 MG Q12 05/06 0900 DC 05/07 IV 1050 Montelukast Sodium 10 MG AT BEDTIME 05/06 2100 AC 05/07 PO 2151 Morphine Sulfate 4 MG .STK-MED ONE 05/07 1144 DC IM 05/07 1145 Morphine Sulfate 2 MG Q6P PRN 05/05 1900 DC 05/07 IV 1150 Omeprazole 40 MG DAILY AC 05/03 0700 DC 05/07 PO 0538 Ondansetron HCl 4 MG ONCE ONE 05/08 0445 DC 05/08 IV 05/08 0446 0625 Ondansetron HCl 4 MG Q6P PRN 05/06 1015 DC 05/07 IV 1150 Oxycodone/ 1 TAB Q6P PRN 05/03 0130 AC 05/07 Acetaminophen PO 2157 Pantoprazole Sodium 40 MG BID 05/07 2100 AC 05/08 IV 0748 Pantoprazole Sodium 40 MG DAILY 05/07 1345 DC 05/07 IV 1422 Patient Medication 1 ED ONE ONE 05/07 1730 MS Teaching ED 05/07 1731 Polyethylene Glycol 1 GAL ONCE ONE 05/07 2100 DC 05/07 PO 05/07 2101 2321 Promethazine HCl 25 MG Q4P PRN 05/07 1445 DC 05/07 IM 05/14 1444 1523 Tiotropium [place] 1 PUF DAILY 05/06 1445 AC 05/08 INH 0747 Results Last 48 Hrs of Labs/Mics: Laboratory Tests 05/08/18 0605: CBC w Diff Pending, WBC Pending, RBC Pending, Hgb Pending, Hct Pending, MCV Pending, MCH Pending, MCHC Pending, RDW Pending, Plt Count Pending, MPV Pending, Gran % Pending, Lymphocytes % Pending, Monocytes % Pending, Eosinophils % Pending, Basophils % Pending, Absolute Granulocytes Pending, Absolute Lymphocytes Pending, Absolute Monocytes Pending, Absolute Eosinophils Pending, Absolute Basophils Pending 05/07/18 2315: Lactic Acid 1.8 05/07/18 2015: Lactic Acid 2.5 H, CBC w Diff NO MAN DIFF REQ, RBC 4.20 L, MCV 92.8, MCH 31.2 H, MCHC 33.7, RDW 14.9 H, MPV 9.0, Gran % 91.4 H, Lymphocytes % 4.4 L, Monocytes % 4.2, Eosinophils % 0, Basophils % 0, Absolute Granulocytes 16.3 H, Absolute Lymphocytes 0.8 L, Absolute Monocytes 0.8 H, Absolute Eosinophils 0, Absolute Basophils 0 05/07/18 1340: Anion Gap 12, Estimated GFR > 60, BUN/Creatinine Ratio 22.0, APTT 32, CBC w Diff MAN DIFF ORDERED, RBC 4.45 L, MCV 93.0, MCH 31.3 H, MCHC 33.7, RDW 14.8 H, MPV 8.7, Gran % 93.0 H, Lymphocytes % 3.7 L, Monocytes % 3.3, Eosinophils % 0, Basophils % 0, Absolute Granulocytes 16.7 H, Absolute Lymphocytes 0.7 L, Absolute Monocytes 0.6, Absolute Eosinophils 0, Absolute Basophils 0, Platelet Estimate ADEQUATE, Normocytic RBCs VERIFIED, Normochromic RBCs VERIFIED 05/07/18 0635: CBC w Diff NO MAN DIFF REQ, RBC 4.18 L, MCV 93.1, MCH 31.4 H, MCHC 33.7, RDW 14.8 H, MPV 9.2, Gran % 90.6 H, Lymphocytes % 4.6 L, Monocytes % 4.8, Eosinophils % 0, Basophils % 0, Absolute Granulocytes 16.9 H, Absolute Lymphocytes 0.9 L, Absolute Monocytes 0.9 H, Absolute Eosinophils 0, Absolute Basophils 0 Assessment/Plan Assessment/Plan Assessment: 1. CAD, stable 2. Hypertension, controlled 3. Factor V Leiden deficiency 4. Asthma exacerbation 5. Chest discomfort, likely noncardiac 6. GI bleeding Plan: -Continue current medications -Endoscopy and colonoscopy pending for today -Further plans after the above -Patient will need to follow-up with Dr. Gorman as an outpatient post discharge. Continue telemetry? Yes
[2018-05-08 10:03] LABS: WHITE BLOOD CELL COUNT 17.4 /CUMM (4.8-10.8)
[2018-05-08 11:45] VITALS: BP 164/96
--- NOTE | 2018-05-08 13:14 | Proc Note Endoscopy ---
Endoscopy Procedure Medical History: unchanged (see [facility] consult) Mental Status: alert/oriented Heart/Lung Eval Prior to Sedation: within normal limits Candidate for Sedation? Yes Procedure Date: 05/08/18 Procedure Type: EGD Rn Delivery: Enoc Stokes MD ASA Classification: III Indications: Hematemesis. Instrument: diagnostic gastroscope Meds Received: MAC Patient's Tolerance: good Complications: none Extent Reached: second part of duodenum Procedure: After getting written informed consent the patient was placed in the left lateral decubitus position with pulse oximetry, cardiac monitoring, and supplemental oxygen given. A bite block was inserted and IV sedation was given until the desired effect was achieved. A high definition upper Olympus endoscope was then inserted into the mouth and advanced to the second portion of the duodenum with little difficulty. Retroflexed views and photodocumentation was obtained. Findings: Esophagus: The esophageal mucosa was grossly normal in appearance and there was a normal-appearing Z line at 40 cm from the incisors. Stomach: There was a moderate amount of dark liquid in the stomach, but there was no fresh blood or active bleeding appreciated. The gastric mucosa was normal in appearance and there were no ulcers, erosions, or masses appreciated. Distention and peristalsis of the stomach appeared normal. Retroflexed views revealed a small hiatal hernia and close inspection of the cardia on retroflexed views revealed what appeared to be a subtle Ruma-Mccauley tear that was not actively bleeding. Duodenum: The duodenal bulb, sweep, and folds were grossly normal in appearance. There were no duodenal ulcers and there was bile appreciated in the second portion of the duodenum. Impression: 1. Small hiatal hernia. 2. Suggestion of a subtle Ruma-Mccauley tear. 3. No active upper GI bleeding appreciated. Recommendations: 1. He should be changed to an oral PPI. 2. He should follow an antireflux regimen. 3. He should avoid NSAIDs. 4. Antiemetics should be administered as needed. 5. Will proceed with a colonoscopy now for further evaluation of his rectal bleeding.
--- NOTE | 2018-05-08 13:37 | Proc Note Colonoscopy ---
Colonoscopy Procedure Medical History: unchanged (see [facility] consult) Mental Status: alert/oriented Heart/Lung Eval Prior to Sedation: within normal limits Candidate for Sedation? Yes Date of Last Colonoscopy: 3 months ago at [place] Procedure Date: 05/08/18 Procedure Type: colonoscopy Scales Inspector: Enoc Stokes MD ASA Classification: III Indications: Hematochezia. Instrument (Colonoscope): single channel Meds Received: MAC Patient's Tolerance: good Complications: none Extent Reached: terminal ileum Prep: good Procedure: The risks of a colonoscopy was explained to the patient including, but not limited to, the risks of perforation, bleeding and/or a missed lesion and then written informed consent was obtained. After getting written informed consent the patient was placed in the left lateral decubitus position with pulse oximetry, cardiac monitoring, and supplemental oxygen was given. IV sedation was given until the desired effect was achieved. A rectal exam was performed which was normal. A high definition variable stiffness Olympus colonoscope was then inserted into the anus and advanced to the terminal ileum with little difficulty. Retroflexed views were obtained in both the right colon and rectum and photodocumentation was obtained. Close inspection of the colonic mucosa was performed on insertion and withdrawal of the colonoscope with a withdrawal time that was adequate in length to closely inspect all folds and jonas of the colon. Findings: At 25 cm from the anus were 2 hemoclips placed over normal colonic mucosa. There was no bleeding seen coming from the area that was clipped and the underlying mucosa was normal in appearance. There was some old blood in the distal colon which was able to be irrigated away and there was no reaccumulation of blood after this was done. The remainder the visualized colonic mucosa was grossly unremarkable. There were no polyps, masses, ulcers, other diverticulum, or significant erythematous changes. Retroflexed views in the rectum revealed mildly inflammed small internal hemorrhoids. Retroflexed views in the right colon did not reveal any polyps. The terminal ileum was normal in appearance and there was bile seen coming from the terminal ileum. Impression: 1. 2 hemoclips at 25 cm over normal appearing mucosa without active bleeding. 2. Old blood in the distal colon without active bleeding appreciated. 3. Small internal hemorrhoids. Recommendations: 1. Patient will be transferred back to the medical floor his diet can be advanced as tolerated. 2. There are no absolute GI contraindications to resuming anticoagulation if medically indicated, but would recommend holding his p.m. Lovenox dose tonight and restarting it in the morning. 3. Avoid otc NSAIDs. 4. Notify GI for signs of active overt GI bleeding and if this occurs consideration should be given for a CT angiography followed by an angiogram if it shows active bleeding.
[2018-05-08 14:35] VITALS: BP 148/96
[2018-05-08 18:57] LABS: ABSOLUTE BASOPHIL COUNT 0 /CUMM (0.0-0.2); ABSOLUTE EOSINOPHIL COUNT 0 /CUMM (0.0-0.7); ABSOLUTE GRANULOCYTE CT 19.2 /CUMM (1.4-6.5); ABSOLUTE LYMPH COUNT 0.5 /CUMM (1.2-3.4); ABSOLUTE MONOCYTE COUNT 0.9 /CUMM (0.10-0.60); BASOPHIL % 0 % (0.0-2.0); EOSINOPHIL % 0 % (0-5); HEMATOCRIT 36.9 % (42-52); MEAN CORPUSCULAR HGB 31.1 PG (27.0-31.0); MEAN CORPUSCULAR HGB CONC 33.4 G/DL (33.0-37.0); MEAN CORPUSCULAR VOLUME 93.1 FL (80.0-94.0); MEAN PLATELET VOLUME 9.1 FL (7.4-10.4); PLATELET COUNT 229 /CUMM (130-400); RBC DISTRIBUTION WIDTH 14.4 % (11.5-14.5); RED BLOOD CELL CT 3.96 /CUMM (4.70-6.10); WHITE BLOOD CELL COUNT 20.6 /CUMM (4.8-10.8)
[2018-05-08 19:36] LABS: GRANULOCYTE % 93.3 % (42.2-75.2)
[2018-05-08 22:02] VITALS: BP 174/86
--- NOTE | 2018-05-09 06:58 | PN- Housestaff ---
Iban Muñiz 05/09/18 0657: Subjective Follow-up For: Asthma exacerbation, chest pain, GI bleed Tele-Events Since Last Visit: Patient off telemetry Subjective: Patient seen laying in the bed, not in acute respiratory distress. Still complaining of chest pain, 5 out of 10 and abdominal pain, 7 out of 10. Reports one bloody bowel movement overnight, with continued abdominal pain and nausea, but no vomiting. Patient reports improved shortness of breath, with continued wheezing, nonproductive cough and chest pain, but no palpitations, dizziness or edema. Review of Systems Constitutional: Denies: chills, fever. Cardiovascular: Reports: chest pain. Denies: palpitations, peripheral edema, syncope. Respiratory: Reports: cough, short of breath, sputum production, wheezing. Gastrointestinal: Reports: abdominal pain, bloody stool. Denies: distention, vomiting. Objective Last 24 Hrs of Vital Signs/I&O Vital Signs Date Time Temp Pulse Resp B/P B/P Pulse O2 O2 Flow FiO2 Mean Ox Delivery Rate 05/09 0014 62 94 05/08 2202 98.3 73 17 174/86 94 05/08 2001 Room Air 05/08 1625 96 Room Air 05/08 1435 98.3 81 20 148/96 95 Room Air 05/08 1145 164/96 05/08 0828 96 Room Air Room Air 05/08 0748 160/98 05/08 0745 160/98 Intake & Output 05/09 0800 05/09 0000 05/08 1600 Intake Total 240 Output Total 1 Balance 240 -1 Intake, Oral 240 Output, Stool 1 Patient 133.555 kg Weight Physical Exam General Appearance: Alert, Oriented X3, Cooperative, No Acute Distress Neck: Supple, No JVD, No thryomegaly Cardiovascular: Regular Rate, Normal S1, Normal S2, No Murmurs Lungs: Clear to Auscultation, Wheezes improving, pronounced in upper lung collier but lower lung collier clear Abdomen: Soft, with minimal guarding. Tender in the lower quadrants Neurological: Normal Gait, Normal Speech Extremities: No Clubbing, No Cyanosis, No Edema, No Tenderness/Swelling Vascular: Normal Pulses Current Medications: Current Medications Sig/Theo Start time Last Medication Dose Route Stop Time Status Admin Acetaminophen 650 MG Q6P PRN 05/03 0130 AC PO Albuterol Sulfate 3 ML EVERY 4 HRS/AWAKE 05/03 1651 AC 05/08 INH 2035 Albuterol Sulfate 2 PUF Q6H PRN 05/03 0130 AC 05/06 INH 2204 Atorvastatin Calcium 40 MG 1700 05/03 1700 AC 05/08 PO 1640 Budesonide/ 2 PUF BID 05/07 2100 AC 05/08 Formoterol Fumarate INH 2115 Chlorhexidine 1 GM .STK-MED ONE 05/08 1412 DC Gluconate TOP 05/08 1413 Chlorhexidine 1 GM .STK-MED ONE 05/08 1411 DC Gluconate TOP 05/08 1412 Clopidogrel Bisulfate 75 MG DAILY 05/03 900 AC 05/08 PO 0753 Diltiazem HCl 240 MG DAILY 05/03 900 AC 05/08 PO 0748 Enoxaparin Sodium 120 MG BID 05/09 09 AC SC Escitalopram Oxalate 10 MG DAILY 05/03 900 AC 05/08 PO 0748 Fluticasone 2 SPRAY DAILY 05/06 1441 AC 05/08 Propionate EDMUNDO 0747 Hydromorphone HCl 1 MG Q6-PRN PRN 05/08 1400 AC 05/09 IV 0638 Hydromorphone HCl 1 MG Q4 PRN 05/08 0830 DC 05/08 IV 1201 Hydromorphone HCl 1 MG Q2-3 HRS NEEDED.. 05/08 0030 DC 05/08 IV 0806 Ipratropium [place] 2.5 ML EVERY 4 HRS/AWAKE 05/05 1600 AC 05/08 INH 2035 Lisinopril 40 MG DAILY 05/03 09 AC 05/08 PO 0748 Melatonin 5 MG AT BEDTIME 05/06 2215 AC 05/08 PO 2115 Methylprednisolone 40 MG Q8 05/08 1400 DC IV Methylprednisolone 40 MG 0400,1200,05/08 1200 AC 05/09 IV 0420 Methylprednisolone 40 MG Q6 05/07 1800 DC 05/08 IV 0626 Montelukast Sodium 10 MG AT BEDTIME 05/06 2100 AC 05/08 PO 2115 Ondansetron HCl 4 MG Q6P PRN 05/08 1900 AC 05/09 IV 0638 Oxycodone/ 1 TAB Q6P PRN 05/03 0130 AC 05/08 Acetaminophen PO 1534 Pantoprazole Sodium 40 MG BID 05/07 2100 AC 05/08 IV 2114 Tiotropium [place] 1 PUF DAILY 05/06 1445 AC 05/08 INH 0747 Last 24 Hrs of Lab/Bret Results Last 24 Hrs of Labs/Mics: Laboratory Tests 05/09/18 0650: CBC w Diff Pending, WBC Pending, RBC Pending, Hgb Pending, Hct Pending, MCV Pending, MCH Pending, MCHC Pending, RDW Pending, Plt Count Pending, MPV Pending 05/08/18 1758: CBC w Diff NO MAN DIFF REQ, RBC 3.96 L, MCV 93.1, MCH 31.1 H, MCHC 33.4, RDW 14.4, MPV 9.1, Gran % 93.3 H, Lymphocytes % 2.4 L, Monocytes % 4.3, Eosinophils % 0, Basophils % 0, Absolute Granulocytes 19.2 H, Absolute Lymphocytes 0.5 L, Absolute Monocytes 0.9 H, Absolute Eosinophils 0, Absolute Basophils 0 05/08/18 1400: CBC w Diff Cancelled, WBC Cancelled, RBC Cancelled, Hgb Cancelled, Hct Cancelled , MCV Cancelled, MCH Cancelled, MCHC Cancelled, RDW Cancelled, Plt Count Cancelled, MPV Cancelled Assessment/Plan Assessment: Patient is a 38 year-old male with history of asthma, multiple ICU admissions and intubations. Presented to the emergency department with chest pain radiating to the neck and back on both sides. Patient has a history of multiple GI surgeries, for colitis and diverticulitis, as well as a history of factor V Leiden deficiency for which he is on multiple anticoagulants. In this setting, the patient developed abdominal pain and GI bleed, underwent endoscopy and was found to have hemoclips from prior procedures, internal hemorrhoids and no active bleeding. 38-year-old male with asthma exacerbation and GI bleed 1. Asthma exacerbation Atrovent every 4 hours steroid use 2. GI bleed hematemesis no active bleeding 3. Chest pain Problem List: 1. GI bleed 2. Asthma exacerbation 3. Pleuritic chest pain Pain Ratin Pain Location: Abdomen, chest Pain Goal: Pain 4 or less Pain Plan: IV Dilaudid, PO percocet Tomorrow's Labs & Rationales: None Jennifer Heath MD 05/09/18 1203: Attending MD Review Statement Attending Statement Attending MD Statement: examined this patient, discuss w/resident/PA/ELECTRICAL ASSEMBLY SUPERVISOR, agreed w/resident/PA/ELECTRICAL ASSEMBLY SUPERVISOR, reviewed EMR data (avail), discussed with nursing, discussed with case mgmt, amended to note Attending Assessment/Plan: Patient seen and examined. Resting comfortably not in any acute distress. No issues overnight. EGD and colonoscopy were done yesterday. EGD showed suggestion of subtle Ruma-Mccauley tear. No active bleeding was noted. Small hiatal hernia. Colonoscopy revealed small internal hemorrhoids. Old blood was noted in distal colon without active bleeding. Patient denies any further nausea vomiting. Reports having bowel movement overnight with small stool present. Continues to complain of lower chest discomfort. Although he is resting comfortably and does not appear to be in acute distress. Continues complain of shortness of breath with mobility. On auscultation he continues to have diffuse wheezing. He is hemodynamically stable. He is not requiring oxygen supplementation. He is tolerating CPAP therapy now. Recommendations: -Resume Lovenox which patient is taking due to his history of venous thromboembolism. -Hemoglobin level has been stable we will continue to monitor. -Mobilize patient as tolerated. -Continue bronchodilator therapy. Steroid therapy as recommended by the pulmonology service. He has been transitioned to p.o. -Anticipate discharge home tomorrow. -In the past patient was noted to have bilateral multilobar pulmonary opacities that appear to have increased in prior imaging. CT imaging this admission however appears to show resolution of the previously noted nodules or masses. Recommend outpatient follow-up with his traffic manager.
[2018-05-09 07:15] VITALS: BP 150/70
--- NOTE | 2018-05-09 07:38 | PN- Student ---
Subjective Subjective: This is a 38 year old patient with past medical history of coronary artery disease, status post UT, Right coronary artery stent, paroxsymal atrial fibrillation, factor V Leiden deficiency, DVT, PE, HTN, and asthma. He is being treated for chest pain that is likely pulmonary in origin. Yesterday the patient was sent for endoscopy and colonoscopy. Overnight he had one bowel movement that contained bright red blood, although he reported it was less blood than he had experienced the day prior. He felt his nausea was well controlled by the antiemetics and had not vomited. He still had abdominal pain and chest pain but noted it was less intense than yesterday. He also has been able to move to the bathroom with less shortness of breath. He still has a non productive cough. He notes that he was not able to use the CPAP machine very much last night because it irritated his contact lenses. Objective Objective: Physical Exam: General: Patient was found resting. He was alert and oriented, well spoken, and pleasant. Heart: Regular rate and rhythm. No rubs, murmurs, clicks, or gallops. Lungs: Even thoracic expansion. Bilateral expiratory wheezes, louder in the base. Skin: Warm and dry. No lower extremity edema. Vital Signs Date Time Temp Pulse Resp B/P B/P Pulse O2 O2 Flow FiO2 Mean Ox Delivery Rate 05/09 0808 150/70 05/09 0737 96 Room Air Room Air 05/09 0715 97.8 56 17 150/70 96 05/09 0014 62 94 07 2202 98.3 73 17 174/86 94 05/08 2001 Room Air 05/08 1625 96 Room Air 05/08 1435 98.3 81 20 148/96 95 Room Air 05/08 1145 164/96 Results Results: Laboratory Tests 05/09/18 0650: CBC w Diff NO MAN DIFF REQ, RBC 3.93 L, MCV 92.9, MCH 31.3 H, MCHC 33.7, RDW 14.7 H, MPV 9.4, Gran % 94.1 H, Lymphocytes % 2.3 L, Monocytes % 3.6, Eosinophils % 0, Basophils % 0, Absolute Granulocytes 18.6 H, Absolute Lymphocytes 0.5 L, Absolute Monocytes 0.7 H, Absolute Eosinophils 0, Absolute Basophils 0 05/08/18 1758: CBC w Diff NO MAN DIFF REQ, RBC 3.96 L, MCV 93.1, MCH 31.1 H, MCHC 33.4, RDW 14.4, MPV 9.1, Gran % 93.3 H, Lymphocytes % 2.4 L, Monocytes % 4.3, Eosinophils % 0, Basophils % 0, Absolute Granulocytes 19.2 H, Absolute Lymphocytes 0.5 L, Absolute Monocytes 0.9 H, Absolute Eosinophils 0, Absolute Basophils 0 05/08/18 1400: CBC w Diff Cancelled, WBC Cancelled, RBC Cancelled, Hgb Cancelled, Hct Cancelled , MCV Cancelled, MCH Cancelled, MCHC Cancelled, RDW Cancelled, Plt Count Cancelled, MPV Cancelled 05/08/18 0605: CBC w Diff NO MAN DIFF REQ, RBC 4.01 L, MCV 93.2, MCH 31.5 H, MCHC 33.8, RDW 14.9 H, MPV 9.3, Gran % 93.3 H, Lymphocytes % 4.0 L, Monocytes % 2.7, Eosinophils % 0, Basophils % 0, Absolute Granulocytes 16.2 H, Absolute Lymphocytes 0.7 L, Absolute Monocytes 0.5, Absolute Eosinophils 0, Absolute Basophils 0 05/07/18 2315: Lactic Acid 1.8 05/07/18 2015: Lactic Acid 2.5 H, CBC w Diff NO MAN DIFF REQ, RBC 4.20 L, MCV 92.8, MCH 31.2 H, MCHC 33.7, RDW 14.9 H, MPV 9.0, Gran % 91.4 H, Lymphocytes % 4.4 L, Monocytes % 4.2, Eosinophils % 0, Basophils % 0, Absolute Granulocytes 16.3 H, Absolute Lymphocytes 0.8 L, Absolute Monocytes 0.8 H, Absolute Eosinophils 0, Absolute Basophils 0 05/07/18 1340: Anion Gap 12, Estimated GFR > 60, BUN/Creatinine Ratio 22.0, APTT 32, CBC w Diff MAN DIFF ORDERED, RBC 4.45 L, MCV 93.0, MCH 31.3 H, MCHC 33.7, RDW 14.8 H, MPV 8.7, Gran % 93.0 H, Lymphocytes % 3.7 L, Monocytes % 3.3, Eosinophils % 0, Basophils % 0, Absolute Granulocytes 16.7 H, Absolute Lymphocytes 0.7 L, Absolute Monocytes 0.6, Absolute Eosinophils 0, Absolute Basophils 0, Platelet Estimate ADEQUATE, Normocytic RBCs VERIFIED, Normochromic RBCs VERIFIED 05/07/18 0635: CBC w Diff NO MAN DIFF REQ, RBC 4.18 L, MCV 93.1, MCH 31.4 H, MCHC 33.7, RDW 14.8 H, MPV 9.2, Gran % 90.6 H, Lymphocytes % 4.6 L, Monocytes % 4.8, Eosinophils % 0, Basophils % 0, Absolute Granulocytes 16.9 H, Absolute Lymphocytes 0.9 L, Absolute Monocytes 0.9 H, Absolute Eosinophils 0, Absolute Basophils 0 Assessment/Plan Assessment: Shortness of breath: Patient has a history of asthma/asthma exacerbation. He has been responding to solumedrol, albuterol, ipratropium, budesonide. His O2 saturation has been in the mid 90 percent range on room air. Chest pain: Likely pulmonary etiology for chest pain. Pain appears to be pleuritic in nature and worsened with increased respiratory effort. Unlikely congestive heart failure due to lack of lower extremity edema, no cardiac enlargement seen on CXR, no crackles heard on PE, echocardiogram was largely benign. Unlikely UT due to negative EKG and negative serial troponins. GI bleed: Patient had endoscopy and colonoscopy yesterday. He was noted to have a sohan bernal tear, a small hiatal hernia, and internal hemorrhoids. There were no active bleeds found. Hypercoaguability: Patient has been taken off lovenox for GI scoping. It is important given this patient's history of PE/DVT that he be mobilized as tolerated. We will restart lovenox today. Difficulty with CPAP: Patient has been diagnosed with KRISTI in the past but was unable to obtain a CPAP machine due to insurance difficulties. He now has new insurance and is confident that he could obtain one should he be sent for a sleep study. Plan: Shortness of breath: -Continue current respiratory medications -Solumedrol was made TID -Add Guaifenesin to help with chest congestion. -Outpatient sleep study. Chest pain: -Continue current chest pain management GI bleed: -If bleeding recurs, patient will be sent for CT angiogram to determine location. -Oral PPI -Anti reflux regime -Continue antiemetics Hypercoaguability: -Restart Lovenox Difficulty with CPAP: Notified nurse to the fact that this patient has contact lenses and may need a lense case.
[2018-05-09 08:22] LABS: ABSOLUTE BASOPHIL COUNT 0 /CUMM (0.0-0.2); ABSOLUTE EOSINOPHIL COUNT 0 /CUMM (0.0-0.7); ABSOLUTE GRANULOCYTE CT 18.6 /CUMM (1.4-6.5); ABSOLUTE LYMPH COUNT 0.5 /CUMM (1.2-3.4); ABSOLUTE MONOCYTE COUNT 0.7 /CUMM (0.10-0.60); BASOPHIL % 0 % (0.0-2.0); EOSINOPHIL % 0 % (0-5); HEMATOCRIT 36.5 % (42-52); MEAN CORPUSCULAR HGB 31.3 PG (27.0-31.0); MEAN CORPUSCULAR HGB CONC 33.7 G/DL (33.0-37.0); MEAN CORPUSCULAR VOLUME 92.9 FL (80.0-94.0); MEAN PLATELET VOLUME 9.4 FL (7.4-10.4); PLATELET COUNT 216 /CUMM (130-400); RBC DISTRIBUTION WIDTH 14.7 % (11.5-14.5); RED BLOOD CELL CT 3.93 /CUMM (4.70-6.10); WHITE BLOOD CELL COUNT 19.7 /CUMM (4.8-10.8)
--- NOTE | 2018-05-09 08:39 | PN- Gastroenterology ---
Assessment/Plan GI Assessment/Recommendations: Assessment: Mr. Rae is a 38-year-old male with factor V Leiden deficiency which requires Lovenox as he has breaking through oral anticoagulants who has presented with chest pain and shortness of breath for which she has been ruled out for pulmonary embolus, but since being admitted he has started having recurrent GI bleeding. He underwent an endoscopy and colonoscopy yesterday which showed some old blood in his stomach and colon, but it was negative for active bleeding. He was also noted to have some clips in his colon, but there was no active bleeding or stigmata of recent hemorrhage coming from this site. As most of the blood in his colon was in the distal left colon and as he did not have much in the way of diverticular disease or any red blood proximal to approximately 30 cm from the colon and as he has not had a significant fall in his hemoglobin since the bleeding has started it is possible his bleeding is just from hemorrhoids which may be exacerbated to bleed by the anticoagulation. Recommendations: 1. Would start the patient on Anusol suppositories [place] every 12 hours for now for empiric treatment of hemorrhoidal bleeding. 2. Advance to a high-fiber diet. 3. Would change to an oral PPI twice a day 4. Would notify GI for signs of recurrent over GI bleeding and if he does have recurrent hematochezia with an recommend obtaining a CT angiogram to look for evidence of active bleeding followed by an angiogram if that is positive. If a CT angiogram is pursued and is negative it may then be reasonable to obtain a colorectal surgery consult to consider hemorrhoidal banding. Dr. Bass will resume his GI care in the am. Subjective Subjective: pt still having some rectal bleeding with his bowel movements, but notes it is not as much. he has not had any further vomiting, but he continues to complain of abdominal pain and nausea. he is s/p egd and colon yesterday which showed old blood in his stomach and distal colon, but no active bleeding. Objective Vital Signs and I&Os Vital Signs Date Time Temp Pulse Resp B/P B/P Pulse O2 O2 Flow FiO2 Mean Ox Delivery Rate 05/09 0808 150/70 05/09 0737 96 Room Air Room Air 05/09 0715 97.8 56 17 150/70 96 05/09 0014 62 94 05/08 2202 98.3 73 17 174/86 94 05/08 2001 Room Air 05/08 1625 96 Room Air 05/08 1435 98.3 81 20 148/96 95 Room Air 05/08 1145 164/96 Intake & Output 05/09 1600 05/09 0400 05/08 1600 05/08 0400 05/07 1600 05/07 0400 Intake Total 240 65.5 100 1120 1080 Output Total 1 10 Balance 240 64.5 100 1110 1080 Intake, IV 65.5 20 Intake, Oral 778 270 8220 1080 Number 1 Bowel Movements Output, 10 Emesis Output, Stool 1 Patient 294 lb 296 lb 296 lb Weight Physical Exam General Appearance: well developed/nourished, anxious, mild distress Head: atraumatic Ears, Nose, Throat: normal pharynx Neck: supple Respiratory: normal breath sounds, chest non-tender, no respiratory distress Cardiovascular: regular rate/rhythm Abdomen: normal bowel sounds, soft, tenderness Back: normal inspection Skin: ecchymosis Current Medications: Current Medications Sig/Theo Start time Last Medication Dose Route Stop Time Status Admin Acetaminophen 650 MG Q6P PRN 05/03 0130 AC PO Albuterol Sulfate 3 ML EVERY 4 HRS/AWAKE 05/03 1651 AC 05/09 INH 1203 Albuterol Sulfate 2 PUF Q6H PRN 05/03 0130 AC 05/06 INH 2204 Atorvastatin Calcium 40 MG 1700 05/03 1700 AC 05/08 PO 1640 Budesonide/ 2 PUF BID 05/07 2100 AC 05/09 Formoterol Fumarate INH 0810 Chlorhexidine 1 GM .STK-MED ONE 05/08 1412 DC Gluconate TOP 05/08 1413 Chlorhexidine 1 GM .STK-MED ONE 05/08 1411 DC Gluconate TOP 05/08 1412 Clopidogrel Bisulfate 75 MG DAILY 05/03 900 AC 05/09 PO 0809 Diltiazem HCl 240 MG DAILY 05/03 09 AC 05/09 PO 0808 Enoxaparin Sodium 120 MG BID 05/09 0900 AC 05/09 SC 0810 Escitalopram Oxalate 10 MG DAILY 05/03 0900 AC 05/09 PO 0809 Fluticasone 2 SPRAY DAILY 05/06 1441 AC 05/09 Propionate EDMUNDO 0810 Guaifenesin 600 MG Q12 05/09 1027 AC 05/09 PO 1212 Hydromorphone HCl 1 MG Q6-PRN PRN 05/08 1400 AC 05/09 IV 0939 Hydromorphone HCl 1 MG Q4 PRN 05/08 0830 DC 05/08 IV 1201 Ipratropium [place] 2.5 ML EVERY 4 HRS/AWAKE 05/05 1600 AC 05/09 INH 1203 Lisinopril 40 MG DAILY 05/03 0900 AC 05/09 PO 0808 Melatonin 5 MG AT BEDTIME 05/06 2215 AC 05/08 PO 2115 Methylprednisolone 40 MG Q8 05/08 1400 DC IV Methylprednisolone 40 MG 0400,1200,2000 05/08 1200 AC 05/09 IV 1212 Montelukast Sodium 10 MG AT BEDTIME 05/06 2100 AC 05/08 PO 2115 Ondansetron HCl 4 MG Q6P PRN 05/08 1900 AC 05/09 IV 0638 Oxycodone/ 1 TAB Q6P PRN 05/03 0130 AC 05/09 Acetaminophen PO 1132 Pantoprazole Sodium 40 MG BID 05/07 2100 AC 05/09 IV 0810 Pramoxine/Hydrocort/ 25 MG BID PRN 05/09 0845 AC 05/09 Chloroxylenol [place] 1216 Tiotropium [place] 1 PUF DAILY 05/06 1445 AC 05/09 INH 0810 Results Pertinent Lab Results: Laboratory Tests 05/09 05/08 05/08 0650 1758 1400 Hematology CBC w Diff Pending NO MAN DIFF REQ Cancelled WBC (4.8 - 10.8 /CUMM) Pending 20.6 H Cancelled RBC (4.70 - 6.10 /CUMM) Pending 3.96 L Cancelled Hgb (14.0 - 18.0 G/DL) Pending 12.3 L Cancelled Hct (42 - 52 %) Pending 36.9 L Cancelled MCV (80.0 - 94.0 FL) Pending 93.1 Cancelled MCH (27.0 - 31.0 PG) Pending 31.1 H Cancelled MCHC (33.0 - 37.0 G/DL) Pending 33.4 Cancelled RDW (11.5 - 14.5 %) Pending 14.4 Cancelled Plt Count (130 - 400 /CUMM) Pending 229 Cancelled MPV (7.4 - 10.4 FL) Pending 9.1 Cancelled Gran % (42.2 - 75.2 %) 93.3 H Lymphocytes % (20.5 - 51.1 %) 2.4 L Monocytes % (1.7 - 9.3 %) 4.3 Eosinophils % (0 - 5 %) 0 Basophils % (0.0 - 2.0 %) 0 Absolute Granulocytes (1.4 - 6.5 /CUMM) 19.2 H Absolute Lymphocytes (1.2 - 3.4 /CUMM) 0.5 L Absolute Monocytes (0.10 - 0.60 /CUMM) 0.9 H Absolute Eosinophils (0.0 - 0.7 /CUMM) 0 Absolute Basophils (0.0 - 0.2 /CUMM) 0 05/08 05/07 0605 2315 Chemistry Lactic Acid (0.7 - 2.1 mmol/L) 1.8 Hematology CBC w Diff NO MAN DIFF REQ WBC (4.8 - 10.8 /CUMM) 17.4 H RBC (4.70 - 6.10 /CUMM) 4.01 L Hgb (14.0 - 18.0 G/DL) 12.6 L Hct (42 - 52 %) 37.4 L MCV (80.0 - 94.0 FL) 93.2 MCH (27.0 - 31.0 PG) 31.5 H MCHC (33.0 - 37.0 G/DL) 33.8 RDW (11.5 - 14.5 %) 14.9 H Plt Count (130 - 400 /CUMM) 222 MPV (7.4 - 10.4 FL) 9.3 Gran % (42.2 - 75.2 %) 93.3 H Lymphocytes % (20.5 - 51.1 %) 4.0 L Monocytes % (1.7 - 9.3 %) 2.7 Eosinophils % (0 - 5 %) 0 Basophils % (0.0 - 2.0 %) 0 Absolute Granulocytes (1.4 - 6.5 /CUMM) 16.2 H Absolute Lymphocytes (1.2 - 3.4 /CUMM) 0.7 L Absolute Monocytes (0.10 - 0.60 /CUMM) 0.5 Absolute Eosinophils (0.0 - 0.7 /CUMM) 0 Absolute Basophils (0.0 - 0.2 /CUMM) 0 05/07 1340 Chemistry Sodium (137 - 145 mmol/L) 135 L Potassium (3.5 - 5.1 mmol/L) 4.7 Chloride (98 - 107 mmol/L) 98 Carbon Dioxide (22 - 30 mmol/L) 25 Anion Gap (5 - 16) 12 BUN (9 - 20 mg/dL) 22 H Creatinine (0.7 - 1.2 mg/dL) 1.0 Estimated GFR (>60 ml/min) > 60 BUN/Creatinine Ratio (7 - 25 %) 22.0 Lactic Acid (0.7 - 2.1 mmol/L) 2.5 H Coagulation APTT (25 - 37 SEC) 32 Hematology CBC w Diff NO MAN DIFF REQ MAN DIFF ORDERED WBC (4.8 - 10.8 /CUMM) 17.8 H 18.0 H RBC (4.70 - 6.10 /CUMM) 4.20 L 4.45 L Hgb (14.0 - 18.0 G/DL) 13.1 L 13.9 L Hct (42 - 52 %) 39.0 L 41.4 L MCV (80.0 - 94.0 FL) 92.8 93.0 MCH (27.0 - 31.0 PG) 31.2 H 31.3 H MCHC (33.0 - 37.0 G/DL) 33.7 33.7 RDW (11.5 - 14.5 %) 14.9 H 14.8 H Plt Count (130 - 400 /CUMM) 236 263 MPV (7.4 - 10.4 FL) 9.0 8.7 Gran % (42.2 - 75.2 %) 91.4 H 93.0 H Lymphocytes % (20.5 - 51.1 %) 4.4 L 3.7 L Monocytes % (1.7 - 9.3 %) 4.2 3.3 Eosinophils % (0 - 5 %) 0 0 Basophils % (0.0 - 2.0 %) 0 0 Absolute Granulocytes (1.4 - 6.5 /CUMM) 16.3 H 16.7 H Absolute Lymphocytes (1.2 - 3.4 /CUMM) 0.8 L 0.7 L Absolute Monocytes (0.10 - 0.60 /CUMM) 0.8 H 0.6 Absolute Eosinophils (0.0 - 0.7 /CUMM) 0 0 Absolute Basophils (0.0 - 0.2 /CUMM) 0 0 Platelet Estimate (ADEQUATE) ADEQUATE Normocytic RBCs VERIFIED Normochromic RBCs VERIFIED 05/07 0635 Hematology CBC w Diff NO MAN DIFF REQ WBC (4.8 - 10.8 /CUMM) 18.6 H RBC (4.70 - 6.10 /CUMM) 4.18 L Hgb (14.0 - 18.0 G/DL) 13.1 L Hct (42 - 52 %) 38.9 L MCV (80.0 - 94.0 FL) 93.1 MCH (27.0 - 31.0 PG) 31.4 H MCHC (33.0 - 37.0 G/DL) 33.7 RDW (11.5 - 14.5 %) 14.8 H Plt Count (130 - 400 /CUMM) 215 MPV (7.4 - 10.4 FL) 9.2 Gran % (42.2 - 75.2 %) 90.6 H Lymphocytes % (20.5 - 51.1 %) 4.6 L Monocytes % (1.7 - 9.3 %) 4.8 Eosinophils % (0 - 5 %) 0 Basophils % (0.0 - 2.0 %) 0 Absolute Granulocytes (1.4 - 6.5 /CUMM) 16.9 H Absolute Lymphocytes (1.2 - 3.4 /CUMM) 0.9 L Absolute Monocytes (0.10 - 0.60 /CUMM) 0.9 H Absolute Eosinophils (0.0 - 0.7 /CUMM) 0 Absolute Basophils (0.0 - 0.2 /CUMM) 0
--- NOTE | 2018-05-09 09:07 | PN- Pulmonary ---
Subjective HPI/Critical Care Issues: 24 hour events noted. The patient has had some bloody stool but no emesis. He feels improved from a respiratory perspective. He admits to still feeling short of breath and having ongoing wheezing however he is moving better air and is less dyspneic with significant exertion. He is not expectorating and there is no history of hemoptysis. He denies any fever or chills. He continues to plan complain of abdominal pain and nausea. Objective Current Medications: Current Medications Sig/Theo Start time Last Medication Dose Route Stop Time Status Admin Acetaminophen 650 MG Q6P PRN 05/03 0130 AC PO Albuterol Sulfate 3 ML EVERY 4 HRS/AWAKE 05/03 1651 AC 05/09 INH 0735 Albuterol Sulfate 2 PUF Q6H PRN 05/03 0130 AC 05/06 INH 2204 Atorvastatin Calcium 40 MG 1700 05/03 1700 AC 05/08 PO 1640 Budesonide/ 2 PUF BID 05/07 2100 AC 05/09 Formoterol Fumarate INH 0810 Chlorhexidine 1 GM .STK-MED ONE 05/08 1412 DC Gluconate TOP 05/08 1413 Chlorhexidine 1 GM .STK-MED ONE 05/08 1411 DC Gluconate TOP 05/08 1412 Clopidogrel Bisulfate 75 MG DAILY 05/03 09 AC 05/09 PO 0809 Diltiazem HCl 240 MG DAILY 05/03 900 AC 05/09 PO 0808 Enoxaparin Sodium 120 MG BID 05/09 0900 AC 05/09 SC 0810 Escitalopram Oxalate 10 MG DAILY 05/03 09 AC 05/09 PO 0809 Fluticasone 2 SPRAY DAILY 05/06 1441 AC 05/09 Propionate EDMUNDO 0810 Hydromorphone HCl 1 MG Q6-PRN PRN 05/08 1400 AC 05/09 IV 0638 Hydromorphone HCl 1 MG Q4 PRN 05/08 0830 DC 05/08 IV 1201 Ipratropium [place] 2.5 ML EVERY 4 HRS/AWAKE 05/05 1600 AC 05/09 INH 0735 Lisinopril 40 MG DAILY 05/03 09 AC 05/09 PO 0808 Melatonin 5 MG AT BEDTIME 05/06 2215 AC 05/08 PO 2115 Methylprednisolone 40 MG Q8 05/08 1400 DC IV Methylprednisolone 40 MG 0400,1200,2000 05/08 1200 AC 05/09 IV 0420 Montelukast Sodium 10 MG AT BEDTIME 05/06 2100 AC 05/08 PO 2115 Ondansetron HCl 4 MG Q6P PRN 05/08 1900 AC 05/09 IV 0638 Oxycodone/ 1 TAB Q6P PRN 05/03 0130 AC 05/09 Acetaminophen PO 0808 Pantoprazole Sodium 40 MG BID 05/07 2100 AC 05/09 IV 0810 Pramoxine/Hydrocort/ 25 MG BID PRN 05/09 0845 AC Chloroxylenol [place] Tiotropium [place] 1 PUF DAILY 05/06 1445 AC 05/09 INH 0810 Vital Signs & I&O Last 24 Hrs of Vitals and I&O: Vital Signs Date Time Temp Pulse Resp B/P B/P Pulse O2 O2 Flow FiO2 Mean Ox Delivery Rate 05/09 0808 150/70 05/09 0737 96 Room Air Room Air 05/09 0715 97.8 56 17 150/70 96 05/09 0014 62 94 05/08 2202 98.3 73 17 174/86 94 05/08 2001 Room Air 05/08 1625 96 Room Air 05/08 1435 98.3 81 20 148/96 95 Room Air 05/08 1145 164/96 Intake & Output 05/09 1600 05/09 0800 05/09 0000 Intake Total 240 Output Total Balance 240 Intake, Oral 240 Patient 294 lb Weight Physical Exam General Appearance: well developed/nourished, no distress, alert, awake Head: atraumatic, normal appearance Eyes: Bilateral: PERRL. Neck: supple Respiratory: bilateral course wheezing heard in both lung collier, improved air entry overall Cardiovascular: regular rate/rhythm Gastrointestinal: normal bowel sounds, soft, non-tender Extremities: no edema Skin: intact, normal color, warm/dry Results Last 24 Hrs of Lab Results: Laboratory Tests 05/09/18 0650: CBC w Diff Pending, WBC Pending, RBC Pending, Hgb Pending, Hct Pending, MCV Pending, MCH Pending, MCHC Pending, RDW Pending, Plt Count Pending, MPV Pending, Gran % Pending, Lymphocytes % Pending, Monocytes % Pending, Eosinophils % Pending, Basophils % Pending, Absolute Granulocytes Pending, Absolute Lymphocytes Pending, Absolute Monocytes Pending, Absolute Eosinophils Pending, Absolute Basophils Pending 05/08/18 1758: CBC w Diff NO MAN DIFF REQ, RBC 3.96 L, MCV 93.1, MCH 31.1 H, MCHC 33.4, RDW 14.4, MPV 9.1, Gran % 93.3 H, Lymphocytes % 2.4 L, Monocytes % 4.3, Eosinophils % 0, Basophils % 0, Absolute Granulocytes 19.2 H, Absolute Lymphocytes 0.5 L, Absolute Monocytes 0.9 H, Absolute Eosinophils 0, Absolute Basophils 0 05/08/18 1400: CBC w Diff Cancelled, WBC Cancelled, RBC Cancelled, Hgb Cancelled, Hct Cancelled , MCV Cancelled, MCH Cancelled, MCHC Cancelled, RDW Cancelled, Plt Count Cancelled, MPV Cancelled Impression/Plan Impression/Plan Impression/Plan: 1. Asthma exacerbation with significant ongoing bronchospasm, although this continues to improve overall. The patient will need allergy testing upon discharge. 2. History of abnormal CT of the chest with bilateral multilobar pulmonary opacities with an area of pulmonary consolidation in the left lower lobe on CT dated 03/14/18. There has been interval progression of pulmonary opacities since November 2017 CT scan. The patient then had a CTA on 05/02/18 that showed no evidence of acute or chronic pulmonary embolism as well as clear lung collier with resolution of the previously noted nodules and masses. 3. KRISTI, untreated with any therapy. Now tolerating a few hours of nocturnal AutoPap. 4. Hematemesis/GI bleed - EGD/colonoscopy findings include a small hiatal hernia, subtle Ruma-Mccauley tear, no upper GI bleeding, old blood in the distal colon without active bleeding, and small internal hemorrhoids. 5. Increased leukocytosis, likely related to steroids. No evidence of obvious infection. Recommendations: * Continue nebs q 4 hours. * Continue nocturnal APAP 4-18 cm H20 cm H2O. * Change to prednisone 60 mg daily. * Spiriva 1 inhalation daily. * Continue Symbicort 2 puffs every 12 hours. * Singulair 10 mg daily. * Flonase 2 sprays each nostril at bedtime. * Out patient sleep study to be ordered upon discharge. * Continue to monitor the patient closely for worsening bronchospasm.
--- NOTE | 2018-05-09 09:55 | PN- Cardiology ---
Subjective Subjective: The patient had recent GI bleed for which she has been evaluated by gastroenterology. He had EGD and colonoscopy which revealed old blood in the stomach and distal colon but no active bleeding. He continues to note dull pain in his chest which is increased with inspiration and which has been constant for many days. No palpitations. No orthopnea. No diaphoresis. Shortness of breath is improved Objective Vital Signs and I&Os Vital Signs Date Time Temp Pulse Resp B/P B/P Pulse O2 O2 Flow FiO2 Mean Ox Delivery Rate 05/09 0808 150/70 05/09 0737 96 Room Air Room Air 05/09 0715 97.8 56 17 150/70 96 05/09 0014 62 94 05/08 2202 98.3 73 17 174/86 94 05/08 2001 Room Air 05/08 1625 96 Room Air 05/08 1435 98.3 81 20 148/96 95 Room Air 05/08 1145 164/96 Intake & Output 05/09 1600 05/09 0800 05/09 0000 05/08 1600 05/08 0800 05/08 0000 Intake Total 240 65.5 100 Output Total 1 Balance 240 -1 65.5 100 Intake, IV 65.5 Intake, Oral 240 100 Output, Stool 1 Patient 294 lb Weight Physical Exam: Gen: NAD HEENT: normal Lungs: Scattered wheezes, normal resp. effort Heart: RRR, S1, S2, no murmurs Abdomen: Soft, nontender, no masses Extremities: No clubbing, cyanosis, or edema. Neuro: Alert and oriented x 3, cranial nerves intact Current Medications: Current Medications Sig/Theo Start time Last Medication Dose Route Stop Time Status Admin Acetaminophen 650 MG Q6P PRN 05/03 0130 AC PO Albuterol Sulfate 3 ML EVERY 4 HRS/AWAKE 05/03 1651 AC 05/09 INH 0735 Albuterol Sulfate 2 PUF Q6H PRN 05/03 0130 AC 05/06 INH 2204 Atorvastatin Calcium 40 MG 1700 05/03 1700 AC 05/08 PO 1640 Budesonide/ 2 PUF BID 05/07 2100 AC 05/09 Formoterol Fumarate INH 0810 Chlorhexidine 1 GM .STK-MED ONE 05/08 1412 DC Gluconate TOP 05/08 1413 Chlorhexidine 1 GM .STK-MED ONE 05/08 1411 DC Gluconate TOP 05/08 1412 Clopidogrel Bisulfate 75 MG DAILY 05/03 900 AC 05/09 PO 0809 Diltiazem HCl 240 MG DAILY 05/03 0900 AC 05/09 PO 0808 Enoxaparin Sodium 120 MG BID 05/09 0900 AC 05/09 SC 0810 Escitalopram Oxalate 10 MG DAILY 05/03 900 AC 05/09 PO 0809 Fluticasone 2 SPRAY DAILY 05/06 1441 AC 05/09 Propionate EDMUNDO 0810 Hydromorphone HCl 1 MG Q6-PRN PRN 05/08 1400 AC 05/09 IV 0939 Hydromorphone HCl 1 MG Q4 PRN 05/08 0830 DC 05/08 IV 1201 Ipratropium [place] 2.5 ML EVERY 4 HRS/AWAKE 05/05 1600 AC 05/09 INH 0735 Lisinopril 40 MG DAILY 05/03 09 AC 05/09 PO 0808 Melatonin 5 MG AT BEDTIME 05/06 2215 AC 05/08 PO 2115 Methylprednisolone 40 MG Q8 05/08 1400 DC IV Methylprednisolone 40 MG 0400,1200,2000 05/08 1200 AC 05/09 IV 0420 Montelukast Sodium 10 MG AT BEDTIME 05/06 2100 AC 05/08 PO 2115 Ondansetron HCl 4 MG Q6P PRN 05/08 1900 AC 05/09 IV 0638 Oxycodone/ 1 TAB Q6P PRN 05/03 0130 AC 05/09 Acetaminophen PO 0808 Pantoprazole Sodium 40 MG BID 05/07 2100 AC 05/09 IV 0810 Pramoxine/Hydrocort/ 25 MG BID PRN 05/09 0845 AC Chloroxylenol [place] Tiotropium [place] 1 PUF DAILY 05/06 1445 AC 05/09 INH 0810 Results Last 48 Hrs of Labs/Mics: Laboratory Tests 05/09/18 0650: CBC w Diff Pending, WBC Pending, RBC Pending, Hgb Pending, Hct Pending, MCV Pending, MCH Pending, MCHC Pending, RDW Pending, Plt Count Pending, MPV Pending, Gran % Pending, Lymphocytes % Pending, Monocytes % Pending, Eosinophils % Pending, Basophils % Pending, Absolute Granulocytes Pending, Absolute Lymphocytes Pending, Absolute Monocytes Pending, Absolute Eosinophils Pending, Absolute Basophils Pending 05/08/18 1758: CBC w Diff NO MAN DIFF REQ, RBC 3.96 L, MCV 93.1, MCH 31.1 H, MCHC 33.4, RDW 14.4, MPV 9.1, Gran % 93.3 H, Lymphocytes % 2.4 L, Monocytes % 4.3, Eosinophils % 0, Basophils % 0, Absolute Granulocytes 19.2 H, Absolute Lymphocytes 0.5 L, Absolute Monocytes 0.9 H, Absolute Eosinophils 0, Absolute Basophils 0 05/08/18 1400: CBC w Diff Cancelled, WBC Cancelled, RBC Cancelled, Hgb Cancelled, Hct Cancelled , MCV Cancelled, MCH Cancelled, MCHC Cancelled, RDW Cancelled, Plt Count Cancelled, MPV Cancelled 05/08/18 0605: CBC w Diff NO MAN DIFF REQ, RBC 4.01 L, MCV 93.2, MCH 31.5 H, MCHC 33.8, RDW 14.9 H, MPV 9.3, Gran % 93.3 H, Lymphocytes % 4.0 L, Monocytes % 2.7, Eosinophils % 0, Basophils % 0, Absolute Granulocytes 16.2 H, Absolute Lymphocytes 0.7 L, Absolute Monocytes 0.5, Absolute Eosinophils 0, Absolute Basophils 0 05/07/18 2315: Lactic Acid 1.8 05/07/18 2015: Lactic Acid 2.5 H, CBC w Diff NO MAN DIFF REQ, RBC 4.20 L, MCV 92.8, MCH 31.2 H, MCHC 33.7, RDW 14.9 H, MPV 9.0, Gran % 91.4 H, Lymphocytes % 4.4 L, Monocytes % 4.2, Eosinophils % 0, Basophils % 0, Absolute Granulocytes 16.3 H, Absolute Lymphocytes 0.8 L, Absolute Monocytes 0.8 H, Absolute Eosinophils 0, Absolute Basophils 0 05/07/18 1340: Anion Gap 12, Estimated GFR > 60, BUN/Creatinine Ratio 22.0, APTT 32, CBC w Diff MAN DIFF ORDERED, RBC 4.45 L, MCV 93.0, MCH 31.3 H, MCHC 33.7, RDW 14.8 H, MPV 8.7, Gran % 93.0 H, Lymphocytes % 3.7 L, Monocytes % 3.3, Eosinophils % 0, Basophils % 0, Absolute Granulocytes 16.7 H, Absolute Lymphocytes 0.7 L, Absolute Monocytes 0.6, Absolute Eosinophils 0, Absolute Basophils 0, Platelet Estimate ADEQUATE, Normocytic RBCs VERIFIED, Normochromic RBCs VERIFIED Assessment/Plan Assessment/Plan Assessment: 1. CAD, stable 2. Hypertension, controlled 3. Factor V Leiden deficiency 4. Asthma exacerbation 5. Chest discomfort, likely noncardiac 6. GI bleeding Plan: * Continue current cardiac medications. * Follow up in the office 1 week after discharge * Nuclear stress test to be arranged as outpatient once noncardiac issues stable Continue telemetry? No
[2018-05-09 10:03] LABS: GRANULOCYTE % 94.1 % (42.2-75.2)
[2018-05-09 15:33] VITALS: BP 154/80
[2018-05-09] MEDS ORDERED: SPIRIVA18 MCG INH (16:00)
[2018-05-09] MEDS ORDERED: PREDNISONE10 M2 PO (16:00)
[2018-05-09 22:35] VITALS: BP 150/80
[2018-05-10 06:30] VITALS: BP 140/88
--- NOTE | 2018-05-10 07:39 | Transfer of Care Summary ---
Hospital Course Course Hospital Course: Patient is a 38-year-old male with a past medical history of CAD status post VT and RCA stent, paroxysmal A. fib, factor V Leiden deficiency, DVT, pulmonary embolism s/p IVC filter (failing coumadin and xarelto therapy), and a long history of admissions with chest pain, presented with difficulty breathing and mid epigastric chest pain. The pain was described as 8 out of 10 in intensity, radiated to his neck, sharp in nature, located bilaterally, and reproducible. He described it as feeling like a lot of pressure. He described it felt similar to an VT he had in the past. He did not try any aspirin to relieve the pain, but he did try albuterol inhaler and nebulizer they did not provide much relief. Breathing heavy made it worse. It was acute onset and started in the early afternoon the day prior to admission around 2 PM. This episode was also associated with abdominal pain starting at the umbilical region and moving down to his groin. The episode was associated with diaphoresis, nausea, vomiting, and blurry vision. He denied any fever, chills, cough. Denies any recent travel or any sick contacts. Patient was given one-time dose of nitroglycerin in the ER but denies any improvement in his chest pain. Patient endorses that he is in mild distress when seen by landscape maintenance internship. ER nurse found he had a BP of over 220/106 on monitor at end of H & P interview. Significant Procedures: Patient underwent colonoscopy and endoscopy to investigate GI bleed on May 08 Assessment/Plan: Patient is a 63-year-old male with a history of hypertension, hyperlipidemia, diabetes status post CABG one year ago presenting with lethargy, shortness of breath, vomiting and headache. Patient being treated for acute on chronic exacerbation of CHF 1. Acute CHF exacerbation 2. Dyspnea on exertion 3. Hyponatremia 4. Hypertension 5. Hyperlipidemia 6. Diabetes mellitus with peripheral neuropathy tolerate gabapentin
[2018-05-10 07:50] LABS: ABSOLUTE BASOPHIL COUNT 0 /CUMM (0.0-0.2); ABSOLUTE EOSINOPHIL COUNT 0 /CUMM (0.0-0.7); ABSOLUTE GRANULOCYTE CT 18.6 /CUMM (1.4-6.5); ABSOLUTE LYMPH COUNT 0.4 /CUMM (1.2-3.4); ABSOLUTE MONOCYTE COUNT 1.3 /CUMM (0.10-0.60); BASOPHIL % 0.1 % (0.0-2.0); EOSINOPHIL % 0 % (0-5); HEMATOCRIT 34.6 % (42-52); MEAN CORPUSCULAR HGB 31.3 PG (27.0-31.0); MEAN CORPUSCULAR HGB CONC 33.8 G/DL (33.0-37.0); MEAN CORPUSCULAR VOLUME 92.6 FL (80.0-94.0); MEAN PLATELET VOLUME 9.1 FL (7.4-10.4); RBC DISTRIBUTION WIDTH 15.1 % (11.5-14.5); RED BLOOD CELL CT 3.73 /CUMM (4.70-6.10); WHITE BLOOD CELL COUNT 20.4 /CUMM (4.8-10.8)
[2018-05-10 07:58] VITALS: BP 140/88
--- NOTE | 2018-05-10 08:28 | PN- Pulmonary ---
Subjective HPI/Critical Care Issues: The patient is feeling significantly improved. He has minimal shortness of breath, and is no longer wheezing. He slept well. He denies any chest pain, nausea, vomiting, fever or chills. There is no report of bleeding. He feels well enough to go home. He denies any new complaints today whatsoever. Objective Current Medications: Current Medications Sig/Theo Start time Last Medication Dose Route Stop Time Status Admin Acetaminophen 650 MG Q6P PRN 05/03 0130 AC PO Albuterol Sulfate 3 ML EVERY 4 HRS/AWAKE 05/03 1651 AC 05/10 INH 0824 Albuterol Sulfate 2 PUF Q6H PRN 05/03 0130 AC 05/06 INH 2204 Atorvastatin Calcium 40 MG 1700 05/03 1700 AC 05/09 PO 1739 Budesonide/ 2 PUF BID 05/07 2100 AC 05/10 Formoterol Fumarate INH 0758 Clopidogrel Bisulfate 75 MG DAILY 05/03 09 AC 05/10 PO 0758 Diltiazem HCl 240 MG DAILY 05/03 09 AC 05/10 PO 0757 Enoxaparin Sodium 120 MG BID 05/09 0900 AC 05/10 SC 0759 Escitalopram Oxalate 10 MG DAILY 05/03 09 AC 05/10 PO 0757 Fluticasone 2 SPRAY DAILY 05/06 1441 AC 05/10 Propionate EDMUNDO 0807 Guaifenesin 600 MG Q12 05/09 1027 AC 05/10 PO 0758 Hydromorphone HCl 1 MG Q6-PRN PRN 05/08 1400 AC 05/10 IV 0757 Ipratropium [place] 2.5 ML EVERY 4 HRS/AWAKE 05/05 1600 AC 05/10 INH 0824 Lisinopril 40 MG DAILY 05/03 0900 AC 05/10 PO 0758 Melatonin 5 MG AT BEDTIME 05/06 2215 AC 05/08 PO 2115 Methylprednisolone 40 MG 0400,1200,2000 05/08 1200 DC 05/09 IV 1212 Montelukast Sodium 10 MG AT BEDTIME 05/06 2100 AC 05/09 PO 2004 Ondansetron HCl 4 MG .STK-MED ONE 05/09 195 DC IM 05/09 195 Ondansetron HCl 4 MG .STK-MED ONE 05/09 1342 DC IM 05/09 1343 Ondansetron HCl 4 MG Q6P PRN 05/08 1900 AC 05/10 IV 0757 Oxycodone/ 1 TAB Q6P PRN 05/10 0700 AC 05/10 Acetaminophen PO 0659 Oxycodone/ 1 TAB Q6P PRN 05/03 0130 DC 05/09 Acetaminophen PO 1739 Pantoprazole Sodium 40 MG BID 05/07 2100 AC 05/10 IV 0758 Pramoxine/Hydrocort/ 25 MG BID PRN 05/09 0845 AC 05/09 Chloroxylenol [place] 1216 Prednisone 60 MG DAILY 05/10 0900 AC 05/10 PO 0758 Tiotropium [place] 1 PUF DAILY 05/06 1445 AC 05/10 INH 0807 Vital Signs & I&O Last 24 Hrs of Vitals and I&O: Vital Signs Date Time Temp Pulse Resp B/P B/P Pulse O2 O2 Flow FiO2 Mean Ox Delivery Rate 05/10 0758 98.0 66 20 140/88 05/10 0630 98.0 58 20 140/88 96 Room Air 05/10 0027 73 96 05/09 2235 98.8 68 18 150/80 96 Room Air 05/09 1802 96 Room Air Room Air 05/09 1600 Room Air 05/09 1533 98.3 74 20 154/80 96 Intake & Output 05/10 1600 05/10 0800 05/10 0000 Intake Total 260 200 Output Total Balance 260 200 Intake, IV 20 Intake, Oral 240 200 Patient 303 lb 294 lb Weight Weight Bed scale Bed scale Measurement Method Physical Exam General Appearance: well developed/nourished, no distress, alert, awake Head: atraumatic, normal appearance Eyes: Bilateral: PERRL. Neck: supple Respiratory: faint wheezing heard, improved air entry overall Cardiovascular: regular rate/rhythm Gastrointestinal: normal bowel sounds, soft, non-tender Extremities: no edema Skin: intact, normal color, warm/dry Results Last 24 Hrs of Lab Results: Laboratory Tests 05/10/18 0626: CBC w Diff Pending, WBC Pending, RBC Pending, Hgb Pending, Hct Pending, MCV Pending, MCH Pending, MCHC Pending, RDW Pending, Plt Count Pending, MPV Pending, Gran % Pending, Lymphocytes % Pending, Monocytes % Pending, Eosinophils % Pending, Basophils % Pending, Absolute Granulocytes Pending, Absolute Lymphocytes Pending, Absolute Monocytes Pending, Absolute Eosinophils Pending, Absolute Basophils Pending Impression/Plan Impression/Plan Impression/Plan: 1. Asthma exacerbation with improved bronchospasm. The patient will need allergy testing upon discharge. 2. History of abnormal CT of the chest with bilateral multilobar pulmonary opacities, resolved on current CTA. 3. KRISTI, untreated with any therapy. Now tolerating a few hours of nocturnal AutoPap. 4. Hematemesis/GI bleed - EGD/colonoscopy findings include a small hiatal hernia, subtle Ruma-Mccauley tear, no upper GI bleeding, old blood in the distal colon without active bleeding, and small internal hemorrhoids. 5. Increased leukocytosis, likely related to steroids. No evidence of obvious infection. Recommendations: * Prednisone 60 mg daily, will taper slowly. * Spiriva 1 inhalation daily. * Continue Symbicort 2 puffs every 12 hours. * Pro Air rescue inhaler/nebulizer treatments at home. * Singulair 10 mg daily. * Flonase 2 sprays each nostril at bedtime. * Out patient sleep study will be ordered upon discharge. * For discharge as per primary team.
[2018-05-10] MEDS ORDERED: ANUSOL-HC25 M1 PR ×2 (08:38→09:58)
[2018-05-10] MEDS ORDERED: FLUTICASONE PRO16 GM NAS ×2 (08:38→09:58)
[2018-05-10 09:18] LABS: GRANULOCYTE % 91.5 % (42.2-75.2); PLATELET COUNT 207 /CUMM (130-400)
--- NOTE | 2018-05-10 09:27 | Discharge Summary ---
Visit Information Visit Dates Admission Date: 05/04/18 Discharge Date: 05/10/18 Hospital Course Course Attending Physician: MD Kumar Primary Care Physician: Patient Has No Primary Care Dr, referred to Dr. Morton Hospital Course: Patient is a 38-year-old male with a past medical history of CAD status post VT and RCA stent, paroxysmal A. fib, factor V Leiden deficiency, DVT, pulmonary embolism s/p IVC filter (failing coumadin and xarelto therapy), and a long history of admissions with chest pain, presented with difficulty breathing and mid epigastric chest pain. The pain was described as 8 out of 10 in intensity, radiated to his neck, sharp in nature, located bilaterally, and reproducible. He described it as feeling like a lot of pressure. He described it felt similar to an VT he had in the past. He did not try any aspirin to relieve the pain, but he did try albuterol inhaler and nebulizer they did not provide much relief. Breathing heavy made it worse. It was acute onset and started in the early afternoon the day prior to admission around 2 PM. This episode was also associated with abdominal pain starting at the umbilical region and moving down to his groin. The episode was associated with diaphoresis, nausea, vomiting, and blurry vision. He denied any fever, chills, cough. Denies any recent travel or any sick contacts. Patient was given one-time dose of nitroglycerin in the ER but denies any improvement in his chest pain. Patient endorses that he is in mild distress when seen by recruitment internship. ER nurse found he had a BP of over 220/106 on monitor at end of H & P interview. Asthma exacerbation/Chest pain After admission the patient's troponins were found to be negative, and no EKG changes were noted. Upon further examination, the patient's chest pain was found to be pleuritic in nature. This accompanied patient's extensive asthma history, as well as his current shortness of breath and wheezing. Pulmonology was consulted with Dr. Aponte with recommendations for [id number] nebulizer treatments, IV steroids, as well as CPAP for undiagnosed sleep apnea. Gradually, the patient's asthma symptoms began to improve and he was prepared for discharge with a tapering dose of oral steroids, as well as Spiriva and fluticasone. GI bleed In the setting of the patient's history of factor V Leiden status post IVC filter, the patient was continued on anticoagulants after PE was ruled out. While on his home doses of Lovenox and Plavix, the patient experienced an episode of bright red blood per rectum, accompanied shortly by nausea, abdominal pain and hematemesis. H&H were followed and found to be stable even after the bleeding episode until discharge. And GI was consulted for endoscopy and colonoscopy. Endoscopy and colonoscopy found surgical clips in the distal colon , likely from the patient's prior history of diverticulitis and colitis with prior intervention, as well as small internal hemorrhoids. As no active bleeding was found upon GI colonoscopy, the patient was restarted on Lovenox with instructions to follow-up as an outpatient for possible banding of the internal hemorrhoids and instructions to return to the emergency room if a large amount of bleeding occurred. Allergies: Coded Allergies: Iodinated Contrast- Oral and IV Dye (ANAPHYLAXIS 12/23/17) haloperidol (HIVES 12/23/17) ketorolac (From TORADOL) (HIVES, RASH 12/23/17) meperidine (From DEMEROL) (HIVES 12/23/17) milk (LACTOSE INTOLERANT 12/23/17) shellfish derived (ANAPHYLAXIS 12/23/17) Significant Procedures: Patient underwent colonoscopy and endoscopy to investigate GI bleed on May 08 Disposition Summary Disposition Principal Diagnosis: Acute asthma exacerbation Additional Diagnosis: GI bleed Discharge Disposition: home or self care Discharge Instructions General Discharge Information Code Status: Full Code Patient's Diet: Regular diet Patient's Activity: Self-limited, activity as tolerated Follow-Up Instructions/Appts: Patient to follow-up with Dr. Morton, Dr. Aponte, Dr. Gorman, Dr. Stokes and Dr. Gill, please call for appointments to be seen within 1 week of discharge. Medications at Discharge Discharge Medications: Continue taking these medications: Albuterol Sulfate (Proair Hfa) 90 MCG HFA.AER.AD 2 Puff Inhale through mouth Q6H as needed for WHEEZING Qty = 9 Comments: NOT GIVIN IN HOSPITAL Lisinopril (Lisinopril) 40 MG TABLET 1 Tablet ORAL DAILY Qty = 30 Comments: Last Taken:05/10/18 Time:0836 Atorvastatin Calcium (Atorvastatin Calcium) 40 MG TABLET 1 Tablet ORAL DAILY Qty = 30 Comments: Last Taken:05/09/18 Time: 5PM Pantoprazole Sodium (Pantoprazole Sodium) 40 MG TABLET.DR 1 Tablet ORAL DAILY Qty = 30 Comments: GIVEN IV NOT TABLET Last Taken:05/10/18 Time:0830 Hydrochlorothiazide (Hydrochlorothiazide) 12.5 MG CAPSULE 1 Capsule ORAL DAILY Qty = 30 Comments: NOT GIVEN Fluticasone-Salmeterol (Advair 100-50 Diskus) 100 MCG-50 MCG/DOSE BLST.W.DEV 1 Puff Inhale through mouth TWICE DAILY Qty = 60 Comments: Last Taken:05/10/18 GIVEN SYMBICORT Time:0900 Escitalopram Oxalate (Escitalopram Oxalate) 10 MG TABLET 1 Tablet ORAL DAILY Qty = 30 Comments: Last Taken:05/10/18 Time:0830 Diltiazem HCl (Cardizem Cd) 240 MG CAP.ER.24H 1 Capsule ORAL DAILY Qty = 30 Comments: Last Taken:05/10/18 Time:0900 Clopidogrel Bisulfate (Clopidogrel) 75 MG TABLET 1 Tablet ORAL DAILY Qty = 30 Comments: Last Taken:05/10/18 Time:0930 Enoxaparin Sodium (Enoxaparin Sodium) 120 MG/0.8 ML SYRINGE 120 Milligram Inject into fatty tissue TWICE DAILY Qty = 8 Comments: Last Taken:05/10/18 Time:9AM Start taking the following new medications: Anusol Hc (Anusol-Hc) 25 MG SUPP.RECT 25 Milligram RECTALLY TWICE DAILY as needed for BLEEDING Qty = 14 No Refills Instructions: 2 SUPPOSITORIES DAILY PRN RECTAL BLEEDING . Comments: NOT GIVEN Prednisone (Prednisone) 10 MG TABLET 1 Tablet ORAL DAILY Qty = 18 No Refills Instructions: . Comments: PLEASE TAKE 6 TAB ON 05/11 PLEASE TAKE 4 TAB ON 05/12-05/13 PLESE TAKE 2 TAB ON 05/14-05/15 Fluticasone Propionate (Fluticasone Propionate) 50 MCG/ACTUATION SPRAY.SUSP 2 [place] In the nose DAILY Qty = 1 No Refills Instructions: . Comments: Last Taken:05/10/18 Time:8AM Oxycodone HCl/Acetaminophen (Percocet 5-325 MG Tablet) 5 MG-325 MG TABLET 1 Tablet ORAL EVERY 6 HOURS NEEDED as needed for PAIN SCALE 7-10 (SEVERE) Qty = 10 No Refills Instructions: . Comments: Last Taken:05/10/18 Time:7AM Tiotropium [place] (Spiriva) 18 MCG CAP.W.DEV 1 Puff Inhale through mouth DAILY Qty = 1 No Refills Instructions: . Comments: Last Taken:05/10/18 Time:8AM Copies To: Erinn Morton DO; Christiano Gill Jr., DO; Tyree Aponte MD; Enoc Stokes MD; Darnell Gorman MD Attending MD Review Statement Documenting Attending: Jennifer Heath MD Other Findings: Discharged in stable condition. NOT GIVEN Prednisone (Prednisone) 10 MG TABLET 1 Tablet ORAL DAILY Qty = 18 No Refills Instructions: . Comments: PLEASE TAKE 6 TAB ON 05/11 PLEASE TAKE 4 TAB ON 05/12-05/13 [place]ESE TAKE 2 TAB ON 05/14-05/15 Fluticasone Propionate (Fluticasone Propionate) 50 MCG/ACTUATION SPRAY.SUSP 2 [place] In the nose DAILY Qty = 1 No Refills Instructions: . Comments: Last Taken:05/10/18 Time:8AM Oxycodone HCl/Acetaminophen (Percocet 5-325 MG Tablet) 5 MG-325 MG TABLET 1 Tablet ORAL EVERY 6 HOURS NEEDED as needed for PAIN SCALE 7-10 (SEVERE) Qty = 10 No Refills Instructions: . Comments: Last Taken:05/10/18 Time:7AM Tiotropium [place] (Spiriva) 18 MCG CAP.W.DEV 1 Puff Inhale through mouth DAILY Qty = 1 No Refills Instructions: . Comments: Last Taken:05/10/18 Time:8AM Copies To: Erinn Morton DO; Christiano Gill Jr., DO; Tyree Aponte MD; Enoc Stokes MD; Darnell Gorman MD
[2018-05-10] MEDS ORDERED: PERCOCET 5-3251 EACH PO ×2 (09:56→09:58)
[2018-05-10] MEDS ORDERED: SPIRIVA18 MCG INH (09:58)
[2018-05-10] MEDS ORDERED: PREDNISONE10 M2 PO (09:58)
--- NOTE | 2018-05-10 10:21 | PN- Att Addend ---
Attending Addendum Attending Brief Note Patient seen and examined. Resting comfortably not in any acute distress. No issues overnight. He reports feeling better compared to presentation. He is afebrile hemodynamically stable. He is not requiring oxygen supplementation at rest or with activity. On examination he continues to have bilateral wheezing however he does have improved air entry bilaterally. He continues to report lower chest discomfort and is requesting analgesic medication for discharge. He has had no bloody bowel movements overnight. Patient is medically stable to be discharged home today. He will be discharged on a prednisone taper. He is to continue his rescue inhalers as well as Maintenance therapy with Advair. Spiriva is been added to his regimen. He has been provided with a suppository for his hemorrhoids and has been asked to follow-up with the colorectal service should he require in the future. He is in agreement with this plan.
--- NOTE | 2018-05-10 11:46 | PN- Housestaff ---
Subjective Follow-up For: Asthma exacerbation, chest pain, GI bleed Tele-Events Since Last Visit: Patient off tele Subjective: Patient seen resting comfortably in the bed. Overnight no acute events. Reports that shortness of breath has improved, and patient is ambulating to the bathroom without dyspnea. Patient still reports mild chest pain, as well as abdominal pain but says that the suppository tablets have helped with the rectal /hemorrhoidal bleeding. Denies palpitations, dizziness, fever or chills. Review of Systems Constitutional: Denies: chills, diaphoresis, fever. Cardiovascular: Reports: chest pain. Denies: palpitations, peripheral edema. Respiratory: Reports: cough, short of breath, wheezing. Gastrointestinal: Denies: abdominal pain, nausea, vomiting. Objective Last 24 Hrs of Vital Signs/I&O Vital Signs Date Time Temp Pulse Resp B/P B/P Pulse O2 O2 Flow FiO2 Mean Ox Delivery Rate 05/10 0826 98 Room Air Room Air 05/10 0758 98.0 66 20 140/88 05/10 0630 98.0 58 20 140/88 96 Room Air 05/10 0027 73 96 05/09 2235 98.8 68 18 150/80 96 Room Air 05/09 1802 96 Room Air Room Air 05/09 1600 Room Air 05/09 1533 98.3 74 20 154/80 96 Intake & Output 05/10 1600 05/10 0800 05/10 0000 Intake Total 260 200 Output Total Balance 260 200 Intake, IV 20 Intake, Oral 240 200 Patient 137.524 kg 133.47 kg Weight Weight Bed scale Bed scale Measurement Method Physical Exam General Appearance: Alert, Oriented X3, Cooperative, No Acute Distress Neck: Supple, No JVD, No thryomegaly Cardiovascular: Regular Rate, Normal S1, Normal S2, No Murmurs Lungs: Wheezes in the upper lung collier Abdomen: Tenderness in the lower quadrants Neurological: Normal Gait, Normal Speech, Strength at 5/5 X4 Ext, Normal Tone, Sensation Intact Extremities: No Clubbing, No Cyanosis, No Edema Current Medications: Current Medications Sig/Theo Start time Last Medication Dose Route Stop Time Status Admin Acetaminophen 650 MG Q6P PRN 05/03 0130 DCD PO Albuterol Sulfate 3 ML EVERY 4 HRS/AWAKE 05/03 1651 DCD 05/10 INH 0824 Albuterol Sulfate 2 PUF Q6H PRN 05/03 0130 DCD 07 INH 2204 Atorvastatin Calcium 40 MG 1700 07 1700 DCD 05/09 PO 1739 Budesonide/ 2 PUF BID 05/07 2100 DCD 05/10 Formoterol Fumarate INH 0758 Clopidogrel Bisulfate 75 MG DAILY 05/03 900 DCD 05/10 PO 0758 Diltiazem HCl 240 MG DAILY 05/03 900 DCD 05/10 PO 0757 Enoxaparin Sodium 120 MG BID 05/09 09 DCD 05/10 SC 0759 Escitalopram Oxalate 10 MG DAILY 05/03 900 DCD 05/10 PO 0757 Fluticasone 2 SPRAY DAILY 05/06 1441 DCD 05/10 Propionate EDMUNDO 0807 Guaifenesin 600 MG Q12 05/09 1027 DCD 05/10 PO 0758 Hydromorphone HCl 1 MG Q6-PRN PRN 05/08 1400 DCD 05/10 IV 0757 Ipratropium [place] 2.5 ML EVERY 4 HRS/AWAKE 05/05 1600 DCD 05/10 INH 0824 Lisinopril 40 MG DAILY 05/03 900 DCD 05/10 PO 0758 Melatonin 5 MG AT BEDTIME 05/06 2215 DCD 05/08 PO 2115 Methylprednisolone 40 MG 0400,1200,05/08 1200 DC 05/09 IV 1212 Montelukast Sodium 10 MG AT BEDTIME 05/06 2100 DCD 05/09 PO 2005 Ondansetron HCl 4 MG .STK-MED ONE 05/10 0202 DC IM 05/10 0203 Ondansetron HCl 4 MG .STK-MED ONE 05/09 1953 DC IM 05/09 1954 Ondansetron HCl 4 MG .STK-MED ONE 05/09 1342 DC IM 05/09 1343 Ondansetron HCl 4 MG Q6P PRN 05/08 1900 DCD 05/10 IV 0757 Oxycodone/ 1 TAB Q6P PRN 05/10 0700 DCD 05/10 Acetaminophen PO 0659 Oxycodone/ 1 TAB Q6P PRN 05/03 0130 DC 05/09 Acetaminophen PO 1739 Pantoprazole Sodium 40 MG BID 05/07 2100 DCD 05/10 IV 0758 Pramoxine/Hydrocort/ 25 MG BID PRN 05/09 0845 DCD 05/09 [place]loroxylenol [place] 1216 Prednisone 60 MG DAILY 05/10 0900 DCD 05/10 PO 0758 Tiotropium [place] 1 PUF DAILY 05/06 1445 DCD 05/10 INH 0807 Last 24 Hrs of Lab/Bret Results Last 24 Hrs of Labs/Mics: Laboratory Tests 05/10/18 0626: CBC w Diff NO MAN DIFF REQ, RBC 3.73 L, MCV 92.6, MCH 31.3 H, MCHC 33.8, RDW 15.1 H, MPV 9.1, Gran % 91.5 H, Lymphocytes % 2.1 L, Monocytes % 6.3, Eosinophils % 0, Basophils % 0.1, Absolute Granulocytes 18.6 H, Absolute Lymphocytes 0.4 L, Absolute Monocytes 1.3 H, Absolute Eosinophils 0, Absolute Basophils 0 Assessment/Plan Assessment: Patient is a 38 year-old male with history of asthma, multiple ICU admissions and intubations. Presented to the emergency department with chest pain radiating to the neck and back on both sides. Patient has a history of multiple GI surgeries, for colitis and diverticulitis, as well as a history of factor V Leiden deficiency for which he is on multiple anticoagulants. In this setting, the patient developed abdominal pain and GI bleed, underwent endoscopy and was found to have hemoclips from prior procedures, internal hemorrhoids and no active bleeding. 38-year-old male with asthma exacerbation and GI bleed 1. Asthma exacerbation Atrovent every 4 hours steroid taper 2. GI bleed but no hematemesis no active bleeding 3. Chest pain Problem List: 1. GI bleed 2. Asthma exacerbation 3. Pleuritic chest pain Pain Ratin Pain Location: abdomen, chest Pain Goal: Pain 4 or less Pain Plan: percocet prn daily Tomorrow's Labs & Rationales: none
== END 2018-05-10 11:29 | DRG 141 ==
LOC: ERH 15:48 → ERHI 23:34 → ENRESERV 05-03 13:45 → ENTRNSPT 05-03 15:09 → EDTRNSPTSTS 05-03 15:29 → EDTRNSPT 05-03 15:29 → 1NO 05-03 15:45 → CMPTRNSPT 05-03 16:01 → 1NO 05-04 16:21 → ENTRNSPT 05-09 21:41 → EDTRNSPTSTS 05-09 21:52 → 2NA 05-09 22:13 → CMPTRNSPT 05-09 22:26 → 2NA 05-10 07:55 → ENPENDDIS 05-10 10:02 → 2NA 05-10 10:22 → CMPTRNSPT 05-10 12:44
PROVIDERS: Internal Medicine; Physician Assistant Medical; Student in an Organized Health Care Education/Training Program
PROC: 0DJD8ZZ Inspection of Lower Intestinal Tract, Via Natural or Artificial Opening Endoscopic (ICD-10-PCS; principal; 2018-05-08)
PROC: 0DJ08ZZ Inspection of Upper Intestinal Tract, Via Natural or Artificial Opening Endoscopic (ICD-10-PCS; 2018-05-08)
DX: J45.901 Unspecified asthma with (acute) exacerbation (principal); I16.0 Hypertensive urgency; R07.9 Chest pain, unspecified; I25.10 Atherosclerotic heart disease of native coronary artery without angina pectoris; Z95.5 Presence of coronary angioplasty implant and graft; R00.0 Tachycardia, unspecified; D68.2 Hereditary deficiency of other clotting factors; E66.9 Obesity, unspecified; Z68.41 Body mass index [BMI] 40.0-44.9, adult; R00.1 Bradycardia, unspecified; I25.2 Old myocardial infarction; Z98.61 Coronary angioplasty status; I48.0 Paroxysmal atrial fibrillation; D68.51 Activated protein C resistance; Z95.9 Presence of cardiac and vascular implant and graft, unspecified; Z88.8 Allergy status to other drugs, medicaments and biological substances; Z91.041 Radiographic dye allergy status; Z79.01 Long term (current) use of anticoagulants; Z79.51 Long term (current) use of inhaled steroids; Z90.79 Acquired absence of other genital organ(s); Z86.718 Personal history of other venous thrombosis and embolism; G47.33 Obstructive sleep apnea (adult) (pediatric); R91.1 Solitary pulmonary nodule; Z88.0 Allergy status to penicillin; Z86.73 Personal history of transient ischemic attack (TIA), and cerebral infarction without residual deficits; D68.59 Other primary thrombophilia; K64.8 Other hemorrhoids; K92.2 Gastrointestinal hemorrhage, unspecified
CPT/HCPCS: 1NP; 2NAP; 36592; 71045; 71046; 74018; 74021; 74177; 81003; 82436; 93005; 93010; 93306; 96374; 96375; 96376; 99291; J0131; J0500; J1200; J1650; J2405; J2550; J2920; J2930; J3490